=== PATIENT | male | born 1950 | race Caucasian/White ===

== ENCOUNTER → 2021-01-09 07:24 | Outpatient (REF) | payer MEDICARE, OTHER, SELFPAY | LOC: ANHLAB 07:24 | PROVIDERS: Visit Provider Nurse Practitioner | DX: C44.42 Squamous cell carcinoma of skin of scalp and neck (principal) | CPT/HCPCS: 88305; 88331 ==

== ENCOUNTER 2024-07-26 10:04 | Emergency (ER) | payer MEDICARE, OTHER, SELFPAY ==
[2024-07-26 10:04] VITALS: BP 153/70; PULSE 76; RESP 16; TEMP 36.4; O2SAT 99
--- OUTSIDE RECORDS SUMMARY | 2024-07-26 10:06 | XMS_ITS | Continuity of Care Document ---
Author Name [facility] Organization [facility] Care Team Providers Care Loop Tacker Name Role Phone [facility] Unavailable Unavailable Problems Combined list of problems from Department of Defense and Veterans Affairs facilities. It does not include entries that were removed or entered in error. Problem Status Onset Date Problem Type Date of Resolution Comments Source Underimmunization status Active 05/20/19 18 Condition DoD Prediabetes Active Condition DoD itching (pruritus) Inactive Condition Do D GASTROENTERITIS Active Condition DoD HEMORRHOIDS EXTERNAL Active Condition D oD SORE THROAT Inactive Condition DoD Outpatient Physician Consultation Active Condition DoD (Lower) Leg Localized Swelling Active Condition DoD skin lesion [Sx] Inactive Condition DoD snoring Active Condition DoD cough Active Condition DoD Laboratory Studies Inactive Condition Do D sore throat Inactive Condition DoD CATARACT SENILE BOTH EYES Active Condition DoD ASTIGMATISM Active Condition 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 Recommend stretching prior to exercise, drink plenty of water, protect from sun and heat exposure, and do treadmill stress. Will check CBC and ESR for evidence of rhuematoid arthritis, though this is not likely. [facility] Occupational Therapy Active Condition D oD joint pain, localized in the shoulder Active Condition Today's complaint is involves the RIGHT shoulder. (MRI of left shoulder is pending and is a separate problem.) Suggest pt try OTC Aleve or generic equiv and take 2 po q 6-8 hours w/ food. And use Ice of Heat as well. He could also possibly benefit from a joint injection or eval for accupuncture. He is more interested in the injection. DoD SHOULDER SPRAIN ROTATOR CUFF (CAPSULE) LEFT Active Condition I suspec t a minor left shoulder rotator cuff sprain, will start motrin for pain control and send pt to Physical therapy [facility] UPPER RESPIRATORY INFECTION Active Condition Pt with likely viral URI. Low grade temp. No sore throat. No generalized aches. Cont current supportive care with Robitussin and Nyquil. Wear mask if coughing around grandchild and frequent hand washings. Use humidifier at night. Return to clinic if fever >102, purulent sputum, wheezing or SOB. F/u prn. DoD abdominal pain in the right upper belly (RUQ) Active Condition Not surgical in nature, suspect early gallbladder pathology however, given low severity of sx, educated pt on proper diet and exercise. Informed pt if we get scan, surg is not indicated as sx are not severe enough. Pt to RTC if sx worsen, pt verb understanding . 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 Since patient has history of poor skin cancer precautions adherence, will send to dermatology for skin check. DoD TENDONITIS SHOULDER Active Condition PT and motrin. f/u n 4 weeks or sooner with concerns DoD SHOULDER SEPARATION CLOSED ACROMIOCLAVICULAR JOINT Active Condition Will reevaluate rt AC joint since it continues to cause him pain. In the past the ortho doc he was seeing suggested surgery. check x rays DoD IMPAIRED FASTING GLUCOSE Active Condition Due to recent normal A1Cs, will have trial of stopping metformin for 3 mos and increasing physical activity. If A1C elevates, consider restarting metformin DoD foot pain (soft tissue) Inactive Condition may be a sign of DM. will check for stress fractors on xray and send to podiatry for orthotic recs. Asked him to get hard soled shoes and replace Q6 months DoD HYPERTENSION (SYSTEMIC) Active Condition Will refill his meds x 1 year, good control DoD visit for: issue repeat prescription Inactive Condition Will refill HTN and DM meds for 30 days as pt may need change, will refill remained for 1 year. Will need HgA1C prior to next visit DoD ATYPICAL CHEST PAIN Active Condition Do D ESSENTIAL HYPERTENSION Active Condition DoD HYPERLIPIDEMIA Active Condition Pt wi ll get lipids and liver fxn test later this week (already in computer), continue with current meds for now. If lipids elevated, consider stopping lopid and starting statin instead DoD chest pain or discomfort Active Condition DoD OSTEOARTHRITIS Active Condition DoD Removal Of Sutures Inactive Condition Do D BENIGN SKIN NEOPLASM PIGMENTED NEVUS Active Condition DoD visit for: screening malignant neoplasm colon Inactive Condition repeat colonoscopy in 10 years DoD Physical Examination Inactive Condition DoD ESSENTIAL HYPERTRIGLYCERIDEMIA Active Condition Will re send to nutrition as pt unable to make previous appts DoD visit for: administrative purpose Inactive Condition Refer ral returned to CP for processing as routine [facility] to be done on Tuesdays.Jennifer y DoD FATIGUE Active Condition Due to obesity, lack of physical activity. Not likely due to B-royce given prolonged use. Check TSH, routine labs. DoD PRESYNCOPE SYNDROME Active Condition Likely vasovagal or postural hypotension. Decrease HCTZ. Check routine labs. EKG shows flattened and inverted Ts in lateral lead and some mild ST depression. Given this I will order a stress test to evaluate for ischemia. DoD ESOPHAGEAL REFLUX Active Condition ne eds med refill DoD TENSION-TYPE HEADACHE Active Condition toradol 60 given today with significant relief DoD ALLERGIC RHINITIS Active Condition c/ o itchy eyes, nasal congestion likely contirbutor to adhikari DoD Medications Combined list of outpatient medications from Department of Defense and Veterans Affairs facilities.Medications provided include 1) outpatient medications from the last 15 months, and 2) patient-reported medications. Medication Details Route Status Patient Instructions Prescription Expires Prescription Number Last Dispense Date Ordering Provider Order Date Order Qty Source ASPIRIN EC (U/D) 81 MG ORAL TBEC Take with food/mil k.Swallo w whole. Active 09/02/2024 [id number] 4 [address] [place] [address] G[facility]mez [facility] ([facility] ASPIRIN EC (U/D) 81 MG ORAL TBEC Take with food/mil k.Swallo w whole. 08/20/2023 [id number] 3 [address] [place] [address] ([facility]) aspirin EC 81 mg tablet 81 mg, Oral, Daily, # 90 EA, 3 total refill(s ), Hard Stop Oral (given by mouth) Ordered 09/02/2024 5 2024 90.0 Ambulat ory Pharmac y aspirin EC 81 mg tablet See Instruct ions, # 90 EA, 3 total refill(s ), Acute Complet ed 08/20/2023 4 2023 90.0 Ambulat ory Pharmac y CRESTOR (BRAND) 20 MG ORAL TAB Do not take with milk, antacids , or iron.Onur e or use exactly as directed .Do not take if . 08/20/2023 [id number] 3 [address] [place] [address]) dulaglutide 0.75 mg/0.5 mL pen [4EA=2mL] See Instruct ions, # 2 mL, 11 total refill(s ), Hard Stop Notes: refriger ate Ordered 04/15/2025 5 2024 2.0 Ambulat ory Pharmac y Dulaglutide 1.5 mg/mL, Injection, 0.5mL Autoinjecto r refriger ateCheck with your doctor before becoming .Store in original package. 05/07/2024 [id number] 4 [address] [place] [address]) Fenofibrate (TriCor Eq.) Tablet 145 mg Oral Active 09/02/2024 [id number] 08/07 4 [address] [place] [address]) Fenofibrate (TriCor Eq.) Tablet 145 mg Oral 08/20/2023 [id number] 08/06 3 [address] [place] [address]) fenofibrate 145 mg tablet 145 mg, Oral, Daily, # 90 EA, 3 total refill(s ), Hard Stop Oral (given by mouth) Ordered 09/02/2024 5 2024 90.0 Ambulat ory Pharmac y FLOMAX (BRAND) 0.4 MG ORAL CAP May cause drowsine ss.Be careful if taking OTCs.Onur e or use exactly as directed .Swallow whole. Active 09/02/2024 [id number] 4 [address] [place] [address]) FLOMAX (BRAND) 0.4 MG ORAL CAP May cause drowsine ss.Be careful if taking OTCs.Onur e or use exactly as directed .Swallow whole. 08/20/2023 [id number] 3 [address] [place] [address]) GLUCOPHAGE (BRAND) 500 MG ORAL TAB Do not drink alcohol. Take with food/mil k.Take or use exactly as directed .Obtain advice for OTCs.Rosa ck with your doctor before becoming . Active 09/02/2024 [id number] 4 [address] [place] [address]) GLUCOPHAGE (BRAND) 500 MG ORAL TAB Do not drink alcohol. Take with food/mil k.Take or use exactly as directed .Obtain advice for OTCs.Rosa ck with your doctor before becoming . 08/20/2023 [id number] 3 [address] [place] [address]) hydroCHLORO thiazide (U/D) 12.5 MG PO CAP Take orange juice or banana.T nayely with food/mil k.Avoid exposure to sun.Take or use exactly as directed . Active 09/02/2024 [id number] 4 [address] [place] [address]) hydroCHLORO thiazide (U/D) 12.5 MG PO CAP Take orange juice or banana.T nayely with food/mil k.Avoid exposure to sun.Take or use exactly as directed . 08/20/2023 [id number] 3 [address] [place] [address]) hydroCHLORO thiazide 12.5 mg capsule See dose instruct ions in comments , # 90 EA, 3 total refill(s ), Acute Complet ed 08/20/2023 4 2023 90.0 Ambulat ory Pharmac y hydroCHLORO thiazide 12.5 mg capsule 12.5 mg, Oral, every morning, # 90 EA, 3 total refill(s ), Hard Stop Oral (given by mouth) Ordered 09/02/2024 5 2024 90.0 Ambulat ory Pharmac y lisinopril (U/D) 20 MG ORAL TAB Be careful if taking OTCs.Onur e or use exactly as directed .Do not take if . Active 09/02/2024 [id number] 4 [address] [place] [address] Gómez SAHA ([facility]) lisinopril 20 mg tablet See Instruct ions, # 90 EA, 3 total refill(s ), Acute Complet ed 08/20/2023 4 2023 90.0 Ambulat ory Pharmac y lisinopril 20 mg tablet 20 mg, Oral, Daily, # 90 EA, 3 total refill(s ), Hard Stop Oral (given by mouth) Ordered 09/02/2024 5 2024 90.0 Ambulat ory Pharmac y Loratadine (Alavert ODT) Tablet 10 mg Oral May cause drowsine ss.Obtai n advice for OTCs. Active 09/02/2024 [id number] 4 [address] [place] [address] Gómez SAHA ([facility]) Loratadine (Alavert ODT) Tablet 10 mg Oral May cause drowsine ss.Obtai n advice for OTCs. 08/20/2023 [id number] 3 [address] [place] [address] Gómez SAHA ([facility]) loratadine 10 mg tablet 10 mg, Oral, Daily, # 90 EA, 3 total refill(s ), Hard Stop Oral (given by mouth) Ordered 09/02/2024 5 2024 90.0 Ambulat ory Pharmac y loratadine 10 mg tablet See Instruct ions, # 90 EA, 3 total refill(s ), Acute Complet ed 08/20/2023 4 2023 90.0 Ambulat ory Pharmac y metFORMIN 500 mg tablet See dose instruct ions in comments , # 270 EA, 3 total refill(s ), Acute Complet ed 08/20/2023 4 2023 270.0 Ambulat ory Pharmac y metFORMIN 500 mg tablet 500 mg, Oral, TID, # 270 EA, 3 total refill(s ), Hard Stop Oral (given by mouth) Ordered 09/02/2024 5 2024 270.0 Ambulat ory Pharmac y metoprolol succ (U/D) 50 MG ORAL TB24 Be careful if taking OTCs.Onur e with food/mil k.Take or use exactly as directed .May impair driving. Swallow whole.Ma y cause drowsine ss/dizzi ness. Active 09/02/2024 [id number] 4 [address] [place] [address] ([facility]) metoprolol succ (U/D) 50 MG ORAL TB24 Be careful if taking OTCs.Onur e with food/mil k.Take or use exactly as directed .May impair driving. Swallow whole.Ma y cause drowsine ss/dizzi ness. 08/20/2023 [id number] 3 [address] [place] [address] ([facility]) metoprolol succinate ER 50 mg/24 hour tablet See Instruct ions, # 90 EA, 3 total refill(s ), Acute Complet ed 08/20/2023 4 2023 90.0 Ambulat ory Pharmac y metoprolol succinate ER 50 mg/24 hour tablet 50 mg, Oral, Daily, # 90 EA, 3 total refill(s ), Hard Stop Oral (given by mouth) Ordered 09/02/2024 5 2024 90.0 Ambulat ory Pharmac y pantoprazol e EC 20 mg tablet See Instruct ions, # 90 EA, 3 total refill(s ), Acute Complet ed 08/20/2023 4 2023 90.0 Ambulat ory Pharmac y pantoprazol e EC 20 mg tablet 20 mg, Oral, Daily, # 90 EA, 3 total refill(s ), Hard Stop Oral (given by mouth) Ordered 09/02/2024 5 2024 90.0 Ambulat ory Pharmac y rosuvastati n 20 mg tablet 20 mg, Oral, 0, # 90 EA, 3 total refill(s ), Hard Stop Oral (given by mouth) Ordered 09/02/2024 5 2024 90.0 Ambulat ory Pharmac y rosuvastati n 20 mg tablet See dose instruct ions in comments , # 90 EA, 3 total refill(s ), Acute Complet ed 08/20/2023 4 2023 90.0 Ambulat ory Pharmac y tamsulosin 0.4 mg capsule 0.4 mg, Oral, Daily, # 90 EA, 3 total refill(s ), Hard Stop Oral (given by mouth) Ordered 09/02/2024 5 2024 90.0 Ambulat ory Pharmac y tamsulosin 0.4 mg capsule 0.4 mg, # 90 EA, 3 total refill(s ), Acute Complet ed 08/20/2023 4 2023 90.0 Ambulat ory Pharmac y Tricor 145 mg tablet See Instruct ions, # 90 EA, 3 total refill(s ), Acute Complet ed 08/20/2023 4 2023 90.0 Ambulat ory Pharmac y Trulicity Pen 0.75 mg/0.5 mL [4EA=2mL] See Instruct ions, # 6 mL, 3 total refill(s ), Hard Stop Notes: refriger ate Discont inued 04/20/2024 4 2024 6.0 Ambulat ory Pharmac y Trulicity Pen 0.75 mg/0.5 mL [4EA=2mL] See dose instruct ions in comments , # 2 mL, 10 total refill(s ), Acute Discont inued 05/20/2023 3 2023 2.0 Ambulat ory Pharmac y Allergies, Adverse Reactions, Alerts Combined list of allergies from Department of Defense and Veterans Affairs facilities. It does not include entries that were removed or entered in error. Substance Category Reaction Severity Reaction type Status Date Reported Comments Source NO OUTPUT FOR NCID [id number] Drug allergy (disorder) active 12/16/2007 [facility] Gómez SAHA ([facility]) Immunizations Combined list of available immunizations from the Department of Defense and Veterans Affairs facilities. Immunization Series Date Given Administered By Site Reaction Lot Number CVX Code Drug Geochemical Manager Status Comments Source COVID-19, mRNA, LNP-S, PF, 30 mcg/0.3 mL dose 2020 [employer] [place] (PFR) Not Given COVID-19, mRNA, LNP-S, PF, 30 mcg/0.3 mL dose DoD Influenza vaccine, quadrivalent, adjuvanted 2020 BAM, () Not Given Influenza vaccine, quadrival ent, adjuvante d DoD COVID-19, mRNA, LNP-S, PF, 30 mcg/0.3 mL dose 2020 JD, [employer] [place] (PFR) Not Given COVID-19, mRNA, LNP-S, PF, 30 mcg/0.3 mL dose DoD COVID-19, mRNA, LNP-S, PF, 30 mcg/0.3 mL dose 2020 [employer] [place] (PFR) Not Given COVID-19, mRNA, LNP-S, PF, 30 mcg/0.3 mL dose DoD pneumococcal 13-valent conjugate (PCV13) 2018 zzLef t Arm [id number] [email or web address] [facility] complet ed pneumococ malcom 13-valent conjugate (PCV13) 10/23/18 Given Ambulat ory Pharmac y pneumococcal conjugate vaccine, 13 valent 1 2018 Unknown, Provider [id number] [facility] ([facility]) complet ed pneumococ malcom conjugate vaccine, 13 valent DoD tetanus, diphtheria, acellular pertu is 2008 zzLef t Arm [id number] 115 GlaxoSmithK[employer] ny complet ed tetanus, diphtheri a, acellular pertussis 02/01/09 Given Ambulat ory Pharmac y influenza virus vaccine,split 2008 zzLef t Arm [id number] 15 sanofi pasteur complet ed influenza virus vaccine,s plit 02/01/09 Given Ambulat ory Pharmac y influenza virus vaccine, split virus (incl. purified surface antigen)-reti red CODE 1 2008 Unknown, Provider [id number] 15 Sanofi Pasteur (PMC) complet ed influenza virus vaccine, split virus (incl. purified surface antigen)- retired CODE DoD tetanus toxoid, reduced diphtheria toxoid, and acellular pertu is vaccine, adsorbed 1 2008 Unknown, Provider [id number] 115 [facility] ([facility]) complet ed tetanus toxoid, reduced diphtheri a toxoid, and acellular pertussis vaccine, adsorbed DoD hepatitis A adult vaccine 1997 [id number] 52 GlaxoSmithKli ne complet ed hepatitis A adult vaccine 02/09/98 Given Ambulat ory Pharmac y influenza virus vaccine, whole virus [id number] PFIZER complet ed influenza virus vaccine, whole virus 02/09/98 Given Ambulat ory Pharmac y tetanus-dipht h toxoids (Td) adult/adol 1997 [id number] 09 Sai [employer] [facility] complet ed tetanus-d iphth toxoids (Td) adult/ado l 02/09/98 Given Ambulat ory Pharmac y typhoid vaccine, live, oral 1997 [id number] 25 [employer] [place] complet ed typhoid vaccine, live, oral 02/09/98 Given Ambulat ory Pharmac y tetanus and diphtheria toxoids, adsorbed, preservative free, for adult use (2 Lf of tetanus toxoid and 2 Lf of diphtheria toxoid) 1 1997 Unknown, Provider [id number] 09 [employer] (LED) complet ed tetanus and diphtheri a toxoids, adsorbed, preservat carmelita free, for adult use (2 Lf of tetanus toxoid and 2 Lf of diphtheri a toxoid) DoD influenza virus vaccine, whole virus 1 1997 Unknown, Provider [id number] 16 Braden (Inactive) (MS) complet ed influenza virus vaccine, whole virus DoD typhoid vaccine, live, oral 1 1997 Unknown, Provider [id number]. 1B 25 Alysia (BP) complet ed typhoid vaccine, live, oral DoD hepatitis A vaccine, adult dosage 2 1997 Unknown, Provider [id number] 52 [employer] (SKB) complet ed hepatitis A vaccine, adult dosage DoD influenza virus vaccine, whole virus [id number] 16 PFIZER complet ed influenza virus vaccine, whole virus 02/18/97 Given Ambulat ory Pharmac y hepatitis A adult vaccine 1996 [id number] GlaxoSmithKli ne complet ed hepatitis A adult vaccine 02/18/97 Given Ambulat ory Pharmac y influenza virus vaccine, whole virus 1 1996 Unknown, Provider [id number] 16 Braden (Inactive) (MS) complet ed influenza virus vaccine, whole virus DoD hepatitis A vaccine, adult dosage 1 1996 Unknown, Provider [id number] [place], [place] [address] ([facility] complet ed hepatitis A vaccine, adult dosage DoD measles/mumps /rubella virus vaccine 1976 03 complet ed measles/m umps/rube lla virus vaccine 04/08/76 Given Ambulat ory Pharmac y poliovirus vaccine, live, oral 1976 02 complet ed polioviru s vaccine, live, oral 04/08/76 Given Ambulat ory Pharmac y trivalent poliovirus vaccine, live, oral 1 1976 Unknown, Provider 02 () complet ed trivalent polioviru s vaccine, live, oral DoD measles, mumps and rubella virus vaccine 1 1976 Unknown, Provider 03 () complet ed measles, mumps and rubella virus vaccine DoD Encounters Combined list of: 1) Encounters from Department of Veterans Affairs facilities going backup to the last 18 months, not all VA inpatient encounters are included; 2) Encounters from the Department of Defense facilities going backup to 280 months. Location Location Details Encounter Type Encounter Number Reason For Visit Attending Provider ADM Date DC Date Status Disposition Source [address] [place] [address] G[place] SAHA [facility] [place] [facility] [facility] [place] OUTPATIENT [id number] f/u bp JAELYN WOMACK 02/15 Released w/o Limitations [address] [place] [address] [place] SAHA [facility] [place] [facility] [facility] [place] [address] [place] [address] [place] [place] [facility] [place] Green[place] OUTPATIENT [id number] DIZZY SPELLS/ BP MENDEZS KERI SANTIZO 07/03 Released w/o Limitations [address] [place] [address] G[facility] SAHA [facility] [place] [facility] [place] [address] [place] [address] [place] [place] [facility] [place] [facility] T[place] Blue[place] OUTPATIENT [id number] adult LINDSEY Ruiz 07/24 Released w/o Limitations [address] [place] [address] G[facility] SAHA [facility] [place] [facility] [place] [facility] [place] [address] [place] [address] Gómez ROSENBAUMB ([facility])(Fam keith Practice Procedure s) OUTPATIENT [id number] atypica l shaylai JOSE GUADALUPE BLACK Dilan 08/03 Released w/o Limitations [address] [place] [address] G[place]z [place]EN[place] ([facility])(F amily Practic e Procedu res) [address] [place] [address] Gómez ROSENBAUMB [facility] [place] [facility] [place] [facility] [place] Blue[place] OUTPATIENT [id number] SUTURE REMOVAL WILLOWSON Leola 08/10 Released w/o Limitations [address] [place] [address] Gómez ROSENBAUMB [facility] [place]S cott [facility] [place] [facility] [place] [address] [place] [address] [place] [facility] [place] [facility] [place] [facility] [place] Blue[place] OUTPATIENT [id number] f/u stress test LINDSEY SONG 09/06 Released w/o Limitations [address] [place] [address] Gómez SAHA ([facility] [facility] [place] Blue[place] [address] [place] [address] [place] ROBIB [facility] [place]Car diology Rs ([facility])) OUTPATIENT [id number] ATYPICA L CHEST PAIN VAL MCCRACKEN 09/11 Released w/o Limitations [address] [place] [address] Gómez ROSENBAUMB [facility] [place]C ardiolo gy Rs ([facility])) [address] [place] [address] G[place] ROBIB [facility] [place]Car diologyPr ocedure Schedules ) OUTPATIENT [id number] chest pain SHARMIN ARANDA 10/04 Released w/o Limitations [address] [place] [address] G[facility]mez ROSENBAUMB ([facility])(C ardiolo gyProce dure Schedul es) [address] [place] [address] Gómez ROSENBAUMB [facility] [place] [facility] [place] [facility] T[place] Blue[place] TELE CONSULT [id number] Med refill DOUG HEIN 01/[address] [place] [address] Gómez ROSEN[place]UMB ([facility])(S [place] [facility] [address] [place] [address] Góme[place] [facility]B [facility] [place]Sco [place] [facility] [facility] T[place] Blue) OUTPATIENT [id number] feet problem s. phone:[phone]*DOUG Leonard 07/11 Released w/o Limitations [address] [place] [address] Gómez ROSENBAUMB [facility] [place] [facility] [place] [facility] [place]) [address] [place] [address] Gó[place] [facility] [place] [facility] [facility] [place]) OUTPATIENT [id number] annual physica l DOUG HEIN E 07/30 Released w/o Limitations [address] [place] [address] Gómez SAHA ([facility]S [place] [facility] [place]) [address] [place] [address] Gómez SAHA ([facility]co [place] [facility] [facility] [place]) OUTPATIENT [id number] eval shoulde r DOUG Fox E 08/01 Released w/o Limitations [address] [place] [address] Gómez ROSENBAUMB [facility] [place] [facility] [place] [address] [place] [address] [facility] [place]Sco tt [facility] [place]) OUTPATIENT [id number] f/u meds/la DOUG Gordillo E 08/27 Released w/o Limitations [address] [place] [address] [facility] [place] [place]S cott [facility] [address] [place] [address] [facility] [place]Sco tt [facility]) TELE CONSULT [id number] [place] copy results FARAZ JONES 08/[address] [place] [address] [facility] [place]S cott [facility]) [address] [place] [address] [facility] [place]Opt ometry) OUTPATIENT [id number] Annual Exam LAW PRIETO W 01/24 Released w/o Limitations [address] [place] [address] [facility] [place]O ptometr y) [address] [place] [address] [facility] [place]Sco tt [facility] [place]) TELE CONSULT [id number] Rx renewal LORRI YANEZ 01/[address] [place] [address] [facility] [place]S cott [facility] [place] [address] [place] [address] [facility] [place]Sco tt [facility] [place] Green) TELE CONSULT [id number] lab results LORRI YANEZ 02/[address] [place] [address] [facility] [place]S cott [facility] [place] [place]) [address] [place] [address] [facility] [place]Sco tt [facility] [place]) TELE CONSULT [id number] Booking an appt with me? LORRI YANEZ 02/[address] [place] [address] [facility] [place]S cott [facility]) [address] [place] [address] [facility] [place]Sco tt [facility] [place]) OUTPATIENT [id number] per LORRI Solomon 02/13 Released w/o Limitations [employer] ([facility] [place]S cott [facility] [place] [employer] ([facility] [place])(Sco tt [facility] [place]) OUTPATIENT [id number] congest ion,fev er 100.01, per patient BRUCEUZMACASSANDRA 05/12 Released w/o Limitations [employer] ([facility]S cott [facility] [place] Green[place] [facility] [employer] ([facility] [place]Sco tt [facility] [place] [facility]) OUTPATIENT [id number] Follow up LORRI YANEZ 06/02 Released w/o Limitations [employer] ([facility]S cott [facility] [place] [facility] [employer] ([facility])(Occ upational Therapy) OUTPATIENT [id number] SHOULDE R SPRAIN ROTATOR CUFF (CAPSUL E) LEFT AGUSTINA RIVERA 06/15 Released w/o Limitations [employer] ([facility] [place])(O ccupati onal Therapy ) [facility] [employer] ([facility])(Occ upational Therapy) OUTPATIENT [id number] ROLA BARNEY 06/16 Released w/o Limitations [employer] ([facility] [place])(O ccupati onal Therapy ) [employer] ([facility] [place])(Occ upational Therapy) OUTPATIENT [id number] DIRK FLORES 06/22 Released w/o Limitations [employer] ([facility] [place])(O ccupati onal Therapy ) [facility] [employer] ([facility])(Occ upational Therapy) OUTPATIENT [id number] ROLA BARNEY 06/25 Released w/o Limitations [employer] ([facility])(O ccupati onal Therapy ) [facility] [employer] ([facility])(Occ upational Therapy) OUTPATIENT [id number] DIRK FLORES 06/29 Released w/o Limitations [employer] ([facility])(O ccupati onal Therapy ) [employer] ([facility] [place])(Occ upational Therapy) OUTPATIENT [id number] SAVITAROLA HUFF Ranjeet 07/01 Released w/o Limitations [employer] ([facility] [place])(O ccupati onal Therapy ) [employer] ([facility])(Occ upational Therapy) OUTPATIENT [id number] SAVITAROLA HUFF Ranjeet 07/06 Released w/o Limitations [employer] ([facility])(O ccupati onal Therapy ) [employer] ([facility])(Occ upational Therapy) OUTPATIENT [id number] AGUSTINA RIVERA 07/08 Released w/o Limitations [employer] ([facility])(O ccupati onal Therapy ) [employer] ([facility])(Sco tt [facility] [place] [facility]) TELE CONSULT [id number] Medicat ion Request LORRI YANEZ 07/20 [employer] ([facility]S cott [facility] [place] [facility] [employer] ([facility])(Occ upational Therapy) OUTPATIENT [id number] CARIE BUTT 07/22 Released w/o Limitations [employer] ([facility])(O ccupati onal Therapy ) [employer] ([facility])(Occ upational Therapy) OUTPATIENT [id number] DIRK FLORES 07/27 Released w/o Limitations [employer] ([facility])(O ccupati onal Therapy ) [employer] ([facility])(Occ upational Therapy[facility] OUTPATIENT [id number] DIRK FLORES 07/29 Released w/o Limitations [employer] ([facility])(O ccupati onal Therapy ) [facility] [employer] ([facility]Sco tt [facility] [place]) OUTPATIENT [id number] Follow up for blood work LORRI YANEZ 08/10 Released w/o Limitations [employer] ([facility]S cott [facility] [employer] ([facility])(Occ upational Therapy) OUTPATIENT [id number] AGUSTINA RIVERA 08/11 Released w/o Limitations [employer] ([facility])(O ccupati onal Therapy ) [employer] ([facility])(Occ upational Therapy) OUTPATIENT [id number] ROLA BARNEY 08/20 Released w/o Limitations [employer] ([facility])(O ccupati onal Therapy ) [employer] ([facility])(Occ upational Therapy) OUTPATIENT [id number] DIRK FLORES 08/25 Released w/o Limitations [employer] ([facility])(O ccupati onal Therapy ) [employer] ([facility])(Occ upational Therapy) OUTPATIENT [id number] CARIE BUTT 08/27 Released w/o Limitations [employer] ([facility])(O ccupati onal Therapy ) [employer] ([facility])(Occ upational Therapy) OUTPATIENT [id number] DIRK FLORES 09/01 Released w/o Limitations [employer] ([facility])(O ccupati onal Therapy ) [employer] ([facility])(Occ upational Therapy) OUTPATIENT [id number] ROLA BARNEY 09/03 Released w/o Limitations [employer] ([facility])(O ccupati onal Therapy ) [employer] ([facility])(Occ upational Therapy) OUTPATIENT [id number] AGUSTINA RIVERA 09/09 Released w/o Limitations [employer] ([facility])(O ccupati onal Therapy ) [employer] ([facility])(Sco tt [facility] OUTPATIENT [id number] oli chakraborty on face HANK MARSHALL 09/21 Released w/o Limitations [employer] ([facility]S cott [facility] [employer] ([facility])(Occ upational Therapy) OUTPATIENT [id number] DIRK FLORES 09/22 Released w/o Limitations [employer] ([facility])(O ccupati onal Therapy ) [employer] ([facility])(Occ upational Therapy) OUTPATIENT [id number] ROLA BARNEY 09/24 Released w/o Limitations [employer] ([facility])(O ccupati onal Therapy ) [employer] ([facility])(Sco tt [facility] TELE CONSULT [id number] MITA Winslow 09/24 [employer] ([facility])(S cott [facility] [facility] [employer] ([facility])(Occ upational Therapy) OUTPATIENT [id number] ROLA BARNEY 09/29 Released w/o Limitations [employer] ([facility])(O ccupati onal Therapy ) [employer] ([facility])(Occ upational Therapy) OUTPATIENT [id number] ROLA BARNEY 10/01 Released w/o Limitations [employer] ([facility])(O ccupati onal Therapy ) [facility] [employer] ([facility])(Occ upational Therapy[facility] OUTPATIENT [id number] ROLA BARNEY 10/07 Released w/o Limitations [employer] ([facility])(O ccupati onal Therapy ) [facility] [employer] ([facility])(Occ upational Therapy) OUTPATIENT [id number] AGUSTINA RIVERA 10/27 Released w/o Limitations [employer] ([facility])(O ccupati onal Therapy ) [employer] ([facility])(Occ upational Therapy) OUTPATIENT [id number] DIRK FLORES 10/30 Released w/o Limitations [employer] ([facility])(O ccupati onal Therapy ) [employer] ([facility])(Occ upational Therapy[facility] OUTPATIENT [id number] ROLA BARNEY 11/03 Released w/o Limitations [employer] ([facility])(O ccupati onal Therapy ) [employer] ([facility])(Occ upational Therapy) OUTPATIENT [id number] DIRK FLORES 11/05 Released w/o Limitations [employer] ([facility])(O ccupati onal Therapy ) [employer] ([facility])(Occ upational Therapy) OUTPATIENT [id number] SAVITA ROLA W 11/16 Released w/o Limitations [employer] ([facility])(O ccupati onal Therapy ) [employer] [facility] [employer] ([facility])(Occ upational Therapy) OUTPATIENT [id number] ROLA BARNEY 11/18 Released w/o Limitations [employer] ([facility])(O ccupati onal Therapy ) [employer] ([facility])(Occ upational Therapy) OUTPATIENT [id number] ROLA BARNEY 11/24 Released w/o Limitations [employer] ([facility])(O ccupati onal Therapy ) Medical [facility] [employer] ([facility])(Phy sical Therapy) OUTPATIENT [id number] BIBI HARDWICK 11/25 Released w/o Limitations [employer] ([facility])(P hysical Therapy ) [employer] ([facility])(Phy sical Therapy) OUTPATIENT [id number] BIBI HARDWICK 11/27 Released w/o Limitations [employer] ([facility])(P hysical Therapy ) [facility] Medical [facility] [employer] ([facility])(Sco tt [facility]) OUTPATIENT [id number] [phone] SHOULDE R STU MILLAN 12/08 Released w/o Limitations [employer] ([facility])(S cott [facility] [employer] ([facility])(Sco tt [facility]) OUTPATIENT [id number] shoulde r problem s LORRI YANEZ 12/15 Released w/o Limitations [employer] ([facility])(S cott [facility] [employer] ([facility])(Sco tt [facility]) OUTPATIENT [id number] MINOR PROCEDU RES-jamil nt pain, localiz ed in the SOFÍA Wilder 12/22 Released w/o Limitations [employer] ([facility])(S cott OF FAMRES Tm Blue[facility] Medical [facility] [employer] ([facility])(Sco tt [facility]) TELE CONSULT [id number] Medicat ion Request DIGNA CLARK 02/25 Medical [facility] [employer] ([facility])(S cott OF FAMRES Tm Blue) [facility] Medical [facility] [employer] ([facility])(Sco tt [facility]) OUTPATIENT [id number] sinus and chest cold GRECIA PETERSON 04/27 Released w/o Limitations [facility] [employer] ([facility])(S cott OF FAMRES Tm Blue) [address] [place] [address] [employer] [facility] ([facility])(Sco tt [facility]) TELE CONSULT [id number] Medicat ion Request DIONICIO, KEVIN Violeta 09/27[facility] [employer] ([facility])(S cott [facility] [address] [place] [address] [employer] [facility] ([facility])(Sco tt [facility]) OUTPATIENT [id number] htn f/u REINIER PAGE 10/21 Released w/o Limitations [address] [place] [address] [employer] [facility] ([facility])(S cott [facility] Medical [facility] [employer] ([facility])(Sco tt [facility] Tm Green) OUTPATIENT [id number] Flu Shot KALEB LEWIS 02/01 Released w/o Limitations [facility] [employer] ([facility])(S cott [facility] Tm Green[facility] Medical [facility] [employer] ([facility])(Sco tt [facility] Tm Green) TELE CONSULT [id number] med JOURDAN Jama 02/18 [facility] [employer] ([facility])(S cott OF Fam Res Tm Green) [address] [place] [address] [employer] ([facility])(Sco tt [facility]) TELE CONSULT [id number] JOURDAN Borja 04/20 [facility] [employer] ([facility])(S cott [facility] Medical [facility] [employer] ([facility])(Sco tt [facility]) OUTPATIENT [id number] F/U FOR BLOOD PRESSUR E [phone] JOURDAN HI Dilan 05/16 Released w/o Limitations [address] [place] [address] [employer] [facility] ([facility])(S cott OF FAMRES Tm Blue) [address] [place] [address] [facility] ([facility])(Sco tt [facility]) TELE CONSULT [id number] JOURDAN Jama Dilan 07/[address] [place] [address] [facility] ([facility])(S cott OF FAMRES Tm Blue) [address] [place] [address] [facility] ([facility])(Sco tt [facility]) TELE CONSULT [id number] refalok JOURDAN HI Dilan 08/[address] [place] [address] [employer] [facility] ([facility])(S cott [facility]) [address] [place] [address] [facility] ([facility])(Sco tt [facility]) TELE CONSULT [id number] refill JOURDAN HI Dilan 09/[address] [place] [address] [employer] ([facility])(S cott [facility]) [address] [place] [address] [facility] ([facility])(Sco tt [facility] [place]m Blue) OUTPATIENT [id number] f/u for meds JOURDAN HI Dilan 10/05 Released w/o Limitations [address] [place] [address] [employer] [facility] ([facility])(S cott [facility] Blue) [address] [place] [address] [facility] [place] [place]Opt ometry) OUTPATIENT [id number] eye exam... [id number] ZHANG CLEMENTS 10/26 Released w/o Limitations [address] [place] [address] [employer] [facility] ([facility])(O ptometr y) [address] [place] [address] [employer] [facility] ([facility])(Sco tt [facility] Fam Res Tm Green) OUTPATIENT [id number] SHARMIN Ritter 11/03 Released w/o Limitations [address] [place] [address] [employer] ([facility])(S cott [facility] F[facility] Tm Green) [address] [place] [address] [employer] ([facility])(Sco tt [facility] Tm Blue) TELE CONSULT [id number] Refill SHIRA Dumas 06/[address] [place] [address] [employer] [facility] ([facility])(S cott [facility] Tm Blue) [address] [place] [address] [employer] [facility] ([facility])(Sco tt [facility] Tm Blue) TELE CONSULT [id number] [facility] marni cad/dkk [id number] lisono ril/hct z is out. JOURDAN HI 09/[address] [place] [address] [facility])(S cott [facility] Tm Blue) [address] [place] [address] [facility])(Sco tt [facility] Tm Blue) TELE CONSULT [id number] rx refills - [phone] CAD [facility] FRED Yuen 01/[address] [place] [address])(S cott [facility] Tm Blue) [address] [place] [address])(Sco tt [facility] Tm Blue) TELE CONSULT [id number] FYI: Annual labs ordered CARLA ZHANG 01/[address] [place] [address])(S cott [facility] Tm Blue) [address] [place] [address])(Sco tt [facility] Fam Res Tm Green) OUTPATIENT [id number] Fever [phone] AB CISSE 01/16 Released w/o Limitations [address] [place] [address])(S cott [facility] Fam Res Tm Green) [address] [place] [address])(Sco tt [facility] Tm Blue) TELE CONSULT [id number] Notes Entered by: MAKAYLA YEE 18 Jun 2011 0959 ------- ------- ------- - CAMILO BADILLO 06/[address] [place] [address])(S cott [facility] Tm Blue) [address] [place] [address])(Sco tt [facility] Tm Blue) TELE CONSULT [id number] Notes Entered by: Renetta HORTA 21 Jun 2011 1307 ------- ------- ------- ------- -- Med refill CRALA ZHANG 06/[address] [place] [address] [facility])(S cott [facility] Tm Blue) [address] [place] [address])(Sco tt [facility] Tm Blue) OUTPATIENT [id number] Cough [phone] WILLIAN CLEMENTS 10/24 Released w/o Limitations [address] [place] [address] [facility] [place] [place]S [facility] FAMRES Tm Blue) [address] [place] [address] [facility])(Sco tt [facility] Tm Blue) TELE CONSULT [id number] Notes Entered by: MANUEL TAVAREZ 04 Jan 2012 1036 ------- ------- ------- ------- -- Med refill Emanuel cad tlt ART PIMENTEL 01/[address] [place] [address] [facility] [place]S cott [facility] Tm Blue[facility] [address] [place] [address] [facility] T[facility] Blue) OUTPATIENT [id number] scab on top of head, falls off and comes back x couple months [id number] DOUG HEIN 06/24 Released w/o Limitations [address] [place] [address] [facility]S [facility] FAMRES Tm Blue) [address] [place] [address] [facility] Tm Blue) OUTPATIENT [id number] Cold symptom s [id number] DOGU HEIN 07/14 Released w/o Limitations [address] [place] [address] [facility]S [facility] FAMRES Tm Blue) [address] [place] [address] [facility] [place] TELE CONSULT [id number] Notes Entered by: ANDRADE GALINDO 03 Sep 2012 1046 ------- ------- ------- ------- -- NETWORK RESULTS - PULMONO LOGY/SL EEP 3 DOUG HEIN 09/[address] [place] [address] [facility] FAMRES Tm Blue) [address] [place] [address] [facility])([facility] [place] OUTPATIENT [id number] Notes Entered by: CARIE MEADE 12 Sep 2012 0904 ------- ------- ------- ------- -- Strep Test ART PIMENTEL 09/12 Released w/o Limitations [address] [place] [address] [facility] [place] [facility] [place] [facility] [place] [address] [place] [address] [facility] [place] [facility] [place] Tm Green) TELE CONSULT [id number] Notes Entered by: MANUEL HOYOS 01 Oct 2012 0944 ------- ------- ------- ------- -- Network Results - CARDIOL OGY 09/11/12 ART PIMENTEL 10/[address] [place] [address] [place] ORS[facility]UMB [facility] [place]S cott [facility] [place] [address] [place] [address] [place] [facility]EN[facility]UMB [facility] [place]Sco tt [facility] Tm Blue) OUTPATIENT [id number] cough,c hills, fever since yesterd ay [phone] ART PIMENTEL 04/28 Released w/o Limitations [address] [place] [address] [employer] SAHA [facility] [place]S [facility]) [address] [place] [address] [place] [place]Sco tt [facility]m Blue) OUTPATIENT [id number] follow up visit JOHN STEVENSON 05/20 Released w/o Limitations [address] [place] [address] [facility] Blue) [address] [place] [address] [place] [facility])(Sco tt [facility] Blue) OUTPATIENT [id number] wrist pain - x3 wks - [id number] SURJIT MENON 09/21 Released w/o Limitations [address] [place] [address] [facility]S cott [facility] [address] [place] [address] [place] [facility] [place]Sco tt [facility] Blue) TELE CONSULT [id number] Notes Entered by: MAKAYLA YEE 24 Jun 2014 1211 ------- ------- ------- ------- -- Medicat ion bridge - Mitul - ALBER VINSON 06/[address] [place] [address] [place] [facility] [place]S cott [facility] Tm Blue) [address] [place] [address] [facility])(Sco tt [facility] Blue) OUTPATIENT [id number] medicat ion renewal - 6 meds IZABELLA GODINEZ 06/28 Released w/o Limitations [address] [place] [address] [place] [facility])(S [facility] Blue) [address] [place] [address])(Sco tt [facility]) TELE CONSULT [id number] Notes Entered by: ANIYA MAS 23 Aug 2014 1320 ------- ------- ------- ------- -- Six (6) Meds refill - Pt refusielana smith appt - Mitul - [phone] MECHE BUCIO 08/[address] [place] [address])(S [facility]) [address] [place] [address])(Sco tt [facility]) TELE CONSULT [id number] Notes Entered by: JESUSITA WESTON 23 Aug 2014 1521 ------- ------- ------- ------- -- [facility] med refill MECHE BUCIO 08/[address] [place] [address])(S [facility]) [address] [place] [address])(Sco tt [facility]) TELE CONSULT [id number] Notes Entered by: CHIP ARMENDARIZ 21 Dec 2014 0644 ------- ------- ------- ------- -- SX. Cough/V omiting / MECHE BUCIO 12/[address] [place] [address])(S [facility] Blue) [address] [place] [address])(Sco tt [facility] Blue) OUTPATIENT [id number] eval of cough x2 weeks, vomitin g now with cough HONG JOHN 12/21 Released w/o Limitations [address] [place] [address] [facility] [place]S cott [facility]) [address] [place] [address] [place] [facility])(Sco tt [facility] Blue) TELE CONSULT [id number] Notes Entered by: Court VILLEDA 07 Apr 2015 1244 ------- ------- ------- ------- -- Sx cough,c ongesti on,feve r,not sleepin g/Crehoma h/[phone] MECHE BUCIO 04/[address] [place] [address] [place] [facility])(S cott [facility] Blue) [address] [place] [address])(Med ication Refill Clinic) TELE CONSULT [id number] Notes Entered by: Felton ANGELO 29 Aug 2015 0908 ------- ------- ------- ------- -- Med bridge *Appt Sep * / Mitul / ROMINA FAIRBANKS 08/[address] [place] [address] [place] [facility])(Dilan [facility]) [address] [place] [address])(Sco tt [facility] Blue) OUTPATIENT [id number] Med renewal [phone] JOHN STEVENSON 09/22 Released w/o Limitations [address] [place] [address])(S [facility] FAMRES Tm Blue) [address] [place] [address])([facility]) TELE CONSULT [id number] Notes Entered by: Libertad FAIRBANKS 14 Oct 2015 1209 ------- ------- ------- ------- -- Lab Review TEX LUNA 10/[address] [place], [place] [address]B [facility] [place]) [address] [place] [address]B [facility] [place]Sco tt [facility] [place] Fam Res Tm Gold) OUTPATIENT [id number] chest and head congest ion, sore throat, cough x5 days / [phone] 4 JANIE REGAN 03/12 Released w/o Limitations [address] [place] [address] [employer] [facility] [place])([facility] Res Tm Gold) [address] [place] [address] [place] ROSEN[facility]UMB [facility] [place])([facility] OUTPATIENT [id number] pain, discomf ort, blood w/ urinati on REBECCA KURTZ Margarita 04/27 Released w/o Limitations [address] [place] [address] [place] ROSEN[facility]UMB [facility] [place]) [address] [place] [address] [place] ROSEN[facility]UM[facility] [place])([facility] OUTPATIENT [id number] Low Back pain, painful and frequen t Urinati on [id number] JOHN STEVENSON 04/30 Released w/o Limitations [address] [place] [address] [place] ROSENBAUMB [facility] [place])([facility] FAMRES Tm Blue) [address] [place] [address] [place] ROS[facility] [place])(Sco tt [facility] Res Tm Red) TELE CONSULT [id number] Notes Entered by: JOHN STEVENSON 01 May 2016 1314 ------- ------- ------- ------- -- Urinary Tract Infecti on JOHN STEVENSON 05/[address] [place] [address] [place] ROSENBAUMB [facility] [place] Fam Res Tm Red) [address] [place] [address] [place] [facility]EN[facility]UMB [facility] [place])(Wao tt [facility]) TELE CONSULT [id number] Notes Entered by: FLORINA THOMASON 03 May 2016 1449 ------- ------- ------- ------- -- Follow up FLORINA THOMASON 05/03 Referred for Appointment [address] [place] [address] [place] ROBIB [facility] [place])([facility] Tm Blue) [address] [place] [address] [place] ROBIB [facility] [place])(Med ication Refill Clinic) TELE CONSULT [id number] Notes Entered by: Leola DOMINGUEZ 05 Oct 2016 1451 ------- ------- ------- ------- -- Med Bridge/ Mitul/ [phone] - ROMINA Barry 10/[address] [place] [address] G[place] [facility])([facility]ilan [facility]) [address] [place] [address] [place] [facility])(Sco tt [facility] Blue) OUTPATIENT [id number] Med Renewal s [phone] JOHN STEVENSON 10/22 Released w/o Limitations [address] [place] [address] [place] [facility])(S [facility] FAMRES Tm Blue) [address] [place] [address])(Sco tt [facility] Blue) TELE CONSULT [id number] Notes Entered by: JOHN STEVENSON 25 Oct 2016 0955 ------- ------- ------- ------- -- JOHN Abbott 10/[address] [place] [address])(S [facility] FAMRES Tm Blue) [address] [place] [address])(Sco tt [facility] Blue) TELE CONSULT [id number] Notes Entered by: BARBARA FREEMAN 25 Oct 2016 1143 ------- ------- ------- ------- -- Pt seen by dr stevenson today. Discuss ed putting in referal for colonos copy. FLORINA THOMASON 10/25 Referred for Appointment [address] [place] [address])(S [facility] FAMRES Tm Blue) [address] [place] [address])(Sco tt [facility] Blue) TELE CONSULT [id number] Notes Entered by: DESTIN CESPEDES 29 Nov 2016 1520 ------- ------- ------- ------- -- REFERRA L FOR COLONOS OCOPY FELIX BROWN 11/[address] [place] [address])(S [facility] FAMRES Tm Blue) [address] [place] [address])(Sco tt [facility] Blue) OUTPATIENT [id number] L knee pain, 220.561 2 KRISTEN ECHEVARRIA A 02/11 Released w/o Limitations [address] [place] [address])(S [facility]) [address] [place] [address] [facility] [facility])(Sco tt [facility]) TELE CONSULT [id number] Notes Entered by: Violeta ECHEVARRIA 04 Mar 2017 1719 ------- ------- ------- ------- -- Results of xray of knee KRISTEN ECHEVARRIA 03/[address] [place] [address] [place] [facility])([facility]) [address] [place] [address])([facility]) TELE CONSULT [id number] Notes Entered by: Violeta ECHEVARRIA 20 Mar 2017 0726 ------- ------- ------- ------- -- Menisca l tear KRISTEN ECHEVARRIA 03/[address] [place] [address])([facility]) [address] [place] [address])(Sco tt [facility]) OUTPATIENT [id number] sinus pressur e cough high fever 103. headach e body aches68 .220.93 95 JANIE REGAN 04/16 Released w/o Limitations [address] [place] [address] [place] [facility])([facility]) [address] [place] [address])(Sco tt [facility]) TELE CONSULT [id number] Notes Entered by: MAKAYLA YEE 18 Apr 2017 1106 ------- ------- ------- ------- -- Hospita l it - Sandra - - tsg FLORINA THOMASON 04/18 Referred for Appointment [address] [place] [address])([facility]) [address] [place] [address])(Sco tt [facility]) OUTPATIENT [id number] F/U for issue with legs / test results [id number] / [id number] JANIE REGAN 05/02 Released w/o Limitations [address] [place] [address] [employer] ([facility]S cott OF FAMRES Tm Blue) [address] [place] [address] [employer] ([facility])(Sco tt [facility]) OUTPATIENT [id number] Fever 102, Loss of Apetite , Intermi ttent Nausea [id number] SRINIVAS CORTÉS 05/08 Released w/o Limitations [address] [place] [address] [place] ROSENBAUMB [facility] [place]S cott OF [facility] Tm Blue) [address] [place] [address] [employer] [facility] [place]Sco tt [facility] Blue) TELE CONSULT [id number] Notes Entered by: RANGEL BROWN 16 May 2017 1544 ------- ------- ------- ------- -- UTI SRINIVAS CORTÉS 05/16 Referred for Appointment [address] [place] [address] [place] ROSENBAUMB [facility] [place]S [facility]) [address] [place] [address] [place] [facility]ENBAUMB [facility] [place]co tt [facility]m Blue) OUTPATIENT [id number] 2 week F/u URJANIE JACINTO 05/17 Released w/o Limitations [address] [place] [address] [place] ROSENBAUMB [facility] [place]S cott OF FAMRES Tm Blue) [address] [place] [address] [place] [facility] [place]Sco tt [facility] Blue) OUTPATIENT [id number] Pain for urinati on, 220.939 5 FELIX BROWN 05/31 Released w/o Limitations [address] [place] [address] [employer] [facility] [place]S cott OF FAMRES Tm Blue[place] [address] [place] [address] [employer] [facility] [place]Sco tt [facility] Blue) TELE CONSULT [id number] Notes Entered by: RANGEL BROWN 31 May 2017 1501 ------- ------- ------- ------- -- UTI FELIX BROWN 05/[address] [place] [address] [employer] ([facility])(S cott OF FAMRES Tm Blue) [address] [place] [address] [employer] ([facility])(Sco tt [facility] Tm Green) TELE CONSULT [id number] Notes Entered by: RANGEL BROWN 03 Jun 2017 1640 ------- ------- ------- ------- -- urine FELIX BROWN 06/[address] [place] [address] Group G[employer]z ROSENBAUMB [facility] [place]S cott [facility]m Green) [address] [place] [address] [place] ROSENBAUMB [facility] [place])(Sco tt [facility] Res Tm Green) TELE CONSULT [id number] Notes Entered by: RANGEL BROWN 05 Jul 2017 1617 ------- ------- ------- ------- -- culture FLORINA THOMASON 07/05 Referred for Appointment [address] [place] [address] Group Gó[employer]z ROSENBAUMB [facility] [place]S cott [facility] Res Tm Green) [address] [place] [address] [place] ROSENBAUMB [facility] [place])([facility]) TELE CONSULT [id number] Notes Entered by: JOSEPH QUINTANILLA 12 Jul 2017 1248 ------- ------- ------- ------- -- Lab results FLORINA THOMASON 07/12 Referred for Appointment [address] [place] [address] Gó[place]z ROSENBAUMB [facility] [place] [address] [place] [address] [place] [facility]ENBAUMB [facility] [place]Sco tt [facility] Tm Blue) OUTPATIENT [id number] F/u appoint ment to discuss lab result (lipid panel) / plan of care JANIE REGAN 07/19 Released w/o Limitations [address] [place] [address] G[place]z ROSENBAUMB [facility] [place] [address] [place] [address] G[employer] ROSEN[facility]UMB [facility] [place])(Sco tt [facility] Blue) TELE CONSULT [id number] Notes Entered by: MAKAYLA YEE 31 Oct 2017 1047 ------- ------- ------- ------- -- Bridge Rx - Sandra - - tsg BECKY HORTA 10/31 Referred for Appointment [address] [place] [address] Group [employer] [facility] [place] [place] [address] [place] [address] Gómez SAHA [facility] [place]Sco tt [facility] Blue) OUTPATIENT [id number] annual check up MONSTER FULTON 11/15 Released w/o Limitations [facility] G[facility]z SAHA ([facility])(S cott [facility] Blue) Procedures Combined list of: 1) Procedures from Department of Veterans Affairs facilities going [facility], not all VA non-surgical procedures are included; 2) All procedures from the Department of Defense facilities. Procedure Procedure Type Code Date Perfomer Comments Sourc e No data available for this section Ambulatory Pharmacy TELE ASSESS & MGT SRV PROV QUAL NONPHYS HLTH CARE PRO TO EST PAT,PARENT,GUARD NOT ORIG REL ASSESS & MGT SRV PROV W/IN PREV 7 DAYS NOR LEAD ASSESS & MGT SRV/PX W/IN NXT 24 HR/SOON APT;5-10 MIN MED DIS 2017 DoD DISEASE MANAGEMENT PROGRAM, FOLLOW-UP/REASSESSMENT 2017 DoD TELE ASSESS & MGT SRV PROV QUAL NONPHYS HLTH CARE PRO TO EST PAT,PARENT,GUARD NOT ORIG REL ASSESS & MGT SRV PROV W/IN PREV 7 DAYS NOR LEAD ASSESS & MGT SRV/PX W/IN NXT 24 HR/SOON APT;5-10 MIN MED DIS 2017 DoD DISEASE MANAGEMENT PROGRAM, FOLLOW-UP/REASSESSMENT 2017 DoD DISEASE MANAGEMENT PROGRAM, FOLLOW-UP/REASSESSMENT 2017 [facility] COLORECTAL CANCER SCREENING; COLONOSCOPY ON INDIVIDUAL NOT MEETING CRITERIA FOR HIGH RISK 2016 DoD DISEASE MANAGEMENT PROGRAM, FOLLOW-UP/REASSESSMENT 2016 DoD TELE ASSESS & MGT SRV PROV QUAL NONPHYS HLTH CARE PRO TO EST PAT,PARENT,GUARD NOT ORIG REL ASSESS & MGT SRV PROV W/IN PREV 7 DAYS NOR LEAD ASSESS & MGT SRV/PX W/IN NXT 24 HR/SOON APT;5-10 MIN MED DIS 2016 DoD TELEPHONE CALLS BY A REGISTERED NURSE TO A DISEASE MANAGEMENT PROGRAM MEMBER FOR MONITORING PURPOSES; PER MONTH 2015 DoD TELE ASSESS & MGT SRV PROV QUAL NONPHYS HLTH CARE PRO TO EST PAT,PARENT,GUARD NOT ORIG REL ASSESS & MGT SRV PROV W/IN PREV 7 DAYS NOR LEAD ASSESS & MGT SRV/PX W/IN NXT 24 HR/SOON APT;5-10 MIN MED DIS 2014 DoD TELE ASSESS & MGT SRV PROV QUAL NONPHYS HLTH CARE PRO TO EST PAT,PARENT,GUARD NOT ORIG REL ASSESS & MGT SRV PROV W/IN PREV 7 DAYS NOR LEAD ASSESS & MGT SRV/PX W/IN NXT 24 HR/SOON APT;5-10 MIN MED DIS 2014 DoD TELE ASSESS & MGT SRV PROV QUAL NONPHYS HLTH CARE PRO TO EST PAT,PARENT,GUARD NOT ORIG REL ASSESS & MGT SRV PROV W/IN PREV 7 DAYS NOR LEAD ASSESS & MGT SRV/PX W/IN NXT 24 HR/SOON APT;5-10 MIN MED DIS 2014 DoD TELE ASSESS & MGT SRV PROV QUAL NONPHYS HLTH CARE PRO TO EST PAT,PARENT,GUARD NOT ORIG REL ASSESS & MGT SRV PROV W/IN PREV 7 DAYS NOR LEAD ASSESS & MGT SRV/PX W/IN NXT 24 HR/SOON APT;5-10 MIN MED DIS 2014 DoD WRIST HAND ORTHOSIS, WRIST EXTENSION CONTROL COCK-UP, NON MOLDED, PREFABRICATED, [id number] 2013 DoD TELE ASSESS & MGT SRV PROV QUAL NONPHYS HLTH CARE PRO TO EST PAT,PARENT,GUARD NOT ORIG REL ASSESS & MGT SRV PROV W/IN PREV 7 DAYS NOR LEAD ASSESS & MGT SRV/PX W/IN NXT 24 HR/SOON APT;5-10 MIN MED DIS 2011 DoD TELE ASSESS & MGT SRV PROV QUAL NONPHYS HLTH CARE PRO TO EST PAT,PARENT,GUARD NOT ORIG REL ASSESS & MGT SRV PROV W/IN PREV 7 DAYS NOR LEAD ASSESS & MGT SRV/PX W/IN NXT 24 HR/SOON APT;5-10 MIN MED DIS 2011 DoD TELE ASSESS & MGT SRV PROV QUAL NONPHYS HLTH CARE PRO TO EST PAT,PARENT,GUARD NOT ORIG REL ASSESS & MGT SRV PROV W/IN PREV 7 DAYS NOR LEAD ASSESS & MGT SRV/PX W/IN NXT 24 HR/SOON APT;5-10 MIN MED DIS 2010 DoD TELE ASSESS & MGT SRV PROV QUAL NONPHYS HLTH CARE PRO TO EST PAT,PARENT,GUARD NOT ORIG REL ASSESS & MGT SRV PROV W/IN PREV 7 DAYS NOR LEAD ASSESS & MGT SRV/PX W/IN NXT 24 HR/SOON APT;5-10 MIN MED DIS 2010 DoD TELE ASSESS & MGT SRV PROV QUAL NONPHYS HLTH CARE PRO TO EST PAT,PARENT,GUARD NOT ORIG REL ASSESS & MGT SRV PROV W/IN PREV 7 DAYS NOR LEAD ASSESS & MGT SRV/PX W/IN NXT 24 HR/SOON APT;5-10 MIN MED DIS 2010 DoD INFECTIOUS AGENT ANTIGEN DETECTION BY IMMUNOASSAY WITH DIRECT OPTICAL (IE, VISUAL) OBSERVATION; STREPTOCOCCUS, GROUP A 2009 DoD DETERMINATION OF REFRACTIVE STATE 2009 DoD TELE ASSESS & MGT SRV PROV QUAL NONPHYS HLTH CARE PRO TO EST PAT,PARENT,GUARD NOT ORIG REL ASSESS & MGT SRV PROV W/IN PREV 7 DAYS NOR LEAD ASSESS & MGT SRV/PX W/IN NXT 24 HR/SOON APT;5-10 MIN MED DIS 2009 DoD TELE ASSESS & MGT SRV PROV QUAL NONPHYS HLTH CARE PRO TO EST PAT,PARENT,GUARD NOT ORIG REL ASSESS & MGT SRV PROV W/IN PREV 7 DAYS NOR LEAD ASSESS & MGT SRV/PX W/IN NXT 24 HR/SOON APT;5-10 MIN MED DIS 2009 DoD TETANUS, DIPHTHERIA TOXOIDS AND ACELLULAR PERTUSSIS VACCINE (TDAP), WHEN ADMINISTERED TO INDIVIDUALS 7 YEARS OR OLDER, FOR INTRAMUSCULAR USE 2008 DoD INJECTION, TRIAMCINOLONE ACETONIDE, NOT OTHERWISE SPECIFIED, 10 MG 2007 [facility] SELF-CARE/HOME MANAGMENT TRAIN (EG,ACT OF DAILY LIVING (ADL) &COMPENSAT TRAIN,MEAL PREPARATION,SAFETY PROCS,AND INSTRUCT IN USE OF ASST TECHNOLOGY DEV/ADPT EQUIP) DIR ONE-ON-ONE CONT,EA 15 MINUTES 2007 [facility] PHYSICAL THERAPY RE-EVALUATION 2007 [facility] THERAPEUTIC PROCEDURE, 1 OR MORE AREAS, EACH 15 MINUTES; THERAPEUTIC EXERCISES TO DEVELOP STRENGTH AND ENDURANCE, RANGE OF MOTION AND FLEXIBILITY 2007 [facility] THERAPEUTIC PROCEDURE, 1 OR MORE AREAS, EACH 15 MINUTES; THERAPEUTIC EXERCISES TO DEVELOP STRENGTH AND ENDURANCE, RANGE OF MOTION AND FLEXIBILITY 2007 [facility] THERAPEUTIC PROCEDURE, 1 OR MORE AREAS, EACH 15 MINUTES; THERAPEUTIC EXERCISES TO DEVELOP STRENGTH AND ENDURANCE, RANGE OF MOTION AND FLEXIBILITY 2007 DoD THERAPEUTIC PROCEDURE, 1 OR MORE AREAS, EACH 15 MINUTES; THERAPEUTIC EXERCISES TO DEVELOP STRENGTH AND ENDURANCE, RANGE OF MOTION AND FLEXIBILITY 2007 DoD THERAPEUTIC PROCEDURE, 1 OR MORE AREAS, EACH 15 MINUTES; THERAPEUTIC EXERCISES TO DEVELOP STRENGTH AND ENDURANCE, RANGE OF MOTION AND FLEXIBILITY 2007 DoD THERAPEUTIC PROCEDURE, 1 OR MORE AREAS, EACH 15 MINUTES; THERAPEUTIC EXERCISES TO DEVELOP STRENGTH AND ENDURANCE, RANGE OF MOTION AND FLEXIBILITY 2007 [facility] OCCUPATIONAL THERAPY RE-EVALUATION 2007 DoD THERAPEUTIC PROCEDURE, 1 OR MORE AREAS, EACH 15 MINUTES; THERAPEUTIC EXERCISES TO DEVELOP STRENGTH AND ENDURANCE, RANGE OF MOTION AND FLEXIBILITY 2007 DoD THERAPEUTIC PROCEDURE, 1 OR MORE AREAS, EACH 15 MINUTES; THERAPEUTIC EXERCISES TO DEVELOP STRENGTH AND ENDURANCE, RANGE OF MOTION AND FLEXIBILITY 2007 DoD THERAPEUTIC PROCEDURE, 1 OR MORE AREAS, EACH 15 MINUTES; THERAPEUTIC EXERCISES TO DEVELOP STRENGTH AND ENDURANCE, RANGE OF MOTION AND FLEXIBILITY 2007 DoD THERAPEUTIC PROCEDURE, 1 OR MORE AREAS, EACH 15 MINUTES; THERAPEUTIC EXERCISES TO DEVELOP STRENGTH AND ENDURANCE, RANGE OF MOTION AND FLEXIBILITY 2007 DoD THERAPEUTIC PROCEDURE, 1 OR MORE AREAS, EACH 15 MINUTES; THERAPEUTIC EXERCISES TO DEVELOP STRENGTH AND ENDURANCE, RANGE OF MOTION AND FLEXIBILITY 2007 [facility] DESTRUCTION (EG, LASER SURGERY, ELECTROSURGERY, CRYOSURGERY, CHEMOSURGERY, SURGICAL CURETTEMENT), OF BENIGN LESIONS OTHER THAN SKIN TAGS OR CUTANEOUS VASCULAR PROLIFERATIVE LESIONS; UP TO 14 LESIONS 2007 [facility] OCCUPATIONAL THERAPY RE-EVALUATION 2007 [facility] THERAPEUTIC PROCEDURE, 1 OR MORE AREAS, EACH 15 MINUTES; THERAPEUTIC EXERCISES TO DEVELOP STRENGTH AND ENDURANCE, RANGE OF MOTION AND FLEXIBILITY 2007 [facility] THERAPEUTIC PROCEDURE, 1 OR MORE AREAS, EACH 15 MINUTES; THERAPEUTIC EXERCISES TO DEVELOP STRENGTH AND ENDURANCE, RANGE OF MOTION AND FLEXIBILITY 2007 [facility] THERAPEUTIC PROCEDURE, 1 OR MORE AREAS, EACH 15 MINUTES; THERAPEUTIC EXERCISES TO DEVELOP STRENGTH AND ENDURANCE, RANGE OF MOTION AND FLEXIBILITY 2007 [facility] APPLICATION OF A MODALITY TO 1 OR MORE AREAS; DIATHERMY (EG, MICROWAVE) 2007 [facility] APPLICATION OF A MODALITY TO 1 OR MORE AREAS; DIATHERMY (EG, MICROWAVE) 2007 [facility] OCCUPATIONAL THERAPY RE-EVALUATION 2007 [facility] OSTEOPATHIC MANIPULATIVE TREATMENT (OMT); 1-2 BODY REGIONS INVOLVED 2007 [facility] APPLICATION OF A MODALITY TO 1 OR MORE AREAS; DIATHERMY (EG, MICROWAVE) 2007 [facility] APPLICATION OF A MODALITY TO 1 OR MORE AREAS; DIATHERMY (EG, MICROWAVE) 2007 [facility] APPLICATION OF A MODALITY TO 1 OR MORE AREAS; DIATHERMY (EG, MICROWAVE) 2007 [facility] OCCUPATIONAL THERAPY RE-EVALUATION 2007 [facility] THERAPEUTIC PROCEDURE, 1 OR MORE AREAS, EACH 15 MINUTES; THERAPEUTIC EXERCISES TO DEVELOP STRENGTH AND ENDURANCE, RANGE OF MOTION AND FLEXIBILITY 2007 [facility] APPLICATION OF A MODALITY TO 1 OR MORE AREAS; ULTRASOUND, EACH 15 MINUTES 2007 [facility] THERAPEUTIC PROCEDURE(S), GROUP (2 OR MORE INDIVIDUALS) 2007 [facility] THERAPEUTIC PROCEDURE, 1 OR MORE AREAS, EACH 15 MINUTES; THERAPEUTIC EXERCISES TO DEVELOP STRENGTH AND ENDURANCE, RANGE OF MOTION AND FLEXIBILITY 2007 [facility] APPLICATION OF A MODALITY TO 1 OR MORE AREAS; ULTRASOUND, EACH 15 MINUTES 2007 [facility] SELF-CARE/HOME MANAGMENT TRAIN (EG,ACT OF DAILY LIVING (ADL) &COMPENSAT TRAIN,MEAL PREPARATION,SAFETY PROCS,AND INSTRUCT IN USE OF ASST TECHNOLOGY DEV/ADPT EQUIP) DIR ONE-ON-ONE CONT,EA 15 MINUTES 2007 [facility] EXERCISE EQUIPMENT 2007 [facility] DETERMINATION OF REFRACTIVE STATE 2006 [facility] DESTRUCTION (EG, LASER SURGERY, ELECTROSURGERY, CRYOSURGERY, CHEMOSURGERY, SURGICAL CURETTEMENT), OF BENIGN LESIONS OTHER THAN SKIN TAGS OR CUTANEOUS VASCULAR PROLIFERATIVE LESIONS; UP TO 14 LESIONS 2006 [facility] CARDIOVASCULAR STRESS TEST USING MAXIMAL OR SUBMAXIMAL TREADMILL OR BICYCLE EXERCISE,CONTINUOUS ELECTROCARDIOGRAPHIC MONITORING,AND/OR PHARMACOLOGICAL STRESS;W SUPERVISION,INTERPRETA TION AND REPORT 2005 [facility] ELECTROCARDIOGRAM, ROUTINE ECG WITH AT LEAST 12 LEADS; WITH INTERPRETATION AND REPORT 2005 [facility] BIOPSY OF SKIN, SUBCUTANEOUS TISSUE AND/OR MUCOUS MEMBRANE (INCLUDING SIMPLE CLOSURE), UNLESS OTHERWISE LISTED; SINGLE LESION 2005 [facility] ELECTROCARDIOGRAM, ROUTINE ECG WITH AT LEAST 12 LEADS; WITH INTERPRETATION AND REPORT 2005 [facility] OSTEOPATHIC MANIPULATIVE TREATMENT (OMT); 5-6 BODY REGIONS INVOLVED 2004 [facility] Biopsy Skin Biopsy Skin 40147 2005 JOSE GUADALUPE BLACK [facility] Electrocardiogram Electrocardiogram 00618 07/03 KERI SANTIZO [facility] Non-Physician Phone Call To Patient/Provider Brief (5-10min) Non-Physician Phone Call To Patient/Provider Brief (5-10min) [id number] 2017 BECKY HORTA [facility] Disease management program, follow-up/beryl e ment [facility] Non-Physician Phone Call To Patient/Provider Brief (5-10min) Non-Physician Phone Call To Patient/Provider Brief (5-10min) [id number] 2017 FLORINA THOMASON A DoD Disease management program, follow-up/beryl e ment 2017 URSAMMY Y, [facility] Disease management program, follow-up/beryl e ment 2017 URSAMMY Y, [facility] Disease management program, follow-up/beryl e ment 2016 JOHN STEVENSON [facility] Non-Physician Phone Call To Patient/Provider Brief (5-10min) Non-Physician Phone Call To Patient/Provider Brief (5-10min) [id number] 2016 FLORINA THOMASON A DoD Telephone calls by a registered nurse to a disease management program member for monitoring purposes; per month 2015 TEX LUNA [facility] Non-Physician Phone Call To Patient/Provider Brief (5-10min) Non-Physician Phone Call To Patient/Provider Brief (5-10min) [id number] 2015 TEX LUNA [facility] Non-Physician Phone Call To Patient/Provider Brief (5-10min) Non-Physician Phone Call To Patient/Provider Brief (5-10min) [id number] 2014 MECHE BUCIO [facility] Non-Physician Phone Call To Patient/Provider Brief (5-10min) Non-Physician Phone Call To Patient/Provider Brief (5-10min) [id number] 2014 MECHE BUCIO [facility] Non-Physician Phone Call To Patient/Provider Brief (5-10min) Non-Physician Phone Call To Patient/Provider Brief (5-10min) [id number] 2014 MECHE BUCIO [facility] Non-Physician Phone Call To Patient/Provider Brief (5-10min) Non-Physician Phone Call To Patient/Provider Brief (5-10min) [id number] 2014 BECKY HORTA [facility] Wrist hand orthosis, wrist extension control cock-up, non molded, prefabricated, [id number] 2013 SURJIT MENON [facility] Non-Physician Phone Call To Patient/Provider Brief (5-10min) Non-Physician Phone Call To Patient/Provider Brief (5-10min) [id number] 2011 ART PIMENTEL [facility] Non-Physician Phone Call To Patient/Provider Brief (5-10min) Non-Physician Phone Call To Patient/Provider Brief (5-10min) [id number] 2011 CAMILO BADILLO [facility] Non-Physician Phone Call To Patient/Provider Brief (5-10min) Non-Physician Phone Call To Patient/Provider Brief (5-10min) [id number] 2010 CARLA OLIVAREZ [facility] Non-Physician Phone Call To Patient/Provider Brief (5-10min) Non-Physician Phone Call To Patient/Provider Brief (5-10min) [id number] 2010 JOURDAN HI [facility] Non-Physician Phone Call To Patient/Provider Brief (5-10min) Non-Physician Phone Call To Patient/Provider Brief (5-10min) [id number] 2010 JOURDAN HI [facility] Serum Enzyme Immunoa ay Streptococcal Antigen Serum Enzyme Immunoassay Streptococcal Antigen 60888 2009 BIBI CHO [facility] Spectacles Services Fitting Bifocals (Not For Aphakia) [employer] Services Fitting Bifocals (Not For Aphakia) [id number] 2009 ZHANG CLEMENTS [facility] Determination Of Refractive State Determination Of Refractive State 25436 2009 ZHANG CLEMENTS [facility] Ophthalmological Prior Patient Start Comprehensive Care Ophthalmological Prior Patient Start Comprehensive Care 63284 2009 ZHANG CLEMENTS [facility] Non-Physician Phone Call To Patient/Provider Brief (5-10min) Non-Physician Phone Call To Patient/Provider Brief (5-10min) [id number] 2009 JOURDAN HI [facility] Non-Physician Phone Call To Patient/Provider Brief (5-10min) Non-Physician Phone Call To Patient/Provider Brief (5-10min) [id number] 2009 JOURDAN HI [facility] Immunization Administration Each Additional Vaccine 2008 KALEB LEWIS [facility] Tdap Vaccine Seven Years Of Age And Above Tdap Vaccine Seven Years Of Age And Above 89554 2008 KALEB LEWIS [facility] Immunization Administration One Vaccine Immunization Administration One Vaccine 44599 2008 KALEB LEWIS [facility] Influenza Split Virus Vaccine Age 3+ Years Intramuscular 2008 KALEB LEWIS [facility] Arthrocentesis Injection Of Shoulder Joint Arthrocentesis Injection Of Shoulder Joint 91836 2007 SOFÍA RYAN [facility] Phys Therapy Education Self Care Training - Per 15 Minutes Phys Therapy Education Self Care Training - Per 15 Minutes [id number] 2007 BIBI HARDWICK [facility] Physical Medicine Physical Therapy Re-Evaluation Physical Medicine Physical Therapy Re-Evaluation 07010 2007 BIBI HARDWICK [facility] Physical Therapy: ___ Se ion Segments, 15 Minutes Each Physical Therapy: ___ Session Segments, 15 Minutes Each [id number] 2007 ROLA BARNEY [facility] Modalities Diathermy Treatment 2007 ROLA BARNEY [facility] Modalities Diathermy Treatment 2007 ROLA BARNEY [facility] Physical Therapy: ___ Se ion Segments, 15 Minutes Each Physical Therapy: ___ Session Segments, 15 Minutes Each [id number] 2007 ROLA BARNEY Physical Therapy: ___ Se ion Segments, 15 Minutes Each Physical Therapy: ___ Session Segments, 15 Minutes Each [id number] 2007 ROLA BARNEY Modalities Diathermy Treatment 2007 ROLA BARNEY [facility] Physical Therapy: ___ Se ion Segments, 15 Minutes Each Physical Therapy: ___ Session Segments, 15 Minutes Each [id number] 2007 DIRK FLORES [facility] Modalities Diathermy Treatment 2007 DIRK FLORES [facility] Modalities Diathermy Treatment 2007 ROLA BARNEY [facility] Physical Therapy: ___ Se ion Segments, 15 Minutes Each Physical Therapy: ___ Session Segments, 15 Minutes Each [id number] 2007 ROLA BARNEY [facility] Physical Therapy: ___ Se ion Segments, 15 Minutes Each Physical Therapy: ___ Session Segments, 15 Minutes Each [id number] 2007 DIRK FLORES Modalities Diathermy Treatment 2007 DIRK FLORES Occupational Therapy Re-Evaluation Occupational Therapy Re-Evaluation 16898 2007 AGSUTINA RIVERA Physical Therapy: ___ Se ion Segments, 15 Minutes Each Physical Therapy: ___ Session Segments, 15 Minutes Each [id number] 2007 ROLA BARNEY Modalities Diathermy Treatment 2007 ROLA BARNEY [facility] Physical Therapy: ___ Se ion Segments, 15 Minutes Each Physical Therapy: ___ Session Segments, 15 Minutes Each [id number] 2007 ROLA BARNEY Modalities Diathermy Treatment 2007 ROLA ABRNEY Modalities Diathermy Treatment 2007 ROLA BARNEY Physical Therapy: ___ Se ion Segments, 15 Minutes Each Physical Therapy: ___ Session Segments, 15 Minutes Each [id number] 2007 ROLA BARNEY Modalities Diathermy Treatment 2007 ROLA BARNEY [facility] Physical Therapy: ___ Se ion Segments, 15 Minutes Each Physical Therapy: ___ Session Segments, 15 Minutes Each [id number] 2007 ROLA BARNEY Physical Therapy: ___ Se ion Segments, 15 Minutes Each Physical Therapy: ___ Session Segments, 15 Minutes Each [id number] 2007 DIRK FLORES Modalities Diathermy Treatment 2007 DIRK FLORES Destruction Of Benign Lesion By Cryosurgery 2007 HANK MARSHALL Occupational Therapy Re-Evaluation Occupational Therapy Re-Evaluation 28569 2007 AGUSTINA RIVERA Physical Therapy: ___ Se ion Segments, 15 Minutes Each Physical Therapy: ___ Session Segments, 15 Minutes Each 36601 2007 ROLA BARNEY Modalities Diathermy Treatment 2007 ROLA BARNEY [facility] Physical Therapy: ___ Se ion Segments, 15 Minutes Each Physical Therapy: ___ Session Segments, 15 Minutes Each [id number] 2007 DIRK FLORES Modalities Diathermy Treatment 2007 DIRK FLORES [facility] Physical Therapy: ___ Se ion Segments, 15 Minutes Each Physical Therapy: ___ Session Segments, 15 Minutes Each [id number] 2007 CARIE BUTT [facility] Modalities Diathermy Treatment 2007 CARIE BUTT [facility] Modalities Diathermy Treatment 2007 DIRK FLORES [facility] Physical Therapy: ___ Se ion Segments, 15 Minutes Each Physical Therapy: ___ Session Segments, 15 Minutes Each 42301 2007 DIRK FLORES [facility] Modalities Diathermy Treatment 2007 ROLA BARNEY [facility] Physical Therapy: ___ Se ion Segments, 15 Minutes Each Physical Therapy: ___ Session Segments, 15 Minutes Each [id number] 2007 ROLA BARNEY [facility] Occupational Therapy Re-Evaluation Occupational Therapy Re-Evaluation 32633 2007 AGUSTINA RIVERA [facility] Osteopathic Manip Treatment (OMT) 1-2 Body Regions Involved Osteopathic Manip Treatment (OMT) 1-2 Body Regions Involved 88085 2007 LORRI YANEZ [facility] Modalities Diathermy Treatment 2007 DIRK FLORES [facility] Physical Therapy: ___ Se ion Segments, 15 Minutes Each Physical Therapy: ___ Session Segments, 15 Minutes Each [id number] 2007 DIKR FLORES [facility] Modalities Diathermy Treatment 2007 DIRK FLORES [facility] Physical Therapy: ___ Se ion Segments, 15 Minutes Each Physical Therapy: ___ Session Segments, 15 Minutes Each [id number] 2007 DIRK FLORES [facility] Physical Therapy: ___ Se ion Segments, 15 Minutes Each Physical Therapy: ___ Session Segments, 15 Minutes Each [id number] 2007 CARIE BUTT [facility] Modalities Diathermy Treatment 2007 CARIE BUTT [facility] Occupational Therapy Re-Evaluation Occupational Therapy Re-Evaluation 24846 2007 AGUSTINA RIVERA [facility] Physical Therapy: ___ Se ion Segments, 15 Minutes Each Physical Therapy: ___ Session Segments, 15 Minutes Each 66046 2007 ROLA BARNEY Modalities Ultrasound Modalities Ultrasound 84567 2007 ROLA BARNEY Physical Therapy: ___ Se ion Segments, 15 Minutes Each Physical Therapy: ___ Session Segments, 15 Minutes Each 82088 2007 ROLA BARNEY Modalities Ultrasound Modalities Ultrasound 00648 2007 ROLA BARNEY Physical Medicine - Group Physical Therapy Se ion Physical Medicine - Group Physical Therapy Session 42375 2007 DIRK FLORES Physical Therapy: ___ Se ion Segments, 15 Minutes Each Physical Therapy: ___ Session Segments, 15 Minutes Each 57765 2007 DIRK FLORES Modalities Ultrasound Modalities Ultrasound 11000 2007 DIRK FLORES Physical Therapy: ___ Se ion Segments, 15 Minutes Each Physical Therapy: ___ Session Segments, 15 Minutes Each 53423 2007 ROLA BARNEY Modalities Ultrasound Modalities Ultrasound 66756 2007 ROLA BARNEY Modalities Ultrasound Modalities Ultrasound 66108 2007 DIRK FLORES Physical Medicine - Group Physical Therapy Se ion Physical Medicine - Group Physical Therapy Session 15218 2007 DIRK FLORES Training And Self-Care Skills Training And Self-Care Skills 35264 2007 ROLA BARNEY Modalities Ultrasound Modalities Ultrasound 43900 2007 ROLA BARNEY Physical Therapy: ___ Se ion Segments, 15 Minutes Each Physical Therapy: ___ Session Segments, 15 Minutes Each 00648 2007 ROLA BARNEY Exercise equipment 2007 AGUSTINA RIVERA PT A e ment Kinetic Training PT Assessment Kinetic Training 56856 2007 AGUSTINA RIVERA Occupational Therapy Evaluation Occupational Therapy Evaluation 42724 2007 AGUSTINA RIVERA Determination Of Refractive State Determination Of Refractive State 07668 2006 LAW PRIETO Visual Mcallister Test Intermediate Examination Visual Mcallister Test Intermediate Examination 85728 2006 LAW PRIETO Ophthalmological New Patient Start Comprehensive Care Ophthalmological New Patient Start Comprehensive Care 68947 2006 LAW PRIETO Destruct Of Benign Lesion By Any Method Second Through 14 2006 DOUG HEIN [facility] Cardiac Stre Test, Phys. Supervision, Interp. And Report Cardiac Stress Test, Phys. Supervision, Interp. And Report 08184 2005 SHARMIN ARANDA [facility] Electrocardiogram Electrocardiogram 77610 09/11 KAYKAYVAL [facility] Social History Combined list of available smoking, tobacco, and other social history from [facility] of Defense and Veterans Affairs facilities. Social History Type Response Date Comment Sourc e This section is an empty social history section. DoD Assessment and Plan Combined list of future care activities from Department of Defense and Veterans Affairs facilities (e.g., assessment and plan notes, appointments, orders, and referrals). Additional future care activities may be listed in the Plan of Care section. Result Assessment and Plan Date Source Assessment and Plan No data available for this section 07/26/2024 Ambulatory Pharmacy Functional Status Combined list of recent functional and cognitive assessments recorded at [facility] and [facility] (VA).VA Functional Meeker Measurement (FIM) Scale: 1 = Total Assistance (Subject = 0% +), 2 = Maximal Assistance (Subject = 25% +), 3 = Moderate Assistance (Subject = 50% +), 4 = Minimal Assistance (Subject = 75% +), 5 = Supervision, 6 = Modified Meeker (Device), 7 = Complete Meeker (Timely, Safely). Assessment Date/Time Source Assessment Type Assessment Skill Assessment Score Assessment Details No data available for this section
--- OUTSIDE RECORDS SUMMARY | 2024-07-26 10:06 | XMS_ITS | Encounter Summary ---
Author Organization [facility] Address [address] [place] [address] Care Team Providers Care Private Client Advisor Name Role Phone Gómez Harden MD Unavailable [phone] Martin Palomino MD Primary Care Provider [phone] Encounter Details Date Type Department Care Team (Late st Contact Info) Description 10/22/2022 MyChart Message Enc [facility] Family & Internal Medicine [place] [address] [place] [address] Martin Palomino MD [address] [place] [phone] Exercises for Shoulder/Neck pain Social History Tobacco Use Types Packs/Day Years Used Date Smoking Tobacco: Former Cigarettes 0.5 6 0 04/08/1971 - 04/08/1977 Cigars Smokeless Tobacco: Never Alcohol Use Standard Drinks/Week Comments Not Currently 0 (1 standard drink = 0.6 oz pur e alcohol) PHQ-2 Answer Date Recorded Patient Health Questionnaire-2 Score 0 10/10/2022 Sex and Gender Information Value Date Recorded Sex Assigned at Male 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 Sex Male 8:12 PM CDT Gender Identity Male 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 Sexual Orientation Not on file 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 on file Not on file documented as of this encounter Plan of Treatment Upcoming Encounters Date Type Department Care Team (Late st Contact Info) Description 10/28/2024 7:20 AM CDT Laboratory Only [facility] Family & Internal Medicine [facility] [address] [place] [address] [place] [address] [place] [address] 11/04/2024 7:40 AM CDT Office Visit [facility] Family & Internal [facility] [address] [place] [phone] Martin Palomino MD [address] [place] [address] documented as of this encounter Visit Diagnoses Not on filedocumented in this encounter Additional Health Concerns Assessment Noted Time PHQ-9 Depression Total Score: 0 06/05/19 22 10:33 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
--- OUTSIDE RECORDS SUMMARY | 2024-07-26 10:06 | XMS_ITS | Encounter Summary ---
Author Organization [facility] Address [facility] [place] [address] Care Team Providers Care Assignment Desk Assistant Name Role Phone Gómez Harden MD Unavailable [phone] Martin Palomino MD Primary Care Provider [phone] Encounter Details Date Type Department Care Team (Late st Contact Info) Description 10/16/2018 Abstract [facility] at [address] [address] Gonzalo Larson MA Social History Tobacco Use Types Packs/Day Years Used Date Smoking Tobacco: Former Cigarettes 0.5 6 1 972 - 1978 Smokeless Tobacco: Never Alcohol Use Standard Drinks/Week Comments No 0 (1 standard drink = 0.6 oz pur e alcohol) Sex and Gender Information Value Date Recorded Sex Assigned at Male 05/06/2024 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 Legal Sex Male 8:12 PM CDT Gender Identity Male 05/06/2024 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 Sexual Orientation Not on file 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 on file Not on file documented as of this encounter Plan of Treatment Upcoming Encounters Date Type Department Care Team (Late st Contact Info) Description 10/28/2024 7:20 AM CDT Laboratory Only [facility] Family & Internal Medicine - [address] [phone] Martin Palomino MD [address] [place] [address] 11/04/2024 7:40 AM CDT Office Visit [facility] Family & Internal Medicine - [place] [address] [place] [phone] Martin Palomino MD [address] [place] [address] documented as of this encounter Procedures Procedure Name Priority Date/Time Associated Diagnosis Comments LIPID PANEL Routine 10/14/2018 documented in this encounter Results * LIPID PANEL (10/14/2018) CHOLESTEROL 187 HDL 43 TRIGLYCERIDES 193 LDL (CALCULATED) 113 10/14/2018 us Doc [facility] Final Result documented in this encounter Visit Diagnoses Not on filedocumented in this encounter Additional Health Concerns Infection Onset Date Last Indicated Resolved Time COVID-19 Rule Out 03/27/2021 03/27/2021 03/29/2021 1:09 AM SALON PROFESSIONAL COVID-19 Rule Out 09/19/2021 09/19/2021 09/19/2021 2:02 PM CDT COVID-19 Rule Out 09/19/2021 09/19/2021 09/20/2021 2:41 PM CDT documented as of this encounter Care Teams Assignment Desk Assistant Relationship Specialty Start Date End Date Martin Palomino MD [facility] [place] [address] PCP - General INTERNAL MEDICINE 03/14/20 Gómez Harden MD [facility] [address] [place] [address] [employer] CARDIOVASCULAR DISEASE 06/16/18 documented as of this encounter
--- OUTSIDE RECORDS SUMMARY | 2024-07-26 10:07 | XMS_ITS | Clinical Summary ---
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 Gender Identity Not on file Sexual Orientation Not on file Plan of Treatment Health Maintenance Due Date Last Done Comments Hepatitis C Virus (HCV) Screening 1950 TdaP Immunization 1950 Colonoscopy 1997 Colorectal Cancer Screening 1997 Cologuard 2002 Immunochemical Fecal Occult Blood 2002 Zoster Immunization (1 of 2) 2002 Pneumococcal Immunization (5 0+ years) (2 of 2 - PPSV23) 03/14/2021 03/14/2020 Influenza Immunization (#1) 2023 03/14/2020 SARS-COV-2 Immunization ( - season) 2023 05/30/2020, 05/07/2020 Respiratory Syncytial Virus (RSV) Immunization (Adult) (1 - 1-dose 75+ series) 12/02/2027 Hepatitis B Immunization Aged Out No longer eligible based on patient's age to complete this topic Meningococcal Immunization (ACWY) Aged Out No longer eligible b ased on patient's age to complete this topic Rotavirus Immunization Aged Out No lo nger eligible based on patient's age to complete this topic
--- OUTSIDE RECORDS SUMMARY | 2024-07-26 10:07 | XMS_ITS | Encounter Summary ---
Author Organization [facility] Address [address] [place] [address] Care Team Providers Care Senior Tableau Developer Name Role Phone Unavailable Primary Care Provider Unavailabl e Encounter Details Date Type Department Care Team (Late st Contact Info) Description 09/03/2019 Lab Requisition [facility]erm[facility] Lab [address] [place] [address] Vivek Pat MD [address] [place] [address] Social History Tobacco Use Types Packs/Day Years Used Date Smoking Tobacco: Never Assessed Sex and Gender Information Value Date Recorded Sex Assigned at Not on file Legal Sex Male 2:57 PM CDT Gender Identity Not on file Sexual Orientation Not on file documented as of this encounter Plan of Treatment Not on file documented as of this encounter Procedures Procedure Name Priority Date/Time Associated Diagnosis Comments DERMATOPATHOLOGY Routine 09/01/2019 12:0 0 AM CDT documented in this encounter Results * DERMATOPATHOLOGY (09/01/2019 12:00 AM CDT) Case Report Dermatopathology Report Case: [id number] Authorizing Provider: Vivek Pat MD Collected: 09/01/2019 12:00 AM Ordering Location: [facility] Received: 09/03/2019 07:14 AM Pathologist: Dilan Simental MD Specimen: Skin, right jaw 0 4:41 PM CDT DERMATOPATHOLOGY LABORATORY Final Diagnosis Specimen A. 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 Path # [id number]. 0 4:41 PM CDT DERMATOPATHOLOGY LABORATORY Gross Description Specimen A: Received is one formalin filled container labeled with the patient's name and designated right jaw. The specimen consists of a shave biopsy measuring [id number]. Jar 0. 0 4:41 PM CDT DERMATOPATHOLOGY LABORATORY Microscopic Description Specimen A. SKIN, right jaw: The epidermis shows parakeratosis, full thickness disorderly maturation of keratinocytes, mitoses at different levels, and dyskeratotic cells. The lesion extends to the base of the biopsy. COMMENT: An invasive squamous cell carcinoma cannot be ruled out. 0 4:41 PM CDT DERMATOPATHOLOGY LABORATORY Disclaimer An external and internal positive and negative controls are appropriate for the histochemical, immunohistochemical and immunofluorescence stain(s) in this case (if any), except where stated explicitly. The performance characteristics of the stain(s) cited in this report were developed and its performance characteristic determined by the Dermatopathology Laboratory at [facility], directed by Dr. Kamran Simental. These tests need not be, and therefore are not, approved by the [place] Food and Drug Administration. The tests are used for clinical purposes. Billing Codes Specimen Charges Stain Charges 41669 1 0 4:41 PM CDT DERMATOPATHOLOGY LABORATORY Embedded Images 0 4:41 PM CDT DERMATOPATHOLOGY LABORATORY Pathology/Cytolog y TISSUE SPECIMEN FROM SKIN / Unknown 09/01/2019 09/03/2019 7:14 AM CDT us Vivek Pat MD LAB - PATHOLOGY/CYTOLOGY ORDER CHRISTOPHER Final Result DERMATOPATHOLOGY LABORATORY [facility] - Department of Dermatology [place] [address], [facility] [phone] documented in this encounter Visit Diagnoses Not on filedocumented in this encounter
--- OUTSIDE RECORDS SUMMARY | 2024-07-26 10:07 | XMS_ITS | Clinical Summary ---
Author Organization [facility] Address [address] [place] [address] Care Team Providers Care Psychodramatist Name Role Phone Unavailable Primary Care Provider Unavailabl e Source Comments [facility],non-owned Affiliates and Associated Physician Practices is amultiple site organization consisting of ambulatory clinics and hospital sitesin [place], [place], [place] and [place]. This disclosure is being madepursuant to the Care Everywhere program and may not contain all information available regarding this patient. Last updated 17[email or web address] Allergies Active Allergy Reactions Criticality Noted Date Comments Isosorbide Headache 09/12/2018 Medications * Be aware that medications may not be up to date on this document. Alwaysverify current medications with the patient. ASPIRIN LOW DOSE 81 MG tablet Take 81 mg by mouth once daily 09/13/2020 Active fenofibrate (TRICOR) 145 MG tablet 06/06/2020 Active hydroCHLOROthiaz bijal (MICROZIDE) 12.5 MG capsule 09/13/2020 Act carmelita lisinopril (PRINIVIL; ZESTRIL) 20 MG tablet 06/06/2020 Active loratadine (CLARITIN) 10 MG tablet Take 10 mg by mouth once daily 09/13/2020 Active metFORMIN (GLUCOPHAGE) 500 MG tablet 09/19/2020 Active metoprolol succinate XL 24hr (TOPROL XL) 50 MG tablet 09/13/2020 Active pantoprazole EC (PROTONIX) 20 MG tablet 09/13/2020 Active rosuvastatin (CRESTOR) 20 MG tablet 10/02/2020 Active tamsulosin (FLOMAX) 0.4 MG capsule 10/31/2020 Active valACYclovir (VALTREX) 1 GM tablet 03/30/2020 Active Active Problems Problem Noted Date Diagnosed Date Basal cell carcinoma 03/14/2020 Overview (11/11/2020): Followed by Dr. 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 Pat Type 2 diabetes mellitus wit hout complication, without long-term current use of insulin 03/14/2020 Social History Tobacco Use Types Packs/Day Years Used Date Smoking Tobacco: Never Smokeless Tobacco: Never Sex and Gender Information Value Date Recorded Sex Assigned at Not on file Legal Sex Male 2:57 PM CDT Gender Identity Not on file Sexual Orientation Not on file Last Filed Vital Signs Vital Sign Reading Time Taken Comments Blood Pressure - - Pulse - - Temperature - - Respiratory Rate - - Oxygen Saturation - - Inhaled Oxygen Concentration - - Weight 111.1 kg (245 lb) 11/08/2020 1:59 PM CDT Height 185.4 cm (6' 1 ) 11/08/2020 1:59 PM CDT Body Mass Index 32.32 11/08/2020 1:59 PM CDT Plan of Treatment Health Maintenance Due Date Last Done Comments COLOGUARD (AGES 45-75) - COL ON CA SCREENING 1952 COLON MONITORING 1952 COLONOSCOPY - COLON CA SCREENING 1952 CT COLONOGRAPHY - COLON CA SCREENING 1952 Colorectal Cancer Screening 1952 FIT - COLON CA SCREENING 1952 FLEX SIG - COLON CA SCREENING 1952 MEDICARE AWV 12 MONTHS 1952 HEPATITIS C SCREENING 11/27/1970 DIABETES-SERUM CREATININE 1970 DTAP/TDAP/TD VACCINES (1 - Tdap) 12/02/1971 PNEUMOCOCCAL VACCINE 50+ (1 of 2 - PCV) 12/02/1971 ZOSTER VACCINE (1 of 2) 2002 DIABETES RETINOPATHY SCREENING 11/11/2020 0 10/26/2009, 01/24/2007 DIABETES-FOOT EXAM WITH MONOFILAMENT 11/11/2020 DIABETES-HGB A1C 03/21/2021 09/19/2020 COVID-19 VACCINE (3 - 2023-2 5 season) 2023 05/30/2020, 05/07/2020 DEPRESSION SCREENING 04/08/2024 DIABETES - URINE PROTEIN SCREENING 04/08/2024 INFLUENZA VACCINE (Season Ended) 2024 10/27/2018, 02/01/2009 Respiratory Syncytial Virus (RSV) Vaccine Pt: or over 60 yrs (1 - 1-dose 75+ series) 12/02/2027 HEPATITIS B VACCINE Aged Out No longe r eligible based on patient's age to complete this topic HIB VACCINE Aged Out No longer eligi ble based on patient's age to complete this topic HPV VACCINE Aged Out No longer eligi ble based on patient's age to complete this topic MENINGOCOCCAL (Group B) VACCINE SHARED DECISION-MAKING Aged Out No longer eligible based on patient's age to complete this topic MENINGOCOCCAL GROUPS A/C/Y/W VACCINE Aged Out No longer eligible b ased on patient's age to complete this topic Insurance MEDICARE [facility] MEDICARE
--- OUTSIDE RECORDS SUMMARY | 2024-07-26 10:07 | XMS_ITS | Encounter Summary ---
Author Organization [facility] Address [address] [place] [address] Care Team Providers Care Car Ferrier Name Role Phone Unavailable Primary Care Provider Unavailabl e Encounter Details Date Type Department Care Team (Late st Contact Info) Description 11/02/2020 Lab Requisition [facility] DermPath Lab [address] [place] [id number] Vivek Pat MD [address] [facility] [facility] [address] [place] [address] Social History Tobacco Use Types Packs/Day Years Used Date Smoking Tobacco: Never Assessed Sex and Gender Information Value Date Recorded Sex Assigned at Not on file Legal Sex Male 2:57 PM CDT Gender Identity Not on file Sexual Orientation Not on file COVID-19 Exposure Response Date Recorded In the last month, have you been in contact with someone who was confirmed or suspected to have Coronavirus / COVID-19? No / Unsure 10/12/2020 4:29 PM CDT documented as of this encounter Plan of Treatment Not on file documented as of this encounter Procedures Procedure Name Priority Date/Time Associated Diagnosis Comments DERMATOPATHOLOGY Routine 10/31/2020 3:33 AM CDT documented in this encounter Results * DERMATOPATHOLOGY (10/31/2020 3:33 AM CDT) Case Report Dermatopathology Report Case: [id number] Authorizing Provider: Vivek Pat MD Collected: 10/31/2020 03:33 AM Ordering Location: [facility] DermPath Lab Received: 11/02/2020 06:19 AM Pathologist: Ebony Bell MD Specimens: A) - Skin, mid ant scalp B) - Skin, mid back 4:53 PM [facility] DERMATOPATHOLOGY [facility]ORAT[facility] Final Diagnosis Specimen A. SKIN, mid ant scalp: SQUAMOUS CELL CARCINOMA IN SITU, PRESENT AT THE BASE OF THE SPECIMEN (D04.4) (see microscopic description and comment) Specimen B. 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 Path# [id number]. B: Nevus vs MM. Path# [id number]. 4:53 PM T DERMATOPATHOLOGY LABORATORY Gross Description Specimen A: Received is one formalin filled container labeled with the patient's name and designated mid ant scalp. The specimen consists of a shave biopsy measuring [id number]. Jar 0. Specimen B: Received is one formalin filled container labeled with the patient's name and designated mid back. The specimen consists of a shave biopsy measuring [id number]. Jar 0. 4:53 PM [facility] DERMATOPATHOLOGY [facility]ORATORY Microscopic Description Specimen A. SKIN, mid ant scalp: The epidermis shows parakeratosis, full thickness disorderly maturation of keratinocytes, mitoses at different levels, and dyskeratotic cells. The lesion extends to the base of the biopsy. COMMENT: An invasive squamous cell carcinoma cannot be ruled out. Specimen B. SKIN, mid back: This is a compound nevus. There is architectural disorder characterized by a lentiginous proliferation of melanocytes along the dermal-epidermal junction, highlighted by MART-1/Melan-A immunohistochemical staining. There is underlying fibroplasia of the papillary dermis. The intradermal component is bland in appearance and matures with depth. Some melanocytes are splayed between collagen bundles and are localized around adnexal structures, consistent with congenital features. Original and deeper sections were reviewed. (Compound Wilber's Nevus or Compound Dysplastic Nevus) 4:53 PM T DERMATOPATHOLOGY LABORATORY Disclaimer An external and internal positive and negative controls are appropriate for the histochemical, immunohistochemical and immunofluorescence stain(s) in this case (if any), except where stated explicitly. The performance characteristics of the stain(s) cited in this report were developed and its performance characteristic determined by the Dermatopathology Laboratory at [facility], directed by Dr. Kamran Simental. These tests need not be, and therefore are not, approved by the [place] Food and Drug Administration. The tests are used for clinical purposes. Billing Codes Specimen Charges Stain Charges 34840 25043 1 1 20098 1 1 4:53 PM CDT DERMATOPATHOLOGY LABORATORY Embedded Images 4:53 PM CDT DERMATOPATHOLOGY LABORATORY Pathology/Cytology TISSUE SPECIMEN FROM SKIN / Unknown 10/31/2020 3:33 AM CDT 11/02/2020 6:19 AM CDT Miscellaneous samples (specimen) TISSUE SPECIMEN FROM SKIN / Unknown 10/31/2020 3:33 AM CDT 11/02/2020 6:19 AM CDT us Vivek Pat MD LAB - PATHOLOGY/CYTOLOGY ORDER CHRISTOPHER Final Result DERMATOPATHOLOGY LABORATORY [facility] - Department of Dermatology [facility] Medicine [address] [place] [address], [address] [phone] documented in this encounter Visit Diagnoses Not on filedocumented in this encounter
--- OUTSIDE RECORDS SUMMARY | 2024-07-26 10:07 | XMS_ITS | Clinical Summary ---
Author Organization [facility] Address Formerly [facility] [place] [address] Care Team Providers Care Utilities Ground Worker Name Role Phone Gómez Harden MD Unavailable [phone] Martin Palomino MD Primary Care Provider [phone] Allergies Active Allergy Reactions Criticality Noted Date Comments Isosorbide Nitrate Headache 09/12/2018 Medications Glucose Blood (BLOOD GLUCOSE TEST STRIPS) StripIndications:Ty pe 2 diabetes mellitus without complication, without long-term current use of insulin ([facility]) 1 strip by Does not apply route 2 (two) times a day. 200 strip 3 2 Active Lancets MiscIndications:Typ e 2 diabetes mellitus without complication, without long-term current use of insulin ([facility]) 1 Device by Does not apply route 2 (two) times a day. 100 each 3 2 Active tamsulosin (FLOMAX) 0.4 MG CapIndications:Luis Felipe gn prostatic hyperplasia with urinary frequency TAKE 1 CAPSULE(0.4 MG) BY MOUTH DAILY 90 capsule 3 4 Active rosuvastatin (CRESTOR) 20 MG tabletIndications:E ssential hypertension Take 1 tablet (20 mg total) by mouth nightly at bedtime. 90 tablet 3 4 Active lisinopril (PRINIVIL) 20 MG tabletIndications:E ssential hypertension Take 1 tablet (20 mg total) by mouth daily. 90 tablet 3 4 Active pantoprazole EC (PROTONIX) 20 MG tabletIndications:G astroesophageal reflux disease without esophagitis Take 1 tablet (20 mg total) by mouth daily. 90 tablet 3 4 Active fenofibrate (TRICOR) 145 MG tabletIndications:E ssential hypertension,Hyperl ipidemia, unspecified hyperlipidemia type Take 1 tablet (145 mg total) by mouth daily. 90 tablet 3 4 Active hydroCHLOROthiazide (MICROZIDE) 12.5 MG capsuleIndications: Essential hypertension Take 1 capsule (12.5 mg total) by mouth every morning. 90 capsule 3 4 Active metFORMIN (GLUCOPHAGE) 500 MG tabletIndications:T ype 2 diabetes mellitus without complication, without long-term current use of insulin ([facility]) Take 1 tablet (500 mg total) by mouth 3 (three) times daily with meals. 270 tablet 3 4 Active metoprolol succinate ER (TOPROL-XL) 50 MG 24 hr tabletIndications:E ssential hypertension Take 1 tablet (50 mg total) by mouth daily. 90 tablet 3 4 Active loratadine (CLARITIN) 10 MG tabletIndications:A llergic rhinitis, unspecified seasonality, unspecified trigger Take 1 tablet (10 mg total) by mouth daily. 90 tablet 3 4 Active aspirin EC (ASPIRIN LOW DOSE) 81 MG tabletIndications:E ssential hypertension Take 1 tablet (81 mg total) by mouth daily. 90 tablet 3 4 Active dulaglutide (TRULICITY) 0.75 MG/0.5ML injectionIndication s:Type 2 diabetes mellitus without complication, without long-term current use of insulin ([facility]) Inject 0.75 mg into the skin once a week. 12 Pen 3 5 Active Active Problems Problem Noted Date Diagnosed Date Dupuytren contracture of both hands 12/02/2023 Assessment & Plan (12/04/2023 7:50 PM CDT): Recommendation at this time we went over the risks and the benefits, as well as the alternatives. questions are answered. I will try to get him set up with either Dr. Cota, Dr. Sutton, for possible Ziaflex injection in the future. Basal cell carcinoma 03/14/2020 Overview (03/14/2020): Followed by Dr. Pat Squamous cell cancer of external ear, right 10/2019 Overview (03/14/2020): Followed by Dr. Pat Type 2 diabetes mellitus wit hout complication, without long-term current use of insulin ([facility]) 03/14/2020 Class 1 obesity due to exces s calories without serious comorbidity with body mass index (BMI) of 34.0 to 34.9 in adult 09/16/2018 Allergic rhinitis, unspecifi ed seasonality, unspecified trigger 03/04/2018 Meniscal injury, left, sequela 03/04/2018 Chronic pain of left knee 03/04/2018 Gastroesophageal reflux disease without esophagi tis 03/04/2018 ANNIE on CPAP 03/04/2018 Hypertension Hyperlipidemia Resolved Problems Problem Noted Date Diagnosed Date Resolved Date SANTOS (dyspnea on exertion) 07/09/2018 Cellulitis and abscess of left leg 03/04/2018 03/14/2020 Hyperlipidemia, unspecified hyperlipidemia type 03/04/2018 07/14/2020 Other secondary hypertension 03/04/2018 07/14/2020 Diverticulosis of intestine without bleeding, unspecified intestinal tract location 03/04/2018 Chest pain 07/14/2020 Encounters Date Type Department Care Team Description 05/28/2024 Scan HEALTH INFO SRVCS Scanned, Doc Med Group Dilated Eye Exam (SCAN) 05/06/2024 7:00 AM CLAY WORKER Office Visit [facility] Family & Internal [address] [address] Martin Palomino MD GERD (6 month follow up. ); Diabetes (6 month follow up. Labs done on 04/27/24. A1C was 6.4) 05/06/2024 Travel 04/28/2024 Patient Outreach [facility] Family & Internal [address] [address] Martin Palomino MD Pre-visit Gap Closure 04/27/2024 7:20 AM CLAY WORKER Laboratory Only [facility] Family [facility] Internal Medicine [address] [address] Martin Palomino MD 04/27/2024 - 04/27/2024 11:59 PM CLAY WORKER Hospital Encounter [facility] [address] Martin Palomino MD Discharge Disposition: Home or Self Care (Routine Discharge) 04/27/2024 Travel from Last 3 Months Immunizations Immunization Administration Dates Next Due Fluad influenza vaccine, Allen drivalent (aIIV4), Inactivated, adjuvanted, preservative free, 0.5 mL,IM use 01/16/2021 Fluzone High Dose - >Age 65 (Prefilled Syringe) 02/07/2022,03/14/2020 Hepatitis A (Havrix 1440 El.U) 02/09/1998,1996 Influenza (Generic) 02/01/2009,02/09/1998,1996 Influenza Adult (Generic) 02/07/2022,04/2019(Deferred: Patient/family declined),10/27/2018 MMR (MMRII) 04/08/1976 PFIZER COVID-19 (ORIGINAL FORMULATION, PURPLE CAP) mRNA, LNP-S, PF, 30 MCG/0.3 ML DOSE 01/16/2021,05/30/2020,05/07/2020 PFIZER COVID-19 BIVALENT (12 +) mRNA, LNP-S, PF, 30 MCG/0.3 ML DOSE 04/03/2022 Pneumococcal (Pneumovax 23) 10/10/2022 Pneumococcal (Prevnar 13) 03/14/2020,10/23/2018 Polio Opv (Generic) 04/08/1976 Shingrix 06/17/2022,04/17/2022 Td (TDVAX) 02/09/1998 Tdap (Generic) 02/01/2009 Typhoid Oral (Vivotif) 02/09/1998 Family History Medical History Relation Comments Heart Attack Brother 1 Stent Cardiac Brother 1 CABG Brother 2 Heart Disease Brother 2 Heart Attack Father Heart Disease Father Open Heart Father Stent Cardiac Father Diabetes Mother Relation Status Comments Brother 1 Alive Brother 2 Alive Father Mother Social History Tobacco Use Types Packs/Day Years Used Date Smoking Tobacco: Former Cigarettes 0.5 6 0 04/08/1971 - 04/08/1977 Cigars Smokeless Tobacco: Never Tobacco Cessation:Counseling Given: Not Answered Comments:quit Alcohol Use Standard Drinks/Week Comments Not Currently 0 (1 standard drink = 0.6 oz pur e alcohol) PHQ-2 Answer Date Recorded Patient Health Questionnaire-2 Score 0 05/06/2024 Sex and Gender Information Value Date Recorded Sex Assigned at Male 05/06/2024 7:05 AM CLAY WORKER Legal Sex Male 8:12 PM CDT Gender Identity Male 05/06/2024 7:05 AM CLAY WORKER Sexual Orientation Not on file 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 on file Not on file Last Filed Vital Signs Vital Sign Reading Time Taken Comments Blood Pressure 124/62 05/06/2024 7:07 AM CLAY WORKER Pulse 59 05/06/2024 7:07 AM CLAY WORKER Temperature 36.6 C (97.8 F) 05/06/2024 7:07 AM CLAY WORKER Respiratory Rate 16 05/06/2024 7:07 AM CLAY WORKER Oxygen Saturation 98% 05/06/2024 7:07 AM CLAY WORKER Inhaled Oxygen Concentration - - Weight 108 kg (238 lb 1.6 oz) 05/06/2024 7:07 AM CLAY WORKER Height 185.4 cm (6' 1 ) 05/06/2024 7:07 AM CLAY WORKER Body Mass Index 31.41 05/06/2024 7:07 AM CLAY WORKER Plan of Treatment Upcoming Encounters Date Type Department Care Team (Late st Contact Info) Description 10/28/2024 7:20 AM CDT Laboratory Only [facility] Medical [facility] Family & Internal Medicine [address] [place] [address] Martin Palomino MD [address] [place] [address] 11/04/2024 7:40 AM CDT Office Visit [facility] Family & Internal Medicine [address] [place] [address] Martin Palomino MD [address] [place] [address] Health Maintenance Due Date Last Done Comments Hepatitis C 1970 AAA SCREENING 2017 Annual Medicare Wellness Visit 2017 Hemoglobin A1C 10/25/2024 04/27/2024, 10/06, 04/24/2023, Additional history exists Kidney Health Evaluation 04/27/2025 04/27/2024 Lipid Panel 04/27/2025 04/27/2024, 10/06, 04/24/2023, Additional history exists COVID-19 Vaccine ( season) 2025 04/03/2022, 01/16/2021, 05/30/2020, Additional history exists Postponed from 12/08/2023 (Patient Refused) DTaP, Tdap and Td Vaccines (2 - Td or Tdap) 05/06/2025 02/01/2009, 02/09/1998 Postponed from 02/01/2019 (No Insurance Coverage) Diabetes: Retinopathy Eye Exam 05/28/2026 05/28/2024, 01/04/2022 Colorectal Cancer Screening Colonoscopy (10 Years) 12/21/2026 12/21/2016 RSV Immunization or 60+ Years (1 - 1-dose 75+ series) 12/02/2027 Zoster Vaccines Completed 06/17/2022, 04/17/2022 Pneumococcal Vaccine: 50+ Years Completed 10/10/2022, 03/14/2020, 10/23/2018 PHQ-2 (Physician [place]) Completed 05/06/2024 Meningococcal B Vaccine Aged Out No l onger eligible based on patient's age to complete this topic Meningococcal Vaccine Aged Out No konrad annabelle eligible based on patient's age to complete this topic RSV Immunizations Under 20 Months Aged Out No longer eligible based on patient's age to complete this topic Procedures Procedure Name Priority Date/Time Associated Diagnosis Comments DIABETIC RETINOPATHY EXAM (NEGATIVE)(SCAN ORDER) Routine 05/28/2024 COLLECTION VENOUS BLOOD VENIPUNCTURE Routine 04/27/2024 7:29 AM CLAY WORKER Screening for prostate cancer Primary hypertension Hyperlipidemia, unspecified hyperlipidemia type Type 2 diabetes mellitus without complication, without long-term current use of insulin ([facility]) URINALYSIS, AUTO, COMPLETE Routine 04/27/2024 7:28 AM CLAY WORKER Primary hypertension Hyperlipidemia, unspecified hyperlipidemia type Type 2 diabetes mellitus without complication, without long-term current use of insulin (CMS/HCC HHS/HCC) CBC W/DIFF AUTOMATED Routine 04/27/2024 7:28 AM CLAY WORKER Primary hypertension Hyperlipidemia, unspecified hyperlipidemia type Type 2 diabetes mellitus without complication, without long-term current use of insulin (CMS/HCC HHS/HCC) LIPID PANEL Routine 04/27/2024 7:28 AM CLAY WORKER Primary hypertension Hyperlipidemia, unspecified hyperlipidemia type Type 2 diabetes mellitus without complication, without long-term current use of insulin (CMS/HCC HHS/HCC) TSH W/REFLEX Routine 04/27/2024 7:28 AM CLAY WORKER Primary hypertension Hyperlipidemia, unspecified hyperlipidemia type Type 2 diabetes mellitus without complication, without long-term current use of insulin (CMS/HCC HHS/HCC) URIC ACID BLOOD Routine 04/27/2024 7:28 AM CLAY WORKER Primary hypertension Hyperlipidemia, unspecified hyperlipidemia type Type 2 diabetes mellitus without complication, without long-term current use of insulin (CMS/HCC HHS/HCC) COMPREHENSIVE METABOLIC PANEL Routine 04/27/2024 7:28 AM CLAY WORKER Primary hypertension Hyperlipidemia, unspecified hyperlipidemia type Type 2 diabetes mellitus without complication, without long-term current use of insulin (CMS/HCC HHS/HCC) HEMOGLOBIN, GLYCOSYLATED Routine 04/27/2024 7:28 AM CLAY WORKER Primary hypertension Hyperlipidemia, unspecified hyperlipidemia type Type 2 diabetes mellitus without complication, without long-term current use of insulin (CMS/HCC HHS/HCC) ALBUMIN URINE RANDOM W/CREATININE Routine 04/27/2024 7:28 AM CLAY WORKER Primary hypertension Hyperlipidemia, unspecified hyperlipidemia type Type 2 diabetes mellitus without complication, without long-term current use of insulin (CMS/HCC HHS/HCC) CK (CPK) Routine 04/27/2024 7:28 AM CLAY WORKER Primary hypertension Hyperlipidemia, unspecified hyperlipidemia type Type 2 diabetes mellitus without complication, without long-term current use of insulin (CMS/HCC HHS/HCC) PROSTATE SPECIFIC ANTIGEN,SCREENING Routine 04/27/2024 7:28 AM CLAY WORKER Screening for prostate cancer COLONOSCOPY GENERIC (SCAN ORDER) Routine 12/21/2016 from Last 3 Months or Most Recently Relevant to Health Maintenance Results * DIABETIC RETINOPATHY EXAM (NEGATIVE) (05/28/2024) Doc Med Group Scanned SCANNING Final Resu lt Performing Organization Address [facility] Co de Phone Number HS ONBASE * TSH W/REFLEX (04/27/2024 7:28 AM CLAY WORKER) TSH 2.155 0.358 - 3.740 uIU/ML 04/27/2024 3:18 PM CLAY WORKER [facility] 04/27/2024 7:28 AM CLAY WORKER Martin Palomino MD LABORATORY Final Result Performing Organization Address [facility] de Phone Number [address] [place] [address], * (ABNORMAL) HEMOGLOBIN, GLYCOSYLATED (04/27/2024 7:28 AM CLAY WORKER) HGB A1C 6.4(H) 4.5 - 6.2 % 04/27/2024 4:09 PM CLAY WORKER [facility] ESTIMATED AVG GLUCOSE 137(H) 74 - 106 MG/DL 04/27/2024 4:09 PM CLAY WORKER [facility] 04/27/2024 7:28 AM CLAY WORKER us Martin Palomino MD LABORATORY Final Result Performing Organization Address [facility] de Phone Number [facility] [address] [place] [address], * (ABNORMAL) URINALYSIS (04/27/2024 7:28 AM [facility]) COLOR (U) YELLOW 04/27/2024 2:27 PM [facility] TRANSPARENCY CLEAR CLEAR 04/27/2024 2:27 PM [facility] SPECIFIC GRAVITY (U) 1.025 1.003 - 1.040 04/27/2024 2:27 PM [facility] U PH 6.0 5.0 - 9.0 04/27/2024 2:27 PM [facility] PROTEIN RANDOM (U) NEGATIVE NEGATIVE 04/27/2024 2:27 PM [facility] GLUCOSE (U) NEGATIVE NEGATIVE 04/27/2024 2:27 PM [facility] KETONES MG/DL (U) NEGATIVE NEGATIVE 04/27/2024 2:27 PM [facility] BILIRUBIN (U) NEGATIVE NEGATIVE 04/27/2024 2:27 PM [facility] BLOOD (U) NEGATIVE NEGATIVE 04/27/2024 2:27 PM [facility] UROBILINOGEN 1.0 0.0 - 2.0 EU/DL 04/27/2024 2:27 PM [facility] NITRITES NEGATIVE NEGATIVE 04/27/2024 2:27 PM [facility] LEUKOCYTES (U) NEGATIVE NEGATIVE 04/27/2024 2:27 PM [facility] RBC/HPF 0-3 0 - 3 /HPF 04/27/2024 2:27 PM [facility] WBC/HPF 0-3 0 - 3 /HPF 04/27/2024 2:27 PM [facility] EPI/HPF 0-3 /HPF 04/27/2024 2:27 PM [facility] BACTERIA (U) TRACE(A) NONE SEEN 04/27/2024 2:27 PM [facility] URINE SPECIMEN OBTAINED BY CLEAN CATCH PROCEDURE / Unknown 04/27/2024 7:28 AM CLAY WORKER us Martin Palomino MD URINE ORDERABLES Final Result Performing Organization Address [facility] Co de Phone Number [facility] [address] [place] [phone], * PROSTATE SPECIFIC ANTIGEN,SCREENING (04/27/2024 7:28 AM CLAY WORKER) PSA 0.85 <4.00 NG/ML 04/27/2024 2:34 PM CLAY WORKER [facility] Comment: ASSAY PERFORMED BY ENZYME IMMUNOASSAY METHODOLOGY USING Cupple REAGENT. PATIENT RESULTS DETERMINED BY ASSAYS FROM DIFFERENT MANUFACTURERS AND/OR BY DIFFERENT METHODS MAY NOT BE COMPARABLE. 04/27/2024 7:28 AM CLAY WORKER us Martin Palomino MD LABORATORY Final Result Performing Organization Address [facility] de Phone Number [address] [place] [address], [place] [phone] * ALBUMIN URINE RANDOM W/CREATININE (04/27/2024 7:28 AM CLAY WORKER) MICROALBUMIN (U) 10.6 <20 MG/L 04/27/19 3:17 PM CLAY WORKER [facility] CREATININE RANDOM (U) 297.2 MG/DL 04/27/2024 3:17 PM CLAY WORKER [facility] ALBUMIN/CREAT RATIO 3.6 <30 MG/G 04/27/2024 3:17 PM CLAY WORKER [facility] URINE SPECIMEN / Unknown 04/27/2024 7:28 AM CLAY WORKER us Martin Palomino MD URINE ORDERABLES Final Result Performing Organization Address [facility] Co de Phone Number [address] [place] [address], [place] [phone] * (ABNORMAL) COMPREHENSIVE METABOLIC PANEL (04/27/2024 7:28 AM CLAY WORKER) [facility] SODIUM S/P/B 142 136 - 145 MMOL/L 04/27/2024 3:18 PM [facility] POTASSIUM S/P/B 3.8 3.5 - 5.1 MMOL/L 04/27/2024 3:18 PM [facility] CHLORIDE S/P/B 103 98 - 107 MMOL/L 04/27/2024 3:18 PM [facility] CO2 29.7 21 - 32 MMOL/L 04/27/2024 3:18 PM [facility] GLUCOSE 135(H) 70 - 99 MG/DL 04/27/2024 3:18 PM [facility] BUN 12 7 - 18 MG/DL 04/27/2024 3:18 PM [facility] CREATININE S/P/B 1.05 0.70 - 1.30 MG/DL 04/27/2024 3:18 PM [facility] CALCIUM S/P/B 9.0 8.4 - 10.5 MG/DL 04/27/2024 3:18 PM [facility] BILIRUBIN TOTAL S/P/B 0.8 0.2 - 1.0 MG/DL 04/27/2024 3:18 PM [facility] ALKALINE PHOSPHATASE S/P/B 38(L) 45 - 115 U/L 04/27/2024 3:18 PM [facility] AST 21 15 - 37 U/L 04/27/2024 3:18 PM [facility] ALT 20 16 - 63 U/L 04/27/2024 3:29 PM [facility] TOTAL PROTEIN S/P/B 6.8 6.4 - 8.2 G/DL 04/27/2024 3:18 PM CLAY WORKER [facility] ALBUMIN S/P/B 4.1 3.4 - 5.0 G/DL 04/27/2024 3:18 PM CLAY WORKER [facility] ANION GAP 9.3 5 - 15 MMOL/L 04/27/2024 3:[address] [facility] Comment:REFERENCE RANGE NOT ESTABLISHED OSMOLALITY (CALC) 296 MOSM/KG 025 3:18 PM CLAY WORKER [facility] AL[facility] Comment:REFERENCE RANGE NOT ESTABLISHED GFR ESTIMATE 76(L) >90 ML/MIN/1. 73 M2 04/27/2024 3:[address] [facility] GFR NOTES GFR REFERENCE S: 04/27/2024 3:18 PM CLAY WORKER [facility] AL[facility] Comment: THE ESTIMATED GFR IS CALCULATED USING THE 2020 CKD-EPI EQUATION. THE FOLLOWING CATEGORIES FOR GRADING RENAL FUNCTION ARE RECOMMENDED BY THE INTERNATIONAL SOCIETY OF NEPHROLOGY (KDIGO 2012 CLINICAL PRACTICE GUIDELINE). G1,NORMAL OR HIGH: >89 ml/min/1.73 m2 G2,MILDLY DECREASED: 60-89 ml/min/1.73 m2 G3A,MILDLY TO MODERATELY DECREASED: 45-59 ml/min/1.73 m2 G3B,MODERATELY TO SEVERELY DECREASED: 30-44 ml/min/1.73 m2 G4,SEVERELY DECREASED: 15-29 ml/min/1.73 m2 G5,KIDNEY FAILURE: <15 ml/min/1.73 m2 04/27/2024 7:28 AM CLAY WORKER us Martin Palomino MD LABORATORY Final Result [facility] [address] [place] [address], * LIPID PANEL (04/27/2024 7:28 AM CLAY WORKER) Pathologist [facility] CHOLESTEROL 120 <200 MG/DL 04/27/2024 3:[address] [facility] TRIGLYCERIDES 91 <150 MG/DL 04/27/2024 3:18 PM CLAY WORKER [facility] HDL 48 >40 MG/DL 04/27/2024 3:18 PM CLAY WORKER [facility] LDL-C 54 <100 MG/DL 04/27/2024 3:18 PM [facility] VLDL CALCULATION 18 5 - 28 MG/DL 04/27/2024 3:18 PM CLAY WORKER [facility] CHOL/HDL RATIO 2.5 0.0 - 4.0 04/27/2024 3:18 PM CLAY WORKER [facility] LDL/HDL 1.1 0.41 - 2.13 04/27/2024 3:18 PM [facility] NON HDL CHOLESTEROL 72 <140 MG/DL 04/27/2024 3:18 PM [facility] 04/27/2024 7:28 AM CLAY WORKER Martin Palomino MD LABORATORY Final Result [facility] [address] [place] [address], * (ABNORMAL) CBC W/DIFF AUTOMATED (04/27/2024 7:28 AM CLAY WORKER) WBC 3.85(L) 4.00 - 10.80 x10'3/uL 04/27/2024 4:28 PM [facility] RBC 4.62 4.50 - 6.10 x10'6/uL 04/27/2024 4:28 PM CLAY WORKER [facility] HGB 13.6 13.0 - 18.0 G/DL 04/27/2024 4:28 PM [facility] HCT 40.6 37.0 - 52.0 % 04/27/2024 4:28 PM CLAY WORKER [facility] MCV 87.9 78.0 - 100.0 FL 04/27/2024 4:28 PM [facility] MCH 29.4 27.0 - 31.0 PG 04/27/2024 4:28 PM [facility] MCHC 33.5 33.0 - 36.0 G/DL 04/27/2024 4:28 PM [facility] RDW 12.9 11.5 - 14.5 % 04/27/2024 4:28 PM [facility] PLT 264 150 - 350 x10'3/uL 04/27/2024 4:28 PM [facility] MPV 10.7(H) 7.4 - 10.4 FL 04/27/2024 4:28 PM [facility] DIFFERENTIAL TYPE AUTOMATED DIFFERENTIAL 04/27/2024 4:28 PM [facility] NEUTROPHILS % 54.8 % 04/27/2024 4:28 PM [facility] LYMPHOCYTES % 34.5 % 04/27/2024 4:28 PM [facility] MONOCYTES % 8.3 % 04/27/2024 4:28 PM [facility] EOSINOPHILS % 1.6 % 04/27/2024 4:28 PM [facility] BASOPHILS % 0.5 % 04/27/2024 4:28 PM [facility] IMMATURE GRANS % 0.3 % 04/27/2024 4:28 PM [facility] ABS. NEUTROPHILS 2.11 1.60 - 8.30 x10'3/uL 04/27/2024 4:28 PM [facility] ABS. LYMPHOCYTES 1.33 0.80 - 4.70 x10'3/uL 04/27/2024 4:28 PM [facility] ABS. MONOCYTES 0.32 0.00 - 1.50 x10'3/uL 04/27/2024 4:28 PM [facility] ABS. EOSINOPHILS 0.06 0.00 - 0.40 x10'3/uL 04/27/2024 4:28 PM CLAY WORKER [facility] ABS. BASOPHILS 0.02 0.00 - 0.20 x10'3/uL 04/27/2024 4:28 PM CLAY WORKER [facility] ABS. IMMATURE GRANULOCYTES 0.01 0.00 - 0.03 x10'3/uL 04/27/2024 4:28 PM CLAY WORKER [facility] 04/27/2024 7:28 AM CLAY WORKER us Martin Palomino MD LABORATORY Final Result [facility] [address] [place] [address], [place] [phone] * CK (CPK) (04/27/2024 7:28 AM CLAY WORKER) CPK 192 39 - 308 U/L 04/27/2024 5:46 PM CLAY WORKER [facility] 04/27/2024 7:28 AM CLAY WORKER us Martin Palomino MD LABORATORY Final Result Performing Organization Address City/[facility]/ZIP Co de Phone Number [facility] [address] [place] [address], [place] [phone] * URIC ACID BLOOD (04/27/2024 7:28 AM CLAY WORKER) URIC ACID 3.8 3.5 - 7.2 MG/DL 04/27/2024 3:04 PM CLAY WORKER [facility] 04/27/2024 7:28 AM CLAY WORKER us Martin Palomino MD LABORATORY Final Result Performing Organization Address City/[facility]/ZIP Co de Phone Number [facility] [address] [place] [address], * COLONOSCOPY (12/21/2016) us Documents Scanned SCANNING Final Result [facility] from Last 3 Months or Most Recently Relevant to Health Maintenance Insurance [facility] Care Teams Utilities Ground Worker Relationship Specialty Start Date End Date Martin Palomino MD [address] [place] [address] [phone] PCP - General INTERNAL MEDICINE 03/14/20 Gómez Harden MD [address] [place] [address] Lilly Soft Sugar Supervisor CARDIOVASCULAR DISEASE 06/16/18
--- OUTSIDE RECORDS SUMMARY | 2024-07-26 10:07 | XMS_ITS | Continuity of Care Document ---
Author Organization [facility] Address [address] [place] [address] Care Team Providers Care Blueprint Clerk Name Role Phone Juan Waldrop MD Unavailable Unavailab le Allergies, Adverse Reactions, Alerts Substance Reaction Status Criticality No Known Allergies Active No Inform ation Medications Medication Instructions Dosage Effective Dates (start - stop) Status Comments hydrocodone 7.5 mg-acetaminophen 325 mg tablet take 1 tablet by oral route 3 times every day as needed for pain 1 tablet - Active pregabalin 100 mg capsule TAKE ONE CAPSULE BY MOUTH THREE TIMES DAILY - Active rosuvastatin 10 mg tablet TAKE 1/2 TABLET BY MOUTH EVERY DAY FOR TWO WEEKS THEN increase TO 1 TABLET DAILY thereafter - Active duloxetine 30 mg capsule,delayed release TAKE ONE CAPSULE BY MOUTH EVERY DAY - Active triamcinolone acetonide 0.1 % topical cream apply by topical route 2 times every day a thin layer to the affected area(s) 0.00 - Active hydrocodone 7.5 mg-acetaminophen 325 mg tablet take 1 tablet by oral route 3 times every day as needed for pain 1 tablet - No Longer Active Procedures Procedure Date ASSAY THYROID STIM HORMONE LIPID PANEL COMPREHEN METABOLIC PANEL COMPLETE CBC W/AUTO DIFF WBC GLYCATED HEMOGLOBIN TEST ROUTINE VENIPUNCTURE Psa, total screening REMOVE IMPACTED EAR WAX ANNUAL DEPRESSION SCREENING UP TO 15 MIN UTES Annual Alcohol Screening Admin IM Covid Vaccine Pfizer Covid Vaccine Admin influenza virus vac FLU HIGH DOSE PRSV FREE INC ANTIG PPPS, subseq visit OFFICE/OUTPATIENT VISIT, EST DESTROY BENIGN/PREMLG LESION OFFICE/OUTPATIENT VISIT, EST ROUTINE VENIPUNCTURE COMPREHEN METABOLIC PANEL COMPLETE CBC W/AUTO DIFF WBC GLYCATED HEMOGLOBIN TEST URINE DRUG SCREEN Psa, total screening ASSAY THYROID STIM HORMONE LIPID PANEL Annual Alcohol Screening Admin influenza virus vac FLU HIGH DOSE PRSV FREE INC ANTIG REMOVE IMPACTED EAR WAX PPPS, subseq visit OFFICE/OUTPATIENT VISIT, EST CT CHEST/THORAX W/O DYE LAB VISIT ROUTINE VENIPUNCTURE Psa, total screening ASSAY THYROID STIM HORMONE LIPID PANEL COMPREHEN METABOLIC PANEL COMPLETE CBC W/AUTO DIFF WBC GLYCATED HEMOGLOBIN TEST DESTROY BENIGN/PREMLG LESION DESTROY LESIONS, 2-14 OFFICE/OUTPATIENT VISIT, EST Admin influenza virus vac FLU HIGH DOSE PRSV FREE INC ANTIG FALL RISK ASSESSMENT DOC'D PPPS, subseq visit OFFICE/OUTPATIENT VISIT, EST ADVNC CARE PLAN TLK DOCD DESTROY BENIGN/PREMLG LESION DESTROY LESIONS, 2-14 OFFICE/OUTPATIENT VISIT, EST REMOVE IMPACTED EAR WAX ROUTINE VENIPUNCTURE LIPID PANEL COMPREHEN METABOLIC PANEL Admin 3rd Dose Moderna Covid Vaccine Feb DESTROY BENIGN/PREMLG LESION DESTROY LESIONS, 2-14 OFFICE/OUTPATIENT VISIT, EST Admin influenza virus vac FLU HIGH DOSE PRSV FREE INC ANTIG ROUTINE VENIPUNCTURE URINE DRUG SCREEN Psa, total screening ASSAY THYROID STIM HORMONE LIPID PANEL COMPREHEN METABOLIC PANEL COMPLETE CBC W/AUTO DIFF WBC GLYCATED HEMOGLOBIN TEST Admin pneumococcal vaccine PNEUMOCOCCAL VACCINE REMOVE IMPACTED EAR WAX FALL RISK ASSESSMENT DOC'D PRES/ABSN URINE INCON ASSESS PPPS, subseq visit OFFICE/OUTPATIENT VISIT, EST ADVNC CARE PLAN TLK DOCD ASSAY THYROID STIM HORMONE LIPID PANEL COMPREHEN METABOLIC PANEL COMPLETE CBC W/AUTO DIFF WBC GLYCATED HEMOGLOBIN TEST ROUTINE VENIPUNCTURE URINE DRUG SCREEN URINALYSIS, AUTO, W/O SCOPE Psa, total screening PPPS, initial visit OFFICE/OUTPATIENT VISIT, EST Admin pneumococcal vaccine Prevnar 13 IM REMOVE IMPACTED EAR WAX Admin influenza virus vac FLU VACC PRSV FREE INC ANTIG OFFICE/OUTPATIENT VISIT, EST URINALYSIS, AUTO, W/O SCOPE GENERAL HEALTH PANEL ROUTINE VENIPUNCTURE ASSAY OF PSA, TOTAL LIPID PANEL REMOVE IMPACTED EAR WAX PREV VISIT, EST, AGE 40-64 X-RAY EXAM OF HIP 2-3 VIEWS OFFICE/OUTPATIENT VISIT, EST X-RAY EXAM OF SHOULDER COMPLETE MINIMUM 2 VIEWS IMMUNIZATION ADMIN Fluzone .5 (vial) Quadrivalent 17 OFFICE/OUTPATIENT VISIT, EST URINALYSIS, AUTO, W/O SCOPE LAB VISIT ROUTINE VENIPUNCTURE ASSAY OF PSA, TOTAL LIPID PANEL GENERAL HEALTH PANEL IMMUNIZATION ADMIN Fluzone .5 (vial) Quadrivalent 17 DESTROY BENIGN/PREMLG LESION DESTROY LESIONS, 2-14 PREV VISIT, EST, AGE 40-64 DESTROY BENIGN/PREMLG LESION DESTROY LESIONS, 2-14 OFFICE/OUTPATIENT VISIT, EST OFFICE/OUTPATIENT VISIT, EST URINALYSIS, AUTO W/SCOPE ASSAY OF TOTAL TESTOSTERONE GENERAL HEALTH PANEL LIPID PANEL ASSAY OF PSA, TOTAL ROUTINE VENIPUNCTURE IMMUNIZATION ADMIN TDaP VACCINE >7 IM PREV VISIT, EST, AGE 40-64 OFFICE/OUTPATIENT VISIT, EST ROUTINE VENIPUNCTURE LIPID PANEL OFFICE/OUTPATIENT VISIT, EST Advance Directives Directive Yes / No Effective Date File Name No Information Encounters Encounter Description Practice Location Reason(s) For Visit Diagnoses Date Provider Providers Copied on Encounter [facility], [address] [place], [place], [id number], [facility] Internal Medicine Chronic pain disorder 5 Benjie [address] [place] [address] [address], [place], [place], [id number] , . tel:[phone] [facility] MANNIE, [address] [place], [place], [id number], [facility] Internal Medicine No Information 5 Benjie Sutherland er. [address], [place], [place], [id number] , [place]. tel: [phone] [facility] , [address] [place] [address], [id number], [facility] Internal Medicine No Information Jun-0 5 Benjie Sutherland er. [address], [place], [place], [id number] , [place]. tel: [phone] [facility] , [address] [place] [address], [id number], [facility] Internal Medicine Mixed hyperlipidemia Encounter for screening for malignant neoplasm of prostateSleep apnea, unspecifiedUns pecified injury at C5 level of cervical spinal cord, sequelaOther abnormalities of gait and mobilityChroni c pain syndromeLong term (current) use of opiate analgesicPredi abetes 4 Benjie Sutherland er. [address], [place], [place], [address] , . tel: [phone] Referring Provider: Juan Waldrop, [address], [place], [address]. tel:[phone] OFFICE/OUTPA TIENT VISIT, EST [facility] , [address] [place] [address], [id number], [facility] Internal Medicine acute/chronic issues. (chief complaint)hea lthcare maintenance (chief complaint)Med icare preventive (chief complaint) Adult general medical examChronic pain disorderMixed hyperlipidemia Prostate cancer screeningSleep apnea in adultSpinal cord injury at C5-C7 level without injury of spinal bone, sequelaDecreas ed functional mobilityBlurry vision, right eyeExcessive cerumen in both ear canalsEncounte r for screening for depressionEnco unter for screening for other disorderEncoun ter for screening examination for other mental health and behavioral disordersOther specified counseling 4 Benjie Sutherland er. [address], [place], [place], [address] , [place]. tel:[phone] Referring Provider: [address], [place], [address]. tel:[phone] OFFICE/OUTPA TIENT VISIT, EST [facility] , [address], [place], [id number], [facility] Internal Medicine acute/chronic issues. (chief complaint)hea lthcare maintenance (chief complaint) Actinic keratosisChron ic pain disorderNeurop athySpinal cord injury at C5-C7 level without injury of spinal bone, sequela 4 Benjie Sutherland er. [address], [place], [place], [address] , . tel:[phone] Referring Provider: Juan Waldrop, [facility] [address], [place], [address]. tel:[phone] [facility] , [address] [place] [address], [id number], [facility] Internal Medicine No Information 4 Benjie Sutherland er. [address], [place], [place], [address] , . tel:[phone] [facility] , [address], [place], [id number], [facility] Internal Medicine Mixed hyperlipidemia PrediabetesEnc ounter for screening for malignant neoplasm of prostateUnspec ified injury at C5 level of cervical spinal cord, sequelaSleep apnea, unspecifiedLon g term (current) use of opiate analgesicPolyn europathy, unspecified 3 Benjie Sutherland er. [address], [place], [place], [address] , . tel:[phone] Referring Provider: Juan Waldrop, [facility] [address], [place], [address]. tel:[phone] OFFICE/OUTPA TIENT VISIT, ELEAZAR [facility] , [address], [place], [id number], [facility] Internal Medicine acute/chronic issues. (chief complaint)hea lthcare maintenance (chief complaint)Med icare preventive (chief complaint) Adult general medical examExcessive cerumen in right ear canalMixed hyperlipidemia Impaired gaitPrediabete sProstate cancer screeningSpina l cord injury at C5-C7 level without injury of spinal bone, sequelaChronic pain of right ankleOther chronic painSleep apnea in adultLong term prescription opiate useOther specified counselingEnco unter for screening for other disorderEncoun ter for screening examination for other mental health and behavioral disordersC5-C7 incomplete quadriplegiaRi ght spastic hemiparesisBro wn-S q uard syndrome 3 Benjie Sutherland er. [address], [place], [place], [address] , . tel: [phone] Referring Provider: Juan Waldrop, [address], [place], [address]. tel:[phone] [facility] , [address] [place] [address], [id number], [facility] Internal Medicine Solitary pulmonary nodule 2 Benjie Sutherland er. [address], [place], [place], [address] , . tel: [phone] Referring Provider: Juan Waldrop, [address], [place], [address]. tel:[phone] [facility] , [address] [place] [address], [id number], [facility] Internal Medicine No Information 2 Benjie Sutherland er. [address], [place], [place], [id number] , . tel:[phone] Referring Provider: Juan Waldrop, [address], [place], [address]. tel:[phone] [facility] , [address], [place], [id number], [facility] Internal Medicine Daytime sleepiness 2 Benjie Sutherland er. [address], [place], [place], [address] , [place]. tel:[phone] [facility] , [address], [place], [id number], [facility] Internal Medicine Mixed hyperlipidemia PrediabetesEnc ounter for screening for malignant neoplasm of prostateSolita ry pulmonary noduleChronic pain syndromePolyne uropathy, unspecified 2 Benjie Sutherland er. [address], [place], [place], [address] , [place]. tel: [phone] Referring Provider: Juan Waldrop, [address], [place], [address]. tel:[phone] OFFICE/OUTPA TIENT VISIT, EST [facility] , [address], [place], [id number], [facility] Internal Medicine acute/chronic issues. (chief complaint)a lthcare maintenance (chief complaint) Chronic pain disorderSpinal cord injury at C5-C7 level without injury of spinal bone, sequelaProstat e cancer screeningPredi abetesMixed hyperlipidemia Daytime sleepinessPulm onary noduleActinic keratosesFlu vaccine need 2 Benjie Sutherland er. [address], [place], [place], [id number] , [place]. tel: [phone] Referring Provider: Juan Waldrop, [address], [place], [address]. tel:[phone] [facility] , [address], [place], [id number], [facility] Internal Medicine Encounter for screening colonoscopy 2 Benjie Sutherland er. [address], [place], [place], [address] , [place]. tel: [phone] OFFICE/OUTPA TIENT VISIT, EST [facility] , [address], [place], [id number], [facility] Internal Medicine acute/chronic issues. (chief complaint)a lthcare maintenance (chief complaint)Med icare preventive (chief complaint) Adult general medical examMixed hyperlipidemia PrediabetesSpi nal cord injury at C5-C7 level without injury of spinal bone, sequelaNeuropa thyCarpal tunnel syndrome on both sidesDepressiv e disorderChroni c pain disorderRash and nonspecific skin eruptionPulmon ruth nodule 2 Benjie Sutherland er. [address], [place], [place], [address] , [place]. tel: [phone] Referring Provider: Juan Waldrop, [address], [place], [address]. tel:[phone] OFFICE/OUTPA TIENT VISIT, EST [facility] , [address], [place], [id number], [facility] Internal Medicine acute/chronic issues. (chief complaint)hea lthcare maintenance (chief complaint) Carpal tunnel syndrome on both sidesActinic keratosesBilat eral impacted cerumen Jul- 2 Benjie Sutherland er. [address], [place], [place], [address] , . tel:[phone] Referring Provider: Juan Waldrop, [address], [place], [address]. tel:[phone] [facility] , [address] [place] [address], [id number], [facility] Internal Medicine Mixed hyperlipidemia 2 Benjie Sutehrland er. [address], [place], [place], [address] , . tel:[phone] Referring Provider: Juan Waldrop, [address], [place], [address]. tel:[phone] [facility] , [address], [place], [id number], [facility] Internal Medicine No Information 1 Benjie Sutherland er. [address], [place], [place], [id number] , . tel:[phone] Referring Provider: Juan Waldrop, [address], [place], [address]. tel:[phone] OFFICE/OUTPA TIENT VISIT, ELEAZAR Ocasio [facility] , [address] [place] [address], [id number], [facility] Internal Medicine acute/chronic issues. (chief complaint)hea lthcare maintenance (chief complaint) Numbness and tingling in left handParesthesi a of skinChronic pain disorderActini c keratosesSkin lesion of backFlu vaccine needImmunizati on not carried out for other reason 1 Benjie Sutherland er. [address], [place], [place], [address] , [place]. tel:[phone] Referring Provider: Juan Waldrop, [address], [place], [address]. tel:[phone] [facility] , [address] [place] [address], [id number], [facility] Internal Medicine No Information 1 Benjie Sutherland er. [address], [place], [place], [address] , [place]. tel:[phone] [facility] , [address] [place] [address], [id number], [facility] Internal Medicine Mixed hyperlipidemia 1 Benjie Sutherland er. [address], [place], [place], [address] , [place]. tel: [phone] [facility] , [address] [place] [address], [id number], [facility] Internal Medicine Mixed hyperlipidemia Pure hyperglyceride [facility] for screening for malignant neoplasm of prostatePolyne uropathy, unspecified 1 Benjie Sutherland er. [address], [place], [place], [address] , [place]. tel:[phone] Referring Provider: Juan Waldrop, [address], [place], [address]. tel:[phone] OFFICE/OUTPA TIENT VISIT, EST [facility] , [address] [place] [address], [id number], [facility] Internal Medicine acute/chronic issues. (chief complaint)hea lthcare maintenance (chief complaint)Med icare preventive (chief complaint) Impacted cerumen, bilateralAdult general medical examMixed hyperlipidemia PrediabetesPro state cancer screeningDayti me sleepinessRecu rrent fallsChronic pain disorder 1 Benjie Sutherland er. [address], [place], [place], [address] , [place]. tel:[phone] Referring Provider: Juan Waldrop, [address], [place], [address]. tel:[phone] [facility], [address], [place], [id number], [facility] Internal Medicine Chronic pain syndromeMixed hyperlipidemia Polyneuropathy , unspecifiedNoc turia 0 Benjie Sutherland er. [address], [place], [place], [address] , . tel: [phone] Referring Provider: Juan Waldrop, [address], [place], [address]. tel:[phone] OFFICE/OUTPA TIENT VISIT, EST [facility] , [address], [place], [id number], [facility] Internal Medicine chronic conditions (chief complaint)hea lthcare maintenance (chief complaint)Med icare preventive (chief complaint) Adult general medical examMixed hyperlipidemia Prostate cancer screeningChron ic pain disorderDepres sive disorderLeft carpal tunnel syndromeNoctur iaExcessive cerumen in right ear canalTravel advice encounter 0 Benjie reddy. [address], [place], [place], [id number] , . tel: [phone] Referring Provider: [address], [place], [address]. tel:[phone] OFFICE/OUTPA TIENT VISIT, EST [facility] , [address], [place], [id number], [facility] Internal Medicine L leg issue (chief complaint)ski n issues. (chief complaint)hea lthcare maintenance (chief complaint) Leg weakness, bilateralNeuro pathySkin lesionsFlu vaccine needImmunizati on not carried out for other reason -201 8 Benjie booker [address], [place], [place], [address] , . tel:[phone] Referring Provider: Juan Waldrop, [address], [place], [address]. tel:[phone] [facility] , [address], [place], [id number], [facility] Internal Medicine Other microscopic hematuriaEncnt r for general adult medical exam w/o abnormal findings 8 Benjie Sutherland erPio [address], [place], [place], [address] , . tel:[phone] Referring Provider: Juan Waldrop, [address], [place], [address]. tel:[phone] [facility] , [address] [place] [address], [id number], [facility] Internal Medicine Polyneuropathy , unspecifiedEnc ntr for general adult medical exam w/o abnormal findingsOther microscopic hematuriaEncou nter for screening for malignant neoplasm of prostateMixed hyperlipidemia 8 Benjie booker [address], [place], [place], [address] , . tel: [phone] Referring Provider: Juan Waldrop, [address], [place], [address]. tel:[phone] PREV VISIT, EST, AGE 40-66 [facility] , [address] [place] [address], [id number], [facility] Internal Medicine R shoulder and b/l hip pain (chief complaint)L CTS (chief complaint)ski n lesion (chief complaint)dep ression. (chief complaint)hea lthcare maintenance (chief complaint) Adult general medical examMixed hyperlipidemia Prostate cancer screeningMicro scopic hematuriaSpina l cord injury at C5-C7 level without injury of spinal bone, sequelaNeuropa thyDepressive disorderSkin lesion of right legImpacted cerumen of both earsLeft carpal tunnel syndromeHistor y of tobacco use 8 Benjie booker [address], [place], [place], [address] , [place]. tel: [phone] Referring Provider: [address], [place], [address]. tel:[phone] [facility] , [address], [place], [id number], [facility] Internal Medicine Pain in right hip 8 Benjie booker [address], [place], [place], [address] , [place]. tel:[phone] Referring Provider: Juan Waldrop, [address], [place], [address]. tel:[phone] OFFICE/OUTPA TIENT VISIT, EST [facility] , [address], [place], [id number], [facility] Internal Medicine R hip pain (chief complaint)R shoulder pain (chief complaint)hea lthcare maintenance (chief complaint) Right hip painChronic right shoulder painOther chronic painAcute pain of right knee 8 Benjie Sutherland er. [address], [place], [place], [address] , [place]. tel:[phone] Referring Provider: Juan Waldrop, [address], [place], [address]. tel:[phone] [facility] , [address] [place] [address], [id number], [place] [facility] Internal Medicine Pain in right shoulder 7 Benjie Sutherland er. [address], [place], [place], [address] , [place]. tel:[phone] Referring Provider: Juan Waldrop, [address], [place], [address]. tel:[phone] OFFICE/OUTPA TIENT VISIT, EST [facility] , [address], [place], [id number], [place] [facility] Internal Medicine R shoulder pain (chief complaint)L wrist pain (chief complaint)hea lthcare maintenance (chief complaint) Acute pain of right shoulderFall, initial encounterChron ic pain of left wristOther chronic painFlu vaccine need 7 Benjie Sutherland er. [address], [place], [place], [address] , [place]. tel:[phone] Referring Provider: Juan Waldrop, [address], [place], [address]. tel:[phone] [facility] , [address] [place] [address], [id number], [facility] Internal Medicine Other microscopic hematuria 7 Benjie Sutherland er. [address], [place], [place], [address] , . tel:[phone] Referring Provider: Juan Waldrop, [facility] [address], [place], [address]. tel:[phone] [facility] , [address] [place] [address], [id number], [facility] Internal Medicine No Information 7 Benjie Sutherland er. [address], [place], [place], [address] , . tel:[phone] Referring Provider: Juan Waldrop, [facility] [address], [place], [address]. tel:[phone] [facility], [address] [place] [address], [id number], [facility] Internal Medicine Other microscopic hematuriaEncou nter for screening for malignant neoplasm of prostatePure hyperglyceride miaEncntr for general adult medical exam w/o abnormal findings 7 Benjie Sutherland er. [address], [place], [place], [id number] , . tel:[phone] Referring Provider: Juan Waldrop, [facility] [address], [place], [address]. tel:[phone] PREV VISIT, EST, AGE [age] [facility] , [address] [place] [address], [id number], [facility] Internal Medicine chronic pain issues/ (chief complaint)lig ht-headedness (chief complaint)ski n issues (chief complaint)dys thymia (chief complaint)hea lthcare maintenance (chief complaint) Adult general medical examSpinal cord injury, C5-C7, sequelaHypertr iglyceridemiaP rostate cancer screeningActin ic keratosisBilat eral impacted cerumenLight headednessMicr oscopic hematuriaEncou nter for screening colonoscopy 7 Benjie Sutherland er. [address], [place], [place], [id number] , . tel:+ [phone] Referring Provider: Juan Waldrop, [facility] [address], [place], [address]. tel:[phone] [facility] , [address], [place], [id number], [facility] Internal Medicine Skin cancer screening 6 Benjie Sutherland er. [address], [place], [place], [id number] , [place]. tel: [phone] OFFICE/OUTPA TIENT VISIT, EST Amarjit Jetmore Lai , [address] [place] [address], [phone], [facility] Internal Medicine AFO brace (chief complaint)SI joint pain (chief complaint)moo d issues (chief complaint)ski n lesion (chief complaint)hea lthcare maintenance (chief complaint) Impaired gaitSacroiliit isActinic keratosisDysth ymiaSpinal cord injury, C5-C7, sequela 6 Benjie Sutherland er. [address], [place], [place], [id number] , [place]. tel: [phone] Referring Provider: Juan Waldrop, [address], [place], [address]. tel:[phone] OFFICE/OUTPA TIENT VISIT, EST Amarjit Hoyt , [address], [place], [id number], [facility] Internal Medicine R ear discomfort (chief complaint) Otitis externaAural polyp of external auditory canal 5 Benjie Sutherland er. [address], [place], [place], [id number] , [place]. tel:[phone] Referring Provider: [address], [place], [address]. tel:[phone] Amarjit Hoyt , [address], [place], [id number], [facility] Internal Medicine Other and unspecified hyperlipidemia Routine general medical examination at a health care facilityOther malaise and fatigueScreeni ng for malignant neoplasms of the prostate 5 Benjie Sutherland er. [address], [place], [place], [id number] , . tel:[phone] Referring Provider: Juan Waldrop, [address], [place], [address]. tel:[phone] Amarjit Hoyt , [address] [place] [address], [id number], [facility] Internal Medicine Routine general medical examination at a health care facilityOther and unspecified hyperlipidemia Other malaise and fatigueScreeni ng for malignant neoplasms of the prostate 5 Benjie Sutherland er. [address], [place], [place], [id number] , [place]. tel:[phone] Referring Provider: Juan Waldrop, [address], [place], [address]. tel:[phone] Amarjit Jetmore Lai , [address] [place] [address], [phone], [facility] Internal Medicine Other and unspecified hyperlipidemia Routine [facility] a [facility] care facilityOther malaise and fatigueScreeni ng for malignant neoplasms of the prostate 5 Benjie Sutherland er. [address], [place], [place], [id number] , [place]. tel:[phone] Referring Provider: Juan Waldrop, [facility] [address], [place], [address]. tel:[phone] PREV VISIT, EST, AGE 40-64 Amarjit Jetmore Lai , [address], [place], [id number], [facility] Internal Medicine paresthesias (chief complaint)fat igue/low energy (chief complaint)ski n lesion (chief complaint)hea lthcare maintenance (chief complaint) General medical examHyperlipid emiaFatigueSki n lesionCerumen impactionNeuro pathyProstate cancer screeningSpeci al screening for malignant neoplasms, colon 5 Benjie Sutherland er. [address], [place], [place], [id number] , [place]. tel:[phone] [facility] , [address] [place] [address], [id number], [facility] Internal Medicine No Information [address] [facility] [address], [place], [place], [id number] , . tel: [phone] OFFICE/OUTPA TIENT VISIT, EST [facility] , [address] [place] [address], [id number], [facility] Internal Medicine No Information 3 Chiqui Shearer. [address], [place], [place], [id number] , . tel: [phone] [facility] , [address] [place] [address], [id number], [facility] Internal Medicine No Information 2 Chiqui Shearer. [address], [place], [place], [id number] , . tel: [phone] OFFICE/OUTPA TIENT VISIT, [facility] , [address] [place] [address], [phone], [facility] Internal Medicine No Information [address] [facility] [address], [place], [place], [id number] , . tel: [phone] Family History Family Member Type Diagnosis Age At Onset Problem (finding) Family history of Diabe breezy mellitus Immunizations Vaccine Date Status Comments FLUZONE HIGH DOSE administered Source: New Immunization Record SARS-COV-2 (COVID-19) vaccin e, mRNA, spike protein, LNP, preservative free, 30 mcg/0.3 mL dose 12 years of age and older (Flux Power Comirnaty) administered Source: New Immuniza tion Record Fluzone HD administered Source: New Imm unization Record Influenza, quadrivalent, hig h dose, injectable, split virus, preservative free, 0.7 mL dose, Fluzone High-Dose Quad [id number] administered Source: New Immuniza tion Record COVID19 Moderna Primary 12+ administered Source: Other Registry SARS-COV-2 (COVID-19) vaccin e, mRNA, spike protein, LNP, preservative free, 100 mcg/0.5mL dose (Moderna) administered Source: New Imm unization Record Influenza, quadrivalent, hig h dose, injectable, split virus, preservative free, 0.7 mL dose, Fluzone High-Dose Quad administered Source: New Immuniza tion Record Pneumo (2 yrs or older)(PPV) administered Source: New Immunization Record COVID-19, mRNA, LNP-S, PF, 3 0 mcg/0.3 mL administered Source: Other Regist ry COVID-19, mRNA, LNP-S, PF, 3 0 mcg/0.3 mL administered Source: Other Regist ry Influenza vaccine, quad, adjuvanted, PF administered Source: Other Regist ry Pneumococcal conjugate PCV 13 administere d Source: New Immunization Record Typhoid-ViCPs administered Source: Other Registry HepA-Adult administered Source: Other R egistry Zoster subunit, recombinant, adjuvanted administered Source: Other Regist ry Influenza, high dose seasonal administere d Source: New Immunization Record Zoster subunit, recombinant, adjuvanted administered Source: Other Regist ry influenza, injectable, quadrivalent, (3 years or older) administered Source: New Immuniza tion Record influenza, injectable, quadrivalent, (3 years or older) administered Source: New Immuniza tion Record Tdap administered Source: New Imm unization Record HepA-Adult administered Source: Other R egistry Typhoid-ViCPs administered Source: Other Registry Payers Payer name Insurance type Covered democrat ID Authoriza tion(s) Medicare MB [id number] [employer] Medicare Supplement CI [id number] Medicare MB [id number] [employer] Medicare Supplement CI [id number] Medicare MB [id number] [employer] Medicare Supplement CI [id number] Medicare MB [id number] [employer] Co Supplement CI [id number] Medicare MB [id number] [employer] CI [id number] Medicare MB [id number] [employer] [id number] Medicare MB [id number] [employer] [id number] Medicare MB [id number] [employer] [id number] Medicare MB [id number] [employer] [id number] Medicare MB [id number] [employer] BL [id number] [employer] BL [id number] [employer] BL [id number] [facility] CI [id number] Social History Type Description Quantity Date Captured Comments Alcohol Use Details Unknown Caffeine Use Details Unknown Tobacco Use Status No Information Smoking Status No Information Sex Male Chief Complaint And Reason For Visit No Information Reason For Referral Reason For Referral No Information Plan Of Treatment Date Type Action Status Goal Unhealthy drug u se screening. Due on due Goal COLONOSCOPY. Due on 028 due Goal Influenza vaccine. Due on Oc due Goal Depression screening. Due on due Goal Lipid panel. Due on 025 due Goal Hepatitis C screening. Due o n due Goal Pneumococcal vaccine due Goal Zoster vaccine (1st) due Goal Tdap due Goal Zoster vaccine (2nd) due Goal Zoster vaccine (1st) due Goal Tdap due Goal Zoster vaccine (2nd) due Goal Depression screening. Due on due Goal Influenza vaccine. Due on Oc due Goal Lipid panel. Due on due Goal Hepatitis C screening. Due o n due Goal Unhealthy drug u se screening. Due on due Goal Pneumococcal vaccine due Goal COLONOSCOPY. Due on due Goal Influenza vaccine. Due on Oc due Goal Hepatitis C screening. Due o n due Goal COLONOSCOPY. Due on due Goal Tdap due Goal Zoster vaccine (2nd) due Goal Unhealthy drug u se screening. Due on due Goal Zoster vaccine (1st) due Goal Pneumococcal vaccine due Goal Lipid panel. Due on due Goal Depression screening. Due on due Goal Unhealthy drug u se screening. Due on due Goal Hepatitis C screening. Due o n due Goal Pneumococcal vaccine due Goal Zoster vaccine (1st) due Goal Lipid panel. Due on due Goal Depression screening. Due on due Goal Tdap due Goal Zoster vaccine (2nd) due Goal COLONOSCOPY. Due on due Goal Influenza vaccine. Due on Oc due Goal Zoster vaccine (2nd) due Goal Zoster vaccine (1st) due Goal Unhealthy drug u se screening. Due on due Goal Tdap due Goal Pneumococcal vaccine due Goal COLONOSCOPY. Due on due Goal Influenza vaccine. Due on Oc due Goal Hepatitis C screening. Due o n due Goal Depression screening. Due on due Goal Lipid panel. Due on due Goal Unhealthy drug u se screening. Due on due Goal Zoster vaccine (1st) due Goal Lipid panel. Due on due Goal Depression screening. Due on due Goal Pneumococcal vaccine due Goal Tdap due Goal Zoster vaccine (2nd) due Goal Hepatitis C screening. Due o n due Goal Influenza vaccine. Due on Oc due Goal COLONOSCOPY. Due on due Goal Pneumococcal vaccine due Goal Hepatitis C screening. Due o n due Goal Depression screening. Due on due Goal COLONOSCOPY. Due on due Goal Influenza vaccine. Due on due Goal Zoster vaccine (1st) due Goal Lipid panel. Due on due Goal Tdap due Goal Unhealthy drug u se screening. Due on due Goal Zoster vaccine (2nd) due Goal Hepatitis C screening. Due o n due Goal COLONOSCOPY. Due on due Goal Unhealthy drug u se screening. Due on due Goal Tdap due Goal Zoster vaccine (1st) due Goal Lipid panel. Due on due Goal Influenza vaccine. Due on No due Goal Zoster vaccine (2nd) due Goal Depression screening. Due on due Goal Pneumococcal vaccine due Goal Influenza vaccine. Due on No due Goal Hepatitis C screening. Due o n due Goal Pneumococcal vaccine due Goal COLONOSCOPY. Due on due Goal Zoster vaccine (1st) due Goal Lipid panel. Due on due Goal Zoster vaccine (2nd) due Goal Depression screening. Due on due Goal Unhealthy drug u se screening. Due on due Goal Tdap due Goal Pneumococcal vaccine due Goal Unhealthy drug u se screening. Due on due Goal COLONOSCOPY. Due on due Goal Zoster vaccine (1st) due Goal Depression screening. Due on due Goal Zoster vaccine (2nd) due Goal Lipid panel. Due on due Goal Hepatitis C screening. Due o n due Goal Tdap due Goal Influenza vaccine. Due on No due Goal Depression screening. Due on due Goal Unhealthy drug u se screening. Due on due Goal Tdap due Goal Zoster vaccine (2nd) due Goal COLONOSCOPY. Due on due Goal Pneumococcal vaccine due Goal Hepatitis C screening. Due o n due Goal Lipid panel. Due on due Goal Zoster vaccine (1st) due Goal Influenza vaccine. Due on No due Goal COLONOSCOPY. Due on due Goal Hepatitis C screening. Due o n due Goal Depression screening. Due on due Goal Zoster vaccine (1st) due Goal Influenza vaccine. Due on No due Goal Tdap due Goal Pneumococcal vaccine due Goal Unhealthy drug u se screening. Due on due Goal Lipid panel. Due on due Goal Zoster vaccine (2nd) due Goal Lipid panel. Due on due Goal Unhealthy drug u se screening. Due on due Goal Tdap due Goal Zoster vaccine (). Due on due Goal Pneumococcal vaccine due Goal COLONOSCOPY. Due on due Goal Influenza vaccine. Due on due Goal Hepatitis C screening. Due o n due Goal Depression screening. Due on due Goal Lipid panel. Due on due Goal Tdap due Goal Hepatitis C screening. Due o n due Goal COLONOSCOPY. Due on due Goal Influenza vaccine. Due on Oc due Goal Zoster vaccine (1st). Due on due Goal Unhealthy drug u se screening. Due on due Goal Pneumococcal vaccine due Goal Depression screening. Due on due Referral Referred To: First available Ordered: Referrals: Pain Medicine. First available. Location: [facility]. Evaluate and treat ordered Referral Referred To: First available Ordered: Referrals: Ophthalmology. First available. Location: [facility]. Evaluate and treat ordered Referral Referred To: José Miguel Gross MD [address] [place], [phone] Ordered: Referrals: Phys Med/Rehab. José Miguel Gross MD. Evaluate and treat ordered Referral Referred To: Lazaro Almazan DPM [address] [place], [phone] Ordered: Referrals: Podiatry. Lazaro Almazan DPM. Evaluate and treat ordered Referral Referred To: First available Ordered: Referrals: Pulmonology. First available. Location: [facility]. Evaluate and treat ordered Referral Referred To: Napoleon Ku MD [address] [place], [phone] Ordered: Referrals: Pain Medicine. Napoleon Ku MD. Evaluate and treat ordered Referral Referred To: Parker Villela MD [address] [place], [place] [phone] Ordered: Referrals: Gastroenterology. Parker Villela MD. Diagnostic testing ordered Referral Referred To: Lucy Guajardo MD [address] [place], [place] [phone] Ordered: Referrals: Orthopedic Surgery. Lucy Guajardo MD. Consult. Surgery ordered Referral Ordered: CT HRT W/O DYE W/CA TEST ordered Referral Ordered: Referrals: Dermatology. Consult ordered Referral Referred To: Justin Licea MD [address] [place], [phone] Ordered: Referrals: Physical Medicine and Rehabilitation. Justin Licea MD. Consult. Diagnostic testing ordered Referral Referred To: Renetta Garcia MD [address] [place], [place], [phone] Ordered: Referrals: Gastroenterology. Renetta Garcia MD. Consult. Diagnostic testing ordered Referral Ordered: Referrals: Orthopedic Surgery. Consult ordered Referral Ordered: Referrals: Orthopedic Surgery. Evaluate and treat ordered Referral Referred To: Harman Guzman MD [address] [place], [place] [phone] Ordered: Referrals: Gastroenterology. Harman Guzman MD. Location: GI. Consult ordered Referral Referred To: Itz Monge MD [address] [facility] [address] [place], [phone] Ordered: Referrals: Dermatology. Itz Monge MD. Consult ordered Referral Referred To: Riki Lewis MD Ordered: Referrals: Otolaryngology. Riki Lewis MD. Consult ordered Referral Referred To: Harman Guzman MD [address] [place], [phone] Ordered: Referrals: Gastroenterology. Harman Guzman MD. Consult ordered Appointment Mason Batista 6 MO F/U JULIO DELUCA Future Order: Lab Order CT Chest w/o IV Contrast CPT 26981 (949), Sent on: Sent Future Order: Lab Order CRISK WV OFILE / REFLEX LDLD (557), Scheduled for: Ordered Future Order: Lab Order PSA Free & Total (600), Scheduled for: Ordered Future Order: Lab Order HIP WITH PELVIS TC 2-3 VIEWS ([id number]), Sent on: Sent Future Order: Lab Order SHOULDER TC (506) , Sent on: Sent History Of Present Illness Encounter Date Complaint History Of Prese nt Illness acute/chronic issues. Dionicio richards ts that he's doing alright . Feels like his mobility is getting slowly worse since his spinal cord injury. Has been working with Podiatry re: foot pain (did receive an injection which helped). Given his balance and mobility issues, would like to pursue a motorized scooter for home. Does have recurrent falls, fortunately, none with any significant injury this year. Chronic neck/back pain stable. Notes on ROS some blurry vision in his R eye. Reportedly saw Optometry who felt everything looked fine. Would like to get a second opinion. No other concerns or complaints. healthcare maintenance # Men's ealthcare Maintenance: Lipids: LDL 163 11/2011 --> LDL 126 09/2014 --> LDL 172, HDL 53 04/2016 --> LDL 131, HDL 49, trig 181 --> LDL 152, HDL 46 04/2020 (cardiac risk score 14.6%, declines statin and/or CT coronary calcium) --> LDL 158, HDL 49, trig 203 01/2021 (started Crestor) --> LDL 54, trig 189 06/2021 --> LDL 81, HDL 60 02/2022 --> LDL 93 01/2023 A1c: Glucose 88 10/2011 --> Glucose 95 09/2014 --> Glucose 95 04/2016 --> Glucose 94 08/2017 --> A1c 5.9 04/2019 --> A1c 5.7 01/2021 --> A1c 5.7 02/2022 --> A1c 5.6 01/2023 Colonoscopy: 3 TAs 09/2017 --> 3 polyps (TA and hyperplastic) 12/2021, repeat due 12/2024; no known family hx colon cancer PSA: 1.04 10/2011 --> 1.04 09/2014 --> 1.34 04/2016 --> 2.5 08/2017 --> 0.973 04/2019 --> 1.41 01/2021 --> 0.86 02/2022 --> 0.86 01/2023 Influenza: 01/2024 Pneumovax: 08/2020 Prevnar 13: 04/2019 Prevnar 20: Due 08/2025 TDap: 09/2014 Zostavax: None, see Shingrix below Shingrix; Received both doses in 2019 Covid vaccine: Received both doses in 2020 plus booster 02/2021 (Pfizer x 3) and booster 01/2024 RSV: None, plans on getting at pharmacy (unable to give in clinic) AAA Screen: Declines Tobacco Use: Social smoker, probably 300-500 cigarettes in his lifetime Alcohol Use: 1 beer/night POLST/Advanced Directive: Has completed AD, see categories tab Wellness CPX: 02/04/24Juanis - MARIANA Norris (hx BCC s/p excision; routine skin exams); previously seen by Dr. Patiño and [facility] - Dr. Hoover (sensorineural hearing loss) and Dr. 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 Francis (colonoscopy); previously seen by Dr. Chi at [facility] - Dr. Urena (NCS 06/2021 showing severe L, moderate R CTS, mild b/l ulnar neuropathy and moderate-severe chronic cervical radiculopathy)Neurosurgery - Dr. Pierre (C5-C6 injury 05/10 waterskiing accident 10/2012 --> complicated by R sided weakness (somewhat improved), neurogenic bladder/bowel (resolved) and neuropathy/paresthesias (on-going), has to wear R AFO brace)Ophtho - Dr. Cline (routine eye care)Ortho - Dr. Guajardo (Hx dupuytren's contracture surgery; L carpal tunnel syndrome per EMG/NCS 10/2011 --> s/p injection years ago, thinking about CTS release) and Dr. Chadwick (R shoulder pain --> R shoulder x-ray 03/2017 showing moderate glenohumeral OA, mild narrowing of the acromiohumeral head suggestive of possible partial thickness rotator cuff tear --> s/p US guided steroid injection 03/2017)Ortho spine - Dr. Kelly (chronic neck/back pain, see below)Pain - Dr. Ku (chronic neck/back pain --> tried and failed spinal stimulator in 2022); no longer seesPodiatry - Dr. Viramontes (R ankle injection 02/2023)Rehab medicine - Dr. Gross (rehab following neck injury -- as above) and Dr. Licea (NCS 10/2016 showing acute on chronic L C8 radiculopathy, moderate L CTS and peripheral neuropathy --> C-spine MRI 10/2016 showing mild multilevel degenerative changes, no central canal stenosis, small focus involving the cervical cord posterior to the C5-C6 level which likely represents chronic myelomalacia from previous injury --> T-spine MRI 10/2016 showing normal thoracic spine for age with no stenosis or significant degenerative change --> L-spine MRI 10/2016 showing no acute abnormality evident, but diffuse lumbar spine degenerative changes and mild-moderate foraminal stenosis)Urology - Dr. Wade (BPH, vasectomy); has not seen in yearsOther pertinent PMH:HLD (CT coronary calcium 03/2021 w/ score of 9 suggestive of mild plaque)Impaired fasting glucose/pre-DMPulmonary nodule (3mm pulmonary nodule incidentally seen on CT coronary calcium 03/2021 --> CT chest 03/2022 showing no pulmonary nodules)Sleep apnea (mild per in-home sleep study 03/2022, declines to see the Pulm/sleep clinic for treatment)Situational anxiety/depression (has been on Wellbutrin and Celexa in the past which did not help much, has also tried counseling which he thought was not helpful at all)Microscopic hematuria (UA positive for trace blood 09/2014 --> repeat UA negative 04/2016 and 08/2017)Hip OA (mild-moderate per x-ray 06/2017, also with moderate DJD of L-spine, seen incidentally)Hx low back pain (mild L-spine DJD per x-ray 05/2002)Hx appendectomyMarried to , Mara (have been 48 years). Has 2 children (daughter, Natalie and son, Elyssa; [id number], Mely --> all live in [place]). Also 3 grandchildren (ages 8, 6 and 4). 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 Has been quite active his whole life up until C5-C6 neck injury. Medicare preventive The patient has not felt depressed and has had interest and pleasure doing things recently. Functional Status: (Functional status has not changed) on 02/04/2024. Cognitive Status: (Cognitive status has not changed) on 02/04/2024. The ''Up and Go'' test took less than 30 seconds and the patient does not need help with activities of daily living. The patient is not at risk for falls. The patient has not fallen in the last year. The fall(s) did not result in injury. Patient's activity level is moderate. Patient exercises occasionally. The patient has smoke detectors, carbon monoxide detectors in the home. Patient's home has not been tested for radon. Patient reports using a seatbelt in vehicles. Declines MMSE Patient denies recent weight gain. Patient denies recent weight loss. Patient does not take calcium. Patient reports not taking Vitamin D. Patient does not take a multivitamin. Patient does not take folic acid. Relevant history is positive for alcohol use. Relevant history is negative for passive vaping exposure and passive smoke exposure. In the past year the patient has had 4 or more drinks in a day 0 time(s). healthcare maintenance # Men's H ealthcare Maintenance: Lipids: LDL 163 11/2011 --> LDL 126 09/2014 --> LDL 172, HDL 53 04/2016 --> LDL 131, HDL 49, trig 181 --> LDL 152, HDL 46 04/2020 (cardiac risk score 14.6%, declines statin and/or CT coronary calcium) --> LDL 158, HDL 49, trig 203 01/2021 (started Crestor) --> LDL 54, trig 189 06/2021 --> LDL 81, HDL 60 02/2022 --> LDL 93 01/2023 A1c: Glucose 88 10/2011 --> Glucose 95 09/2014 --> Glucose 95 04/2016 --> Glucose 94 08/2017 --> A1c 5.9 04/2019 --> A1c 5.7 01/2021 --> A1c 5.7 02/2022 --> A1c 5.6 01/2023 Colonoscopy: 3 TAs 09/2017 --> 3 polyps (TA and hyperplastic) 12/2021, repeat due 12/2024; no known family hx colon cancer PSA: 1.04 10/2011 --> 1.04 09/2014 --> 1.34 04/2016 --> 2.5 08/2017 --> 0.973 04/2019 --> 1.41 01/2021 --> 0.86 02/2022 --> 0.86 01/2023 Influenza: 01/2023 Pneumovax: 08/2020 Prevnar 13: 04/2019 Prevnar 20: Due 08/2025 TDap: 09/2014 Zostavax: None, see Shingrix below Shingrix; Received both doses in 2019 Covid vaccine: Received both doses in 2020 plus booster 02/2021 (Pfizer x 3) RSV: None, will think about AAA Screen: Declines Tobacco Use: Social smoker, probably 300-500 cigarettes in his lifetime Alcohol Use: 1 beer/night POLST/Advanced Directive: Has completed AD, see categories tab Wellness CPX: 01/24/23MARIANA Hernandez (hx BCC s/p excision; routine skin exams); previously seen by Dr. Patiño and [facility] - Dr. Hoover (sensorineural hearing loss) and Dr. 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 Francis (colonoscopy); previously seen by Dr. Chi at [facility] - Dr. Urena (NCS 06/2021 showing severe L, moderate R CTS, mild b/l ulnar neuropathy and moderate-severe chronic cervical radiculopathy)Neurosurgery - Dr. Pierre (C5-C6 injury / waterskiing accident 10/2012 --> complicated by R sided weakness (somewhat improved), neurogenic bladder/bowel (resolved) and neuropathy/paresthesias (on-going), has to wear R AFO brace)Ophtho - Dr. Cline (routine eye care)Ortho - Dr. Guajardo (Hx dupuytren's contracture surgery; L carpal tunnel syndrome per EMG/NCS 10/2011 --> s/p injection years ago, thinking about CTS release) and Dr. Chadwick (R shoulder pain --> R shoulder x-ray 03/2017 showing moderate glenohumeral OA, mild narrowing of the acromiohumeral head suggestive of possible partial thickness rotator cuff tear --> s/p US guided steroid injection 03/2017)Ortho spine - Dr. Kelly (chronic neck/back pain, see below)Pain - Dr. Ku (chronic neck/back pain --> tried and failed spinal stimulator in 2022); no longer seesPodiatry - Dr. Viramontes (R ankle injection 02/2023)Rehab medicine - Dr. Gross (rehab following neck injury -- as above) and Dr. Licea (NCS 10/2016 showing acute on chronic L C8 radiculopathy, moderate L CTS and peripheral neuropathy --> C-spine MRI 10/2016 showing mild multilevel degenerative changes, no central canal stenosis, small focus involving the cervical cord posterior to the C5-C6 level which likely represents chronic myelomalacia from previous injury --> T-spine MRI 10/2016 showing normal thoracic spine for age with no stenosis or significant degenerative change --> L-spine MRI 10/2016 showing no acute abnormality evident, but diffuse lumbar spine degenerative changes and mild-moderate foraminal stenosis)Urology - Dr. Wade (BPH, vasectomy); has not seen in yearsOther pertinent PMH:HLD (CT coronary calcium 03/2021 w/ score of 9 suggestive of mild plaque)Impaired fasting glucose/pre-DMPulmonary nodule (3mm pulmonary nodule incidentally seen on CT coronary calcium 03/2021 --> CT chest 03/2022 showing no pulmonary nodules)Sleep apnea (mild per in-home sleep study 03/2022, declines to see the Pulm/sleep clinic for treatment)Situational anxiety/depression (has been on Wellbutrin and Celexa in the past which did not help much, has also tried counseling which he thought was not helpful at all)Microscopic hematuria (UA positive for trace blood 09/2014 --> repeat UA negative 04/2016 and 08/2017)Hip OA (mild-moderate per x-ray 06/2017, also with moderate DJD of L-spine, seen incidentally)Hx low back pain (mild L-spine DJD per x-ray 05/2002)Hx appendectomyMarried to , Mara (have been 47 years). Has 2 children (daughter, Natalie and son, Elyssa; [id number], Mely --> all live in [place]). Also 3 grandchildren (ages 7, 5 and 3). 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 Has been quite active his whole life up until C5-C6 neck injury. acute/chronic issues. Dionicio repor ts that he's feeling pretty good . Saw Podiatry after last appt and had R ankle injection 02/2023. Unfortunately, not extremely helpful, but Dionicio feels like things are tolerable that he is not ready to pursue any other treatment/intervention. Only concern today is a lesion on his scalp that he would like frozen. Medicare preventive The patient has not felt depressed and has had interest and pleasure doing things recently. Functional Status: (Functional status has not changed) on 01/24/2023. Cognitive Status: (Cognitive status has not changed) on 01/24/2023. The patient does not need help with activities of daily living. The patient is at risk for falls. The patient has fallen 3 times in the last year. The fall(s) resulted in injury. Patient's activity level is moderate. Patient exercises occasionally. The patient has smoke detectors, carbon monoxide detectors in the home. Patient's home has not been tested for radon. Patient reports using a seatbelt in vehicles. Declines MMSE Patient denies recent weight gain. Patient denies recent weight loss. Patient does not take calcium. Patient reports not taking Vitamin D. Patient does not take a multivitamin. Patient does not take folic acid. Relevant history is positive for alcohol use. Relevant history is negative for passive vaping exposure and passive smoke exposure. In the past year the patient has had 4 or more drinks in a day 0 time(s). healthcare maintenance # [facility] Maintenance: Lipids: LDL 163 11/2011 --> LDL 126 09/2014 --> LDL 172, HDL 53 04/2016 --> LDL 131, HDL 49, trig 181 --> LDL 152, HDL 46 04/2020 (cardiac risk score 14.6%, declines statin and/or CT coronary calcium) --> LDL 158, HDL 49, trig 203 01/2021 (started Crestor) --> LDL 54, trig 189 06/2021 --> LDL 81, HDL 60 02/2022 A1c: Glucose 88 10/2011 --> Glucose 95 09/2014 --> Glucose 95 04/2016 --> Glucose 94 08/2017 --> A1c 5.9 04/2019 --> A1c 5.7 01/2021 --> A1c 5.7 02/2022 Colonoscopy: 3 TAs 09/2017 --> 3 polyps (TA and hyperplastic) 12/2021, repeat due 12/2024; no known family hx colon cancer PSA: 1.04 10/2011 --> 1.04 09/2014 --> 1.34 04/2016 --> 2.5 08/2017 --> 0.973 04/2019 --> 1.41 01/2021 --> 0.86 02/2022 Influenza: 01/2023 Pneumovax: 08/2020 Prevnar 13: 04/2019 Prevnar 20: Due 08/2025 TDap: 09/2014 Zostavax: None, see Shingrix below Shingrix; Received both doses in 2018 Covid vaccine: Received both doses in 2020 plus booster 02/2021 (Pfizer x 3) RSV: None, will think about AAA Screen: Declines Tobacco Use: Social smoker, probably 300-500 cigarettes in his lifetime Alcohol Use: 1 beer/night POLST/Advanced Directive: Has completed AD, see categories tab Wellness CPX: 01/24/23MARIANA Hernandez (hx BCC s/p excision; routine skin exams); previously seen by Dr. Patiño and [facility] - Dr. Hoover (sensorineural hearing loss) and Dr. 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 Francis (colonoscopy); previously seen by Dr. Chi at [facility] - Dr. Urena (NCS 06/2021 showing severe L, moderate R CTS, mild b/l ulnar neuropathy and moderate-severe chronic cervical radiculopathy)Neurosurgery - Dr. Pierre (C5-C6 injury / waterskiing accident 10/2012 --> complicated by R sided weakness (somewhat improved), neurogenic bladder/bowel (resolved) and neuropathy/paresthesias (on-going), has to wear R AFO brace)Ophtho - Dr. Cline (routine eye care)Ortho - Dr. Guajardo (Hx dupuytren's contracture surgery; L carpal tunnel syndrome per EMG/NCS 10/2011 --> s/p injection years ago, thinking about CTS release) and Dr. Chadwick (R shoulder pain --> R shoulder x-ray 03/2017 showing moderate glenohumeral OA, mild narrowing of the acromiohumeral head suggestive of possible partial thickness rotator cuff tear --> s/p US guided steroid injection 03/2017)Ortho spine - Dr. Kelly (chronic neck/back pain, see below)Pain - Dr. Ku (chronic neck/back pain --> tried and failed spinal stimulator in 2022); no longer seesRehab medicine - Dr. Gross (rehab following neck injury -- as above) and Dr. Licea (NCS 10/2016 showing acute on chronic L C8 radiculopathy, moderate L CTS and peripheral neuropathy --> C-spine MRI 10/2016 showing mild multilevel degenerative changes, no central canal stenosis, small focus involving the cervical cord posterior to the C5-C6 level which likely represents chronic myelomalacia from previous injury --> T-spine MRI 10/2016 showing normal thoracic spine for age with no stenosis or significant degenerative change --> L-spine MRI 10/2016 showing no acute abnormality evident, but diffuse lumbar spine degenerative changes and mild-moderate foraminal stenosis)Urology - Dr. Wade (BPH, vasectomy); has not seen in yearsOther pertinent PMH:HLD (CT coronary calcium 03/2021 w/ score of 9 suggestive of mild plaque)Impaired fasting glucose/pre-DMPulmonary nodule (3mm pulmonary nodule incidentally seen on CT coronary calcium 03/2021 --> CT chest 03/2022 showing no pulmonary nodules)Sleep apnea (mild per in-home sleep study 03/2022, declines to see the Pulm/sleep clinic for treatment)Situational anxiety/depression (has been on Wellbutrin and Celexa in the past which did not help much, has also tried counseling which he thought was not helpful at all)Microscopic hematuria (UA positive for trace blood 09/2014 --> repeat UA negative 04/2016 and 08/2017)Hip OA (mild-moderate per x-ray 06/2017, also with moderate DJD of L-spine, seen incidentally)Hx low back pain (mild L-spine DJD per x-ray 05/2002)Hx appendectomyMarried to , Mara (have been 47 years). Has 2 children (daughter, Natalie and son, Elyssa; [id number], Mely --> all live in [place]). Also 3 grandchildren (ages 7, 5 and 3). 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 Has been quite active his whole life up until C5-C6 neck injury. acute/chronic issues. Dionicio repor ts that he's doing fine . Tripped and fell a couple of months ago out of state and was seen in the ER for a concussion. Feeling back to his baseline. Admits that he catches his foot on occasion. Does not feel like a walking stick will help his balance, declines to use a walker. Does find that his R foot everts a lot and causes some discomfort. Interested in seeing Podiatry to determine if there is an orthotic he might be able to get fitted for. Had sleep study showing mild ANNIE, but declined to see the Pulm/sleep clinic. I'm fine . Saw the Pain specialist and tried and failed a temporary spinal stimulator. Declines to go back. Feels like his pain is stable. Emotionally doing well. acute/chronic issues. Dionicio repor ts that he's doing ok . Still struggles with chronic neck pain. Wonders at times if there is anything else he can do. Saw Ortho spine but reports that he did not get much out of the visit. Also reports that he's sleeping more, sometimes up to 12 hrs/day. Sometimes has to go to sleep at 7:00 p.m. because he's drowsy. Feels like his mood is so-so. Also has a few spots on his scalp and neck that he would like looked at. Had colonoscopy since last visit (see PMH). healthcare maintenance # Men's H ealthcare Maintenance: Lipids: LDL 163 11/2011 --> LDL 126 09/2014 --> LDL 172, HDL 53 04/2016 --> LDL 131, HDL 49, trig 181 --> LDL 152, HDL 46 04/2020 (cardiac risk score 14.6%, declines statin and/or CT coronary calcium) --> LDL 158, HDL 49, trig 203 01/2021 (started Crestor) --> LDL 54, trig 189 06/2021 A1c: Glucose 88 10/2011 --> Glucose 95 09/2014 --> Glucose 95 04/2016 --> Glucose 94 08/2017 --> A1c 5.9 04/2019 --> A1c 5.7 01/2021 Colonoscopy: 3 TAs 09/2017 --> 3 polyps (TA and hyperplastic) 12/2021, repeat due 12/2024; no known family hx colon cancer PSA: 1.04 10/2011 --> 1.04 09/2014 --> 1.34 04/2016 --> 2.5 08/2017 --> 0.973 04/2019 --> 1.41 01/2021 Influenza: 02/2022 Pneumovax: 08/2020 Prevnar: 04/2019 TDap: 09/2014 Zostavax: None, see Shingrix below Shingrix; Received both doses in 2018 Covid vaccine: Received both doses in 2020 plus booster 02/2021 (Pfizer x 3) AAA Screen: Declines, will think about in the future Tobacco Use: Social smoker, probably 300-500 cigarettes in his lifetime Alcohol Use: 1 beer/night POLST/Advanced Directive: N/A (has completed AD at home and will bring in next visit) Wellness CPX: 08/15/21MARIANA Hernandez (hx BCC s/p excision; routine skin exams); previously seen by Dr. Patiño and [facility] - Dr. Hoover (sensorineural hearing loss) and Dr. 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 Francis (colonoscopy); previously seen by Dr. Chi at [facility] - Dr. Urena (NCS 06/2021 showing severe L, moderate R CTS, mild b/l ulnar neuropathy and moderate-severe chronic cervical radiculopathy)Neurosurgery - Dr. Pierre (C5-C6 injury 2/2 waterskiing accident 10/2012 --> complicated by R sided weakness (somewhat improved), neurogenic bladder/bowel (resolved) and neuropathy/paresthesias (on-going), has to wear R AFO brace)Ophtho - Dr. Cline (routine eye care)Ortho - Dr. Guajardo (Hx dupuytren's contracture surgery; L carpal tunnel syndrome per EMG/NCS 10/2011 --> s/p injection years ago, thinking about CTS release) and Dr. Chadwick (R shoulder pain --> R shoulder x-ray 03/2017 showing moderate glenohumeral OA, mild narrowing of the acromiohumeral head suggestive of possible partial thickness rotator cuff tear --> s/p US guided steroid injection 03/2017)Ortho spine - Dr. Kelly (chronic neck/back pain, see below)Rehab medicine - Dr. Gross (rehab following neck injury -- as above) and Dr. Licea (NCS 10/2016 showing acute on chronic L C8 radiculopathy, moderate L CTS and peripheral neuropathy --> C-spine MRI 10/2016 showing mild multilevel degenerative changes, no central canal stenosis, small focus involving the cervical cord posterior to the C5-C6 level which likely represents chronic myelomalacia from previous injury --> T-spine MRI 10/2016 showing normal thoracic spine for age with no stenosis or significant degenerative change --> L-spine MRI 10/2016 showing no acute abnormality evident, but diffuse lumbar spine degenerative changes and mild-moderate foraminal stenosis)Urology - Dr. Wade (BPH, vasectomy); has not seen in yearsOther pertinent PMH:HLD (CT coronary calcium 03/2021 w/ score of 9 suggestive of mild plaque)Impaired fasting glucose/pre-DMPulmonary nodule (3mm pulmonary nodule incidentally seen on CT coronary calcium 03/2021, repeat due 03/2022, but Dionicio declines)Situational anxiety/depression (has been on Wellbutrin and Celexa in the past which did not help much, has also tried counseling which he thought was not helpful at all)Microscopic hematuria (UA positive for trace blood 09/2014 --> repeat UA negative 04/2016 and 08/2017)Hip OA (mild-moderate per x-ray 06/2017, also with moderate DJD of L-spine, seen incidentally)Hx low back pain (mild L-spine DJD per x-ray 05/2002)Hx appendectomyMarried to , Mara (have been 46 years). Has 2 children (daughter, Natalie and son, Elyssa; [id number], Mely --> all live in [place]). Also 3 grandchildren (ages 6, 4 and 2). 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 Has been quite active his whole life up until C5-C6 neck injury. healthcare maintenance # Men's H ealthcare Maintenance: Lipids: LDL 163 11/2011 --> LDL 126 09/2014 --> LDL 172, HDL 53 04/2016 --> LDL 131, HDL 49, trig 181 --> LDL 152, HDL 46 04/2020 (cardiac risk score 14.6%, declines statin and/or CT coronary calcium) --> LDL 158, HDL 49, trig 203 01/2021 (started Crestor) --> LDL 54, trig 189 06/2021 A1c: Glucose 88 10/2011 --> Glucose 95 09/2014 --> Glucose 95 04/2016 --> Glucose 94 08/2017 --> A1c 5.9 04/2019 --> A1c 5.7 01/2021 Colonoscopy: 3 TAs 09/2017, repeat was due 09/2020 (Dionicio declined to do at the time, willing to do now); no known family hx colon cancer PSA: 1.04 10/2011 --> 1.04 09/2014 --> 1.34 04/2016 --> 2.5 08/2017 --> 0.973 04/2019 --> 1.41 01/2021 Influenza: 02/2021 Pneumovax: 08/2020 Prevnar: 04/2019 TDap: 09/2014 Zostavax: None, see Shingrix below Shingrix; Received both doses in 2018 Covid vaccine: Received both doses in 2020 plus booster 02/2021 (Pfizer x 3) AAA Screen: Declines, will think about in the future Tobacco Use: Social smoker, probably 300-500 cigarettes in his lifetime Alcohol Use: 1 beer/night POLST/Advanced Directive: N/A (has completed AD at home and will bring in next visit) Wellness CPX: 08/15/21Juanis - MARIANA Norris (hx BCC s/p excision; routine skin exams); previously seen by Dr. Patiño and [facility] - Dr. Hoover (sensorineural hearing loss) and Dr. 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 Chi at [place] (colonoscopy)Neuro - Dr. Urena (NCS 06/2021 showing severe L, moderate R CTS, mild b/l ulnar neuropathy and moderate-severe chronic cervical radiculopathy)Neurosurgery - Dr. Pierre (C5-C6 injury 2/2 waterskiing accident 10/2012 --> complicated by R sided weakness (somewhat improved), neurogenic bladder/bowel (resolved) and neuropathy/paresthesias (on-going), has to wear R AFO brace)Ophtho - Dr. Cline (routine eye care)Ortho - Dr. Guajardo (Hx dupuytren's contracture surgery; L carpal tunnel syndrome per EMG/NCS 10/2011 --> s/p injection years ago, thinking about CTS release) and Dr. Chadwick (R shoulder pain --> R shoulder x-ray 03/2017 showing moderate glenohumeral OA, mild narrowing of the acromiohumeral head suggestive of possible partial thickness rotator cuff tear --> s/p US guided steroid injection 03/2017)Rehab medicine - Dr. Gross (rehab following neck injury -- as above) and Dr. Licea (NCS 10/2016 showing acute on chronic L C8 radiculopathy, moderate L CTS and peripheral neuropathy --> C-spine MRI 10/2016 showing mild multilevel degenerative changes, no central canal stenosis, small focus involving the cervical cord posterior to the C5-C6 level which likely represents chronic myelomalacia from previous injury --> T-spine MRI 10/2016 showing normal thoracic spine for age with no stenosis or significant degenerative change --> L-spine MRI 10/2016 showing no acute abnormality evident, but diffuse lumbar spine degenerative changes and mild-moderate foraminal stenosis)Urology - Dr. Wade (BPH, vasectomy); has not seen in yearsOther pertinent PMH:HLD (CT coronary calcium 03/2021 w/ score of 9 suggestive of mild plaque)Impaired fasting glucose/pre-DMPulmonary nodule (3mm pulmonary nodule incidentally seen on CT coronary calcium 03/2021, consider repeat CT chest 03/2022)Situational anxiety/depression (has been on Wellbutrin and Celexa in the past which did not help much, has also tried counseling which he thought was not helpful at all)Microscopic hematuria (UA positive for trace blood 09/2014 --> repeat UA negative 04/2016 and 08/2017)Hip OA (mild-moderate per x-ray 06/2017, also with moderate DJD of L-spine, seen incidentally)Hx low back pain (mild L-spine DJD per x-ray 05/2002)Hx appendectomyMarried to , Mara (have been 46 years). Has 2 children (daughter, Natalie and son, Elyssa; [id number], Mely --> all live in [place]). Also 3 grandchildren (ages 6, 4 and 2). 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 Has been quite active his whole life up until C5-C6 neck injury. Medicare preventive Recently, th e patient has felt down, depressed or hopeless and has felt little interest or pleasure in doing things. Functional Status: (Functional status has not changed) on 08/15/2021. Cognitive Status: (Cognitive status has not changed) on 08/15/2021. The ''Up and Go'' test took less than 30 seconds and the patient does not need help with activities of daily living. The patient is at risk for falls. The patient has fallen 2 times in the last year. The fall(s) did not result in injury. Patient's activity level is moderate. Patient exercises occasionally. The patient has smoke detectors, carbon monoxide detectors in the home. Patient's home has not been tested for radon. Patient reports using a seatbelt in vehicles. Declines MMSE Patient denies recent weight gain. Patient denies recent weight loss. Patient does not take calcium. Patient reports not taking Vitamin D. Patient does not take a multivitamin. Patient does not take folic acid. Relevant history is positive for alcohol use. Relevant history is negative for passive vaping exposure and passive smoke exposure. In the past year the patient has had 4 or more drinks in a day 0 time(s). acute/chronic issues. Dionicio maurice ts that his CTS improved quite a bit with course of Prednisone. Hoping to discuss 2 issues today: 1. Has had a mild pruritic rash on his upper chest the last couple of weeks, no changes in detergent, foods, etc. No other location on body. No other family members with rash. 2. Feels like his depression isn't under as good of control lately. Admits to having cycles and feels like with his current cycle, he is sleeping more. Would be open to adjusting his meds. Has had a couple of mechanical falls this past year, but typically doing things he knows he should avoid. No other concerns or complaints. [facility]: Lipids: LDL 163 11/2011 --> LDL 126 09/2014 --> LDL 172, HDL 53 04/2016 --> LDL 131, HDL 49, trig 181 --> LDL 152, HDL 46 04/2020 (cardiac risk score 14.6%, declines statin and/or CT coronary calcium) --> LDL 158, HDL 49, trig 203 01/2021 (started Crestor) --> LDL 54, trig 189 06/2021 A1c: Glucose 88 10/2011 --> Glucose 95 09/2014 --> Glucose 95 04/2016 --> Glucose 94 08/2017 --> A1c 5.9 04/2019 --> A1c 5.7 01/2021 Colonoscopy: 3 TAs 09/2017, repeat due 09/2020 (Dionicio declines to do this, may reconsider in 2021); no known family hx colon cancer PSA: 1.04 10/2011 --> 1.04 09/2014 --> 1.34 04/2016 --> 2.5 08/2017 --> 0.973 04/2019 --> 1.41 01/2021 Influenza: 02/2021 Pneumovax: 08/2020 Prevnar: 04/2019 TDap: 09/2014 Zostavax: None, see Shingrix below Shingrix; Received both doses in 2018 Covid vaccine: Received both doses in 2020 ([employer]), booster due now AAA Screen: Declines, will think about in the future Tobacco Use: Social smoker, probably 300-500 cigarettes in his lifetime Alcohol Use: 1 beer/night POLST/Advanced Directive: N/A (has completed AD and will bring in next visit) Wellness CPX: 08/23/20Juanis - MARIANA Norris (hx BCC s/p excision; routine skin exams); previously seen by Dr. Patiño and [facility] - Dr. Hoover (sensorineural hearing loss) and Dr. 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 Chi at [place] (colonoscopy)Neuro - Dr. Urena (NCS 06/2021 showing severe L, moderate R CTS, mild b/l ulnar neuropathy and moderate-severe chronic cervical radiculopathy)Neurosurgery - Dr. Pierre (C5-C6 injury /2 waterskiing accident 10/2012 --> complicated by R sided weakness (somewhat improved), neurogenic bladder/bowel (resolved) and neuropathy/paresthesias (on-going), has to wear R AFO brace)Ophtho - Dr. Cline (routine eye care)Ortho - Dr. Guajardo (Hx dupuytren's contracture surgery; L carpal tunnel syndrome per EMG/NCS 10/2011 --> s/p injection years ago, thinking about CTS release) and Dr. Chadwick (R shoulder pain --> R shoulder x-ray 03/2017 showing moderate glenohumeral OA, mild narrowing of the acromiohumeral head suggestive of possible partial thickness rotator cuff tear --> s/p US guided steroid injection 03/2017)Rehab medicine - Dr. Gross (rehab following neck injury -- as above) and Dr. Licea (NCS 10/2016 showing acute on chronic L C8 radiculopathy, moderate L CTS and peripheral neuropathy --> C-spine MRI 10/2016 showing mild multilevel degenerative changes, no central canal stenosis, small focus involving the cervical cord posterior to the C5-C6 level which likely represents chronic myelomalacia from previous injury --> T-spine MRI 10/2016 showing normal thoracic spine for age with no stenosis or significant degenerative change --> L-spine MRI 10/2016 showing no acute abnormality evident, but diffuse lumbar spine degenerative changes and mild-moderate foraminal stenosis)Urology - Dr. Wade (BPH, vasectomy); has not seen in yearsOther pertinent PMH:HLD (CT coronary calcium 03/2021 w/ score of 9 suggestive of mild plaque)Impaired fasting glucose/pre-DMPulmonary nodule (3mm pulmonary nodule incidentally seen on CT coronary calcium 03/2021, consider repeat CT chest 03/2022)Situational anxiety/depression (has been on Wellbutrin and Celexa in the past which did not help much, has also tried counseling which he thought was not helpful at all)Microscopic hematuria (UA positive for trace blood 09/2014 --> repeat UA negative 04/2016 and 08/2017)Hip OA (mild-moderate per x-ray 06/2017, also with moderate DJD of L-spine, seen incidentally)Hx low back pain (mild L-spine DJD per x-ray 05/2002)Hx appendectomyMarried to , Mara (have been 45 years). Has 2 children (daughter, Natalie and son, Elyssa; [id number], Mely --> all live in [place]). Also 3 grandchildren (ages 5, 3 and 1). 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 Has been quite active his whole life up until C5-C6 neck injury. acute/chronic issues. Dionicio prese nts today to discuss a few issues: 1. Just had NCS 06/2021 showing severe L and moderate R CTS. Scheduled to get back in and see Dr. Guajardo next month to discuss CTS. In the meantime, hoping for a small burst of Prednisone which he received several years ago and helped symptoms temporarily. 2. Hoping to have a few AKs frozen on scalp. 3. Thinks he still has wax in his ears and hoping to have them cleaned out. No other concerns or complaints. acute/chronic issues. Dionicio has q uestions about his pain meds. Reports that his L hand (diagnosed previously with carpal tunnel) seems to be getting worse. Thinks he is ready to undergo L CTS release with Dr. Guajardo. Has spot on his back and some rough spots on his scalp he would like frozen off today if possible. Scheduled for CT coronary calcium next month. Hoping to get flu vaccine and Covid booster if possible. healthcare maintenance # Men's H ealthcare Maintenance: Lipids: LDL 163 11/2011 --> LDL 126 09/2014 --> LDL 172, HDL 53 04/2016 --> LDL 131, HDL 49, trig 181 --> LDL 152, HDL 46 04/2020 (cardiac risk score 14.6%, declines statin and/or CT coronary calcium) --> LDL 158, HDL 49, trig 203 01/2021 A1c: Glucose 88 10/2011 --> Glucose 95 09/2014 --> Glucose 95 04/2016 --> Glucose 94 08/2017 --> A1c 5.9 04/2019 --> A1c 5.7 01/2021 Colonoscopy: 3 TAs 09/2017, repeat due 09/2020 (Dionicio declines to do this, may reconsider in 2021); no known family hx colon cancer PSA: 1.04 10/2011 --> 1.04 09/2014 --> 1.34 04/2016 --> 2.5 08/2017 --> 0.973 04/2019 --> 1.41 01/2021 Influenza: 02/2021 Pneumovax: 08/2020 Prevnar: 04/2019 TDap: 09/2014 Zostavax: None, see Shingrix below Shingrix; Received both doses in 2018 Covid vaccine: Received both doses in 2020 ([employer]), booster due now AAA Screen: Declines, will think about in the future Tobacco Use: Social smoker, probably 300-500 cigarettes in his lifetime Alcohol Use: 1 beer/night POLST/Advanced Directive: N/A (has completed AD and will bring in next visit) Wellness CPX: 08/23/20MARIANA Hernandez (hx BCC s/p excision; routine skin exams); previously [facility] Dr. Patiño and [facility] Hoover (sensorineural hearing loss) and Dr. 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 Chi at [place] (colonoscopy)Neurosurgery - Dr. Pierre (C5-C6 injury 2/2 waterskiing accident 10/2012 --> complicated by R sided weakness (somewhat improved), neurogenic bladder/bowel (resolved) and neuropathy/paresthesias (on-going), has to wear R AFO brace)Ophtho - Dr. Cline (routine eye care)Ortho - Dr. Guajardo (Hx dupuytren's contracture surgery; L carpal tunnel syndrome per EMG/NCS 10/2011 --> s/p injection years ago, thinking about CTS release) and Dr. Chadwick (R shoulder pain --> R shoulder x-ray 03/2017 showing moderate glenohumeral OA, mild narrowing of the acromiohumeral head suggestive of possible partial thickness rotator cuff tear --> s/p US guided steroid injection 03/2017)Rehab medicine - Dr. Gross (rehab following neck injury -- as above) and Dr. Licea (NCS 10/2016 showing acute on chronic L C8 radiculopathy, moderate L CTS and peripheral neuropathy --> C-spine MRI 10/2016 showing mild multilevel degenerative changes, no central canal stenosis, small focus involving the cervical cord posterior to the C5-C6 level which likely represents chronic myelomalacia from previous injury --> T-spine MRI 10/2016 showing normal thoracic spine for age with no stenosis or significant degenerative change --> L-spine MRI 10/2016 showing no acute abnormality evident, but diffuse lumbar spine degenerative changes and mild-moderate foraminal stenosis)Urology - Dr. Wade (BPH, vasectomy); has not seen in yearsOther pertinent PMH:HLD (scheduled for CT coronary calcium 03/2021)Impaired fasting glucose/pre-DMSituational anxiety/depression (has been on Wellbutrin and Celexa in the past which did not help much, has also tried counseling which he thought was not helpful at all)Microscopic hematuria (UA positive for trace blood 09/2014 --> repeat UA negative 04/2016 and 08/2017)Hip OA (mild-moderate per x-ray 06/2017, also with moderate DJD of L-spine, seen incidentally)Hx low back pain (mild L-spine DJD per x-ray 05/2002)Hx appendectomyMarried to , Mara (have been 45 years). Has 2 children (daughter, Natalie and son, Elyssa; [id number], Mely --> all live in [place]). Also 3 grandchildren (ages 5, 3 and 1). 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 Has been quite active his whole life up until C5-C6 neck injury. healthcare maintenance # Men's H ealthcare Maintenance: Lipids: LDL 163 11/2011 --> LDL 126 09/2014 --> LDL 172, HDL 53 04/2016 --> LDL 131, HDL 49, trig 181 --> LDL 152, HDL 46 04/2020 (cardiac risk score 14.6%, declines statin and/or CT coronary calcium) A1c: Glucose 88 10/2011 --> Glucose 95 09/2014 --> Glucose 95 04/2016 --> Glucose 94 08/2017 --> A1c 5.9 04/2019 Colonoscopy: 3 TAs 09/2017, repeat due 09/2020 (Dionicio declines to do this, may reconsider in 2021); no known family hx colon cancer PSA: 1.04 10/2011 --> 1.04 09/2014 --> 1.34 04/2016 --> 2.5 08/2017 --> 0.973 04/2019 Influenza: Fall 2019 Pneumovax: 08/2020 Prevnar: 04/2019 TDap: 09/2014 Zostavax: None, see Shingrix below Shingrix; Received both doses in 2018 Covid vaccine: Received both doses in 2020 AAA Screen: Declines, will think about in the future Tobacco Use: Social smoker, probably 300-500 cigarettes in his lifetime Alcohol Use: 1 beer/night POLST/Advanced Directive: N/A (has completed AD and will bring in next visit) Wellness CPX: 08/23/20Juanis - MARIANA Norris (hx BCC s/p excision; routine skin exams); previously seen by Dr. Patiño and [facility]. Hoover (sensorineural hearing loss) and Dr. 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 Chi at [place] (colonoscopy)Neurosurgery - Dr. Pierre (C5-C6 injury / waterskiing accident 10/2012 --> complicated by R sided weakness (somewhat improved), neurogenic bladder/bowel (resolved) and neuropathy/paresthesias (on-going), has to wear R AFO brace)Ophtho - Dr. Cline (routine eye care)Ortho - Dr. Guajardo (Hx dupuytren's contracture surgery; L carpal tunnel syndrome per EMG/NCS 10/2011 --> s/p injection years ago, thinking about CTS release) and Dr. Chadwick (R shoulder pain --> R shoulder x-ray 03/2017 showing moderate glenohumeral OA, mild narrowing of the acromiohumeral head suggestive of possible partial thickness rotator cuff tear --> s/p US guided steroid injection 03/2017)Rehab medicine - Dr. Gross (rehab following neck injury -- as above) and Dr. Licea (NCS 10/2016 showing acute on chronic L C8 radiculopathy, moderate L CTS and peripheral neuropathy --> C-spine MRI 10/2016 showing mild multilevel degenerative changes, no central canal stenosis, small focus involving the cervical cord posterior to the C5-C6 level which likely represents chronic myelomalacia from previous injury --> T-spine MRI 10/2016 showing normal thoracic spine for age with no stenosis or significant degenerative change --> L-spine MRI 10/2016 showing no acute abnormality evident, but diffuse lumbar spine degenerative changes and mild-moderate foraminal stenosis)Urology - Dr. Wade (BPH, vasectomy); has not seen in yearsOther pertinent PMH:HLDImpaired fasting glucose/pre-DMSituational anxiety/depression (has been on Wellbutrin and Celexa in the past which did not help much, has also tried counseling which he thought was not helpful at all)Microscopic hematuria (UA positive for trace blood 09/2014 --> repeat UA negative 04/2016 and 08/2017)Hip OA (mild-moderate per x-ray 06/2017, also with moderate DJD of L-spine, seen incidentally)Hx low back pain (mild L-spine DJD per x-ray 05/2002)Hx appendectomyMarried to , Mara (have been 45 years). Has 2 children (daughter, Natalie and son, Elyssa; [id number], Mely --> all live in [place]). Also 3 grandchildren (ages 5, 3 and 1). 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 Has been quite active his whole life up until C5-C6 neck injury. Medicare preventive The patient has not felt depressed and has had interest and pleasure doing things recently. Functional Status: (Functional status has not changed) on 08/23/2020. Cognitive Status: (Cognitive status has not changed) on 08/23/2020. The patient does not need help with activities of daily living. The patient is at risk for falls. The patient has in the last year. The fall(s) did not result in injury. Patient's activity level is moderate. Patient exercises occasionally. The patient has smoke detectors, carbon monoxide detectors in the home. Patient's home has not been tested for radon. Patient reports using a seatbelt in vehicles. MMSE deferred/declined Patient does not take calcium. Patient reports not taking Vitamin D. Patient does not take a multivitamin. Patient does not take folic acid. Relevant history is positive for alcohol use. Relevant history is negative for passive vaping exposure and passive smoke exposure. In the past year the patient has had 4 or more drinks in a day 0 time(s). acute/chronic issues. Dionicio repor ts that he feels about the same . Still has balance issues and has falls on occasion. Banged up his R side/back a short while ago, but starting to feel better. Continues to take Duloxetine, Lyrica and [place] for his chronic pain. Has not really seen any other specialist besides his eye doc in the last year. Mood doing ok. No other concerns or complaints. chronic conditions Pertinent neg atives include fatigue, weight gain and weight loss. Additional information: Dionicio reports that he will be going to [place] in 2 weeks and reports getting his vaccines through the health department. Depression under good control currently, but wonders about what to do when he gets back from the trip (sometimes finds himself unmotivated after a trip). Has questions about his pain meds. Does not some changes in his urination (decreased flow, occasional nocturia, not every night). Has had 4 falls in the last year from catching his foot. No significant injuries.. healthcare maintenance # Men's H ealthcare Maintenance: Lipids: LDL 163 11/2011 --> LDL 126 09/2014 --> LDL 172, HDL 53 04/2016 --> LDL 131, HDL 49, trig 181 (cardiac risk score 11.4%, wanting to work on lifestyle modification) A1c: Glucose 88 10/2011 --> Glucose 95 09/2014 --> Glucose 95 04/2016 --> Glucose 94 08/2017 Colonoscopy: Reportedly done in 2018 (results unknown); no known family hx colon cancer PSA: 1.04 10/2011 --> 1.04 09/2014 --> 1.34 04/2016 --> 2.5 08/2017 (never returned for repeat PSA free and total) Influenza: Fall 2018 Pneumovax: None, due 04/2020 Prevnar: 04/2019 TDap: 09/2014 Zostavax: None, see Shingrix below Shingrix; Received both doses in 2019 AAA Screen: Declines, will think about in the future Tobacco Use: Social smoker, probably 300-500 cigarettes in his lifetime Alcohol Use: 1 beer/night POLST/Advanced Directive: N/A Wellness CPX: 04/20/19Derm - MARIANA Norris (hx BCC s/p excision; routine skin exams); previously seen by Dr. Patiño and BEL Hector - Dr. Hoover (sensorineural hearing loss) and Dr. 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 at [place] (colonoscopy)Neurosurgery - Dr. Pierre (C5-C6 injury 2/ waterskiing accident 10/2012 --> complicated by R sided weakness (somewhat improved), neurogenic bladder/bowel (resolved) and neuropathy/paresthesias (on-going), has to wear R AFO brace)Ophtho - Dr. Cline (routine eye care)Ortho - Dr. Guajardo (Hx dupuytren's contracture surgery; L carpal tunnel syndrome per EMG/NCS 10/2011 --> s/p injection years ago, thinking about CTS release) and Dr. Chadwick (R shoulder pain --> R shoulder x-ray 03/2017 showing moderate glenohumeral OA, mild narrowing of the acromiohumeral head suggestive of possible partial thickness rotator cuff tear --> s/p US guided steroid injection 03/2017)Rehab medicine - Dr. Gross (rehab following neck injury -- as above) and Dr. Licea (NCS 10/2016 showing acute on chronic L C8 radiculopathy, moderate L CTS and peripheral neuropathy --> C-spine MRI 10/2016 showing mild multilevel degenerative changes, no central canal stenosis, small focus involving the cervical cord posterior to the C5-C6 level which likely represents chronic myelomalacia from previous injury --> T-spine MRI 10/2016 showing normal thoracic spine for age with no stenosis or significant degenerative change --> L-spine MRI 10/2016 showing no acute abnormality evident, but diffuse lumbar spine degenerative changes and mild-moderate foraminal stenosis)Urology - Dr. Wade (BPH, vasectomy); has not seen in yearsOther pertinent PMH:HLDSituational anxiety/depression (has been on Wellbutrin and Celexa in the past which did not help much, has also tried counseling which he thought was not helpful at all)Microscopic hematuria (UA positive for trace blood 09/2014 --> repeat UA negative 04/2016 and 08/2017)Hip OA (mild-moderate per x-ray 06/2017, also with moderate DJD of L-spine, seen incidentally)Hx low back pain (mild L-spine DJD per x-ray 05/2002)Hx appendectomyMarried to , Mara (have been 44 years). Has 2 children (daughter, Natalie and son, Elyssa; [id number], Mely --> all live in [place]). Also 3 grandchildren (ages 4, 2 and 2 months). 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 Has been quite active his whole life up until C5-C6 neck injury. Going to [facility] with his 2 friends at the end of April for 2 weeks. Medicare preventive The patient has not felt depressed and has had interest and pleasure doing things recently. The ''Up and Go'' test took less than 30 seconds and the patient does not need help with activities of daily living. The patient is at risk for falls. The patient has fallen 4 times in the last year. The fall(s) resulted in injury. Patient's activity level is moderate. Patient exercises occasionally. The patient has smoke detectors in the home. The patient does not have carbon monoxide detectors in the home. There is no radon in the patient's home. Patient reports using a seatbelt in vehicles. Patient denies recent weight gain. Patient denies recent weight loss. Patient does not take calcium. Patient reports not taking Vitamin D. Patient does not take a multivitamin. Patient does not take folic acid. Relevant history is positive for alcohol use. Relevant history is negative for passive vaping exposure and passive smoke exposure. In the past year the patient has had 4 or more drinks in a day 0 time(s). L leg issue Hx C5-C6 injury 05/10 waterskiing accident 10/2012, complicated by R sided weakness (somewhat improved, has to wear a R AFO brace), neurogenic bladder/bowel (resolved) and neuropathy/paresthesias (on-going). Reports getting a burning sensation down his anterior thighs x years, but worse the last few months, especially the last 2-3 weeks. Has fallen several times, including last week. Legs feel a bit weaker. Reports being more active this summer. Denies back pain or bladder/bowel incontinence. Already taking Lyrica, Cymbalta and [place]. skin issues. Has a spot on hi s R cheek x months that does not seem to heal and occasionally bleeds. Also has a spot on his R leg that has been present x months and does not seem to resolve. healthcare maintenance # Men's H ealthcare Maintenance: Lipids: LDL 163 11/2011 --> LDL 126 09/2014 --> LDL 172, HDL 53 04/2016 --> LDL 131, HDL 49, trig 181 (cardiac risk score 11.4%, wanting to work on lifestyle modification) A1c: Glucose 88 10/2011 --> Glucose 95 09/2014 --> Glucose 95 04/2016 --> Glucose 94 08/2017 Colonoscopy: None (consult placed 09/2014 but Dionicio has failed to schedule appointment, ready to pursue); no known family hx colon cancer PSA: 1.04 10/2011 --> 1.04 09/2014 --> 1.34 04/2016 --> 2.5 08/2017 Influenza: 01/2018 Pneumovax: None, due a year after Prevnar Prevnar: Due now TDap: 09/2014 Zostavax: None, see Shingrix below Shingrix; Received dose 04/09, scheduling second booster AAA Screen: Declines, will think about in the future Tobacco Use: Social smoker, probably 300-500 cigarettes in his lifetime Alcohol Use: Occasionally POLST/Advanced Directive: N/A Wellness CPX: 08/08/17Derm - Dr. Monge (hx BCC s/p excision; routine skin exams); previously seen by Dr. Patiño and BEL Hector - Dr. Hoover (sensorineural hearing loss) and Dr. 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 Pierre (C5-C6 injury 2/2 waterskiing accident 10/2012 --> complicated by R sided weakness (somewhat improved), neurogenic bladder/bowel (resolved) and neuropathy/paresthesias (on-going), has to wear R AFO brace)Ophtho - Dr. Cline (routine eye care)Ortho - Dr. Guajardo (Hx dupuytren's contracture surgery; L carpal tunnel syndrome per EMG/NCS 10/2011 --> s/p injection years ago, thinking about CTS release) and Dr. Chadwick (R shoulder pain --> R shoulder x-ray 03/2017 showing moderate glenohumeral OA, mild narrowing of the acromiohumeral head suggestive of possible partial thickness rotator cuff tear --> s/p US guided steroid injection 03/2017)Rehab medicine - Dr. Gross (rehab following neck injury -- as above) and Dr. Licea (NCS 10/2016 showing acute on chronic L C8 radiculopathy, moderate L CTS and peripheral neuropathy --> C-spine MRI 10/2016 showing mild multilevel degenerative changes, no central canal stenosis, small focus involving the cervical cord posterior to the C5-C6 level which likely represents chronic myelomalacia from previous injury --> T-spine MRI 10/2016 showing normal thoracic spine for age with no stenosis or significant degenerative change --> L-spine MRI 10/2016 showing no acute abnormality evident, but diffuse lumbar spine degenerative changes and mild-moderate foraminal stenosis)Urology - Dr. Wade (BPH, vasectomy); has not seen in yearsOther pertinent PMH:HLDSituational anxiety/depression (has been on Wellbutrin and Celexa in the past which did not help much, has also tried counseling which he thought was not helpful at all)Microscopic hematuria (UA positive for trace blood 09/2014 --> repeat UA negative 04/2016)Hip OA (mild-moderate per x-ray 06/2017, also with moderate DJD of L-spine, seen incidentally)Hx low back pain (mild L-spine DJD per x-ray 05/2002)Hx appendectomyMarried to , Mara (have been 42 years). Has 2 children (daughter, Natalie and son, Elyssa; [id number], Mely --> all live in [place]). Also 2 grandchildren. 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 Has been quite active his whole life up until C5-C6 neck injury. skin lesion The reports no f atigue. Additional information: Has had a skin lesion on his R anterior leg x 4+ years ever since he started wearing his R AFO brace. Has seen Derm. L CTS Thinking about p ossibly getting back in to see Dr. Guajardo for further eval/treatment, but isn't sure. depression. Longstanding iss ues. Has tried and failed Wellbutrin and Celexa in the past. Thought counseling was a joke and declines to ever return. Notes that he has good days and bad days, but began following his spinal cord injury. Denies SI/HIs. R shoulder and b/l hip pain Stil l bothersome at times, but tolerable. Reports that his biggest discomfort that impacts his quality of life is a band /tightening sensation around his abdomen every since his spinal cord accident. Has seen multiple therapists and sounds like specialists and no one has been able to figure out the cause. Also gets a burning sensation down his anterior thighs x years. Takes Lyrica which helps some and occasional [place]. Seems like the burning sensation seems a bit worse the last year. Balance is poor, but stable, wears a R AFO brace. healthcare maintenance # Men's H ealthcare Maintenance: Lipids: LDL 163 11/2011 --> LDL 126 09/2014 --> LDL 172, HDL 53 04/2016 (cardiac risk score 10.0%, wanting to work on lifestyle modification) A1c: Glucose 88 10/2011 --> Glucose 95 09/2014 --> Glucose 95 04/2016 Colonoscopy: None (consult placed 09/2014 but Dionicio has failed to schedule appointment, ready to pursue); no known family hx colon cancer PSA: 1.04 10/2011 --> 1.04 09/2014 --> 1.34 04/2016 Influenza: 03/2017 Pneumovax: None, due a year after Prevnar Prevnar: Due at age 67 later this year TDap: 09/2014 Zostavax: None, see Shingrix below Shingrix; None, will think about AAA Screen: Declines, will think about in the future Tobacco Use: Social smoker, probably 300-500 cigarettes in his lifetime Alcohol Use: Occasionally POLST/Advanced Directive: N/A Wellness CPX: 08/08/17Juanis - Dr. Monge (hx BCC s/p excision; routine skin exams); previously seen by Dr. Patiño and [facility] - Dr. Hoover (sensorineural hearing loss) and Dr. 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 Pierre (C5-C6 injury / waterskiing accident 10/2012 --> complicated by R sided weakness (somewhat improved), neurogenic bladder/bowel (resolved) and neuropathy/paresthesias (on-going), has to wear R AFO brace)Ophtho - Dr. Cline (routine eye care)Ortho - Dr. Guajardo (Hx dupuytren's contracture surgery; L carpal tunnel syndrome per EMG/NCS 10/2011 --> s/p injection years ago, thinking about CTS release) and Dr. Chadwick (R shoulder pain --> R shoulder x-ray 03/2017 showing moderate glenohumeral OA, mild narrowing of the acromiohumeral head suggestive of possible partial thickness rotator cuff tear --> s/p US guided steroid injection 03/2017)Rehab medicine - Dr. Gross (rehab following neck injury -- as above) and Dr. Licea (NCS 10/2016 showing acute on chronic L C8 radiculopathy, moderate L CTS and peripheral neuropathy --> recommended MRI and neuropathy lab work-up)Urology - Dr. Wade (BPH, vasectomy); has not seen in yearsOther pertinent PMH:HLDSituational anxiety/depression (has been on Wellbutrin and Celexa in the past which did not help much, has also tried counseling which he thought was not helpful at all)Microscopic hematuria (UA positive for trace blood 09/2014 --> repeat UA negative 04/2016)Hip OA (mild-moderate per x-ray 06/2017, also with moderate DJD of L-spine, seen incidentally)Hx low back pain (mild L-spine DJD per x-ray 05/2002)Hx appendectomyMarried to , Mara (have been 42 years). Has 2 children (daughter, Natalie and son, Elyssa; [id number], Mely --> all live in [place]). Also 2 grandchildren. 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 Has been quite active his whole life up until C5-C6 neck injury. Overall, feels fine . R shoulder pain Improved moderat marlyn since last visit. Had R shoulder x-ray 03/2017 which showed moderate glenohumeral OA, mild narrowing of the acromiohumeral head suggestive of possible partial thickness rotator cuff tear. Saw Dr. Chadwick in Ortho clinic who performed an US guided steroid injection 03/2017. ROM has improved but not quite back to baseline . R hip pain Reports for the last 3 weeks having some mild anterior hip discomfort which has progressively worsened the last week. No known trauma/injury. Primarily bothersome when standing up from a chair or getting out of his truck. Denies back pain radiating down leg, numbness/tingling. Has not really tried anything for it besides an extra [place] tab. healthcare maintenance # Men's H ealthcare Maintenance: Lipids: LDL 163 11/2011 --> LDL 126 09/2014 --> LDL 172, HDL 53 04/2016 (cardiac risk score 10.0%, wanting to work on lifestyle modification) A1c: Glucose 88 10/2011 --> Glucose 95 09/2014 --> Glucose 95 04/2016 Colonoscopy: None (consult placed 09/2014 but Dionicio has failed to schedule appointment); no known family hx colon cancer PSA: 1.04 10/2011 --> 1.04 09/2014 --> 1.34 04/2016 Influenza: 03/2017 Pneumovax: Due at age 67 Prevnar: Due at age 67 TDap: 09/2014 Zostavax: None, will think about AAA Screen: Discuss at age 67 Tobacco Use: Social smoker, probably 300-500 cigarettes in his lifetime Alcohol Use: Occasionally POLST/Advanced Directive: N/A Wellness CPX: 04/30/16Juanis - MARIANA Hector (hx BCC s/p excision; routine skin exams); previously seen by Dr. Contreras - Dr. Hoover (sensorineural hearing loss) and Dr. 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 Pierre (C5-C6 injury 2/2 waterskiing accident 10/2012 --> complicated by R sided weakness (somewhat improved), neurogenic bladder/bowel (resolved) and neuropathy/paresthesias (on-going), has to wear R AFO brace)Ophtho - Dr. Cline (routine eye care)Ortho - Dr. Guajardo (Hx dupuytren's contracture surgery; L carpal tunnel syndrome per EMG/NCS 10/2011) and Dr. Chadwick (R shoulder pain --> R shoulder x-ray 03/2017 showing moderate glenohumeral OA, mild narrowing of the acromiohumeral head suggestive of possible partial thickness rotator cuff tear --> s/p US guided steroid injection 03/2017)Rehab medicine - Dr. Gross (rehab following neck injury -- as above) and Dr. Licea (NCS 10/2016 showing acute on chronic L C8 radiculopathy, moderate L CTS and peripheral neuropathy --> recommended MRI and neuropathy lab work-up)Urology - Dr. Wade (BPH, vasectomy); has not seen in yearsOther pertinent PMH:HLDSituational anxiety/depression (has been on Wellbutrin and Celexa in the past which did not help much, has also tried counseling)Microscopic hematuria (UA positive for trace blood 09/2014, never rechecked)Hx low back pain (mild L-spine DJD per x-ray 05/2002)Hx appendectomyMarried to , Mara (have been 41 years). Has 2 children (daughter, Natalie and son, Elyssa; [id number], Mely --> live in [place]). Also 2 grandchildren. 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 Has been quite active his whole life up until C5-C6 neck injury. Went on a rafting trip to the [place] in August 2016 and had a great time. L wrist pain Reports having s ome pain in the extensor surface of his wrist x months. No known trauma/injury. Aggravated with wrist extension. Has not really tried anything for it. healthcare maintenance # [facility]'s H ealthcare Maintenance: Lipids: LDL 163 11/2011 --> LDL 126 09/2014 --> LDL 172, HDL 53 04/2016 (cardiac risk score 10.0%, wanting to work on lifestyle modification) A1c: Glucose 88 10/2011 --> Glucose 95 09/2014 --> Glucose 95 04/2016 Colonoscopy: None (consult placed 09/2014 but [facility] has failed to schedule appointment); no known family hx colon cancer PSA: 1.04 10/2011 --> 1.04 09/2014 --> 1.34 04/2016 Influenza: 03/2017 Pneumovax: Due at age 67 Prevnar: Due at age 67 TDap: 09/2014 Zostavax: None, will think about AAA Screen: Discuss at age 67 Tobacco Use: Social smoker, probably 300-500 cigarettes in his lifetime Alcohol Use: Occasionally POLST/Advanced Directive: N/A Wellness CPX: 04/30/16Juanis - MARIANA Hector (hx BCC s/p excision; routine skin exams); previously seen by Dr. Contreras - Dr. Hoover (senosorineural hearing loss) and Dr. 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 Pierre (C5-C6 injury 2/ waterskiing accident 10/2012 --> complicated by R sided weakness (somewhat improved), neurogenic bladder/bowel (resolved) and neuropathy/paresthesias (on-going), has to wear R AFO brace)Ophtho - Dr. Cline (routine eye care)Ortho - Dr. Guajardo (Hx dupuytren's contracture surgery; L carpal tunnel syndrome per EMG/NCS 10/2011)Rehab medicine - Dr. Gross (rehab following neck injury -- as above) and Dr. Licea (NCS 10/2016 showing acute on chronic L C8 radiculopathy, moderate L CTS and peripheral neuropathy --> recommended MRI and neuropathy lab work-up)Urology - Dr. Wade (BPH, vasectomy); has not seen in yearsOther pertinent PMH:HLDSituational anxiety/depression (has been on Wellbutrin and Celexa in the past which did not help much, has also tried counseling)Microscopic hematuria (UA positive for trace blood 09/2014, never rechecked)Hx low back pain (mild L-spine DJD per x-ray 05/2002)Hx appendectomyMarried to , Mara (have been 41 years). Has 2 children (daughter, Natalie and son, Elyssa; [id number], Mely --> live in [place]). Also 2 grandchildren. 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 Has been quite active his whole life up until C5-C6 neck injury. Went on a rafting trip to the [place] in August 2016 and had a great time. R shoulder pain Reports tripping and falling on concrete 4 days ago. Landed on his R forearm and hip. Reports that his R forearm/elbow and hip feel fine, but has had some discomfort in his R shoulder ever since when trying to elevate it. Minimal discomfort at rest. Has really tried anything for it besides heat and ice which does help a little. healthcare maintenance # Men's H ealthcare Maintenance: Lipids: LDL 163 11/2011 --> LDL 126 09/2014 (cardiac risk score 8.2%, wanting to work on lifestyle modification) A1c: Glucose 88 10/2011 --> Glucose 95 09/2014 Colonoscopy: None (consult placed 09/2014 but [facility] failed to schedule appointment); no known family hx colon cancer PSA: 1.04 10/2011 --> 1.04 09/2014 Influenza: 04/2016 Pneumovax: Due at age 67 Prevnar: Due at age 67 TDap: 09/2014 Zostavax: None, will think about AAA Screen: Discuss at age 67 Tobacco Use: Social smoker, probably 300-500 cigarettes in his lifetime Alcohol Use: Occasionally POLST/Advanced Directive: N/A Wellness CPX: 04/30/16Juanis - MARIANA Hector (hx BCC s/p excision; routine skin exams); previously seen by Dr. Contreras - Dr. Hoover (senosorineural hearing loss) and Dr. 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 Pierre (C5-C6 injury 2/2 waterskiing accident 10/2012 --> complicated by R sided weakness (somewhat improved), neurogenic bladder/bowel (resolved) and neuropathy/paresthesias (on-going), has to wear R AFO brace)Ophtho - Dr. Cline (routine eye care)Ortho - Dr. Guajardo (Hx dupuytren's contracture surgery; L carpal tunnel syndrome per EMG/NCS 10/2011)Rehab medicine - Dr. Gross (rehab following neck injury -- as above)Urology - Dr. Wade (BPH, vasectomy); has not seen in yearsOther pertinent PMH:HLDSituational anxiety/depression (has been on Wellbutrin and Celexa in the past which did not help much, has also tried counseling)Microscopic hematuria (UA positive for trace blood 09/2014, never rechecked)Hx low back pain (mild L-spine DJD per x-ray 05/2002)Hx appendectomyMarried to , Mara (have been 41 years). Has 2 children (daughter, Natalie and son, Elyssa; [id number], Mely --> Elyssa and Mely recently moved back to [place]). Also has a 1 y.o. granddaughter. 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 Has been quite active his whole life up until C5-C6 neck injury. Planning a rafting trip to the [place] in August 2016. Overall, feels pretty good . No major concerns or complaints today. dysthymia Reports that his mood is a bit better than before. Still has his moments of feeling down, especially if he is not feeling well physically and can't do the things he used to do before the spinal cord injury. However, not interested in any treatment at this time. skin issues Saw Rich Montalvo and had a BCC excised from his L cheek. Has a few rough spots on his scalp that he would like looked at. light-headedness Reports occasio luisito getting light-headed when sitting up too fast or going from a bending forward position to standing up. Denies syncope, LOC, vertigo, chest pain, SOB or palpitations. Reports that he probably does not drink enough water. chronic pain issues/ Uses Hall Summit on occasion. Has core/back pain on occasion ever since his spinal cord injury when trying to be active. Plans on going on a rafting trip down the [place] in August and hoping that his Hall Summit prescription could be increased from 5/325mg to 7.5/325mg the month he is gone for the trip. skin lesion The reports no f atigue. Additional information: Has a spot on his nose that he would like looked at. Reports it is somewhat rough . [facility]: Lipids: LDL 163 11/2011 --> LDL 126 09/2014 (cardiac risk score 8.2%, wanting to work on lifestyle modification) A1c: Glucose 88 10/2011 --> Glucose 95 09/2014 Colonoscopy: None (consult placed 09/2014) PSA: 1.04 10/2011 --> 10.04 09/2014 Influenza: Fall 2013 Pneumovax: Due at age 67 Prevnar: Due at age 62 TDap: 09/2014 Zostavax: None, wants to think about AAA Screen: Discuss at age 67 Tobacco Use: Social smoker, probably 300-500 cigarettes in his lifetime Alcohol Use: Occasionally POLST/Advanced Directive: N/A Wellness CPX: 09/30/14Derm - Dr. Patiño (hx BCC, R upper arm skin lesion; routine skin exams)ENT - Dr. Hoover (senosorineural hearing loss) and Dr. 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 Pierre (C5-C6 injury / waterskiing accident 10/2012 --> complicated by R sided weakness (somewhat improved), neurogenic bladder/bowel (resolved) and neuropathy/paresthesias (on-going), has to wear R AFO brace)Ortho - Dr. Guajardo (Hx dupuytren's contracture surgery; L carpal tunnel syndrome per EMG/NCS 10/2011)Rehab medicine - Dr. Gross (rehab following neck injury -- as above)Urology - Dr. 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 Has 2 children (daughter, Natalie and son, Elyssa; [id number]-ter, Mely). Also had his first grandchild this fall. 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 Has been quite active his whole life up until C5-C6 neck injury. AFO brace News a new brace for an AFO brace. Has had since 2012 and believes things are starting to wear on brace. Also has questions about getting back in to see PT to see if there are any other new braces/devices that could be used. Overall, happy with brace. mood issues Reports sometime s have trouble getting motivated to do things; also gets frustrated with his physical capabilities since the accident. Eating and sleeping ok. Sometimes feels down and gets more irritated than he used to. Denies SI/HIs. Previously has been on antidepressants which he did not think helped. Also did counseling but was frustrated that the counselor never gave him any advice/feedback. SI joint pain Intermittent and chronic. No acute changes. Notes primarily on R side. Has had a steroid injection in the past which did not seem to help. Uses Hall Summit prn and also Lyrica for various aches/pains. R ear discomfort Reports using D ebrox and cleaning his R ear out ~2 weeks ago with a water pick. Several days later, began to note a constant discomfort in his R ear and which is now aggravated with turning his R head downward and to the side, in addition to pushing on the tragus and sometimes opening/closing jaw. Denies fevers, chills, hearing loss, plugged ears or ear drainage. skin lesion Additional infor matevens: Has a lesion that has been frozen off several times by Dr. Patiño on his R upper arm. Still not completely healed. Sometimes bleeds. paresthesias Hx C5-C6 injury 2/2 water-skiing injury 10/2012 resulting in R sided weakness/paralysis. Has made significant improvement in his strength and is now able to do a lot fhe things he previously did such as hiking. However, still gets frequent stabbing/stinging pains in both arms and legs. Takes Lyrica which helps some. Also takes Hall Summit 5/325mg daily prn (2-3 typically/week) if really bad. fatigue/low energy Reports that his energy levels just not as good as they once were. Denies day-time sleepiness or snoring. Endorses battling situational depression, but feels pretty good at this time. Sleeps 8-9 hours/night. Libido ok (although not having sex with his ). healthcare maintenance # Men's H ealthcare Maintenance: Lipids: LDL 163 11/2011 A1c: Glucose 88 10/2011 Colonoscopy: None PSA: 1.04 10/2011 Influenza: Fall 2013 Pneumovax: Due at age 67 TDap: 09/2014 Zostavax: None, wants to think about AAA Screen: Discuss at age 67 Tobacco Use: Social smoker, probably 300-500 cigarettes in his lifetime Alcohol Use: Occasionally POLST/Advanced Directive: N/ADerm - Dr. Patiño (hx BCC, R upper arm skin lesion; routine skin exams)ENT - Dr. Hoover (senosorineural hearing loss)Neurosurgery - Dr. Pierre (C5-C6 injury / waterskiing accident 10/2012 --> complicated by R sided weakness (somewhat improved), neurogenic bladder/bowel (resolved) and neuropathy/paresthesias (on-going), has to wear R AFO brace)Ortho - Dr. Guajardo (Hx dupuytren's contracture surgery; L carpal tunnel syndrome per EMG/NCS 10/2011)Rehab medicine - Dr. Gross (rehab following neck injury -- as above)Urology - Dr. 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 Has 2 children (daughter, Natalie and son, Elyssa; [id number], Mely). Expected first grandchild 01/2015. 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 Has been quite active his whole life up until C5-C6 neck injury. Functional Status Date Functional Assessmen t No Information Instructions Date Instruction Additional Infor mation Counseled on weight reduction Counseled on dietary changes Counseled on dietary changes Assessments Type Assessment Date assessment Chronic pain disorder 5 Patient Care Teams Name Effective Dates (start - stop) Status Members No Information
--- OUTSIDE RECORDS SUMMARY | 2024-07-26 10:07 | XMS_ITS | Encounter Summary ---
Author Organization [facility] Address [address] [place] [address] Care Team Providers Care General Merchandise Manager Name Role Phone Gómez Harden MD Unavailable [phone] Martin Palomino MD Primary Care Provider [phone] Encounter Details Date Type Department Care Team (Late st Contact Info) Description 06/05/2020 MyChart Message Enc [facility] Family & Internal Medicine [id number] [place] [address] Martin Palomino MD [address] [place] [id number] Medication Questions Social History Tobacco Use Types Packs/Day Years Used Date Smoking Tobacco: Former Cigarettes 0.5 6 1 972 - 1978 Cigars Smokeless Tobacco: Never Alcohol Use Standard Drinks/Week Comments Not Currently 0 (1 standard drink = 0.6 oz pur e alcohol) PHQ-2 Answer Date Recorded PHQ-2 Score - If the patient scores above 3, please move on to questions 3-9 0 03/08/2020 Sex and Gender Information Value Date Recorded Sex Assigned at Male 05/06/2024 7:05 AM PLASTER MAKER Legal Sex Male 8:12 PM CDT Gender Identity Male 05/06/2024 7:05 AM PLASTER MAKER Sexual Orientation Not on file 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 on file Not on file documented as of this encounter Plan of Treatment Upcoming Encounters Date Type Department Care Team (Late st Contact Info) Description 10/28/2024 7:20 AM CDT Laboratory Only [facility] Family & Internal Medicine [facility] [address] [place] [address] Martin Palomino MD [address] [place] [address] 11/04/2024 7:40 AM CDT Office Visit [facility] Family & Internal [facility] [address] [place] [address] Martin Palomino MD [address] [place] [address] documented as of this encounter Visit Diagnoses Not on filedocumented in this encounter Additional Health Concerns Infection Onset Date Last Indicated Resolved Time COVID-19 Rule Out 03/27/2021 03/27/2021 03/29/2021 1:09 AM PLASTER MAKER COVID-19 Rule Out 09/19/2021 09/19/2021 09/19/2021 2:02 PM CDT COVID-19 Rule Out 09/19/2021 09/19/2021 09/20/2021 2:41 PM CDT documented as of this encounter Care Teams General Merchandise Manager Relationship Specialty Start Date End Date Martin Palomino MD [address] [place] [id number] PCP - General INTERNAL MEDICINE 03/14/20 Gómez Harden MD [facility]. [facility] [address] [place] [address] [place] [facility] Technician CARDIOVASCULAR DISEASE 06/16/18 documented as of this encounter
--- OUTSIDE RECORDS SUMMARY | 2024-07-26 10:07 | XMS_ITS | Encounter Summary ---
Author Organization [facility] Address [address] [place] [address] Care Team Providers Care Coal Equipment Operator Name Role Phone Unavailable Primary Care Provider Unavailabl e Encounter Details Date Type Department Care Team (Late st Contact Info) Description 11/13/2022 Lab Requisition [facility] - DermPath Lab [address] [facility] [place] [id number] Vivek Pat MD [address] [facility] [place] [address] Social History Tobacco Use Types Packs/Day Years [...] Priority Date/Time Associated Diagnosis Comments DERMATOPATHOLOGY Routine 11/13/2022 3:33 AM CDT documented in this encounter Results * DERMATOPATHOLOGY (11/13/2022 3:33 AM CDT) Case Report Dermatopathology Report Case: [id number] Authorizing Provider: Vivek Pat MD Collected: 11/13/2022 03:33 AM Ordering Location: [facility] DermPath Lab Received: 11/14/2022 06:24 AM Pathologist: Dilan Simental MD Specimens: A) - Skin, left lower back B) - Skin, right elbow C) - Skin, left medial calf D) - Skin, left distal nasal 3 2:25 PM [facility] DERMATOPATHOLOGY LABORATORY Final Diagnosis Specimen A. 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 SKIN, right elbow: BASAL CELL CARCINOMA, SUPERFICIAL MULTIFOCAL (C44.612) Specimen C. SKIN, left medial calf: POROKERATOSIS (Q82.8) Specimen D. SKIN, left distal nasal: BASAL CELL CARCINOMA, NODULAR TYPE (C44.311) 3 2:25 PM [facility] DERMATOPATHOLOGY LABORATORY Clinical History A: Nevus vs MM Path#[id number] B: BCCA vs SCCA Path#[id number] C: BCCA vs SCCA Path#[id number] D: BCCA vs SCCA Path#[id number] 3 2:25 PM [facility] DERMATOPATHOLOGY LABORATORY Gross Description Specimen A: Received is one formalin filled container labeled with the patient's name and designated left lower back. The specimen consists of a shave biopsy measuring 11x8x1 mm. Jar 0. Specimen B: Received is one formalin filled container labeled with the patient's name and designated right elbow. The specimen consists of a shave biopsy measuring 8x6x1 mm. Jar 0. Specimen C: Received is one formalin filled container labeled with the patient's name and designated left medial calf. The specimen consists of a shave biopsy measuring 8x5x1 mm. Jar 0. Specimen D: Received is one formalin filled container labeled with the patient's name and designated left distal nasal. The specimen consists of a shave biopsy measuring 5x4x1 mm. Jar 0. 3 2:25 PM [facility] DERMATOPATHOLOGY LABORATORY Microscopic Description Specimen A. SKIN, left lower back: This is a compound nevus. There is a lentiginous proliferation of melanocytes between nevus nests of cells along the dermal-epidermal junction. There is underlying lamellar fibroplasia of the papillary dermis. The intradermal component is bland in appearance and matures with depth. (Compound Wilber's Nevus) Specimen B. SKIN, right elbow: Attached to the undersurface of the epidermis, there are small aggregates of basaloid cells with a high nuclear to cytoplasmic ratio and peripheral palisading. Specimen C. SKIN, left medial calf: There is a sparse to moderately dense lichenoid lymphohistiocytic infiltrate, a thinned epidermis, and cornoid lamella formation. Specimen D. SKIN, left distal nasal: Within the dermis there are aggregates of basaloid cells with a high nuclear to cytoplasmic ratio and peripheral palisading. 3 2:25 PM CDT DERMATOPATHOLOGY LABORATORY Disclaimer An external and internal positive and negative controls are appropriate for the histochemical, immunohistochemical and immunofluorescence stain(s) in this case (if any), except where stated explicitly. The performance characteristics of the stain(s) cited in this report were developed and its performance characteristic determined by the Dermatopathology Laboratory at [facility], directed by Dr. Kamran Simental. These tests need not be, and therefore are not, approved by the [place] Food and Drug Administration. The tests are used for clinical purposes. Billing Codes Specimen Charges Stain Charges 61805 [id number] [id number] 1 1 1 1 3 2:25 PM CDT DERMATOPATHOLOGY LABORATORY Embedded Images 3 2:25 PM CDT DERMATOPATHOLOGY LABORATORY Pathology/Cytology TISSUE SPECIMEN FROM SKIN / Unknown 11/13/2022 3:33 AM CDT 11/14/2022 6:24 AM CDT Miscellaneous samples (specimen) TISSUE SPECIMEN FROM SKIN / Unknown 11/13/2022 3:33 AM CDT 11/14/2022 6:24 AM CDT Miscellaneous samples (specimen) TISSUE SPECIMEN FROM SKIN / Unknown 11/13/2022 3:33 AM CDT 11/14/2022 6:24 AM CDT Miscellaneous samples (specimen) TISSUE SPECIMEN FROM SKIN / Unknown 11/13/2022 3:33 AM CDT 11/14/2022 6:24 AM CDT us Vivek Pat MD LAB - PATHOLOGY/CYTOLOGY ORDER CHRISTOPHER Final Result DERMATOPATHOLOGY LABORATORY [facility] - Department of Dermatology [address] [place] [address], [facility] [phone] documented in this encounter Visit Diagnoses Not on filedocumented in this encounter
--- OUTSIDE RECORDS SUMMARY | 2024-07-26 10:07 | XMS_ITS | Encounter Summary ---
Author Organization [facility] Address [address] [place] [address] Care Team Providers Care Sec Reporting Consultant Name Role Phone Unavailable Primary Care Provider Unavailabl e Encounter Details Date Type Department Care Team (Late st Contact Info) Description 09/24/2019 Lab Requisition [facility] DermPath Lab [address] [place] [address] Vivek Pat MD [address] [place] [address] Social History Tobacco Use Types Packs/Day Years [...] Priority Date/Time Associated Diagnosis Comments DERMATOPATHOLOGY Routine 09/23/2019 12:0 0 AM CDT documented in this encounter Results * DERMATOPATHOLOGY (09/23/2019 12:00 AM CDT) Case Report Dermatopathology Report Case: [id number] Authorizing Provider: Vivek Pat MD Collected: 09/23/2019 12:00 AM Ordering Location: [facility] Derm[facility] Lab Received: 09/24/2019 06:37 AM Pathologist: Dilan Simental MD Specimen: Skin, right jaw 0 1:42 PM CDT DERMATOPATHOLOGY LABORATORY Final Diagnosis Specimen A. 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 Check margins. Path# [id number] 0 1:42 PM CDT DERMATOPATHOLOGY LABORATORY Gross Description Specimen A: Received is one formalin filled container labeled with the patient's name and designated right jaw. The specimen consists of a non-oriented ellipse of skin measuring 75g71b3 mm. The epidermal surface is unremarkable. The margin is inked green. The 12 o'clock and 6 o'clock tips are submitted in cassette 1. The remainder of the ellipse is serially sectioned and submitted in cassette 2-3. Jar 0. 0 1:42 PM CDT DERMATOPATHOLOGY LABORATORY Microscopic Description Specimen A. SKIN, right jaw: The epidermis shows parakeratosis, full thickness disorderly maturation of keratinocytes, mitoses at different levels, and dyskeratotic cells. This lesion is present at one lateral margin of the specimen in block 3. There are fibroblasts and collagen bundles oriented parallel to the skin surface with elongated blood vessels, some of which are oriented perpendicular to the skin surface. 0 1:42 PM CDT DERMATOPATHOLOGY LABORATORY Disclaimer An external and internal positive and negative controls are appropriate for the histochemical, immunohistochemical and immunofluorescence stain(s) in this case (if any), except where stated explicitly. The performance characteristics of the stain(s) cited in this report were developed and its performance characteristic determined by the Dermatopathology Laboratory at [facility], directed by Dr. Kamran Simental. These tests need not be, and therefore are not, approved by the [place] Food and Drug Administration. The tests are used for clinical purposes. Billing Codes Specimen Charges Stain Charges 22538 1 0 1:42 PM CDT DERMATOPATHOLOGY LABORATORY Embedded Images 0 1:42 PM CDT DERMATOPATHOLOGY LABORATORY Pathology/Cytolog y TISSUE SPECIMEN FROM SKIN / Unknown 09/23/2019 09/24/2019 6:37 AM CDT us Vivek Pat MD LAB - PATHOLOGY/CYTOLOGY ORDER CHRISTOPHER Final Result DERMATOPATHOLOGY LABORATORY [facility] - Department of Dermatology [facility] [address] [place] [address], [facility] [phone] documented in this encounter Visit Diagnoses Not on filedocumented in this encounter
--- OUTSIDE RECORDS SUMMARY | 2024-07-26 10:07 | XMS_ITS | Encounter Summary ---
Author Organization [facility] Address [address] [place] [address] Care Team Providers Care Metallurgical Analyst Name Role Phone Gómez Harden MD Unavailable [phone] Martin Palomino MD Primary Care Provider Encounter Details Date Type Department Care Team (Late st Contact Info) Description 06/05/2020 MyChart Message Enc [facility] Medical Group Family & Internal Medicine [address] [place] [address] Martin Palomino MD [address] [place] [address] RE: Medication Questions Social History Tobacco Use Types [...] Sex Assigned at Male 05/06/2024 7:05 AM WILDLIFE MANAGER Legal Sex Male 8:12 PM CDT Gender Identity Male 05/06/2024 7:05 AM WILDLIFE MANAGER Sexual Orientation Not on file 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 on file Not on file documented as of this encounter Plan of Treatment Upcoming Encounters Date Type Department Care Team (Late st Contact Info) Description 10/28/2024 7:20 AM CDT Laboratory Only [facility] Family & Internal Medicine [facility] [address] [place] [address] [place] [address] [place] [address] 11/04/2024 7:40 AM CDT Office Visit [facility] Family & Internal [facility] [address] [place] [address] Martin Palomino MD [address] [place] [address] documented as of this encounter Visit Diagnoses Not on filedocumented in this encounter Additional Health Concerns Infection Onset Date Last Indicated Resolved Time COVID-19 Rule Out 03/27/2021 03/27/2021 03/29/2021 1:09 AM WILDLIFE MANAGER COVID-19 Rule Out 09/19/2021 09/19/2021 09/19/2021 2:02 PM CDT COVID-19 Rule Out 09/19/2021 09/19/2021 09/20/2021 2:41 PM CDT documented as of this encounter Care Teams Metallurgical Analyst Relationship Specialty Start Date End Date Martin Palomino MD [address] [place] [address] PCP - General INTERNAL MEDICINE 03/14/20 Gómez Harden MD [facility]. [facility] [address] [place] [address] [place] Oil Inspector CARDIOVASCULAR DISEASE 06/16/18 documented as of this encounter
--- OUTSIDE RECORDS SUMMARY | 2024-07-26 10:07 | XMS_ITS | Encounter Summary ---
Author Organization [facility] Address [facility]ly [facility], [facility] [place] [address] Care Team Providers Care Primary Care Physician Name Role Phone Gómez Harden MD Unavailable [phone] Martin Palomino MD Primary Care Provider [phone] Encounter Details Date Type Department Care Team (Late st Contact Info) Description 11/27/2019 [employer] Message Enc [facility] Medical [address] [address] Dallas De La Vega MD [address] [place] [address] RE: Follow Up/Update Social History Tobacco Use Types Packs/Day Years Used Date Smoking Tobacco: Former Cigarettes 0.5 6 1 972 - 1978 Smokeless Tobacco: Never Alcohol Use Standard Drinks/Week Comments No 0 (1 standard drink = 0.6 oz pur e alcohol) Sex and Gender Information Value Date Recorded Sex Assigned at Male 05/06/2024 7:05 AM FORMER HAND Legal Sex Male 8:12 PM CDT Gender Identity Male 05/06/2024 7:05 AM FORMER HAND Sexual Orientation Not on file 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 No / Unsure 11/19/2019 3:05 PM CDT documented as of this encounter Plan of Treatment Upcoming Encounters Date Type Department Care Team (Late st Contact Info) Description 10/28/2024 7:20 AM CDT Laboratory Only [facility] Family & Internal Medicine [address] [place] [address] Martin Palomino MD [address] [place] [address] 11/04/2024 7:40 AM CDT Office Visit [facility] Family & Internal Medicine [facility] [address] [place] [address] Martin Palomino MD [address] [place] [address] documented as of this encounter Visit Diagnoses Not on filedocumented in this encounter Additional Health Concerns Infection Onset Date Last Indicated Resolved Time COVID-19 Rule Out 03/27/2021 03/27/2021 03/29/2021 1:09 AM FORMER HAND COVID-19 Rule Out 09/19/2021 09/19/2021 09/19/2021 2:02 PM CDT COVID-19 Rule Out 09/19/2021 09/19/2021 09/20/2021 2:41 PM CDT documented as of this encounter Care Teams Primary Care Physician Relationship Specialty Start Date End Date Martin Palomino MD [facility] [place] [address] PCP - General INTERNAL MEDICINE 03/14/20 Gómez Harden MD [facility]. [facility] [address] [place] [address] [place] [employer] Laborer CARDIOVASCULAR DISEASE 06/16/18 documented as of this encounter
--- OUTSIDE RECORDS SUMMARY | 2024-07-26 10:07 | XMS_ITS | Encounter Summary ---
Author Organization [facility] Address [address] [place] [address] Care Team Providers Care Harbor Department Manager Name Role Phone Unavailable Primary Care Provider Unavailabl e Encounter Details Date Type Department Care Team (Late st Contact Info) Description 03/01/2021 Lab Requisition [facility] DermPath Lab [address] [place] [address] Vivek Pat MD [address] [place] [address] Social History Tobacco Use Types Packs/Day Years [...] Priority Date/Time Associated Diagnosis Comments DERMATOPATHOLOGY Routine 02/27/2021 12:0 0 AM TELEMARKETING SUPERVISOR documented in this encounter Results * DERMATOPATHOLOGY (02/27/2021 12:00 AM TELEMARKETING SUPERVISOR) Case Report Dermatopathology Report Case: [id number] Authorizing Provider: Vivek Pat MD Collected: 02/27/2021 12:00 AM Ordering Location: [facility] DermPath Lab Received: 03/01/2021 07:48 AM Pathologist: Ernestina Polo MD Specimens: A) - Skin, right anti helix B) - Skin, mid ant scalp 1:29 PM TELEMARKETING SUPERVISOR DERMATOPATHOLOGY LABORATORY Final Diagnosis Specimen A. 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 Path#[id number] B: SCCA. Path#[id number] 1:29 PM [facility] DERMATOPATHOLOGY LABORATORY Gross Description Specimen A: Received is one formalin filled container labeled with the patient's name and designated right anti helix. The specimen consists of a shave biopsy measuring 6x6x2 mm. Jar 0. Specimen B: Received is one formalin filled container labeled with the patient's name and designated mid ant scalp. The specimen consists of a shave biopsy measuring 8x6x1 mm. Jar 0. 1:29 PM [facility] DERMATOPATHOLOGY LABORATORY Microscopic Description Specimen A. SKIN, right anti helix: The epidermis shows parakeratosis, full thickness disorderly maturation of keratinocytes, mitoses at different levels, and dyskeratotic cells. There is a column of marked compact hyperkeratosis. Specimen B. SKIN, mid ant scalp: There is focal parakeratosis. The lower half of the epidermis and the follicular epithelium shows disorderly maturation of keratinocytes with nuclear pleomorphism. 1:29 PM [facility] DERMATOPATHOLOGY LABORATORY Disclaimer An external and internal positive and negative controls are appropriate for the histochemical, immunohistochemical and immunofluorescence stain(s) in this case (if any), except where stated explicitly. The performance characteristics of the stain(s) cited in this report were developed and its performance characteristic determined by the Dermatopathology Laboratory at [facility], directed by Dr. Kamran Simental. These tests need not be, and therefore are not, approved by the [place] Food and Drug Administration. The tests are used for clinical purposes. Billing Codes Specimen Charges Stain Charges 72926 89355 1 1 1 1:29 PM [facility] DERMATOPATHOLOGY LABORATORY Embedded Images 1:29 PM [facility] DERMATOPATHOLOGY LABORATORY Pathology/Cytology TISSUE SPECIMEN FROM SKIN / Unknown 02/27/2021 03/01/2021 7:48 AM TELEMARKETING SUPERVISOR Miscellaneous samples (specimen) TISSUE SPECIMEN FROM SKIN / Unknown 02/27/2021 03/01/2021 7:48 AM TELEMARKETING SUPERVISOR us Vivek Pat MD LAB - PATHOLOGY/CYTOLOGY ORDER CHRISTOPHER Final Result DERMATOPATHOLOGY LABORATORY [facility] - Department of Dermatology [facility] Specialized Medicine [address] [place] [address], [address] [phone] documented in this encounter Visit Diagnoses Not on filedocumented in this encounter
--- OUTSIDE RECORDS SUMMARY | 2024-07-26 10:07 | XMS_ITS | Encounter Summary ---
Author Organization [facility] Address [address] [facility] [place] [address] Care Team Providers Care Injection Mold Technician Name Role Phone Unavailable Primary Care Provider Unavailabl e Encounter Details Date Type Department Care Team (Late st Contact Info) Description 03/10/2020 Lab Requisition [facility] DermPath Lab [address] [place] [address] Vivek Pat MD [address] [place] [address] Social History Tobacco Use Types Packs/Day Years [...] Priority Date/Time Associated Diagnosis Comments DERMATOPATHOLOGY Routine 03/08/2020 12:0 0 AM POULTRY HATCHERY SUPERVISOR documented in this encounter Results * DERMATOPATHOLOGY (03/08/2020 12:00 AM POULTRY HATCHERY SUPERVISOR) Case Report Dermatopathology Report Case: [id number] Authorizing Provider: Vivek Pat MD Collected: 03/08/2020 12:00 AM Ordering Location: [facility] DermPath Lab Received: 03/10/2020 08:53 AM Pathologist: Ebony Bell MD Specimen: Skin, left mid back 0 5:43 PM POULTRY HATCHERY SUPERVISOR DERMATOPATHOLOGY LABORATORY Final Diagnosis Specimen A. SKIN, left mid back: COMPOUND NEVUS WITH CONGENITAL FEATURES (D22.5) (see microscopic description and comment) 0 5:[address] [facility] DERMATOPATHOLOGY LABORATORY Clinical History Nevus vs MM. Path # [id number]. 0 5:[address] [facility] DERMATOPATHOLOGY LABORATORY Gross Description Specimen A: Received is one formalin filled container labeled with the patient's name and designated left mid back. The specimen consists of a shave biopsy measuring 80g13q3cp. Jar 0. 0 5:[address] [facility] DERMATOPATHOLOGY LABORATORY Microscopic Description Specimen A. SKIN, left mid back: There are nests of melanocytes at the dermal-epidermal junction and within the dermis. Some melanocytes are splayed between collagen bundles and are localized around adnexal structures, highlighted by MART-1/Melan-A immunostain. Dermal fibrosis is present. This case was also reviewed by Dr. Dilan Simental, who agrees. 0 5:[address] [facility] DERMATOPATHOLOGY LABORATORY Disclaimer An external and internal positive and negative controls are appropriate for the histochemical, immunohistochemical and immunofluorescence stain(s) in this case (if any), except where stated explicitly. The performance characteristics of the stain(s) cited in this report were developed and its performance characteristic determined by the Dermatopathology Laboratory at [facility], directed by Dr. Kamran Simental. These tests need not be, and therefore are not, approved by the [place] Food and Drug Administration. The tests are used for clinical purposes. Billing Codes Specimen Charges Stain Charges 38392 1 99700 1 0 5:[address] [facility] DERMATOPATHOLOGY LABORATORY Embedded Images 0 5:[address] [facility] DERMATOPATHOLOGY LABORATORY Pathology/Cytolog y TISSUE SPECIMEN FROM SKIN / Unknown 03/08/2020 03/10/2020 8:53 AM POULTRY HATCHERY SUPERVISOR us Vivek Pat MD LAB - PATHOLOGY/CYTOLOGY ORDER CHRISTOPHER Final Result DERMATOPATHOLOGY LABORATORY [facility] - Department of Dermatology [address] [place] [address], [place] [phone] documented in this encounter Visit Diagnoses Not on filedocumented in this encounter
--- OUTSIDE RECORDS SUMMARY | 2024-07-26 10:07 | XMS_ITS | Encounter Summary ---
Author Organization [facility] Address [address] [facility] [place] [address] Care Team Providers Care Special Weapons And Tactics Officer Name Role Phone Unavailable Primary Care Provider Unavailabl e Encounter Details Date Type Department Care Team (Late st Contact Info) Description 03/19/2023 Lab Requisition [facility] - DermPath Lab [address] [facility], [place] [id number] Vivek Pat MD [address] [place] [address] Social History Tobacco Use Types Packs/Day Years [...] Priority Date/Time Associated Diagnosis Comments DERMATOPATHOLOGY Routine 03/18/2023 12:0 0 AM SENIOR FIRE PROTECTION ENGINEER documented in this encounter Results * DERMATOPATHOLOGY (03/18/2023 12:00 AM SENIOR FIRE PROTECTION ENGINEER) Case Report Dermatopathology Report Case: [id number] Authorizing Provider: Vivek Pat MD Collected: 03/18/2023 12:00 AM Ordering Location: [facility] DermPath Lab Received: 03/19/2023 07:00 AM Pathologist: Magda Park MD Specimen: Skin, right distal nasal sidewall 12:52 PM SENIOR FIRE PROTECTION ENGINEER DERMATOPATHOLOGY LABORATORY Final Diagnosis Specimen A. SKIN, right distal nasal sidewall: INTRADERMAL MELANOCYTIC NEVUS (D22.39) 3 12:52 PM SENIOR FIRE PROTECTION ENGINEER DERMATOPATHOLOGY LABORATORY Clinical History Nevus vs. Fibrous Papule vs. BCCA. Path# [id number] 3 12:52 PM SENIOR FIRE PROTECTION ENGINEER DERMATOPATHOLOGY LABORATORY Gross Description Specimen A: Received is one formalin filled container labeled with the patient's name and designated right distal nasal sidewall. The specimen consists of a shave biopsy measuring 5x4x1 mm. Jar 0. 3 12:52 PM SENIOR FIRE PROTECTION ENGINEER DERMATOPATHOLOGY LABORATORY Microscopic Description Specimen A. SKIN, right distal nasal sidewall: There are nests of cytologically bland melanocytes within the dermis that mature with depth. 3 12:52 PM SENIOR FIRE PROTECTION ENGINEER DERMATOPATHOLOGY LABORATORY Disclaimer An external and internal positive and negative controls are appropriate for the histochemical, immunohistochemical and immunofluorescence stain(s) in this case (if any), except where stated explicitly. The performance characteristics of the stain(s) cited in this report were developed and its performance characteristic determined by the Dermatopathology Laboratory at [facility], directed by Dr. Kamran Simental. These tests need not be, and therefore are not, approved by the [place] Food and Drug Administration. The tests are used for clinical purposes. Billing Codes Specimen Charges Stain Charges 16436 1 3 12:52 PM SENIOR FIRE PROTECTION ENGINEER DERMATOPATHOLOGY LABORATORY Embedded Images 3 12:52 PM SENIOR FIRE PROTECTION ENGINEER DERMATOPATHOLOGY LABORATORY Pathology/Cytolog y TISSUE SPECIMEN FROM SKIN / Unknown 03/18/2023 03/19/2023 7:00 AM SENIOR FIRE PROTECTION ENGINEER us Vivek Pat MD LAB - PATHOLOGY/CYTOLOGY ORDER CHRISTOPHER Final Result DERMATOPATHOLOGY LABORATORY [facility] - Department of Dermatology [address] [place] [address], [facility] [phone] documented in this encounter Visit Diagnoses Not on filedocumented in this encounter
--- OUTSIDE RECORDS SUMMARY | 2024-07-26 10:07 | XMS_ITS | Encounter Summary ---
Author Organization [facility] Address [address] [place] [address] Care Team Providers Care Charge Aide Name Role Phone Gómez Harden MD Unavailable [phone] Martin Palomino MD Primary Care Provider [phone] Encounter Details Date Type Department Care Team (Late st Contact Info) Description 05/16/2020 MyChart Message Enc [facility] Medical Group Family & Internal Medicine [address] [place] [address] Martin Palomino MD [address] [place] [address] RE: Test Results Social History Tobacco Use Types Packs/Day Years [...] Sex Assigned at Male 05/06/2024 7:05 AM ALGEBRAIST Legal Sex Male 8:12 PM CDT Gender Identity Male 05/06/2024 7:05 AM ALGEBRAIST Sexual Orientation Not on file 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 [address] [place] [address] Martin Palomino MD [address] [place] [address] documented as of this encounter Visit Diagnoses Not on filedocumented in this encounter Additional Health Concerns Infection Onset Date Last Indicated Resolved Time COVID-19 Rule Out 03/27/2021 03/27/2021 03/29/2021 1:09 AM ALGEBRAIST COVID-19 Rule Out 09/19/2021 09/19/2021 09/19/2021 2:02 PM CDT COVID-19 Rule Out 09/19/2021 09/19/2021 09/20/2021 2:41 PM CDT documented as of this encounter Care Teams Charge Aide Relationship Specialty Start Date End Date Martin Palomino MD [address] [place] [address] PCP - General INTERNAL MEDICINE 03/14/20 Gómez Harden MD [facility]. [facility] [address] [place] [address] [place] Jira Developer CARDIOVASCULAR DISEASE 06/16/18 documented as of this encounter
--- OUTSIDE RECORDS SUMMARY | 2024-07-26 10:45 | XMS_ITS | Continuity of Care Document ---
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 [facility] Occupational Therapy Active Condition D oD joint [...] control and send pt to Physical therapy [facility] UPPER RESPIRATORY INFECTION Active Condition Pt with [...] with food/mil k.Swallo w whole. Active 09/02/2024 [id number] 4 [address] [place] [address] [facility] ([facility]) ASPIRIN EC (U/D) 81 MG ORAL TBEC Take with food/mil k.Swallo w whole. 08/20/2023 [id number] 3 [address] [place] [address] ([facility]) aspirin EC 81 mg tablet 81 mg, [...] directed .Do not take if . 08/20/2023 [id number] 3 [address] [place] [address]) dulaglutide 0.75 mg/0.5 mL pen [4EA=2mL] See Instruct ions, # 2 mL, 11 total refill(s ), Hard Stop Notes: refriger ate Ordered 04/15/2025 5 2024 2.0 Ambulat ory Pharmac y Dulaglutide 1.5 mg/mL, Injection, 0.5mL Autoinjecto r refriger ateCheck with your doctor before becoming .Store in original package. 05/07/2024 [id number] 4 [address] [place] [address]) Fenofibrate (TriCor Eq.) Tablet 145 mg Oral Active 09/02/2024 [id number] 08/07 4 [address] [place] [address]) Fenofibrate (TriCor Eq.) Tablet 145 mg Oral 08/20/2023 [id number] 08/06 3 [address] [place] [address]) fenofibrate 145 mg tablet 145 mg, Oral, Daily, # 90 EA, 3 total refill(s ), Hard Stop Oral (given by mouth) Ordered 09/02/2024 5 2024 90.0 Ambulat ory Pharmac y FLOMAX (BRAND) 0.4 MG ORAL CAP May cause drowsine ss.Be careful if taking OTCs.Onur e or use exactly as directed .Swallow whole. Active 09/02/2024 [id number] 4 [address] [place] [address]) FLOMAX (BRAND) 0.4 MG ORAL CAP May cause drowsine ss.Be careful if taking OTCs.Onur e or use exactly as directed .Swallow whole. 08/20/2023 [id number] 3 [address] [place] [address]) GLUCOPHAGE (BRAND) 500 MG ORAL TAB Do not drink alcohol. Take with food/mil k.Take or use exactly as directed .Obtain advice for OTCs.Rosa ck with your doctor before becoming . Active 09/02/2024 [id number] 4 [address] [place] [address]) GLUCOPHAGE (BRAND) 500 MG ORAL TAB Do not drink alcohol. Take with food/mil k.Take or use exactly as directed .Obtain advice for OTCs.Rosa ck with your doctor before becoming . 08/20/2023 [id number] 3 [address] [place] [address]) hydroCHLORO thiazide (U/D) 12.5 MG PO CAP Take orange juice or banana.T nayely with food/mil k.Avoid exposure to sun.Take or use exactly as directed . Active 09/02/2024 [id number] 4 [address] [place] [address]) hydroCHLORO thiazide (U/D) 12.5 MG PO CAP Take orange juice or banana.T nayely with food/mil k.Avoid exposure to sun.Take or use exactly as directed . 08/20/2023 [id number] 3 [address] [place] [address]) hydroCHLORO thiazide 12.5 mg capsule See dose [...] .Do not take if . Active 09/02/2024 [id number] 4 [address] [place] [address] [facility] ([facility]) lisinopril 20 mg tablet See Instruct ions, [...] ss.Obtai n advice for OTCs. Active 09/02/2024 [id number] 4 [address] [place] [address] [facility] ([facility]) Loratadine (Alavert ODT) Tablet 10 mg Oral May cause drowsine ss.Obtai n advice for OTCs. 08/20/2023 [id number] 3 [address] [place] [address] [facility] ([facility]) loratadine 10 mg tablet 10 mg, Oral, [...] y cause drowsine ss/dizzi ness. Active 09/02/2024 [id number] 4 [address] [place] [address] ([facility]) metoprolol succ (U/D) 50 MG ORAL TB24 Be careful if taking OTCs.Onur e with food/mil k.Take or use exactly as directed .May impair driving. Swallow whole.Ma y cause drowsine ss/dizzi ness. 08/20/2023 [id number] 3 [address] [place] [address] ([facility]) metoprolol succinate ER 50 mg/24 hour tablet [...] Reported Comments Source NO OUTPUT FOR NCID [id number] Drug allergy (disorder) active 12/16/2007 [facility] ([facility]) Immunizations Combined list of available immunizations from the Department of Defense and Veterans Affairs facilities. Immunization Series Date Given Administered By Site Reaction Lot Number CVX Code Drug Manager Credit Status Comments Source COVID-19, mRNA, LNP-S, PF, 30 mcg/0.3 mL dose 2020 KOcliniq.lyAFastFig [place] (PFR) Not Given COVID-19, mRNA, LNP-S, PF, 30 mcg/0.3 mL dose DoD Influenza vaccine, quadrivalent, adjuvanted 2020 BAM, () Not Given Influenza vaccine, quadrival ent, adjuvante d DoD COVID-19, mRNA, LNP-S, PF, 30 mcg/0.3 mL dose 2020 JD, GoPlanit [place] (PFR) Not Given COVID-19, mRNA, LNP-S, PF, 30 mcg/0.3 mL dose DoD COVID-19, mRNA, LNP-S, PF, 30 mcg/0.3 mL dose 2020 HELMFastFig [place] (PFR) Not Given COVID-19, mRNA, LNP-S, PF, 30 mcg/0.3 mL dose DoD pneumococcal 13-valent conjugate (PCV13) 2018 zzLef t Arm [id number] TBS [facility] complet ed pneumococ malcom 13-valent conjugate (PCV13) 10/23/18 Given Ambulat ory Pharmac y pneumococcal conjugate vaccine, 13 valent 1 2018 Unknown, Provider [id number] 133 [facility] ([facility] complet ed pneumococ malcom conjugate vaccine, 13 valent DoD tetanus, diphtheria, acellular pertu is 2008 zzLef t Arm [id number] 115 GlaxoSmithK[employer] ny complet ed tetanus, diphtheri a, acellular pertussis 02/01/09 Given Ambulat ory Pharmac y influenza virus vaccine,split 2008 zzLef t Arm [id number] sanofi pasteur complet ed influenza virus vaccine,s plit 02/01/09 Given Ambulat ory Pharmac y influenza virus vaccine, split virus (incl. purified surface antigen)-reti red CODE 1 2008 Unknown, Provider [id number] Sanofi Pasteur (PMC) complet ed influenza virus vaccine, split virus (incl. purified surface antigen)- retired CODE DoD tetanus toxoid, reduced diphtheria toxoid, and acellular pertu is vaccine, adsorbed 1 2008 Unknown, Provider [id number] 115 [facility] ([place]) complet ed tetanus toxoid, reduced diphtheri a toxoid, and acellular pertussis vaccine, adsorbed DoD hepatitis A adult vaccine 1997 [id number] GlaxoSmithKli ne complet ed hepatitis A adult vaccine 02/09/98 Given Ambulat ory Pharmac y influenza virus vaccine, whole virus [id number] PFIZER complet ed influenza virus vaccine, whole virus 02/09/98 Given Ambulat ory Pharmac y tetanus-dipht h toxoids (Td) adult/adol 1997 [id number] Netli [facility] complet ed tetanus-d iphth toxoids (Td) adult/ado l 02/09/98 Given Ambulat ory Pharmac y typhoid vaccine, live, oral 1997 [id number] 25 [employer] [place] complet ed typhoid vaccine, live, oral 02/09/98 Given Ambulat ory Pharmac y tetanus and diphtheria toxoids, adsorbed, preservative free, for adult use (2 Lf of tetanus toxoid and 2 Lf of diphtheria toxoid) 1 1997 Unknown, Provider [id number] [employer] (LED) complet ed tetanus and diphtheri a toxoids, adsorbed, preservat carmelita free, for adult use (2 Lf of tetanus toxoid and 2 Lf of diphtheri a toxoid) DoD influenza virus vaccine, whole virus 1 1997 Unknown, Provider [id number] 16 Braden (Inactive) (NM) complet ed influenza virus vaccine, whole virus DoD typhoid vaccine, live, oral 1 1997 Unknown, Provider [id number]. 1B 25 Alysia (BP) complet ed typhoid vaccine, live, oral DoD hepatitis A vaccine, adult dosage 2 1997 Unknown, Provider [id number] 52 [place] ([place]) complet ed hepatitis A vaccine, adult dosage DoD influenza virus vaccine, whole virus [id number] 16 PFIZER complet ed influenza virus vaccine, whole virus 02/18/97 Given Ambulat ory Pharmac y hepatitis A adult vaccine 1996 [id number] GlaxoSmithKli ne complet ed hepatitis A adult vaccine 02/18/97 Given Ambulat ory Pharmac y influenza virus vaccine, whole virus 1 1996 Unknown, Provider [id number] 16 Braden (Inactive) (NM) complet ed influenza virus vaccine, whole virus DoD hepatitis A vaccine, adult dosage 1 1996 Unknown, Provider [id number] [address] [place], [place] [address] ([place]) complet ed hepatitis A vaccine, adult [...] ADM Date DC Date Status Disposition Source [address] [place] [address] [facility])(Sco tt [facility] FAMRES Tm Blue) OUTPATIENT [id number] f/u bp JAELYN WOMACK 02/15 Released w/o Limitations [address] [place] [address] [facility])(S cott [facility] Tm Blue) [address] [place] [address] [facility])(Sco tt [facility] Fam Res Tm Green) OUTPATIENT [id number] DIZZY SPELLS/ BP MENDEZS KERI SANTIZO 07/03 Released w/o Limitations [address] [place] [address] [facility])(S cott [facility] Fam Res Tm Green) [address] [place] [address] [facility])(Sco tt [facility] Tm Blue) OUTPATIENT [id number] adult LINDSEY Ruiz 07/24 Released w/o Limitations [address] [place] [address] [facility])(S cott [facility] Tm Blue) [address] [place] [address] [facility] ([facility])(Fam keith Practice Procedure s) OUTPATIENT [id number] atypica l shaylai JOSE GUADALUPE BLACK Dilan 08/03 Released w/o Limitations [address] [place] [address] [facility] ([facility])(F amily Practic e Procedu res) [address] [place] [address] [facility])(Sco tt [facility] Tm Blue) OUTPATIENT [id number] SUTURE REMOVAL WILLOWSON Leola 08/10 Released w/o Limitations [address] [place] [address] [facility])(S cott [facility] Tm Blue) [address] [place] [address] [facility])(Sco tt [facility] Tm Blue) OUTPATIENT [id number] f/u stress test LINDSEY SONG 09/06 Released w/o Limitations [address] [place] [address] [facility] ([facility])(S cott [facility] Tm Blue) [address] [place] [address] [facility])(Car diology Rs ([facility])) OUTPATIENT [id number] ATYPICA L CHEST PAIN VAL MCCRACKEN 09/11 Released w/o Limitations [address] [place] [address] [facility])(C ardiolo gy Rs ([facility])) [address] [place] [address] [facility])(Car diologyPr ocedure Schedules ) OUTPATIENT [id number] chest pain SHARMIN ARANDA 10/04 Released w/o Limitations [address] [place] [address] [facility] ([facility])(C ardiolo gyProce dure Schedul es) [address] [place] [address] [facility])(Sco tt [facility] Tm Blue) TELE CONSULT [id number] Med refill DOUG HEIN 01/[address] [place] [address] [facility] ([facility])(S cott [facility] Tm Blue) [address] [place] [address] [facility])(Sco tt [facility] Tm Blue) OUTPATIENT [id number] feet problem s. phone:[phone]*DOUG Leonard 07/11 Released w/o Limitations [address] [place] [address] [facility])(S cott [facility] Tm Blue) [address] [place] [address] [facility])(Sco tt [facility] Tm Blue) OUTPATIENT [id number] annual physica l DOUG HEIN E 07/30 Released w/o Limitations [address] [place] [address] [facility] ([facility])(S cott [facility] Tm Blue) [address] [place] [address] [facility] ([facility])(Sco tt [facility] Tm Blue) OUTPATIENT [id number] eval shoulde r DOUG Fox E 08/01 Released w/o Limitations [address] [place] [address] [facility])(S cott [facility] Tm Blue) [address] [place] [address] [facility])(Sco tt [facility] Tm Blue) OUTPATIENT [id number] f/u meds/la DOUG Gordillo E 08/27 Released w/o Limitations [address] [place] [address] [facility])(S cott [facility] Tm Blue) [address] [place] [address] [facility])(Sco tt [facility] Tm Blue) TELE CONSULT [id number] Colonos copy results FARAZ JONES 08/[address] [place] [address] [facility])(S cott [facility] Tm Blue) [address] [place] [address] [facility])(Opt ometry) OUTPATIENT [id number] Annual Exam LAW PRIETO W 01/24 Released w/o Limitations [address] [place] [address] [facility])(O ptometr y) [address] [place] [address] [facility])(Sco tt [facility] Tm Blue) TELE CONSULT [id number] Rx renewal LORRI YANEZ 01/[address] [place] [address] [facility])(S cott [facility] Tm Blue) [address] [place] [address] [facility])(Sco tt [facility] Fam Res Tm Green) TELE CONSULT [id number] lab results LORRI YANEZ 02/[address] [place] [address] [facility])(S cott [facility] Fam Res Tm Green) [address] [place] [address] [facility])(Sco tt [facility] Tm Blue) TELE CONSULT [id number] Booking an appt with me? LORRI YANEZ 02/[address] [place] [address] [facility])(S cott [facility] Tm Blue) [address] [place] [address] [facility])(Sco tt [facility] Tm Blue) OUTPATIENT [id number] per LORRI Solomon 02/13 Released w/o Limitations [employer] ([facility])(S cott [facility] Tm Blue) [employer] ([facility])(Sco tt [facility] Fam Res Tm Green) OUTPATIENT [id number] congest ion,fev er 100.01, per patient BRUCEUZMACASSANDRA 05/12 Released w/o Limitations [employer] ([facility])(S cott [facility] Fam Res Tm Green) [facility] [employer] ([facility])(Sco tt [facility] Tm Blue[facility] OUTPATIENT [id number] Follow up LORRI YANEZ 06/02 Released w/o Limitations [employer] ([facility])(S cott [facility] Tm Blue) [facility] [employer] ([facility])(Occ upational Therapy) OUTPATIENT [id number] SHOULDE R SPRAIN ROTATOR CUFF (CAPSUL E) LEFT AGUSTINA RIVERA 06/15 Released w/o Limitations [employer] ([facility])(O ccupati onal Therapy ) [facility] [employer] ([facility])(Occ upational Therapy) OUTPATIENT [id number] ROLA BARNEY 06/16 Released w/o Limitations [employer] ([facility])(O ccupati onal Therapy ) [employer] ([facility])(Occ upational Therapy) OUTPATIENT [id number] DIRK FLORES 06/22 Released w/o Limitations [employer] ([facility])(O ccupati onal Therapy ) [facility] [employer] ([facility])(Occ upational Therapy) OUTPATIENT [id number] ROLA BARNEY 06/25 Released w/o Limitations [employer] ([facility])(O ccupati onal Therapy ) [facility] [employer] ([facility])(Occ upational Therapy) OUTPATIENT [id number] DIRK FLORES 06/29 Released w/o Limitations [employer] ([facility])(O ccupati onal Therapy ) [employer] ([facility])(Occ upational Therapy) OUTPATIENT [id number] SAVITAROLA HUFF Ranjeet 07/01 Released w/o Limitations [employer] ([facility])(O ccupati onal Therapy ) [employer] ([facility])(Occ upational Therapy) OUTPATIENT [id number] SAVITAROLA HUFF Ranjeet 07/06 Released w/o Limitations [employer] ([facility])(O ccupati onal Therapy ) [employer] ([facility])(Occ upational Therapy) OUTPATIENT [id number] AGUSTINA RIVERA 07/08 Released w/o Limitations [employer] ([facility])(O ccupati onal Therapy ) [employer] ([facility])(Sco tt [facility] Tm Blue) TELE CONSULT [id number] Medicat ion Request LORRI YANEZ 07/20 [employer] ([facility])(S cott [facility] Tm Blue) [facility] [employer] ([facility])(Occ upational Therapy) OUTPATIENT [id number] CARIE BUTT 07/22 Released w/o Limitations [employer] ([facility])(O ccupati onal Therapy ) [employer] ([facility])(Occ upational Therapy) OUTPATIENT [id number] DIRK FLORES 07/27 Released w/o Limitations [employer] ([facility])(O ccupati onal Therapy ) [employer] ([facility])(Occ upational Therapy) OUTPATIENT [id number] DIRK FLORES 07/29 Released w/o Limitations [employer] ([facility])(O ccupati onal Therapy ) [facility] [employer] ([facility])(Sco tt [facility] Tm Blue) OUTPATIENT [id number] Follow up for blood work LORRI YANEZ 08/10 Released w/o Limitations [employer] ([facility])(S cott [facility] Tm Blue) [employer] ([facility])(Occ upational Therapy) OUTPATIENT [id number] AGUSTINA RIVERA 08/11 Released w/o Limitations [employer] ([facility])(O ccupati onal Therapy ) [employer] ([facility])(Occ upational Therapy) OUTPATIENT [id number] ROLA BARNEY 08/20 Released w/o Limitations [employer] ([facility])(O ccupati onal Therapy ) [employer] ([facility])(Occ upational Therapy) OUTPATIENT [id number] DIRK FLORES 08/25 Released w/o Limitations [employer] ([facility])(O ccupati onal Therapy ) [employer] ([facility])(Occ upational Therapy) OUTPATIENT [id number] CARIE BUTT 08/27 Released w/o Limitations [employer] ([facility])(O ccupati onal Therapy ) [employer] ([facility])(Occ upational Therapy) OUTPATIENT [id number] DIRK FLORES 09/01 Released w/o Limitations [employer] ([facility])(O ccupati onal Therapy ) [employer] ([facility])(Occ upational Therapy) OUTPATIENT [id number] ROLA BARNEY 09/03 Released w/o Limitations [employer] ([facility])(O ccupati onal Therapy ) [employer] ([facility])(Occ upational Therapy) OUTPATIENT [id number] AGUSTINA RIVERA 09/09 Released w/o Limitations [employer] ([facility])(O ccupati onal Therapy ) [employer] ([facility])(Sco tt [facility] Tm Blue) OUTPATIENT [id number] oli chakraborty on face HANK MARSHALL 09/21 Released w/o Limitations [employer] ([facility])(S cott [facility] Tm Blue) [employer] ([facility])(Occ upational Therapy) OUTPATIENT [id number] DIRK FLORES 09/22 Released w/o Limitations [employer] ([facility])(O ccupati onal Therapy ) [employer] ([facility])(Occ upational Therapy) OUTPATIENT [id number] ROLA BARNEY 09/24 Released w/o Limitations [employer] ([facility])(O ccupati onal Therapy ) [employer] ([facility])(Sco tt [facility] Tm Blue) TELE CONSULT [id number] MITA Winslow 09/24 [employer] ([facility])(S cott [facility] Tm Blue) [facility] [employer] ([facility])(Occ upational Therapy) OUTPATIENT [id number] ROLA BARNEY 09/29 Released w/o Limitations [employer] ([facility])(O ccupati onal Therapy ) [employer] ([facility])(Occ upational Therapy) OUTPATIENT [id number] ROLA BARNEY 10/01 Released w/o Limitations [employer] ([facility])(O ccupati onal Therapy ) [facility] [employer] ([facility])(Occ upational Therapy) OUTPATIENT [id number] ROLA BARNEY 10/07 Released w/o Limitations [employer] ([facility])(O ccupati onal Therapy ) [facility] [employer] ([facility])(Occ upational Therapy) OUTPATIENT [id number] AGUSTINA RIVERA 10/27 Released w/o Limitations [employer] ([facility])(O ccupati onal Therapy ) [employer] ([facility])(Occ upational Therapy) OUTPATIENT [id number] DIRK FLORES 10/30 Released w/o Limitations [employer] ([facility])(O ccupati onal Therapy ) [employer] ([facility])(Occ upational Therapy) OUTPATIENT [id number] ROLA ABRNEY 11/03 Released w/o Limitations [employer] ([facility])(O ccupati onal Therapy ) [employer] ([facility])(Occ upational Therapy) OUTPATIENT [id number] DIRK FLORES 11/05 Released w/o Limitations [employer] ([facility])(O ccupati onal Therapy ) [employer] ([facility])(Occ upational Therapy) OUTPATIENT [id number] SAVITA ROLA W 11/16 Released w/o Limitations [employer] ([facility])(O ccupati onal Therapy ) 375 Medical [facility] [employer] ([facility])(Occ upational Therapy) OUTPATIENT [id number] ROLA BARNEY 11/18 Released w/o Limitations [employer] ([facility])(O ccupati onal Therapy ) [employer] ([facility])(Occ upational Therapy) OUTPATIENT [id number] ROLA BARNEY 11/24 Released w/o Limitations [employer] ([facility])(O ccupati onal Therapy ) Medical [facility] [employer] ([facility])(Phy sical Therapy) OUTPATIENT [id number] BIBI HARDWICK 11/25 Released w/o Limitations [employer] ([facility])(P hysical Therapy ) [employer] ([facility])(Phy sical Therapy) OUTPATIENT [id number] BIBI HARDWICK 11/27 Released w/o Limitations [employer] ([facility])(P hysical Therapy ) [facility] Medical [facility] [employer] ([facility])(Sco tt [facility] FAMRES Tm Blue) OUTPATIENT [id number] [phone] SHOULDE R STU MILLAN 12/08 Released w/o Limitations [employer] ([facility])(S cott [facility] FAMRES Tm Blue) [employer] ([facility])(Sco tt [facility] FAMRES Tm Blue) OUTPATIENT [id number] shoulde r problem s LORRI YANEZ 12/15 Released w/o Limitations [employer] ([facility])(S cott [facility] FAMRES Tm Blue) [facility] [employer] ([facility])(Sco tt [facility] FAMRES Tm Blue) OUTPATIENT [id number] MINOR PROCEDU RES-jamil nt pain, localiz ed in the SOFÍA Wilder 12/22 Released w/o Limitations [employer] ([facility])(S cott OF FAMRES Tm Blue) [facility] Medical [facility] [employer] ([facility])(Sco tt [facility] FAMRES Tm Blue) TELE CONSULT [id number] Medicat ion Request DIGNA CLARK 02/25 Medical [facility] [employer] ([facility])(S cott OF FAMRES Tm Blue) [facility] Medical [facility] [employer] ([facility])(Sco tt [facility] FAMRES Tm Blue) OUTPATIENT [id number] sinus and chest cold GRECIA PETERSON 04/27 Released w/o Limitations [facility] [employer] ([facility])(S cott OF FAMRES Tm Blue) [address] [place] [address] [employer] ([facility])(Sco tt [facility] FAMRES Tm Blue) TELE CONSULT [id number] Medicat ion Request DIONICIO, KEVIN Violeta 09/27[facility] [employer] ([facility])(S cott [facility] FAMRES Tm Blue) [address] [place] [address] [employer] ([facility])(Sco tt [facility] FAMRES Tm Blue) OUTPATIENT [id number] htn f/u RIENIER PAGE 10/21 Released w/o Limitations [address] [place] [address] [employer] ([facility])(S cott [facility] FAMRES Tm Blue[facility] Medical [facility] [employer] ([facility])(Sco tt [facility] Fam Res Tm Green) OUTPATIENT [id number] Flu Shot KALEB LEWIS 02/01 Released w/o Limitations [facility] [employer] ([facility])(S cott [facility] Fam Res Tm Green) [facility] Medical [facility] [employer] ([facility])(Sco tt [facility] Fam Res Tm Green) TELE CONSULT [id number] med JOURDAN aJma 02/18 [facility] [employer] ([facility])(S cott OF Fam Res Tm Green) [address] [place] [address] [employer] ([facility])(Sco tt [facility] FAMRES Tm Blue) TELE CONSULT [id number] JOURDAN Borja 04/20 [facility] [employer] ([facility])(S cott [facility] FAMRES Tm Blue) [facility] Medical [facility] [employer] ([facility])(Sco tt [facility] FAMRES Tm Blue) OUTPATIENT [id number] F/U FOR BLOOD PRESSUR E [phone] JORUDAN HI Dilan 05/16 Released w/o Limitations [address] [place] [address] [employer] ([facility])(S cott OF FAMRES Tm Blue) [address] [place] [address] [employer] ([facility])(Sco tt [facility] FAMRES Tm Blue) TELE CONSULT [id number] JOURDAN Jama Dilan 07/[address] [place] [address] [employer] ([facility])(S cott OF FAMRES Tm Blue) [address] [place] [address] [employer] ([facility])(Sco tt [facility] FAMRES Tm Blue) TELE CONSULT [id number] refalok JOURDAN HI Dilan 08/[address] [place] [address] [employer] ([facility])(S cott [facility] FAMRES Tm Blue) [address] [place] [address] [employer] ([facility])(Sco tt [facility] FAMRES Tm Blue) TELE CONSULT [id number] refill JOURDAN HI Dilan 09/[address] [place] [address] [employer] ([facility])(S cott [facility] FAMRES Tm Blue) [address] [place] [address] [employer] ([facility])(Sco tt [facility] FAMRES Tm Blue) OUTPATIENT [id number] f/u for meds JOURDAN HI Dilan 10/05 Released w/o Limitations [address] [place] [address] [employer] ([facility])(S cott [facility] FAMRES Tm Blue) [address] [place] [address] [employer] [facility])(Opt ometry) OUTPATIENT [id number] eye exam... [id number] ZHANG CLEMENTS 10/26 Released w/o Limitations [address] [place] [address] [employer] ([facility])(O ptometr y) [address] [place] [address] [employer] ([facility])(Sco tt [facility] Fam Res Tm Green) OUTPATIENT [id number] SHARMIN Ritter 11/03 Released w/o Limitations [address] [place] [address] [employer] ([facility])(S cott [facility] Fam Res Tm Green) [address] [place] [address] [employer] ([facility])(Sco tt [facility] FAMRES Tm Blue) TELE CONSULT [id number] Refill SHIRA Dumas 06/[address] [place] [address] [employer] ([facility])(S cott [facility] FAMRES Tm Blue) [address] [place] [address] [employer] ([facility])(Sco tt [facility] FAMRES Tm Blue) TELE CONSULT [id number] [facility] marni cad/dkk [id number] lisono ril/hct z is out. JOURDAN HI 09/[address] [place] [address] [facility] [facility])(S cott [facility] FAMRES Tm Blue) [address] [place] [address] [employer] [facility])(Sco tt [facility] FAMRES Tm Blue) TELE CONSULT [id number] rx refills - [phone] 2/[phone] CAD [facility] FRED Yuen 01/[address] [place] [address])(S cott [facility] FAMRES Tm Blue) [address] [place] [address])(Sco tt [facility] FAMRES Tm Blue) TELE CONSULT [id number] FYI: Annual labs ordered CARLA ZHANG 01/[address] [place] [address])(S cott [facility] FAMRES Tm Blue) [address] [place] [address])(Sco tt [facility] Fam Res Tm Green) OUTPATIENT [id number] Fever [phone] AB CISSE 01/16 Released w/o Limitations [address] [place] [address])(S cott [facility] Fam Res Tm Green) [address] [place] [address])(Sco tt [facility] FAMRES Tm Blue) TELE CONSULT [id number] Notes Entered by: MAKAYLA YEE 18 Jun 2011 0959 ------- ------- ------- - CAMILO BADILLO 06/[address] [place] [address])(S cott [facility] FAMRES Tm Blue) [address] [place] [address])(Sco tt [facility] FAMRES Tm Blue) TELE CONSULT [id number] Notes Entered by: Renetta HORTA 21 Jun 2011 1307 ------- ------- ------- ------- -- Med refill CARLA ZHANG 06/[address] [place] [address] [facility] [facility])(S cott [facility] FAMRES Tm Blue) [address] [place] [address])(Sco tt [facility] FAMRES Tm Blue) OUTPATIENT [id number] Cough [phone] WILLIAN CLEMENTS 10/24 Released w/o Limitations [address] [place] [address] [employer] [facility])(S [facility] FAMRES Tm Blue) [address] [place] [address] [employer] [facility])(Sco tt [facility] Tm Blue) TELE CONSULT [id number] Notes Entered by: MANUEL TAVAREZ 04 Jan 2012 1036 ------- ------- ------- ------- -- Med refill Emanuel cad tlt ART PIMENTEL 01/[address] [place] [address] [employer] [facility])(S cott [facility] FAMRES Tm Blue) [address] [place] [address] [facility]Sco tt [facility]) OUTPATIENT [id number] scab on top of head, falls off and comes back x couple months [id number] DOUG HEIN 06/24 Released w/o Limitations [address] [place] [address] [facility]S [facility] FAMRES Tm Blue) [address] [place] [address] [facility])([facility]co tt [facility] [employer] Tm Blue) OUTPATIENT [id number] Cold symptom s [phone] DOUG HEIN 07/14 Released w/o Limitations [address] [place] [address] [employer] [facility])(S [facility] FAMRES Tm Blue) [address] [place] [address] [employer] [facility])(Sco tt [facility] [employer] Tm Blue) TELE CONSULT [id number] Notes Entered by: ANDRADE GALINDO 03 Sep 2012 1046 ------- ------- ------- ------- -- NETWORK RESULTS - PULMONO LOGY/SL EEP 3 DOUG HEIN 09/[address] [place] [address] [facility]S [facility] FAMRES Tm Blue) [address] [place] [address] [employer] [facility])(Sco tt [facility] [employer] Tm Blue) OUTPATIENT [id number] Notes Entered by: CARIE MEADE 12 Sep 2012 0904 ------- ------- ------- ------- -- Strep Test ART PIMENTEL 09/12 Released w/o Limitations [address] [place] [address] [employer] [facility])(S cott [facility] FAMRES Tm Blue) [address] [place] [address] [employer] [facility])(Sco tt [facility] Fam Res Tm Green) TELE CONSULT [id number] Notes Entered by: MANUEL HOYOS 01 Oct 2012 0944 ------- ------- ------- ------- -- Network Results - CARDIOL OGY 09/11/12 ART PIMENTEL 10/[address] [place] [address] [employer] [facility])(S cott [facility] Fam Res Tm Green) [address] [place] [address] [employer] [facility])(Sco tt [facility] FAMRES Tm Blue) OUTPATIENT [id number] cough,c hills, fever since yesterd ay [phone] ART PIMENTEL 04/28 Released w/o Limitations [address] [place] [address] [employer] [facility])(S cott [facility] FAMRES Tm Blue) [address] [place] [address] [employer] [facility])(Sco tt [facility] FAMRES Tm Blue) OUTPATIENT [id number] follow up visit JOHN STEVENSON 05/20 Released w/o Limitations [address] [place] [address] [facility])(S cott [facility] FAMRES Tm Blue) [address] [place] [address] [facility])(Sco tt [facility] FAMRES Tm Blue) OUTPATIENT [id number] wrist pain - x3 wks - [id number] SURJIT MENON 09/21 Released w/o Limitations [address] [place] [address] [facility])(S cott [facility] FAMRES Tm Blue) [address] [place] [address] [employer] [facility])(Sco tt [facility] FAMRES Tm Blue) TELE CONSULT [id number] Notes Entered by: MAKAYLA YEE 24 Jun 2014 1211 ------- ------- ------- ------- -- Medicat ion bridge - Mitul - ALBER VINSON 06/[address] [place] [address] [facility]S cott [facility] FAMRES Tm Blue) [address] [place] [address] [facility])(Sco tt [facility] Blue) OUTPATIENT [id number] medicat ion renewal - 6 meds IZABELLA GODINEZ 06/28 Released w/o Limitations [address] [place] [address] [employer] [facility])(S [facility] Blue) [address] [place] [address])(Sco tt [facility]) TELE CONSULT [id number] Notes Entered by: ANIYA MAS 23 Aug 2014 1320 ------- ------- ------- ------- -- Six (6) Meds refill - Pt refusielana smith appt - Mitul - [phone] [id number]/[id number] MECHE BUCIO 08/[address] [place] [address])(S [facility]) [address] [place] [address])(Sco tt [facility]) TELE CONSULT [id number] Notes Entered by: JESUSITA WESTON 23 Aug 2014 1521 ------- ------- ------- ------- -- Micare med refill MECHE BUCIO 08/[address] [place] [address])(S [facility]) [address] [place] [address])(Sco tt [facility]) TELE CONSULT [id number] Notes Entered by: CHIP ARMENDARIZ 21 Dec 2014 0644 ------- ------- ------- ------- -- SX. Cough/V omiting / MECHE BUCIO 12/[address] [place] [address])(S [facility] Blue) [address] [place] [address])(Sco tt [facility] Blue) OUTPATIENT [id number] eval of cough x2 weeks, vomitin g now with cough HONG JOHN 12/21 Released w/o Limitations [address] [place] [address] [facility])(S cott [facility] FAMRES Tm Blue) [address] [place] [address] [facility])(Sco tt [facility] FAMRES Tm Blue) TELE CONSULT [id number] Notes Entered by: Court VILLEDA 07 Apr 2015 1244 ------- ------- ------- ------- -- Sx cough,c ongesti on,feve r,not sleepin g/Crehoma h/048 [id number] MECHE BUCIO 04/[address] [place] [address] [facility])(S cott [facility] FAMRES Tm Blue) [address] [place] [address])(Med ication Refill Clinic) TELE CONSULT [id number] Notes Entered by: Felton ANGELO 29 Aug 2015 0908 ------- ------- ------- ------- -- Med bridge *Appt Sep * / Mitul / ROMINA FAIRBANKS 08/[address] [place] [address] [facility])(Dilan [facility]que on [facility]) [address] [place] [address])(Sco tt [facility] FAMRES Tm Blue) OUTPATIENT [id number] Med renewal [phone] JOHN STEVENSON 09/22 Released w/o Limitations [address] [place] [address])(S [facility] FAMRES Tm Blue) [address] [place] [address])([facility]) TELE CONSULT [id number] Notes Entered by: Libert[employer] FAIRBANKS 14 Oct 2015 1209 ------- ------- ------- ------- -- Lab Review TEX LUNA 10/[address] [place], [place] [address]B [facility])([facility]) [address] [place], [place] [address]B [facility])(Sco tt [facility] Fam Res Tm Gold) OUTPATIENT [id number] chest and head congest ion, sore throat, cough x5 days / 830.616 4 JANIE REGAN 03/12 Released w/o Limitations [address] [place] [address] [employer] [facility])([facility] Res Tm Gold) [address] [place] [address] [employer] [facility])([facility]) OUTPATIENT [id number] pain, discomf ort, blood w/ urinati on REBECCA KURTZ Margarita 04/27 Released w/o Limitations [address] [place] [address] [employer] [facility]) [address] [place] [address] [employer] [facility])([facility]) OUTPATIENT [id number] Low Back pain, painful and frequen t Urinati on [id number] JOHN STEVENSON 04/30 Released w/o Limitations [address] [place] [address] [employer] [facility])([facility] FAMRES Tm Blue) [address] [place] [address] [employer] [facility])(Sco tt [facility] Res Tm Red) TELE CONSULT [id number] Notes Entered by: JOHN STEVENSON 01 May 2016 1314 ------- ------- ------- ------- -- Urinary Tract Infecti on JOHN STEVENSON 05/[address] [place] [address] [employer])([facility] Fam Res Tm Red) [address] [place] [address] [employer] [facility])([facility]) TELE CONSULT [id number] Notes Entered by: FLORINA THOMASON 03 May 2016 1449 ------- ------- ------- ------- -- Follow up FLORINA THOMASON 05/03 Referred for Appointment [address] [place] [address] [facility] ROBIB [facility])([facility] Tm Blue) [address] [place] [address] [facility])(Med ication Refill Clinic) TELE CONSULT [id number] Notes Entered by: Leola DOMINGUEZ 05 Oct 2016 1451 ------- ------- ------- ------- -- Med Bridge/ Mitul/ [phone] - ROMINA Barry 10/[address] [place] [address] [facility])(Dilan roque on Refill Clinic) [address] [place] [address] [facility])(Sco tt [facility] FAMRES Tm Blue) OUTPATIENT [id number] Med Renewal s [id number] JOHN STEVENSON 10/22 Released w/o Limitations [address] [place] [address] [facility])(S [facility] FAMRES Tm Blue) [address] [place] [address])(Sco tt [facility] FAMRES Tm Blue) TELE CONSULT [id number] Notes Entered by: JOHN STEVENSON 25 Oct 2016 0955 ------- ------- ------- ------- -- JOHN Abbott 10/[address] [place] [address])(S [facility] FAMRES Tm Blue) [address] [place] [address])(Sco tt [facility] FAMRES Tm Blue) TELE CONSULT [id number] Notes Entered by: BARBARA FREEMAN 25 Oct 2016 1143 ------- ------- ------- ------- -- Pt seen by dr stevenson today. Discuss ed putting in referal for colonos copy. FLORINA THOMASON 10/25 Referred for Appointment [address] [place] [address])(S [facility] FAMRES Tm Blue) [address] [place] [address])(Sco tt [facility] FAMRES Tm Blue) TELE CONSULT [id number] Notes Entered by: DESTIN CESPEDES 29 Nov 2016 1520 ------- ------- ------- ------- -- REFERRA L FOR COLONOS OCOPY FELIX BROWN 11/[address] [place] [address])(S [facility] FAMRES Tm Blue) [address] [place] [address])(Sco tt [facility] FAMRES Tm Blue) OUTPATIENT [id number] L knee pain, 220.561 2 KRISTEN ECHEVARRIA A 02/11 Released w/o Limitations [address] [place] [address])(S [facility]) [address] [place] [address] [facility])(Sco tt [facility]) TELE CONSULT [id number] Notes Entered by: Violeta ECHEVARRIA 04 Mar 2017 1719 ------- ------- ------- ------- -- Results of xray of knee KRISTEN ECHEVARRIA 03/[address] [place] [address] [facility])([facility]) [address] [place] [address])([facility] e [facility]) TELE CONSULT [id number] Notes Entered by: Violeta ECHEVARRIA 20 Mar 2017 0726 ------- ------- ------- ------- -- Menisca l tear KRISTEN ECHEVARRIA 03/[address] [place] [address])(B ase Operati onal Medicin e Clin) [address] [place] [address])(Sco tt [facility]) OUTPATIENT [id number] sinus pressur e cough high fever 103. headach e body aches68 .220.93 95 JANIE REGAN 04/16 Released w/o Limitations [address] [place] [address] [facility])([facility]) [address] [place] [address])(Sco tt [facility]) TELE CONSULT [id number] Notes Entered by: MAKAYLA YEE 18 Apr 2017 1106 ------- ------- ------- ------- -- Hospita l it - Sandra - - tsg FLORINA THOMASON 04/18 Referred for Appointment [address] [place] [address])([facility]) [address] [place] [address])(Sco tt [facility]) OUTPATIENT [id number] F/U for issue with legs / test results [id number] / [id number] JANIE REGAN 05/02 Released w/o Limitations [address] [place] [address] [employer] ([facility])(S cott OF FAMRES Tm Blue) [address] [place] [address] [employer] ([facility])(Sco tt [facility] FAMRES Tm Blue) OUTPATIENT [id number] Fever 102, Loss of Apetite , Intermi ttent Nausea [id number] SRINIVAS CORTÉS 05/08 Released w/o Limitations [address] [place] [address] [employer])(S cott OF FAMRES Tm Blue) [address] [place] [address] [employer] [facility])(Sco tt [facility] FAMRES Tm Blue) TELE CONSULT [id number] Notes Entered by: RANGEL BROWN 16 May 2017 1544 ------- ------- ------- ------- -- UTI SRINIVAS CORTÉS 05/16 Referred for Appointment [address] [place] [address] [facility])(S cott [facility] FAMRES Tm Blue) [address] [place] [address] [facility])(Sco tt [facility] FAMRES Tm Blue) OUTPATIENT [id number] 2 week F/u URJANIE JACINTO 05/17 Released w/o Limitations [address] [place] [address] [facility])(S cott OF FAMRES Tm Blue) [address] [place] [address] [facility])(Sco tt [facility] FAMRES Tm Blue) OUTPATIENT [id number] Pain for urinati on, 220.939 5 FELIX BROWN 05/31 Released w/o Limitations [address] [place] [place] [address] [employer] [facility]S cott OF FAM[facility] Tm Blue) [address] [place] [address] [employer] [facility])(Sco tt [facility] FAMRES Tm Blue) TELE CONSULT [id number] Notes Entered by: RANGEL BROWN 31 May 2017 1501 ------- ------- ------- ------- -- UTI FELIX BROWN 05/[address] [place] [address] [employer] ([facility])(S cott OF [employer] Tm Blue) [address] [place] [address] [employer] ([facility])(Sco tt [facility] Fam Res Tm Green) TELE CONSULT [id number] Notes Entered by: RANGEL BROWN 03 Jun 2017 1640 ------- ------- ------- ------- -- urine FELIX BROWN 06/[address] [place] [address] Group [employer] [facility])(S cott [facility] Fam Res Tm Green) [address] [place] [address] [employer] [facility])(Sco tt [facility] Res Tm Green) TELE CONSULT [id number] Notes Entered by: RANGEL BROWN 05 Jul 2017 1617 ------- ------- ------- ------- -- culture FLORINA THOMASON 07/05 Referred for Appointment [address] [place] [address] Group [employer] [facility]S cott [facility] Res Tm Green) [address] [place] [address] [employer] [facility] TELE CONSULT [id number] Notes Entered by: JOSEPH QUINTANILLA 12 Jul 2017 1248 ------- ------- ------- ------- -- Lab results FLORINA THOMASON 07/12 Referred for Appointment [address] [place] [address] [employer] [facility] [address] [place] [address] [employer] [facility])(Sco tt [facility] Tm Blue) OUTPATIENT [id number] F/u appoint ment to discuss lab result (lipid panel) / plan of care JANIE REGAN 07/19 Released w/o Limitations [address] [place] [address] [employer] [facility] [address] [place] [address] [employer] [facility])(Sco tt [facility] Blue) TELE CONSULT [id number] Notes Entered by: MAKAYLA YEE 31 Oct 2017 1047 ------- ------- ------- ------- -- Bridge Rx - Sandra - - tsg BECKY HORTA 10/31 Referred for Appointment [address] [place] [address] Group [employer] [facility] [address] [place] [address] [employer] [facility])(Sco tt [facility] Blue) OUTPATIENT [id number] annual check up MONSTER FULTON 11/15 Released w/o Limitations [facility] [employer] ([facility])(S cott [facility] Blue) Procedures Combined list of: 1) Procedures from Department of Veterans Affairs facilities [facility], not all VA non-surgical procedures are included; 2) All procedures from the Department of Defense facilities. Procedure Procedure Type Code Date Perfomer Comments Sourc e TELE ASSESS & MGT SRV PROV QUAL [...] 2017 DoD DISEASE MANAGEMENT PROGRAM, FOLLOW-UP/REASSESSMENT 2017 [facility] COLORECTAL CANCER SCREENING; COLONOSCOPY ON INDIVIDUAL NOT [...] WRIST EXTENSION CONTROL COCK-UP, NON MOLDED, PREFABRICATED, [id number] 2013 DoD TELE ASSESS & MGT SRV [...] ACETONIDE, NOT OTHERWISE SPECIFIED, 10 MG 2007 [facility] SELF-CARE/HOME MANAGMENT TRAIN (EG,ACT OF DAILY LIVING (ADL) &COMPENSAT TRAIN,MEAL PREPARATION,SAFETY PROCS,AND INSTRUCT IN USE OF ASST TECHNOLOGY DEV/ADPT EQUIP) DIR ONE-ON-ONE CONT,EA 15 MINUTES 2007 [facility] PHYSICAL THERAPY RE-EVALUATION 2007 [facility] THERAPEUTIC PROCEDURE, 1 OR MORE AREAS, EACH 15 MINUTES; THERAPEUTIC EXERCISES TO DEVELOP STRENGTH AND ENDURANCE, RANGE OF MOTION AND FLEXIBILITY 2007 [facility] THERAPEUTIC PROCEDURE, 1 OR MORE AREAS, EACH 15 MINUTES; THERAPEUTIC EXERCISES TO DEVELOP STRENGTH AND ENDURANCE, RANGE OF MOTION AND FLEXIBILITY 2007 [facility] THERAPEUTIC PROCEDURE, 1 OR MORE AREAS, EACH [...] ENDURANCE, RANGE OF MOTION AND FLEXIBILITY 2007 [facility] OCCUPATIONAL THERAPY RE-EVALUATION 2007 DoD THERAPEUTIC PROCEDURE, [...] ENDURANCE, RANGE OF MOTION AND FLEXIBILITY 2007 [facility] DESTRUCTION (EG, LASER SURGERY, ELECTROSURGERY, CRYOSURGERY, CHEMOSURGERY, SURGICAL CURETTEMENT), OF BENIGN LESIONS OTHER THAN SKIN TAGS OR CUTANEOUS VASCULAR PROLIFERATIVE LESIONS; UP TO 14 LESIONS 2007 [facility] OCCUPATIONAL THERAPY RE-EVALUATION 2007 [facility] THERAPEUTIC PROCEDURE, 1 OR MORE AREAS, EACH 15 MINUTES; THERAPEUTIC EXERCISES TO DEVELOP STRENGTH AND ENDURANCE, RANGE OF MOTION AND FLEXIBILITY 2007 [facility] THERAPEUTIC PROCEDURE, 1 OR MORE AREAS, EACH 15 MINUTES; THERAPEUTIC EXERCISES TO DEVELOP STRENGTH AND ENDURANCE, RANGE OF MOTION AND FLEXIBILITY 2007 [facility] THERAPEUTIC PROCEDURE, 1 OR MORE AREAS, EACH 15 MINUTES; THERAPEUTIC EXERCISES TO DEVELOP STRENGTH AND ENDURANCE, RANGE OF MOTION AND FLEXIBILITY 2007 [facility] APPLICATION OF A MODALITY TO 1 OR MORE AREAS; DIATHERMY (EG, MICROWAVE) 2007 [facility] APPLICATION OF A MODALITY TO 1 OR MORE AREAS; DIATHERMY (EG, MICROWAVE) 2007 [facility] OCCUPATIONAL THERAPY RE-EVALUATION 2007 [facility] OSTEOPATHIC MANIPULATIVE TREATMENT (OMT); 1-2 BODY REGIONS INVOLVED 2007 [facility] APPLICATION OF A MODALITY TO 1 OR MORE AREAS; DIATHERMY (EG, MICROWAVE) 2007 [facility] APPLICATION OF A MODALITY TO 1 OR MORE AREAS; DIATHERMY (EG, MICROWAVE) 2007 [facility] APPLICATION OF A MODALITY TO 1 OR MORE AREAS; DIATHERMY (EG, MICROWAVE) 2007 [facility] OCCUPATIONAL THERAPY RE-EVALUATION 2007 [facility] THERAPEUTIC PROCEDURE, 1 OR MORE AREAS, EACH 15 MINUTES; THERAPEUTIC EXERCISES TO DEVELOP STRENGTH AND ENDURANCE, RANGE OF MOTION AND FLEXIBILITY 2007 [facility] APPLICATION OF A MODALITY TO 1 OR MORE AREAS; ULTRASOUND, EACH 15 MINUTES 2007 [facility] THERAPEUTIC PROCEDURE(S), GROUP (2 OR MORE INDIVIDUALS) 2007 [facility] THERAPEUTIC PROCEDURE, 1 OR MORE AREAS, EACH 15 MINUTES; THERAPEUTIC EXERCISES TO DEVELOP STRENGTH AND ENDURANCE, RANGE OF MOTION AND FLEXIBILITY 2007 [facility] APPLICATION OF A MODALITY TO 1 OR MORE AREAS; ULTRASOUND, EACH 15 MINUTES 2007 [facility] SELF-CARE/HOME MANAGMENT TRAIN (EG,ACT OF DAILY LIVING (ADL) &COMPENSAT TRAIN,MEAL PREPARATION,SAFETY PROCS,AND INSTRUCT IN USE OF ASST TECHNOLOGY DEV/ADPT EQUIP) DIR ONE-ON-ONE CONT,EA 15 MINUTES 2007 [facility] EXERCISE EQUIPMENT 2007 [facility] DETERMINATION OF REFRACTIVE STATE 2006 [facility] DESTRUCTION (EG, LASER SURGERY, ELECTROSURGERY, CRYOSURGERY, CHEMOSURGERY, SURGICAL CURETTEMENT), OF BENIGN LESIONS OTHER THAN SKIN TAGS OR CUTANEOUS VASCULAR PROLIFERATIVE LESIONS; UP TO 14 LESIONS 2006 [facility] CARDIOVASCULAR STRESS TEST USING MAXIMAL OR SUBMAXIMAL TREADMILL OR BICYCLE EXERCISE,CONTINUOUS ELECTROCARDIOGRAPHIC MONITORING,AND/OR PHARMACOLOGICAL STRESS;W SUPERVISION,INTERPRETA TION AND REPORT 2005 [facility]D ELECTROCARDIOGRAM, ROUTINE ECG WITH AT LEAST 12 LEADS; WITH INTERPRETATION AND REPORT 2005 [facility] BIOPSY OF SKIN, SUBCUTANEOUS TISSUE AND/OR MUCOUS MEMBRANE (INCLUDING SIMPLE CLOSURE), UNLESS OTHERWISE LISTED; SINGLE LESION 2005 [facility] ELECTROCARDIOGRAM, ROUTINE ECG WITH AT LEAST 12 LEADS; WITH INTERPRETATION AND REPORT 2005 [facility] OSTEOPATHIC MANIPULATIVE TREATMENT (OMT); 5-6 BODY REGIONS INVOLVED 2004 [facility] Biopsy Skin Biopsy Skin 39020 2005 JOSE GUADALUPE BLACK [facility] Electrocardiogram Electrocardiogram 46106 07/03 KERI SANTIZO Do[facility] Non-Physician Phone Call To Patient/Provider Brief (5-10min) Non-Physician Phone Call To Patient/Provider Brief (5-10min) [id number] 2017 BECKY HORTA DoD Disease management program, follow-up/beryl e ment 2017 [facility], JANIE [facility] Non-Physician Phone Call To Patient/Provider Brief (5-10min) Non-Physician Phone Call To Patient/Provider Brief (5-10min) [id number] 2017 FLORINA THOMASON A DoD Disease management program, follow-up/beryl e ment 2017 URSAMMY Y, [facility] Disease management program, follow-up/beryl e ment 2017 URSAMMY Y, [facility] Disease management program, follow-up/beryl e ment 2016 JOHN STEVENSON [facility] Non-Physician Phone Call To Patient/Provider Brief (5-10min) Non-Physician Phone Call To Patient/Provider Brief (5-10min) [id number] 2016 FLORINA THOMASON A DoD Telephone calls by a registered nurse to a disease management program member for monitoring purposes; per month 2015 TEX LUNA [facility] Non-Physician Phone Call To Patient/Provider Brief (5-10min) Non-Physician Phone Call To Patient/Provider Brief (5-10min) [id number] 2015 TEX LUNA Non-Physician Phone Call To Patient/Provider Brief (5-10min) Non-Physician Phone Call To Patient/Provider Brief (5-10min) [id number] 2014 EMCHE BUCIO Non-Physician Phone Call To Patient/Provider Brief (5-10min) Non-Physician Phone Call To Patient/Provider Brief (5-10min) [id number] 2014 MECHE BUCIO Non-Physician Phone Call To Patient/Provider Brief (5-10min) Non-Physician Phone Call To Patient/Provider Brief (5-10min) [id number] 2014 MECHE BUCIO Non-Physician Phone Call To Patient/Provider Brief (5-10min) Non-Physician Phone Call To Patient/Provider Brief (5-10min) [id number] 2014 BECKY HORTA [facility] Wrist hand orthosis, wrist extension control cock-up, non molded, prefabricated, [id number] 2013 SURJIT MENON [facility] Non-Physician Phone Call To Patient/Provider Brief (5-10min) Non-Physician Phone Call To Patient/Provider Brief (5-10min) [id number] 2011 ART PIMENTEL [facility] Non-Physician Phone Call To Patient/Provider Brief (5-10min) Non-Physician Phone Call To Patient/Provider Brief (5-10min) [id number] 2011 CAMILO BADILLO [facility] Non-Physician Phone Call To Patient/Provider Brief (5-10min) Non-Physician Phone Call To Patient/Provider Brief (5-10min) [id number] 2010 CARLA OLIVAREZ [facility] Non-Physician Phone Call To Patient/Provider Brief (5-10min) Non-Physician Phone Call To Patient/Provider Brief (5-10min) [id number] 2010 JOURDAN HI [facility] Non-Physician Phone Call To Patient/Provider Brief (5-10min) Non-Physician Phone Call To Patient/Provider Brief (5-10min) [id number] 2010 JOURDAN HI [facility] Serum Enzyme Immunoa ay Streptococcal Antigen Serum Enzyme Immunoassay Streptococcal Antigen 04394 2009 BIBI CHO [facility] Spectacles Services Fitting Bifocals (Not For Aphakia) [employer] Fitting Bifocals (Not For Aphakia) [id number] 2009 ZHANG CLEMENTS [facility] Determination Of Refractive State Determination Of Refractive State 42281 2009 ZHANG CLEMENTS [facility] Ophthalmological Prior Patient Start Comprehensive Care Ophthalmological Prior Patient Start Comprehensive Care 16732 2009 ZHANG CLEMENTS [facility] Non-Physician Phone Call To Patient/Provider Brief (5-10min) Non-Physician Phone Call To Patient/Provider Brief (5-10min) [id number] 2009 JOURDAN HI [facility] Non-Physician Phone Call To Patient/Provider Brief (5-10min) Non-Physician Phone Call To Patient/Provider Brief (5-10min) [id number] 2009 JOURDAN HI [facility] Immunization Administration Each Additional Vaccine 2008 KALEB LEWIS [facility] Tdap Vaccine Seven Years Of Age And Above Tdap Vaccine Seven Years Of Age And Above 74072 2008 KALEB LEWIS [facility] Immunization Administration One Vaccine Immunization Administration One Vaccine 63616 2008 KALEB LEWIS [facility] Influenza Split Virus Vaccine Age 3+ Years Intramuscular 2008 KALEB LEWIS [facility] Arthrocentesis Injection Of Shoulder Joint Arthrocentesis Injection Of Shoulder Joint 30564 2007 SOFÍA RYAN [facility] Phys Therapy Education Self Care Training - Per 15 Minutes Phys Therapy Education Self Care Training - Per 15 Minutes 11212 2007 BIBI HARDWICK [facility] Physical Medicine Physical Therapy Re-Evaluation Physical Medicine Physical Therapy Re-Evaluation 37484 2007 BIBI HARDWICK Physical Therapy: ___ Se ion Segments, 15 Minutes Each Physical Therapy: ___ Session Segments, 15 Minutes Each 71924 2007 ROLA BARNEY [facility] Modalities Diathermy Treatment 2007 ROLA BARNEY [facility] Modalities Diathermy Treatment 2007 ROLA BARNEY [facility] Physical Therapy: ___ Se ion Segments, 15 Minutes Each Physical Therapy: ___ Session Segments, 15 Minutes Each 73581 2007 ROLA BARNEY Physical Therapy: ___ Se ion Segments, 15 Minutes Each Physical Therapy: ___ Session Segments, 15 Minutes Each 53695 2007 ROLA BARNEY Modalities Diathermy Treatment 2007 ROLA BARNEY [facility] Physical Therapy: ___ Se ion Segments, 15 Minutes Each Physical Therapy: ___ Session Segments, 15 Minutes Each 11739 2007 DIRK FLORES Modalities Diathermy Treatment 2007 DIRK FLORES [facility] Modalities Diathermy Treatment 2007 ROLA BARNEY [facility] Physical Therapy: ___ Se ion Segments, 15 Minutes Each Physical Therapy: ___ Session Segments, 15 Minutes Each 43035 2007 ROLA BARNEY [facility] Physical Therapy: ___ Se ion Segments, 15 Minutes Each Physical Therapy: ___ Session Segments, 15 Minutes Each 77337 2007 DIRK FLORES Modalities Diathermy Treatment 2007 DIRK FLORES Occupational Therapy Re-Evaluation Occupational Therapy Re-Evaluation 66453 2007 AGUSTINA RIVERA Physical Therapy: ___ Se ion Segments, 15 Minutes Each Physical Therapy: ___ Session Segments, 15 Minutes Each 88512 2007 ROLA BARNEY Modalities Diathermy Treatment 2007 ROLA BARNEY [facility] Physical Therapy: ___ Se ion Segments, 15 Minutes Each Physical Therapy: ___ Session Segments, 15 Minutes Each 96924 2007 ROLA BARNEY Modalities Diathermy Treatment 2007 ROLA BARNEY [facility] Modalities Diathermy Treatment 2007 ROLA BARNEY Physical Therapy: ___ Se ion Segments, 15 Minutes Each Physical Therapy: ___ Session Segments, 15 Minutes Each 33745 2007 ROLA BARNEY Modalities Diathermy Treatment 2007 ROLA BARNEY [facility] Physical Therapy: ___ Se ion Segments, 15 Minutes Each Physical Therapy: ___ Session Segments, 15 Minutes Each 01928 2007 ROLA BARNEY Physical Therapy: ___ Se ion Segments, 15 Minutes Each Physical Therapy: ___ Session Segments, 15 Minutes Each 44008 2007 DIRK FLORES Modalities Diathermy Treatment 2007 DIRK FLORES Destruction Of Benign Lesion By Cryosurgery 2007 HANK MARSHALL [facility] Occupational Therapy Re-Evaluation Occupational Therapy Re-Evaluation 17264 2007 AGUSTINA RIVERA [facility] Physical Therapy: ___ Se ion Segments, 15 Minutes Each Physical Therapy: ___ Session Segments, 15 Minutes Each 14937 2007 ROLA BARNEY [facility] Modalities Diathermy Treatment 2007 ROLA BARNEY [facility] Physical Therapy: ___ Se ion Segments, 15 Minutes Each Physical Therapy: ___ Session Segments, 15 Minutes Each 71566 2007 DIRK FLORES [facility] Modalities Diathermy Treatment 2007 DIRK FLORES [facility] Physical Therapy: ___ Se ion Segments, 15 Minutes Each Physical Therapy: ___ Session Segments, 15 Minutes Each 25547 2007 CARIE BUTT [facility] Modalities Diathermy Treatment 2007 CARIE BUTT [facility] Modalities Diathermy Treatment 2007 DIRK FLORES [facility] Physical Therapy: ___ Se ion Segments, 15 Minutes Each Physical Therapy: ___ Session Segments, 15 Minutes Each 90630 2007 DIRK FLORES [facility] Modalities Diathermy Treatment 2007 ROLA BARNEY [facility] Physical Therapy: ___ Se ion Segments, 15 Minutes Each Physical Therapy: ___ Session Segments, 15 Minutes Each 86079 2007 ROLA BARNEY [facility] Occupational Therapy Re-Evaluation Occupational Therapy Re-Evaluation 59856 2007 AGUSTINA RIVERA [facility] Osteopathic Manip Treatment (OMT) 1-2 Body Regions Involved Osteopathic Manip Treatment (OMT) 1-2 Body Regions Involved 07779 2007 LORRI YANEZ [facility] Modalities Diathermy Treatment 2007 DIRK FLORES [facility] Physical Therapy: ___ Se ion Segments, 15 Minutes Each Physical Therapy: ___ Session Segments, 15 Minutes Each 82786 2007 DIRK FLORES [facility] Modalities Diathermy Treatment 2007 DIRK FLORES [facility] Physical Therapy: ___ Se ion Segments, 15 Minutes Each Physical Therapy: ___ Session Segments, 15 Minutes Each 11092 2007 DIRK FLORES [facility] Physical Therapy: ___ Se ion Segments, 15 Minutes Each Physical Therapy: ___ Session Segments, 15 Minutes Each 63026 2007 CARIE BUTT [facility] Modalities Diathermy Treatment 2007 CARIE BUTT [facility] Occupational Therapy Re-Evaluation Occupational Therapy Re-Evaluation 63727 2007 AGUSTINA RIVERA [facility] Physical Therapy: ___ Se ion Segments, 15 Minutes Each Physical Therapy: ___ Session Segments, 15 Minutes Each 70003 2007 ROLA BARNEY [facility] Modalities Ultrasound Modalities Ultrasound 16453 2007 ROLA BARNEY Physical Therapy: ___ Se ion Segments, 15 Minutes Each Physical Therapy: ___ Session Segments, 15 Minutes Each 40130 2007 ROLA BARNEY Modalities Ultrasound Modalities Ultrasound 51684 2007 ROLA BARNEY Physical Medicine - Group Physical Therapy Se ion Physical Medicine - Group Physical Therapy Session 47192 2007 DIRK FLORES Physical Therapy: ___ Se ion Segments, 15 Minutes Each Physical Therapy: ___ Session Segments, 15 Minutes Each 59799 2007 DIRK FLORES Modalities Ultrasound Modalities Ultrasound 38028 2007 DIRK FLORES Physical Therapy: ___ Se ion Segments, 15 Minutes Each Physical Therapy: ___ Session Segments, 15 Minutes Each 13882 2007 ROLA BARNEY Modalities Ultrasound Modalities Ultrasound 23873 2007 ROLA BARNEY Modalities Ultrasound Modalities Ultrasound 65895 2007 DIRK FLORES Physical Medicine - Group Physical Therapy Se ion Physical Medicine - Group Physical Therapy Session 31417 2007 DIRK FLORES Training And Self-Care Skills Training And Self-Care Skills 76330 2007 ROLA BARNEY Modalities Ultrasound Modalities Ultrasound 58385 2007 ROLA BARNEY Physical Therapy: ___ Se ion Segments, 15 Minutes Each Physical Therapy: ___ Session Segments, 15 Minutes Each 57960 2007 ROLA BARNEY Exercise equipment 2007 AGUSTINA RIVERA PT A e ment Kinetic Training PT Assessment Kinetic Training 22317 2007 AGUSTINA RIVERA Occupational Therapy Evaluation Occupational Therapy Evaluation 76198 2007 AGUSTINA RIVERA Determination Of Refractive State Determination Of Refractive State 18408 2006 LAW PRIETO Visual Mcallister Test Intermediate Examination Visual Mcallister Test Intermediate Examination 30707 2006 LAW PRIETO Ophthalmological New Patient Start Comprehensive Care Ophthalmological New Patient Start Comprehensive Care 88572 2006 LAW PRIETO Destruct Of Benign Lesion By Any Method Second Through 14 2006 DOUG HEIN [facility] Cardiac Stre Test, Phys. Supervision, Interp. And Report Cardiac Stress Test, Phys. Supervision, Interp. And Report 18066 2005 SHARMIN ARANDA [facility] Electrocardiogram Electrocardiogram 62616 09/11 VAL MCCRACKEN [facility] No data available for this section Ambulatory Pharmacy Social History Combined list of available smoking, tobacco, and other social history from Department of Defense and Veterans Affairs facilities. Social History Type Response Date Comment Sour e This section is an empty social [...] of Defense and Veterans Affairs (VA).VA Functional [place] Measurement (FIM) Scale: 1 = Total Assistance (Subject = 0% +), 2 = Maximal Assistance (Subject = 25% +), 3 = Moderate Assistance (Subject = 50% +), 4 = Minimal Assistance (Subject = 75% +), 5 = Supervision, 6 = Modified [place] (Device), 7 = Complete [place] (Timely, Safely). Assessment Date/Time Source Assessment Type Assessment Skill Assessment Score Assessment Details No data available for this section
--- OUTSIDE RECORDS SUMMARY | 2024-07-26 10:45 | XMS_ITS | Encounter Summary ---
Author Organization [facility] Address [address] [place] [address] Care Team Providers Care Heating And Ventilation Engineer Name Role Phone Unavailable Primary Care Provider Unavailabl e Encounter Details Date Type Department Care Team (Late st Contact Info) Description 09/03/2019 Lab Requisition [facility] [address] [place] [address] Vivek Pat MD [address] [place] [address] Social History Tobacco Use Types Packs/Day Years [...] AM CDT) Case Report Dermatopathology Report Case: [id number] Authorizing Provider: Vivek Pat MD Collected: 09/01/2019 12:00 AM Ordering Location: [facility] Received: 09/03/2019 07:14 AM Pathologist: Dilan Simental MD Specimen: Skin, right jaw 0 4:41 PM CDT DERMATOPATHOLOGY LABORATORY Final Diagnosis Specimen A. 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 Path # [id number]. 0 4:41 PM CDT DERMATOPATHOLOGY LABORATORY Gross Description Specimen A: Received is one formalin filled container labeled with the patient's name and designated right jaw. The specimen consists of a shave biopsy measuring [id number]. Jar 0. 0 4:41 PM CDT DERMATOPATHOLOGY [...] characteristic determined by the Dermatopathology Laboratory at [facility], directed by Dr. Kamran Simental. These tests need not be, and therefore are not, approved by the [place] Food and Drug Administration. The tests are used for clinical purposes. Billing Codes Specimen Charges Stain Charges 74354 1 0 4:41 PM CDT DERMATOPATHOLOGY LABORATORY Embedded Images 0 4:41 PM CDT DERMATOPATHOLOGY LABORATORY Pathology/Cytolog y TISSUE SPECIMEN FROM SKIN / Unknown 09/01/2019 09/03/2019 7:14 AM CDT us Vivek Pat MD LAB - PATHOLOGY/CYTOLOGY ORDER CHRISTOPHER Final Result DERMATOPATHOLOGY LABORATORY [facility] - Department of Dermatology Assistant Auditor [place] [address], [facility] [phone] documented in this encounter Visit Diagnoses Not on filedocumented in this encounter
--- OUTSIDE RECORDS SUMMARY | 2024-07-26 10:45 | XMS_ITS | Encounter Summary ---
Author Organization [facility] Address [facility] [place] [address] Care Team Providers Care Vamp Strap Ironer Name Role Phone Gómez Harden MD Unavailable [phone] Martin Palomino MD Primary Care Provider Encounter Details Date Type Department Care Team (Late st Contact Info) Description 10/16/2018 Abstract [facility] at [address] [address] Gonzalo Larson MA Social History Tobacco Use Types Packs/Day Years Used Date Smoking Tobacco: Former Cigarettes 0.5 6 1 972 - 1978 Smokeless Tobacco: Never Alcohol Use Standard Drinks/Week Comments No 0 (1 standard drink = 0.6 oz pur e alcohol) Sex and Gender Information Value Date Recorded Sex Assigned at Male 05/06/2024 7:05 AM PRE K TEACHER Legal Sex Male 8:12 PM CDT Gender Identity Male 05/06/2024 7:05 AM PRE K TEACHER Sexual Orientation Not on file 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 on file Not on file documented as of this encounter Plan of Treatment Upcoming Encounters Date Type Department Care Team (Late st Contact Info) Description 10/28/2024 7:20 AM CDT Laboratory Only [facility] Family & Internal Medicine - [address] [address] Martin Palomino MD [address] [place] [address] 11/04/2024 7:40 AM CDT Office Visit [facility] Medical Group Family & Internal Medicine - [place] [address] [place] [phone] Martin Palomino MD [address] [place] [address] documented as of this encounter Procedures Procedure [...] Rule Out 03/27/2021 03/27/2021 03/29/2021 1:09 AM PRE K TEACHER COVID-19 Rule Out 09/19/2021 09/19/2021 09/19/2021 2:02 PM CDT COVID-19 Rule Out 09/19/2021 09/19/2021 09/20/2021 2:41 PM CDT documented as of this encounter Care Teams Vamp Strap Ironer Relationship Specialty Start Date End Date Martin Palomino MD [facility] [place] [place] [address] PCP - General INTERNAL MEDICINE 03/14/20 Gómez Harden MD Three [facility]. [facility] [address] [place] [address] [place] Animation Producer CARDIOVASCULAR DISEASE 06/16/18 documented as of this encounter
--- OUTSIDE RECORDS SUMMARY | 2024-07-26 10:45 | XMS_ITS | Encounter Summary ---
Author Organization [facility] Address [address] [facility] [place] [address] Care Team Providers Care Pond Scaler Name Role Phone Unavailable Primary Care Provider Unavailabl e Encounter Details Date Type Department Care Team (Late st Contact Info) Description 03/10/2020 Lab Requisition [facility] DermPath Lab [address] [place] [address] Vivek Pat MD [address] [place] [address] Social History Tobacco Use Types Packs/Day Years [...] Comments DERMATOPATHOLOGY Routine 03/08/2020 12:0 0 AM FOOT DRILL OPERATOR documented in this encounter Results * DERMATOPATHOLOGY (03/08/2020 12:00 AM FOOT DRILL OPERATOR) Case Report Dermatopathology Report Case: [id number] Authorizing Provider: Vivek Pat MD Collected: 03/08/2020 12:00 AM Ordering Location: [facility]erm[facility] Received: 03/10/2020 08:53 AM Pathologist: Ebony Bell MD Specimen: Skin, left mid back 0 5:43 PM FOOT DRILL OPERATOR DERMATOPATHOLOGY LABORATORY Final Diagnosis Specimen A. SKIN, left mid back: COMPOUND NEVUS WITH CONGENITAL FEATURES (D22.5) (see microscopic description and comment) 0 5:43 PM [facility] DERMATOPATHOLOGY LABORATORY Clinical History Nevus vs MM. Path # [id number]. 0 5:43 PM [facility] DERMATOPATHOLOGY LABORATORY Gross Description Specimen A: Received is one formalin filled container labeled with the patient's name and designated left mid back. The specimen consists of a shave biopsy measuring [id number]. Jar 0. 0 5:43 PM [facility] DERMATOPATHOLOGY LABORATORY Microscopic Description Specimen A. SKIN, left mid back: There are nests of melanocytes at the dermal-epidermal junction and within the dermis. Some melanocytes are splayed between collagen bundles and are localized around adnexal structures, highlighted by MART-1/Melan-A immunostain. Dermal fibrosis is present. This case was also reviewed by Dr. Dilan Simental, who agrees. 0 5:43 PM [facility] DERMATOPATHOLOGY LABORATORY Disclaimer An external and internal positive and negative controls are appropriate for the histochemical, immunohistochemical and immunofluorescence stain(s) in this case (if any), except where stated explicitly. The performance characteristics of the stain(s) cited in this report were developed and its performance characteristic determined by the Dermatopathology Laboratory at [facility], directed by Dr. Kamran Simental. These tests need not be, and therefore are not, approved by the [place] Food and Drug Administration. The tests are used for clinical purposes. Billing Codes Specimen Charges Stain Charges 46354 1 59378 1 0 5:43 PM [facility] DERMATOPATHOLOGY LABORATORY Embedded Images 0 5:43 PM [facility] DERMATOPATHOLOGY LABORATORY Pathology/Cytolog y TISSUE SPECIMEN FROM SKIN / Unknown 03/08/2020 03/10/2020 8:53 AM FOOT DRILL OPERATOR us Vivek Pat MD LAB - PATHOLOGY/CYTOLOGY ORDER CHRISTOPHER Final Result DERMATOPATHOLOGY LABORATORY [facility] - Department of Dermatology [address] [place] [address], [facility] [phone] documented in this encounter Visit Diagnoses Not on filedocumented in this encounter
--- OUTSIDE RECORDS SUMMARY | 2024-07-26 10:45 | XMS_ITS | Encounter Summary ---
Author Organization [facility] Address [address] [facility] [place] [address] Care Team Providers Care Pharmacy Retail Support Specialist Name Role Phone Unavailable Primary Care Provider Unavailabl e Encounter Details Date Type Department Care Team (Late st Contact Info) Description 09/24/2019 Lab Requisition [facility] DermPath Lab [address] [place] [address] iVvek Pat MD [address] [place] [address] Social History Tobacco Use Types Packs/Day Years [...] AM CDT) Case Report Dermatopathology Report Case: [id number] Authorizing Provider: Vivek Pat MD Collected: 09/23/2019 12:00 AM Ordering Location: [facility] DermPath Lab Received: 09/24/2019 06:37 AM Pathologist: Dilan Simental MD Specimen: Skin, right jaw 0 1:42 PM CDT DERMATOPATHOLOGY LABORATORY Final Diagnosis Specimen A. 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 Check margins. Path# [id number] 0 1:42 PM CDT DERMATOPATHOLOGY LABORATORY Gross Description Specimen A: Received is one formalin filled container labeled with the patient's name and designated right jaw. The specimen consists of a non-oriented ellipse of skin measuring [id number] mm. The epidermal surface is unremarkable. The [...] characteristic determined by the Dermatopathology Laboratory at [facility], directed by Dr. Kamran Simental. These tests need not be, and therefore are not, approved by the [place] Food and Drug Administration. The tests are used for clinical purposes. Billing Codes Specimen Charges Stain Charges 84316 1 0 1:42 PM CDT DERMATOPATHOLOGY LABORATORY Embedded Images 0 1:42 PM CDT DERMATOPATHOLOGY LABORATORY Pathology/Cytolog y TISSUE SPECIMEN FROM SKIN / Unknown 09/23/2019 09/24/2019 6:37 AM CDT us Vievk Pat MD LAB - PATHOLOGY/CYTOLOGY ORDER CHRISTOPHER Final Result DERMATOPATHOLOGY LABORATORY [facility] - Department of Dermatology [facility] [address] [place] [address], [facility] [phone] documented in this encounter Visit Diagnoses Not on filedocumented in this encounter
--- OUTSIDE RECORDS SUMMARY | 2024-07-26 10:45 | XMS_ITS | Encounter Summary ---
Author Organization [facility] Address [facility] [place] [address] Care Team Providers Care Classification Counselor Name Role Phone Gómez Harden MD Unavailable [phone] Martin Palomino MD Primary Care Provider Encounter Details Date Type Department Care Team (Late st Contact Info) Description 11/27/2019 TripGemst Message Enc [facility] Medical [address] [address] Dallas De La Vega MD [address] [place] [address] RE: Follow Up/Update Social History Tobacco Use Types Packs/Day Years Used Date Smoking Tobacco: Former Cigarettes 0.5 6 1 972 - 1978 Smokeless Tobacco: Never Alcohol Use Standard Drinks/Week Comments No 0 (1 standard drink = 0.6 oz pur e alcohol) Sex and Gender Information Value Date Recorded Sex Assigned at Male 05/06/2024 7:05 AM KAIAKO KURA TUARUA Legal Sex Male 8:12 PM CDT Gender Identity Male 05/06/2024 7:05 AM KAIAKO KURA TUARUA Sexual Orientation Not on file Occupation Industry [...] Description 10/28/2024 7:20 AM CDT Laboratory Only [facility] Family & Internal Medicine [address] [place] [address] Martin Palomino MD [address] [place] [address] 11/04/2024 7:40 AM CDT Office Visit [facility] Family & Internal Medicine [facility] [address] [place] [address] Martin Palomino MD [address] [place] [address] documented as of this encounter Visit Diagnoses Not on filedocumented in this encounter Additional Health Concerns Infection Onset Date Last Indicated Resolved Time COVID-19 Rule Out 03/27/2021 03/27/2021 03/29/2021 1:09 AM KAIAKO KURA TUARUA COVID-19 Rule Out 09/19/2021 09/19/2021 09/19/2021 2:02 PM CDT COVID-19 Rule Out 09/19/2021 09/19/2021 09/20/2021 2:41 PM CDT documented as of this encounter Care Teams Classification Counselor Relationship Specialty Start Date End Date Martin Palomino MD [facility] [place] [address] PCP - General INTERNAL MEDICINE 03/14/20 Gómez Harden MD Three [facility]. [facility] [address] [place] [address] [employer] Clothing Designer CARDIOVASCULAR DISEASE 06/16/18 documented as of this encounter
--- OUTSIDE RECORDS SUMMARY | 2024-07-26 10:45 | XMS_ITS | Clinical Summary ---
Author Organization [facility] Care Team Providers Care Help Desk Intern Name Role Phone Unavailable Primary Care Provider Unavailabl e Social History Tobacco Use Types Packs/Day Years Used Date Smoking Tobacco: Never Assessed Sex and Gender Information Value Date Recorded Sex Assigned at Not on file Legal Sex Male 11:22 AM HOSPITAL PLAN ADMINISTRATOR Gender Identity Not on file Sexual Orientation [...]
--- OUTSIDE RECORDS SUMMARY | 2024-07-26 10:45 | XMS_ITS | Encounter Summary ---
Author Organization [facility] Address [address] [place] [address] Care Team Providers Care Sewing Machine Attachment Tester Name Role Phone Gómez Harden MD Unavailable [phone] Martin Palomino MD Primary Care Provider [phone] Encounter Details Date Type Department Care Team (Late st Contact Info) Description 10/22/2022 MyChart Message Enc [facility] Medical Group Family & Internal Medicine [id number] [place] [address] Martin Palomino MD [address] [place] [address] Exercises for Shoulder/Neck pain Social History [...] Sex Assigned at Male 05/06/2024 7:05 AM EXTRACTOR AND WRINGER OPERATOR Legal Sex Male 8:12 PM CDT Gender Identity Male 05/06/2024 7:05 AM EXTRACTOR AND WRINGER OPERATOR Sexual Orientation Not on file 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 on file Not on file documented as of this encounter Plan of Treatment Upcoming Encounters Date Type Department Care Team (Late st Contact Info) Description 10/28/2024 7:20 AM CDT Laboratory Only [facility] Family & Internal Medicine [facility] [address] [place] [address] [place] [address] [place] [address] 11/04/2024 7:40 AM CDT Office Visit [facility] Family & Internal [facility] [address] [place] [phone] Martin Palomino MD [address] [place] [address] documented as of this encounter Visit Diagnoses Not on filedocumented in this encounter Additional Health Concerns Assessment Noted Time PHQ-9 Depression Total Score: 0 06/05/19 22 10:33 AM EXTRACTOR AND WRINGER OPERATOR documented as of this encounter Care Teams Sewing Machine Attachment Tester Relationship Specialty Start Date End Date Martin Palomino MD [address] [place] [address] PCP - General INTERNAL MEDICINE 03/14/20 Gómez Harden MD [facility] [address] [place] [address] [place] Asphalt Paver Operator CARDIOVASCULAR DISEASE 06/16/18 documented as of this encounter
--- OUTSIDE RECORDS SUMMARY | 2024-07-26 10:46 | XMS_ITS | Continuity of Care Document ---
Author Organization [facility] Address [address] [place] [address] Care Team Providers Care Bomb Loader Name Role Phone Juan Waldrop MD Unavailable Unavailab le Allergies, Adverse Reactions, Alerts Substance Reaction Status Criticality No Known Allergies Active No Inform ation Medications Medication Instructions Dosage Effective Dates (start - stop) Status Comments hydrocodone 7.5 mg-acetaminophen 325 mg tablet take 1 tablet by oral route 3 times every day as needed for pain 1 tablet - Active rosuvastatin 10 mg tablet TAKE 1/2 TABLET BY MOUTH EVERY DAY FOR TWO WEEKS THEN increase TO 1 TABLET DAILY thereafter - Active pregabalin 100 mg capsule TAKE ONE CAPSULE BY MOUTH THREE TIMES DAILY - Active duloxetine 30 mg capsule,delayed release [...] on Encounter [facility], [address] [place], [place], [id number], [facility] Chronic pain disorder [address] [place] [address] [address], [place], [place], [id number] , . tel:[phone] [facility] MANNIE, [address] [place], [place], [id number], [facility] No Information 5 Benjie Sutherland er. [address], [place], [place], [id number] , [place]. tel: [phone] [facility] , [address] [place] [address], [id number], [facility] No Information Jun-0 5 Benjie Sutherland er. [address], [place], [place], [id number] , [place]. tel: [phone] [facility] , [address] [place] [address], [id number], [facility] Mixed hyperlipidemia Encounter for screening for malignant neoplasm of prostateSleep apnea, unspecifiedUns pecified injury at C5 level of cervical spinal cord, sequelaOther abnormalities of gait and mobilityChroni c pain syndromeLong term (current) use of opiate analgesicPredi abetes 4 Benjie Sutherland er. [address], [place], [place], [address] , . tel: [phone] Referring Provider: Juan Waldrop, [address], [place], [address]. tel:[phone] OFFICE/OUTPA TIENT VISIT, EST [facility] , [address] [place] [address], [id number], [facility] acute/chronic issues. (chief complaint)hea lthcare [...] 4 Benjie Sutherland er. [address], [place], [place], [address] , [place]. tel:[phone] Referring Provider: [address], [place], [address]. tel:[phone] OFFICE/OUTPA TIENT VISIT, EST [facility] , [address], [place], [id number], [facility] acute/chronic issues. (chief complaint)hea lthcare maintenance (chief complaint) Actinic keratosisChron ic pain disorderNeurop athySpinal cord injury at C5-C7 level without injury of spinal bone, sequela 4 Benjie Sutherland er. [address], [place], [place], [address] , . tel:[phone] Referring Provider: Juan Waldrop, [facility] [address], [place], [address]. tel:[phone] [facility] , [address] [place] [address], [id number], [facility] No Information 4 Benjie Sutherland er. [address], [place], [place], [address] , . tel:[phone] [facility] , [address], [place], [id number], [facility] Mixed hyperlipidemia PrediabetesEnc ounter for screening for malignant neoplasm of prostateUnspec ified injury at C5 level of cervical spinal cord, sequelaSleep apnea, unspecifiedLon g term (current) use of opiate analgesicPolyn europathy, unspecified 3 Benjie Sutherland er. [address], [place], [place], [address] , . tel:[phone] Referring Provider: Juan Waldrop, [facility] [address], [place], [address]. tel:[phone] OFFICE/OUTPA TIENT VISIT, ELEAZAR [facility]t , [address], [place], [id number], [facility] acute/chronic issues. (chief complaint)hea lthcare [...] Sutherland er. [address], [place], [place], [address] , . tel: [phone] Referring Provider: Juan Waldrop, [address], [place], [address]. tel:[phone] [facility] , [address] [place] [address], [id number], [facility] Solitary pulmonary nodule 2 Benjie Sutherland er. [address], [place], [place], [address] , . tel: [phone] Referring Provider: Juan Waldrop, [address], [place], [address]. tel:[phone] [facility] , [address] [place] [address], [id number], [facility] No Information 2 Benjie Sutherland er. [address], [place], [place], [address] , . tel:[phone] Referring Provider: Juan Waldrop, [address], [place], [address]. tel:[phone] [facility] , [address], [place], [id number], [facility] Daytime sleepiness 2 Benjie Sutherland er. [address], [place], [place], [address] , [place]. tel:[phone] [facility] , [address], [place], [id number], [facility] Mixed hyperlipidemia PrediabetesEnc ounter for screening for malignant neoplasm of prostateSolita ry pulmonary noduleChronic pain syndromePolyne uropathy, unspecified 2 Benjie Sutherland er. [address], [place], [place], [address] , [place]. tel: [phone] Referring Provider: Juan Waldrop, [address], [place], [address]. tel:[phone] OFFICE/OUTPA TIENT VISIT, EST [facility] , [address], [place], [id number], [facility] acute/chronic issues. (chief complaint)a lthcare maintenance (chief complaint) Chronic pain disorderSpinal cord injury at C5-C7 level without injury of spinal bone, sequelaProstat e cancer screeningPredi abetesMixed hyperlipidemia Daytime sleepinessPulm onary noduleActinic keratosesFlu vaccine need 2 Benjie Sutherland er. [address], [place], [place], [address] , [place]. tel: [phone] Referring Provider: Juan Waldrop, [address], [place], [address]. tel:[phone] [facility] , [address], [place], [id number], [facility] Encounter for screening colonoscopy 2 Benjie Sutherland er. [address], [place], [place], [address] , [place]. tel: [phone] OFFICE/OUTPA TIENT VISIT, EST [facility] , [address], [place], [id number], [facility] acute/chronic issues. (chief complaint)a lthcare maintenance (chief complaint)Med icare preventive (chief complaint) Adult general medical examMixed hyperlipidemia PrediabetesSpi nal cord injury at C5-C7 level without injury of spinal bone, sequelaNeuropa thyCarpal tunnel syndrome on both sidesDepressiv e disorderChroni c pain disorderRash and nonspecific skin eruptionPulmon ruth nodule 2 Benjie Sutherland er. [address], [place], [place], [address] , [place]. tel: [phone] Referring Provider: Juan Waldrop, [address], [place], [address]. tel:[phone] OFFICE/OUTPA TIENT VISIT, EST [facility] , [address], [place], [id number], [facility] acute/chronic issues. (chief complaint)hea lthcare maintenance (chief complaint) Carpal tunnel syndrome on both sidesActinic keratosesBilat eral impacted cerumen Jul- 2 Benjie Sutherland er. [address], [place], [place], [address] , . tel:[phone] Referring Provider: Juan Waldrop, [address], [place], [address]. tel:[phone] [facility] , [address] [place] [address], [id number], [facility] Mixed hyperlipidemia 2 Benjie Sutherland er. [address], [place], [place], [address] , . tel:[phone] Referring Provider: Juan Waldrop, [address], [place], [address]. tel:[phone] [facility] , [address], [place], [id number], [facility] No Information 1 Benjie Sutherland er. [address], [place], [place], [address] , . tel:[phone] Referring Provider: Juan Waldrop, [address], [place], [address]. tel:[phone] OFFICE/OUTPA TIENT VISIT, ELEAZAR Ocasio [facility] , [address] [place] [address], [id number], [facility] acute/chronic issues. (chief complaint)hea lthcare maintenance (chief complaint) Numbness and tingling in left handParesthesi a of skinChronic pain disorderActini c keratosesSkin lesion of backFlu vaccine needImmunizati on not carried out for other reason 1 Benjie Sutherland er. [address], [place], [place], [address] , [place]. tel:[phone] Referring Provider: Juan Waldrop, [address], [place], [address]. tel:[phone] [facility] , [address] [place] [address], [id number], [facility] No Information 1 Benjie Sutherland er. [address], [place], [place], [address] , [place]. tel:[phone] [facility] , [address] [place] [address], [id number], [facility] Mixed hyperlipidemia 1 Benjie Sutherland er. [address], [place], [place], [address] , [place]. tel: [phone] [facility] , [address] [place] [address], [id number], [facility] Mixed hyperlipidemia Pure hyperglyceride [facility] for [facility] for malignant neoplasm of prostatePolyne uropathy, unspecified 1 Benjie Sutherland er. [address], [place], [place], [address] , [place]. tel:[phone] Referring Provider: Juan Waldrop, [address], [place], [address]. tel:[phone] OFFICE/OUTPA TIENT VISIT, EST [facility] , [address] [place] [address], [id number], [facility] acute/chronic issues. (chief complaint)hea lthcare maintenance (chief complaint)Med icare preventive (chief complaint) Impacted cerumen, bilateralAdult general medical examMixed hyperlipidemia PrediabetesPro state cancer screeningDayti me sleepinessRecu rrent fallsChronic pain disorder 1 Benjie Sutherland er. [address], [place], [place], [id number] , [place]. tel:[phone] Referring Provider: Juan Waldrop, [address], [place], [address]. tel:[phone] [facility], [address], [place], [id number], [facility] Chronic pain syndromeMixed hyperlipidemia Polyneuropathy , unspecifiedNoc turia 0 Benjie Sutherland er. [address], [place], [place], [address] , . tel: [phone] Referring Provider: Juan Waldrop, [address], [place], [address]. tel:[phone] OFFICE/OUTPA TIENT VISIT, EST [facility] , [address], [place], [id number], [facility] chronic conditions (chief complaint)hea lthcare maintenance (chief complaint)Med icare preventive (chief complaint) Adult general medical examMixed hyperlipidemia Prostate cancer screeningChron ic pain disorderDepres sive disorderLeft carpal tunnel syndromeNoctur iaExcessive cerumen in right ear canalTravel advice encounter 0 Benjie reddy. [address], [place], [place], [id number] , . tel: [phone] Referring Provider: [address], [place], [address]. tel:[phone] OFFICE/OUTPA TIENT VISIT, EST [facility] , [address], [place], [id number], [facility] L leg issue (chief complaint)ski n issues. (chief complaint)hea lthcare maintenance (chief complaint) Leg weakness, bilateralNeuro pathySkin lesionsFlu vaccine needImmunizati on not carried out for other reason -201 8 Benjie booker [address], [place], [place], [address] , . tel:[phone] Referring Provider: Juan Waldrop, [address], [place], [address]. tel:[phone] [facility] , [address], [place], [id number], [facility] Other microscopic hematuriaEncnt r for general adult medical exam w/o abnormal findings 8 Benjie Sutherland erPio [address], [place], [place], [address] , . tel:[phone] Referring Provider: Juan Waldrop, [address], [place], [address]. tel:[phone] [facility] , [address] [place] [address], [id number], [facility] Polyneuropathy , unspecifiedEnc ntr for general adult medical exam w/o abnormal findingsOther microscopic hematuriaEncou nter for screening for malignant neoplasm of prostateMixed hyperlipidemia 8 Benjie booker [address], [place], [place], [address] , . tel: [phone] Referring Provider: Juan Waldrop, [address], [place], [address]. tel:[phone] PREV VISIT, EST, AGE 40-64 [facility] , [address] [place] [address], [id number], [facility] R shoulder and b/l hip [...] use 8 Benjie booker [address], [place], [place], [address] , [place]. tel: [phone] Referring Provider: [address], [place], [address]. tel:[phone] [facility] , [address], [place], [id number], [facility] Pain in right hip 8 Benjie booker [address], [place], [place], [address] , [place]. tel:[phone] Referring Provider: Juan Waldrop, [address], [place], [address]. tel:[phone] OFFICE/OUTPA TIENT VISIT, EST [facility] , [address], [place], [id number], [facility] R hip pain (chief complaint)R shoulder pain (chief complaint)hea lthcare maintenance (chief complaint) Right hip painChronic right shoulder painOther chronic painAcute pain of right knee 8 Benjie Sutherland er. [address], [place], [place], [address] , [place]. tel:[phone] Referring Provider: Juan Waldrop, [address], [place], [address]. tel:[phone] [facility] , [address] [place] [address], [id number], [place] [facility] Pain in right shoulder 7 Benjie Sutherland er. [address], [place], [place], [address] , [place]. tel:[phone] Referring Provider: Juan Waldrop, [address], [place], [address]. tel:[phone] OFFICE/OUTPA TIENT VISIT, EST [facility] , [address], [place], [id number], [place] [facility] R shoulder pain (chief complaint)L wrist pain (chief complaint)hea lthcare maintenance (chief complaint) Acute pain of right shoulderFall, initial encounterChron ic pain of left wristOther chronic painFlu vaccine need 7 Benjie Sutherland er. [address], [place], [place], [address] , [place]. tel:[phone] Referring Provider: Juan Waldrop, [address], [place], [address]. tel:[phone] [facility] , [address] [place] [address], [id number], [facility] Other microscopic hematuria 7 Benjie Sutherland er. [address], [place], [place], [address] , . tel:[phone] Referring Provider: Juan Waldrop, [facility] [address], [place], [address]. tel:[phone] [facility] , [address] [place] [address], [id number], [facility] No Information 7 Benjie Sutherland er. [address], [place], [place], [address] , . tel:[phone] Referring Provider: Juan Waldrop, [facility] [address], [place], [address]. tel:[phone] [facility], [address] [place] [address], [id number], [facility] Other microscopic hematuriaEncou nter for screening for malignant neoplasm of prostatePure hyperglyceride miaEncntr for general adult medical exam w/o abnormal findings 7 Benjie Sutherland er. [address], [place], [place], [address] , . tel:[phone] Referring Provider: Juan Waldrop, [facility] [address], [place], [address]. tel:[phone] PREV VISIT, EST, AGE 40-64 [facility] , [address] [place] [address], [id number], [facility] chronic pain issues/ (chief complaint)lig ht-headedness (chief complaint)ski n issues (chief complaint)dys thymia (chief complaint)hea lthcare maintenance (chief complaint) Adult general medical examSpinal cord injury, C5-C7, sequelaHypertr iglyceridemiaP rostate cancer screeningActin ic keratosisBilat eral impacted cerumenLight headednessMicr oscopic hematuriaEncou nter for screening colonoscopy 7 Benjie Sutherland er. [address], [place], [place], [address] , . tel:[phone] Referring Provider: Juan Waldrop, [facility] [address], [place], [address]. tel:[phone] [facility] , [address], [place], [id number], [facility] Skin cancer screening 6 Benjie Sutherland er. [address], [place], [place], [address] , [place]. tel: [phone] OFFICE/OUTPA TIENT VISIT, EST [facility] , [address] [place] [address], [id number], [facility] AFO brace (chief complaint)SI joint pain (chief complaint)moo d issues (chief complaint)ski n lesion (chief complaint)hea lthcare maintenance (chief complaint) Impaired gaitSacroiliit isActinic keratosisDysth ymiaSpinal cord injury, C5-C7, sequela 6 Benjie Sutherland er. [address], [place], [place], [address] , [place]. tel: [phone] Referring Provider: Juan Waldrop, [address], [place], [address]. tel:[phone] OFFICE/OUTPA TIENT VISIT, EST [facility] , [address], [place], [id number], [facility] R ear discomfort (chief complaint) Otitis externaAural polyp of external auditory canal 5 Benjie Sutherland er. [address], [place], [place], [address] , [place]. tel:[phone] Referring Provider: [address], [place], [address]. tel:[phone] [facility] , [address], [place], [id number], [facility] Other and unspecified hyperlipidemia Routine general medical examination at a health care facilityOther malaise and fatigueScreeni ng for malignant neoplasms of the prostate 5 Benjie Sutherland er. [address], [place], [place], [address] , . tel:[phone] Referring Provider: Juan Waldrop, [address], [place], [address]. tel:[phone] [facility] , [address] [place] [address], [id number], [facility] Routine general medical examination at a health care facilityOther and unspecified hyperlipidemia Other malaise and fatigueScreeni ng for malignant neoplasms of the prostate 5 Benjie Sutherland er. [address], [place], [place], [address] , [place]. tel:[phone] Referring Provider: Juan Waldrop, [address], [place], [address]. tel:[phone] [facility] , [address] [place] [address], [id number], [facility] Other and unspecified hyperlipidemia Routine [facility] a [facility] care facilityOther malaise and fatigueScreeni ng for malignant neoplasms of the prostate 5 Benjie Sutherland er. [address], [place], [place], [address] , [place]. tel:[phone] Referring Provider: Juan Waldrop, [facility] [address], [place], [address]. tel:[phone] PREV VISIT, EST, AGE 40-64 [facility] , [address], [place], [id number], [facility] paresthesias (chief complaint)fat igue/low energy (chief complaint)ski n lesion (chief complaint)hea lthcare maintenance (chief complaint) General medical examHyperlipid emiaFatigueSki n lesionCerumen impactionNeuro pathyProstate cancer screeningSpeci al screening for malignant neoplasms, colon 5 Benjie Sutherland er. [address], [place], [place], [address] , [place]. tel:[phone] [facility] , [address] [place] [address], [id number], [facility] No Information 5 Benjie reddy. [facility] [address], [place], [place], [address] , . tel: [phone] OFFICE/OUTPA TIENT VISIT, EST [facility] , [address] [place] [address], [id number], [facility] No Information 3 Chiqui Shearer. [address], [place], [place], [address] , . tel: [phone] [facility] , [address] [place] [address], [id number], [facility] No Information 2 Chiqui Shearer. [address], [place], [place], [address] , . tel: [phone] OFFICE/OUTPA TIENT VISIT, [facility] , [address] [place] [address], [id number], [facility] No Information 2 Chiqui Shearer. [facility] [address], [place], [place], [id number] , . tel: [phone] Family History Family Member Type Diagnosis Age At Onset Problem (finding) Family history of Diabe breezy mellitus Immunizations Vaccine Date Status Comments FLUZONE HIGH DOSE administered Source: New Immunization Record SARS-COV-2 (COVID-19) vaccin e, mRNA, spike protein, LNP, preservative free, 30 mcg/0.3 mL dose 12 years of age and older ([employer] Comirnaty) administered Source: New Immuniza tion Record Fluzone HD administered Source: New Imm unization Record Influenza, quadrivalent, hig h dose, injectable, split virus, preservative free, 0.7 mL dose, Fluzone High-Dose Quad [id number] administered Source: New Immuniza tion Record COVID19 [...] Registry Payers Payer name Insurance type Covered republican ID Authoriza tion(s) Medicare MB [id number] [employer] Medicare Supplement CI [id number] Medicare MB [id number] [employer] Medicare Supplement CI [id number] Medicare MB [id number] [employer] Medicare Supplement CI [id number] Medicare MB [id number] [employer] Supplement CI [id number] Medicare MB [id number] [employer] Supplement CI [id number] Medicare MB [id number] [employer] [id number] Medicare MB [id number] [employer] [id number] Medicare MB [id number] [employer] BL [id number] Medicare MB [id number] [employer] BL [id number] Medicare MB [id number] [employer] BL [id number] [employer] Blue Card BL [id number] [employer] Blue Card BL [id number] [facility] CI [id number] Social History Type Description Quantity Date Captured Comments Alcohol Use Details Unknown Caffeine Use Details Unknown Tobacco Use Status No Information Smoking Status No Information Sex Male Chief Complaint And Reason For Visit No Information Reason For Referral Reason For Referral No Information Plan Of Treatment Date Type Action Status Goal Zoster vaccine (2nd) due Goal Tdap due Goal Zoster vaccine (1st) due Goal Pneumococcal vaccine due Goal Hepatitis [...] u se screening. Due on due Goal Depression screening. Due [...] Goal Lipid panel. Due on due Goal COLONOSCOPY. Due on due Goal Unhealthy drug u se screening. Due on due Goal Zoster vaccine (1st) due Goal Lipid panel. Due on due Goal Depression screening. Due on due Goal Pneumococcal vaccine due Goal Tdap due Goal Zoster vaccine (2nd) due Goal Hepatitis C screening. Due o n due Goal Influenza vaccine. Due on Oc due Goal Pneumococcal vaccine due Goal Hepatitis C screening. Due o n due Goal Depression screening. Due on due Goal COLONOSCOPY. Due on due Goal Influenza vaccine. Due on due Goal Zoster vaccine (1st) due Goal Lipid panel. Due on due Goal Tdap due Goal Unhealthy drug u se screening. Due on due Goal Zoster vaccine (2nd) due Goal Pneumococcal vaccine due Goal Hepatitis [...] Due on due Goal Tdap due Goal Influenza vaccine. Due on No due Goal Tdap due Goal Hepatitis C screening. Due o n due Goal Lipid panel. Due on due Goal Zoster vaccine (2nd) due Goal Depression screening. Due on due Goal Zoster vaccine (1st) due Goal COLONOSCOPY. Due on due Goal [...] Due on Oc due Goal Zoster vaccine (). Due on due Goal Unhealthy drug u se screening. Due on due Goal Pneumococcal vaccine due Goal Depression screening. Due on due Referral Referred To: First available Ordered: Referrals: Pain Medicine. First available. Location: [facility]. Evaluate and treat ordered Referral Referred To: First available Ordered: Referrals: Ophthalmology. First available. Location: [facility]. Evaluate and treat ordered Referral Referred To: José Miguel Gross MD [address] [place], [address] [phone] Ordered: Referrals: Phys Med/Rehab. José Miguel Gross MD. Evaluate and treat ordered Referral Referred To: Lazaro Almazan DPM [address] [place], [address] [phone] Ordered: Referrals: Podiatry. Lazaro Almazan DPM. Evaluate and treat ordered Referral Referred To: First available Ordered: Referrals: Pulmonology. First available. Location: [facility]. Evaluate and treat ordered Referral Referred To: Napoleon Ku MD [address] [place], [address] [phone] Ordered: Referrals: Pain Medicine. Napoleon Ku MD. Evaluate and treat ordered Referral Referred To: Parker Villela MD [address], [place] [phone] Ordered: Referrals: Gastroenterology. Parker Villela MD. Diagnostic testing ordered Referral Referred To: Lucy Guajardo MD [address] [place], [place] [phone] Ordered: Referrals: Orthopedic Surgery. Lucy Guajardo MD. Consult. Surgery ordered Referral Ordered: CT HRT W/O DYE W/CA TEST ordered Referral Ordered: Referrals: Dermatology. Consult ordered Referral Referred To: Justin Licea MD [address] [place], [address] [phone] Ordered: Referrals: Physical Medicine and Rehabilitation. Justin Licea MD. Consult. Diagnostic testing ordered Referral Referred To: Renetta Garcia MD [address] [place], [place], [phone] Ordered: Referrals: Gastroenterology. Renetta Garcia MD. Consult. Diagnostic testing ordered Referral Ordered: Referrals: Orthopedic Surgery. Consult ordered Referral Ordered: Referrals: Orthopedic Surgery. Evaluate and treat ordered Referral Referred To: Harman Guzman MD [address], [place] [phone] Ordered: Referrals: Gastroenterology. Harman Guzman MD. Location: GI. Consult ordered Referral Referred To: Itz Monge MD [address] [facility] [address] [place], [phone] Ordered: Referrals: Dermatology. Itz Monge MD. Consult ordered Referral Referred To: Riki Lewis MD Ordered: Referrals: Otolaryngology. Riki Lewis MD. Consult ordered Referral Referred To: Harman Guzman MD [address] [place], [address] [phone] Ordered: Referrals: Gastroenterology. Harman Guzman MD. Consult ordered Appointment Mason Batista 6 MO F/U JULIO DELUCA Future Order: Lab Order CT Chest w/o IV Contrast CPT 18760 (949), Sent on: Sent Future Order: Lab Order CRISK DE OFILE / REFLEX LDLD (557), Scheduled for: [...] (colonoscopy); previously seen by Dr. Chi at [facility] - Dr. Urena (NCS 06/2021 showing severe [...] 2 children (daughter, Natalie and son, Elyssa; frixpima-ia-uqr, Mely --> all live in [place]). Also 3 grandchildren (ages 8, 6 and [...] time(s). acute/chronic issues. Dionicio repor ts that he's feeling pretty good . Saw Podiatry after last appt and had R ankle injection 02/2023. Unfortunately, not extremely helpful, but Dionicio feels like things are tolerable that he is not ready to pursue any other treatment/intervention. Only concern today is a lesion on his scalp that he would like frozen. healthcare maintenance # Men's H ealthcare Maintenance: [...] (colonoscopy); previously seen by Dr. Chi at [facility] - Dr. Urena (NCS 06/2021 showing severe L, moderate R CTS, mild b/l ulnar neuropathy and moderate-severe chronic cervical radiculopathy)Neurosurgery - Dr. Pierre (C5-C6 injury 2/ waterskiing [...] 2 children (daughter, Natalie and son, Elyssa; fdrobikb-sh-xkf, Mely --> all live in [place]). Also 3 grandchildren (ages 7, 5 and [...] a day 0 time(s). acute/chronic issues. Dionicio richards ts that he's doing fine . Tripped [...] his pain is stable. Emotionally doing well. healthcare maintenance # Men's H ealthcare Maintenance: [...] (colonoscopy); previously seen by Dr. Chi at [facility] - Dr. Urena (NCS 06/2021 showing severe [...] failed spinal stimulator in 2022); no longer seeehab medicine - Dr. Gross (rehab following neck [...] 2 children (daughter, Natalie and son, Elyssa; vkxeomsq-vl-jkd, Mely --> all live in [place]). Also 3 grandchildren (ages 7, 5 and 3). 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 Has been quite active his whole life up until C5-C6 neck injury. acute/chronic issues. Dionicio maurice ts that he's doing ok . Still [...] (colonoscopy); previously seen by Dr. Chi at [facility] - Dr. Urena (NCS 06/2021 showing severe [...] 2 children (daughter, Natalie and son, Elyssa; nkllbqcg-kl-lqf, Mely --> all live in [place]). Also 3 grandchildren (ages 6, 4 and 2). 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 Has been quite active his whole life up until C5-C6 neck injury. acute/chronic issues. Dionicio maurice ts that his [...] should avoid. No other concerns or complaints. Medicare preventive Recently, th e patient has [...] b/l ear osteomas)GI - Dr. Chi at [place] (colonoscopy)Neuro - Dr. Urena (NCS 06/2021 showing severe L, moderate R CTS, mild b/l ulnar neuropathy and moderate-severe chronic cervical radiculopathy)Neurosurgery - Dr. Pierre (C5-C6 injury 2/ waterskiing [...] 2 children (daughter, Natalie and son, Elyssa; ayoiwqmb-ey-ftu, Mely --> all live in [place]). Also 3 grandchildren (ages 6, 4 and 2). 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 Has been quite active his whole life up until C5-C6 neck injury. [facility]: Lipids: LDL 163 11/2011 --> LDL [...] Covid vaccine: Received both doses in 2020 ([employer]), booster due now AAA Screen: Declines, will [...] b/l ear osteomas)GI - Dr. Chi at [place] (colonoscopy)Neuro - Dr. Urena (NCS 06/2021 showing [...] 2 children (daughter, Natalie and son, Elyssa; tmlwqkpm-dn-wqq, Mely --> all live in [place]). Also 3 grandchildren (ages 5, 3 and [...] Covid vaccine: Received both doses in 2020 ([employer]), booster due now AAA Screen: Declines, will think about in the future Tobacco Use: Social smoker, probably 300-500 cigarettes in his lifetime Alcohol Use: 1 beer/night POLST/Advanced Directive: N/A (has completed AD and will bring in next visit) Wellness CPX: 08/23/20MARIANA Hernandez (hx BCC s/p excision; routine skin exams); previously seen by Dr. Patiño and [facility] Hoover (sensorineural hearing loss) and Dr. 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 Chi at [place] (colonoscopy)Neurosurgery - Dr. Pierre (C5-C6 injury 2/2 [...] 2 children (daughter, Natalie and son, Elyssa; gtkkrxyl-tb-dkh, Mely --> all live in [place]). Also 3 grandchildren (ages 5, 3 and 1). 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 Has been quite active his whole life up until C5-C6 neck injury. acute/chronic issues. Dionicio merritt that he feels about the same . Still has balance issues and has falls on occasion. Banged up his R side/back a short while ago, but starting to feel better. Continues to take Duloxetine, Lyrica and Othello for his chronic pain. Has not really seen any other specialist besides his eye doc in the last year. Mood doing ok. No other concerns or complaints. Medicare preventive The patient has not felt [...] seen by Dr. Patiño and Rich Montalvo [facility] - Dr. Hoover (sensorineural hearing loss) and Dr. 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 Chi at [place] (colonoscopy)Neurosurgery - Dr. Pierre (C5-C6 injury 2/ [...] 2 children (daughter, Natalie and son, Elyssa; vdpjceih-si-npi, Mely --> all live in [place]). Also 3 grandchildren (ages 5, 3 and [...] below Shingrix; Received both doses in 2018 AAA Screen: Declines, will think about in the future Tobacco Use: Social smoker, probably 300-500 cigarettes in his lifetime Alcohol Use: 1 beer/night POLST/Advanced Directive: N/A Wellness CPX: 04/20/19Juanis - MARIANA Norris (hx BCC s/p excision; routine skin exams); previously seen by Dr. Patiño and Rich Montalvo [facility] - Dr. Hoover (sensorineural hearing loss) and Dr. 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 at [facility] [place] (colonoscopy)Neurosurgery - Dr. Pierre (C5-C6 injury 2/ [...] 2 children (daughter, Natalie and son, Elyssa; xlzoalnl-ts-xhn, Mely --> all live in [place]). Also 3 grandchildren (ages 4, 2 and 2 months). 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 Has been quite active his whole life up until C5-C6 neck injury. Going to [place] with his 2 friends at the end of April for 2 weeks. chronic conditions Pertinent neg atives include fatigue, [...] from catching his foot. No significant injuries.. L leg issue Hx C5-C6 injury 05/10 [...] bladder/bowel incontinence. Already taking Lyrica, Cymbalta and Othello. skin issues. Has a spot on hi [...] 2 children (daughter, Natalie and son, Elyssa; qxlhnurz-zw-vic, Mely --> all live in [place]). Also 2 grandchildren. 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 Has been quite active his whole life up until C5-C6 neck injury. R shoulder and b/l hip pain Stil [...] Takes Lyrica which helps some and occasional Othello. Seems like the burning sensation seems a bit worse the last year. Balance is poor, but stable, wears a R AFO brace. depression. Longstanding iss ues. Has tried and failed Wellbutrin and Celexa in the past. Thought counseling was a joke and declines to ever return. Notes that he has good days and bad days, but began following his spinal cord injury. Denies SI/HIs. L CTS Thinking about p ossibly getting back in to see Dr. Guajardo for further eval/treatment, but isn't sure. skin lesion The reports no f atigue. Additional information: Has had a skin lesion on his R anterior leg x 4+ years ever since he started wearing his R AFO brace. Has seen Derm. healthcare maintenance # Men's H ealthcare Maintenance: [...] 2 children (daughter, Natalie and son, Elyssa; djipmgzb-sz-txr, Mely --> all live in [place]). Also 2 grandchildren. 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 Has been quite active his whole life up until C5-C6 neck injury. Overall, feels fine . R hip pain Reports for the last 3 weeks having some mild anterior hip discomfort which has progressively worsened the last week. No known trauma/injury. Primarily bothersome when standing up from a chair or getting out of his truck. Denies back pain radiating down leg, numbness/tingling. Has not really tried anything for it besides an extra Othello tab. R shoulder pain Improved moderat marlyn since last visit. Had R shoulder x-ray 03/2017 which showed moderate glenohumeral OA, mild narrowing of the acromiohumeral head suggestive of possible partial thickness rotator cuff tear. Saw Dr. Chadwick in Ortho clinic who performed an US guided steroid injection 03/2017. ROM has improved but not quite back to baseline . healthcare maintenance # Men's H ealthcare Maintenance: [...] 2 children (daughter, Natalie and son, Elyssa; itlnzwhg-rx-svj, Mely --> live in [place]). Also 2 grandchildren. 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 Has been quite active his whole life up until C5-C6 neck injury. Went on a rafting trip to the [place] in August 2016 and had a great [...] 2 children (daughter, Natalie and son, Elyssa; bjwvthre-oi-kqk, Mely --> live in [place]). Also 2 grandchildren. 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 Has been quite active his whole life up until C5-C6 neck injury. Went on a rafting trip to the [place] in August 2016 and had a great [...] and ice which does help a little. chronic pain issues/ Uses Othello on occasion. Has core/back pain on occasion ever since his spinal cord injury when trying to be active. Plans on going on a rafting trip down the [place] in August and hoping that his Othello prescription could be increased from 5/325mg to 7.5/325mg the month he is gone for the trip. light-headedness Reports occasio luisito getting light-headed when sitting up too fast or going from a bending forward position to standing up. Denies syncope, LOC, vertigo, chest pain, SOB or palpitations. Reports that he probably does not drink enough water. skin issues Saw Rich Montalvo and had a BCC excised from his L cheek. Has a few rough spots on his scalp that he would like looked at. dysthymia Reports that his mood is a bit better than before. Still has his moments of feeling down, especially if he is not feeling well physically and can't do the things he used to do before the spinal cord injury. However, not interested in any treatment at this time. healthcare maintenance # Men's H ealthcare Maintenance: [...] 2 children (daughter, Natalie and son, Elyssa; ihmiqegk-ux-ear, Mely --> Elyssa and Mely recently moved back to [place]). Also has a 1 y.o. granddaughter. 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 Has been quite active his whole life up until C5-C6 neck injury. Planning a rafting trip to the [place] in August 2016. Overall, feels pretty good . No major concerns or complaints today. skin lesion The reports no f atigue. Additional information: Has a spot on his nose that he would like looked at. Reports it is somewhat rough . healthcare maintenance # Men's H ealtare Maintenance: Lipids: LDL 163 11/2011 --> LDL [...] 2 children (daughter, Natalie and son, Elyssa; numdjolc-pk-mcp, Mely). Also had his first grandchild this [...] which did not seem to help. Uses Othello prn and also Lyrica for various aches/pains. [...] Takes Lyrica which helps some. Also takes Othello 5/325mg daily prn (2-3 typically/week) if really [...] 2 children (daughter, Natalie and son, Elyssa; qanmsyua-ll-ave, Mely). Expected first grandchild 01/2015. 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 Has been quite active his whole life up until C5-C6 neck injury. Functional Status Date Functional Assessmen t No Information Instructions Date Instruction Additional Infor yasir Counseled on dietary changes Counseled on weight reduction Counseled on dietary changes Assessments Type Assessment Date assessment Chronic pain disorder 5 Patient Care Teams Name Effective Dates (start - stop) Status Members No Information
--- OUTSIDE RECORDS SUMMARY | 2024-07-26 10:46 | XMS_ITS | Encounter Summary ---
Author Organization [facility] Address [address] [place] [id number] Care Team Providers Care Cash Teller Name Role Phone Gómez Harden MD Unavailable [phone] Martin Palomino MD Primary Care Provider [phone] Encounter Details Date Type Department Care Team (Late st Contact Info) Description 05/16/2020 MyChart Message Enc [facility] Family & Internal Medicine [id number] [place] [address] Martin Palomino MD [address] [place] [address] RE: Test Results Social History Tobacco [...] Sex Assigned at Male 05/06/2024 7:05 AM PCMH SPECIALIST Legal Sex Male 8:12 PM CDT Gender Identity Male 05/06/2024 7:05 AM PCMH SPECIALIST Sexual Orientation Not on file 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 on file Not on file documented as of this encounter Plan of Treatment Upcoming Encounters Date Type Department Care Team (Late st Contact Info) Description 10/28/2024 7:20 AM CDT Laboratory Only [facility] Family & Internal Medicine [facility] [address] [place] [phone] [place] [address] [place] [address] 11/04/2024 7:40 AM CDT Office Visit [facility] Family & Internal [facility] [address] [place] [address] Martin Palomino MD [address] [place] [address] documented as of this encounter Visit Diagnoses Not on filedocumented in this encounter Additional Health Concerns Infection Onset Date Last Indicated Resolved Time COVID-19 Rule Out 03/27/2021 03/27/2021 03/29/2021 1:09 AM PCMH SPECIALIST COVID-19 Rule Out 09/19/2021 09/19/2021 09/19/2021 2:02 PM CDT COVID-19 Rule Out 09/19/2021 09/19/2021 09/20/2021 2:41 PM CDT documented as of this encounter Care Teams Cash Teller Relationship Specialty Start Date End Date Martin Palomino MD [address] [place] [address] PCP - General INTERNAL MEDICINE 03/14/20 Gómez Harden MD [facility]. [facility] [address] [place] [address] [employer] CARDIOVASCULAR DISEASE 06/16/18 documented as of this encounter
--- OUTSIDE RECORDS SUMMARY | 2024-07-26 10:46 | XMS_ITS | Encounter Summary ---
Author Organization [facility] Address [address] [facility] [place] [address] Care Team Providers Care Manager Wound Care Name Role Phone Unavailable Primary Care Provider Unavailabl e Encounter Details Date Type Department Care Team (Late st Contact Info) Description 11/02/2020 Lab Requisition [facility] DermPath Lab [address] [place] [phone] Vivek Pat MD [address] [facility] [place] [address] Social History Tobacco Use Types Packs/Day Years [...] AM CDT) Case Report Dermatopathology Report Case: [id number] Authorizing Provider: Vivek Pat MD Collected: 10/31/2020 03:33 AM Ordering Location: [facility] DermPath Lab Received: 11/02/2020 06:19 AM Pathologist: Ebony Bell MD Specimens: A) - Skin, mid ant scalp B) - Skin, mid back 4:53 PM [facility] DERMATOPATHOLOGY LABORATORY Final Diagnosis Specimen A. SKIN, mid ant scalp: SQUAMOUS CELL CARCINOMA IN SITU, PRESENT AT THE BASE OF THE SPECIMEN (D04.4) (see microscopic description and comment) Specimen B. 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 Path# [id number]. B: Nevus vs MM. Path# [id number]. 4:53 PM T DERMATOPATHOLOGY LABORATORY Gross Description Specimen A: Received is one formalin filled container labeled with the patient's name and designated mid ant scalp. The specimen consists of a shave biopsy measuring [id number]. Jar 0. Specimen B: Received is one formalin filled container labeled with the patient's name and designated mid back. The specimen consists of a shave biopsy measuring [id number]. Jar 0. 4:53 PM [facility] DERMATOPATHOLOGY LABORATORY Microscopic Description Specimen A. SKIN, [...] determined by the Dermatopathology Laboratory at [facility], directed by Dr. Kamran Simental. These tests need not be, and therefore are not, approved by the [place] Food and Drug Administration. The tests are used for clinical purposes. Billing Codes Specimen Charges Stain Charges 15015 12988 1 1 51325 1 1 4:53 PM CDT DERMATOPATHOLOGY LABORATORY Embedded Images 4:53 PM CDT DERMATOPATHOLOGY LABORATORY Pathology/Cytology TISSUE SPECIMEN FROM SKIN / Unknown 10/31/2020 3:33 AM CDT 11/02/2020 6:19 AM CDT Miscellaneous samples (specimen) TISSUE SPECIMEN FROM SKIN / Unknown 10/31/2020 3:33 AM CDT 11/02/2020 6:19 AM CDT us Vivek Pat MD LAB - PATHOLOGY/CYTOLOGY ORDER CHRISTOPHER Final Result DERMATOPATHOLOGY LABORATORY [facility] - Department of Dermatology [facility] Medicine [address] [place] [address], [address] [phone] documented in this encounter Visit Diagnoses Not on filedocumented in this encounter
--- OUTSIDE RECORDS SUMMARY | 2024-07-26 10:46 | XMS_ITS | Encounter Summary ---
Author Organization [facility] Address [address] [facility] [place] [address] Care Team Providers Care Broke Worker Name Role Phone Unavailable Primary Care Provider Unavailabl e Encounter Details Date Type Department Care Team (Late st Contact Info) Description 03/19/2023 Lab Requisition [facility] - DermPath Lab [address] [facility], [place] [phone] Vivek Pat MD [address] [facility] [place] [address] Social History Tobacco Use Types Packs/Day Years [...] DERMATOPATHOLOGY Routine 03/18/2023 12:0 0 AM SENIOR MEDICAL TECHNOLOGIST documented in this encounter Results * DERMATOPATHOLOGY (03/18/2023 12:00 AM SENIOR MEDICAL TECHNOLOGIST) Case Report Dermatopathology Report Case: [id number] Authorizing Provider: Vivek Pat MD Collected: 03/18/2023 12:00 AM Ordering Location: [facility] DermPath Lab Received: 03/19/2023 07:00 AM Pathologist: Magda Park MD Specimen: Skin, right distal nasal sidewall 12:52 PM SENIOR MEDICAL TECHNOLOGIST DERMATOPATHOLOGY LABORATORY Final Diagnosis Specimen A. SKIN, right distal nasal sidewall: INTRADERMAL MELANOCYTIC NEVUS (D22.39) 3 12:52 PM SENIOR MEDICAL TECHNOLOGIST DERMATOPATHOLOGY LABORATORY Clinical History Nevus vs. Fibrous Papule vs. BCCA. Path# [id number] 3 12:52 PM SENIOR MEDICAL TECHNOLOGIST DERMATOPATHOLOGY LABORATORY Gross Description Specimen A: Received is one formalin filled container labeled with the patient's name and designated right distal nasal sidewall. The specimen consists of a shave biopsy measuring 5x4x1 mm. Jar 0. 3 12:52 PM SENIOR MEDICAL TECHNOLOGIST DERMATOPATHOLOGY LABORATORY Microscopic Description Specimen A. SKIN, right distal nasal sidewall: There are nests of cytologically bland melanocytes within the dermis that mature with depth. 3 12:52 PM SENIOR MEDICAL TECHNOLOGIST DERMATOPATHOLOGY LABORATORY Disclaimer An external and internal positive and negative controls are appropriate for the histochemical, immunohistochemical and immunofluorescence stain(s) in this case (if any), except where stated explicitly. The performance characteristics of the stain(s) cited in this report were developed and its performance characteristic determined by the Dermatopathology Laboratory at [facility], directed by Dr. Kamran Simental. These tests need not be, and therefore are not, approved by the [place] Food and Drug Administration. The tests are used for clinical purposes. Billing Codes Specimen Charges Stain Charges 26217 1 3 12:52 PM SENIOR MEDICAL TECHNOLOGIST DERMATOPATHOLOGY LABORATORY Embedded Images 3 12:52 PM SENIOR MEDICAL TECHNOLOGIST DERMATOPATHOLOGY LABORATORY Pathology/Cytolog y TISSUE SPECIMEN FROM SKIN / Unknown 03/18/2023 03/19/2023 7:00 AM SENIOR MEDICAL TECHNOLOGIST us Vivek Pat MD LAB - PATHOLOGY/CYTOLOGY ORDER CHRISTOPHER Final Result DERMATOPATHOLOGY LABORATORY [facility] - Department of Dermatology [address] [place] [address], [facility] [phone] documented in this encounter Visit Diagnoses Not on filedocumented in this encounter
--- OUTSIDE RECORDS SUMMARY | 2024-07-26 10:46 | XMS_ITS | Encounter Summary ---
Author Organization [facility] Address [address] [place] [address] Care Team Providers Care Base Filler Operator Name Role Phone Gómez Harden MD Unavailable [phone] Martin Palomino MD Primary Care Provider [phone] Encounter Details Date Type Department Care Team (Late st Contact Info) Description 06/05/2020 MyChart Message Enc [facility] Family & Internal Medicine [phone] [place] [address] Martin Palomino MD [address] [place] [address] RE: Medication Questions Social History Tobacco [...] Sex Assigned at Male 05/06/2024 7:05 AM STONEWORK SUPERVISOR Legal Sex Male 8:12 PM CDT Gender Identity Male 05/06/2024 7:05 AM STONEWORK SUPERVISOR Sexual Orientation Not on file 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 on file Not on file documented as of this encounter Plan of Treatment Upcoming Encounters Date Type Department Care Team (Late st Contact Info) Description 10/28/2024 7:20 AM CDT Laboratory Only [facility] Family & Internal Medicine [facility] [address] [place] [address] [place] [address] [place] [address] 11/04/2024 7:40 AM CDT Office Visit [facility] Family & Internal [facility] [address] [place] [address] Martin Palomino MD [address] [place] [address] documented as of this encounter Visit Diagnoses Not on filedocumented in this encounter Additional Health Concerns Infection Onset Date Last Indicated Resolved Time COVID-19 Rule Out 03/27/2021 03/27/2021 03/29/2021 1:09 AM STONEWORK SUPERVISOR COVID-19 Rule Out 09/19/2021 09/19/2021 09/19/2021 2:02 PM CDT COVID-19 Rule Out 09/19/2021 09/19/2021 09/20/2021 2:41 PM CDT documented as of this encounter Care Teams Base Filler Operator Relationship Specialty Start Date End Date Martin Palomino MD [address] [place] [address] PCP - General INTERNAL MEDICINE 03/14/20 Gómez Harden MD [facility]. [facility] [address] [place] [address] Lemmon Mason[employer] Teacher CARDIOVASCULAR DISEASE 06/16/18 documented as of this encounter
--- OUTSIDE RECORDS SUMMARY | 2024-07-26 10:46 | XMS_ITS | Clinical Summary ---
Author Organization [facility] Address [facility] [place] [address] Care Team Providers Care Art Manager Name Role Phone Gómez Harden MD Unavailable [phone] Martin Palomino MD Primary Care Provider Allergies Active Allergy Reactions Criticality Noted Date Comments Isosorbide Nitrate Headache 09/12/2018 Medications Glucose Blood (BLOOD GLUCOSE TEST STRIPS) StripIndications:Ty pe 2 diabetes mellitus without complication, without long-term current use of insulin ([facility]HS/[facility]) 1 strip by Does not apply route 2 (two) times a day. 200 strip 3 2 Active Lancets MiscIndications:Typ e 2 diabetes mellitus without complication, without long-term current use of insulin ([facility]) 1 Device by Does not apply route [...] complication, without long-term current use of insulin ([facility]) Take 1 tablet (500 mg total) by [...] complication, without long-term current use of insulin ([facility]) Inject 0.75 mg into the skin once [...] complication, without long-term current use of insulin ([facility]) 03/14/2020 Class 1 obesity due to exces [...] Dilated Eye Exam (SCAN) 05/06/2024 7:00 AM WORD PROCESSING SPECIALIST Office Visit [facility] [address] [address] Martin Palomino MD GERD (6 month follow up. ); Diabetes (6 month follow up. Labs done on 04/27/24. A1C was 6.4) 05/06/2024 Travel 04/28/2024 Patient Outreach [facility] [address] [address] Martin Palomino MD Pre-visit Gap Closure 04/27/2024 7:20 AM WORD PROCESSING SPECIALIST Laboratory Only [facility] Family [facility] Internal Medicine [address] [address] Martin Palomino MD 04/27/2024 - 04/27/2024 11:59 PM WORD PROCESSING SPECIALIST Hospital Encounter [facility] [address] Martin Palomino MD Discharge Disposition: Home or [...] Sex Assigned at Male 05/06/2024 7:05 AM WORD PROCESSING SPECIALIST Legal Sex Male 8:12 PM CDT Gender Identity Male 05/06/2024 7:05 AM WORD PROCESSING SPECIALIST Sexual Orientation Not on file 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 on file Not on file Last Filed Vital Signs Vital Sign Reading Time Taken Comments Blood Pressure 124/62 05/06/2024 7:07 AM WORD PROCESSING SPECIALIST Pulse 59 05/06/2024 7:07 AM WORD PROCESSING SPECIALIST Temperature 36.6 C (97.8 F) 05/06/2024 7:07 AM WORD PROCESSING SPECIALIST Respiratory Rate 16 05/06/2024 7:07 AM WORD PROCESSING SPECIALIST Oxygen Saturation 98% 05/06/2024 7:07 AM WORD PROCESSING SPECIALIST Inhaled Oxygen Concentration - - Weight 108 kg (238 lb 1.6 oz) 05/06/2024 7:07 AM WORD PROCESSING SPECIALIST Height 185.4 cm (6' 1 ) 05/06/2024 7:07 AM WORD PROCESSING SPECIALIST Body Mass Index 31.41 05/06/2024 7:07 AM WORD PROCESSING SPECIALIST Plan of Treatment Upcoming Encounters Date Type Department Care Team (Late st Contact Info) Description 10/28/2024 7:20 AM CDT Laboratory Only [facility] Medical [facility] Internal Medicine [place] [place] [address] Martin Palomino MD [address] [place] [address] 11/04/2024 7:40 AM CDT Office Visit [facility] [place] [place] [address] Martin Palomino MD [address] [place] [address] Health Maintenance Due Date Last Done Comments [...] Years Completed 10/10/2022, 03/14/2020, 10/23/2018 PHQ-2 (Physician Rosalia) Completed 05/06/2024 Meningococcal B Vaccine Aged Out [...] VENOUS BLOOD VENIPUNCTURE Routine 04/27/2024 7:29 AM WORD PROCESSING SPECIALIST Screening for prostate cancer Primary hypertension Hyperlipidemia, unspecified hyperlipidemia type Type 2 diabetes mellitus without complication, without long-term current use of insulin ([facility]) URINALYSIS, AUTO, COMPLETE Routine 04/27/2024 7:28 AM WORD PROCESSING SPECIALIST Primary hypertension Hyperlipidemia, unspecified hyperlipidemia type Type 2 diabetes mellitus without complication, without long-term current use of insulin (CMS/HCC HHS/HCC) CBC W/DIFF AUTOMATED Routine 04/27/2024 7:28 AM WORD PROCESSING SPECIALIST Primary hypertension Hyperlipidemia, unspecified hyperlipidemia type Type 2 diabetes mellitus without complication, without long-term current use of insulin (CMS/HCC HHS/HCC) LIPID PANEL Routine 04/27/2024 7:28 AM WORD PROCESSING SPECIALIST Primary hypertension Hyperlipidemia, unspecified hyperlipidemia type Type 2 diabetes mellitus without complication, without long-term current use of insulin (CMS/HCC HHS/HCC) TSH W/REFLEX Routine 04/27/2024 7:28 AM WORD PROCESSING SPECIALIST Primary hypertension Hyperlipidemia, unspecified hyperlipidemia type Type 2 diabetes mellitus without complication, without long-term current use of insulin (CMS/HCC HHS/HCC) URIC ACID BLOOD Routine 04/27/2024 7:28 AM WORD PROCESSING SPECIALIST Primary hypertension Hyperlipidemia, unspecified hyperlipidemia type Type 2 diabetes mellitus without complication, without long-term current use of insulin (CMS/HCC HHS/HCC) COMPREHENSIVE METABOLIC PANEL Routine 04/27/2024 7:28 AM WORD PROCESSING SPECIALIST Primary hypertension Hyperlipidemia, unspecified hyperlipidemia type Type 2 diabetes mellitus without complication, without long-term current use of insulin (CMS/HCC HHS/HCC) HEMOGLOBIN, GLYCOSYLATED Routine 04/27/2024 7:28 AM WORD PROCESSING SPECIALIST Primary hypertension Hyperlipidemia, unspecified hyperlipidemia type Type 2 diabetes mellitus without complication, without long-term current use of insulin (CMS/HCC HHS/HCC) ALBUMIN URINE RANDOM W/CREATININE Routine 04/27/2024 7:28 AM WORD PROCESSING SPECIALIST Primary hypertension Hyperlipidemia, unspecified hyperlipidemia type Type 2 diabetes mellitus without complication, without long-term current use of insulin (CMS/HCC HHS/HCC) CK (CPK) Routine 04/27/2024 7:28 AM WORD PROCESSING SPECIALIST Primary hypertension Hyperlipidemia, unspecified hyperlipidemia type Type 2 diabetes mellitus without complication, without long-term current use of insulin (CMS/HCC HHS/HCC) PROSTATE SPECIFIC ANTIGEN,SCREENING Routine 04/27/2024 7:28 AM WORD PROCESSING SPECIALIST Screening for prostate cancer COLONOSCOPY GENERIC (SCAN ORDER) Routine 12/21/2016 from Last 3 Months or Most Recently Relevant to Health Maintenance Results * DIABETIC RETINOPATHY EXAM (NEGATIVE) (05/28/2024) [facility] Scanned SCANNING Final Resu lt Performing Organization Address [facility] Co de Phone Number HS ONBASE * TSH W/REFLEX (04/27/2024 7:28 AM WORD PROCESSING SPECIALIST) TSH 2.155 0.358 - 3.740 uIU/ML 04/27/2024 3:18 PM WORD PROCESSING SPECIALIST [facility] 04/27/2024 7:28 AM WORD PROCESSING SPECIALIST Martin Palomino MD LABORATORY Final Result Performing Organization Address [facility] de Phone Number [address] [place] [address], * (ABNORMAL) HEMOGLOBIN, GLYCOSYLATED (04/27/2024 7:28 AM WORD PROCESSING SPECIALIST) HGB A1C 6.4(H) 4.5 - 6.2 % 04/27/2024 4:09 PM WORD PROCESSING SPECIALIST [facility] ESTIMATED AVG GLUCOSE 137(H) 74 - 106 MG/DL 04/27/2024 4:09 PM WORD PROCESSING SPECIALIST [facility] 04/27/2024 7:28 AM WORD PROCESSING SPECIALIST us Martin Palomino MD LABORATORY Final Result Performing Organization Address [facility] de Phone Number [facility] [address] [place] [address], * (ABNORMAL) URINALYSIS (04/27/2024 7:28 AM [facility]) COLOR (U) YELLOW 04/27/2024 2:27 PM [facility] TRANSPARENCY CLEAR CLEAR 04/27/2024 2:27 PM [facility] SPECIFIC GRAVITY (U) 1.025 1.003 - 1.040 04/27/2024 2:27 PM [facility] U PH 6.0 5.0 - 9.0 04/27/2024 2:27 PM [facility] PROTEIN RANDOM (U) NEGATIVE NEGATIVE 04/27/2024 2:27 PM [facility] GLUCOSE (U) NEGATIVE NEGATIVE 04/27/2024 2:27 PM [facility] KETONES MG/DL (U) NEGATIVE NEGATIVE 04/27/2024 2:27 PM [facility] BILIRUBIN (U) NEGATIVE NEGATIVE 04/27/2024 2:27 PM [facility] BLOOD (U) NEGATIVE NEGATIVE 04/27/2024 2:27 PM [facility] UROBILINOGEN 1.0 0.0 - 2.0 EU/DL 04/27/2024 2:27 PM [facility] NITRITES NEGATIVE NEGATIVE 04/27/2024 2:27 PM [facility] LEUKOCYTES (U) NEGATIVE NEGATIVE 04/27/2024 2:27 PM [facility] RBC/HPF 0-3 0 - 3 /HPF 04/27/2024 2:27 PM [facility] WBC/HPF 0-3 0 - 3 /HPF 04/27/2024 2:27 PM [facility] EPI/HPF 0-3 /HPF 04/27/2024 2:27 PM [facility] BACTERIA (U) TRACE(A) NONE SEEN 04/27/2024 2:27 PM [facility] URINE SPECIMEN OBTAINED BY CLEAN CATCH PROCEDURE / Unknown 04/27/2024 7:28 AM WORD PROCESSING SPECIALIST us Martin Palomino MD URINE ORDERABLES Final Result Performing Organization Address [facility] Co de Phone Number [facility] [address] [place] [phone], * PROSTATE SPECIFIC ANTIGEN,SCREENING (04/27/2024 7:28 AM WORD PROCESSING SPECIALIST) PSA 0.85 <4.00 NG/ML 04/27/2024 2:34 PM WORD PROCESSING SPECIALIST [facility] Comment: ASSAY PERFORMED BY [employer] METHODOLOGY USING SSN Funding REAGENT. PATIENT RESULTS DETERMINED BY ASSAYS FROM DIFFERENT MANUFACTURERS AND/OR BY DIFFERENT METHODS MAY NOT BE COMPARABLE. 04/27/2024 7:28 AM WORD PROCESSING SPECIALIST us Martin Palomino MD LABORATORY Final Result Performing Organization Address [facility] de Phone Number [address] [place] [address], [place] [phone] * ALBUMIN URINE RANDOM W/CREATININE (04/27/2024 7:28 AM WORD PROCESSING SPECIALIST) MICROALBUMIN (U) 10.6 <20 MG/L 04/27/19 3:17 PM WORD PROCESSING SPECIALIST [facility] CREATININE RANDOM (U) 297.2 MG/DL 04/27/2024 3:17 PM WORD PROCESSING SPECIALIST [facility] ALBUMIN/CREAT RATIO 3.6 <30 MG/G 04/27/2024 3:17 PM WORD PROCESSING SPECIALIST [facility] URINE SPECIMEN / Unknown 04/27/2024 7:28 AM WORD PROCESSING SPECIALIST us Martin Palomino MD URINE ORDERABLES Final Result Performing Organization Address [facility] Co de Phone Number [address] [place] [address], [place] [phone] * (ABNORMAL) COMPREHENSIVE METABOLIC PANEL (04/27/2024 7:28 AM WORD PROCESSING SPECIALIST) [facility] SODIUM S/P/B 142 136 - 145 MMOL/L 04/27/2024 3:18 PM [facility] POTASSIUM S/P/B 3.8 3.5 - 5.1 MMOL/L 04/27/2024 3:18 PM [facility] CHLORIDE S/P/B 103 98 - 107 MMOL/L 04/27/2024 3:18 PM [facility] CO2 29.7 21 - 32 MMOL/L 04/27/2024 3:18 PM [facility] GLUCOSE 135(H) 70 - 99 MG/DL 04/27/2024 3:18 PM [facility] BUN 12 7 - 18 MG/DL 04/27/2024 3:18 PM [facility] CREATININE S/P/B 1.05 0.70 - 1.30 MG/DL 04/27/2024 3:18 PM [facility] CALCIUM S/P/B 9.0 8.4 - 10.5 MG/DL 04/27/2024 3:18 PM [facility] BILIRUBIN TOTAL S/P/B 0.8 0.2 - 1.0 MG/DL 04/27/2024 3:18 PM [facility] ALKALINE PHOSPHATASE S/P/B 38(L) 45 - 115 U/L 04/27/2024 3:18 PM [facility] AST 21 15 - 37 U/L 04/27/2024 3:18 PM [facility] ALT 20 16 - 63 U/L 04/27/2024 3:29 PM [facility] TOTAL PROTEIN S/P/B 6.8 6.4 - 8.2 G/DL 04/27/2024 3:18 PM WORD PROCESSING SPECIALIST [facility] [place] ALBUMIN S/P/B 4.1 3.4 - 5.0 G/DL 04/27/2024 3:18 PM WORD PROCESSING SPECIALIST [facility] [place] ANION GAP 9.3 5 - 15 MMOL/L 04/27/2024 3:18 PM WORD PROCESSING SPECIALIST [facility] [place] Comment:REFERENCE RANGE NOT ESTABLISHED OSMOLALITY (CALC) 296 MOSM/KG 025 3:18 PM WORD PROCESSING SPECIALIST [facility] [place] Comment:REFERENCE RANGE NOT ESTABLISHED GFR ESTIMATE 76(L) >90 ML/MIN/1. 73 M2 04/27/2024 3:18 PM WORD PROCESSING SPECIALIST [facility] [place] GFR NOTES GFR REFERENCE S: 04/27/2024 3:18 PM WORD PROCESSING SPECIALIST [facility] [place] Comment: THE ESTIMATED GFR IS CALCULATED USING [...] FAILURE: <15 ml/min/1.73 m2 04/27/2024 7:28 AM WORD PROCESSING SPECIALIST us Martin Palomino MD LABORATORY Final Result [facility] [place] [address] [place] [address], * LIPID PANEL (04/27/2024 7:28 AM WORD PROCESSING SPECIALIST) Pathologist [facility] CHOLESTEROL 120 <200 MG/DL 04/27/2024 3:18 PM WORD PROCESSING SPECIALIST [facility] [place] TRIGLYCERIDES 91 <150 MG/DL 04/27/2024 3:18 PM WORD PROCESSING SPECIALIST [facility] HDL 48 >40 MG/DL 04/27/2024 3:18 PM WORD PROCESSING SPECIALIST [facility] LDL-C 54 <100 MG/DL 04/27/2024 3:18 PM [facility] VLDL CALCULATION 18 5 - 28 MG/DL 04/27/2024 3:18 PM WORD PROCESSING SPECIALIST [facility] CHOL/HDL RATIO 2.5 0.0 - 4.0 04/27/2024 3:18 PM WORD PROCESSING SPECIALIST [facility] LDL/HDL 1.1 0.41 - 2.13 04/27/2024 3:18 PM [facility] NON HDL CHOLESTEROL 72 <140 MG/DL 04/27/2024 3:18 PM [facility] 04/27/2024 7:28 AM WORD PROCESSING SPECIALIST Martin Palomino MD LABORATORY Final Result [facility] [address] [place] [address], * (ABNORMAL) CBC W/DIFF AUTOMATED (04/27/2024 7:28 AM WORD PROCESSING SPECIALIST) WBC 3.85(L) 4.00 - 10.80 x10'3/uL 04/27/2024 4:28 PM [facility] RBC 4.62 4.50 - 6.10 x10'6/uL 04/27/2024 4:28 PM WORD PROCESSING SPECIALIST [facility] HGB 13.6 13.0 - 18.0 G/DL 04/27/2024 4:28 PM [facility] HCT 40.6 37.0 - 52.0 % 04/27/2024 4:28 PM WORD PROCESSING SPECIALIST [facility] MCV 87.9 78.0 - 100.0 FL 04/27/2024 4:28 PM [facility] MCH 29.4 27.0 - 31.0 PG 04/27/2024 4:28 PM [facility] MCHC 33.5 33.0 - 36.0 G/DL 04/27/2024 4:28 PM [facility] RDW 12.9 11.5 - 14.5 % 04/27/2024 4:28 PM [facility] PLT 264 150 - 350 x10'3/uL 04/27/2024 4:28 PM [facility] MPV 10.7(H) 7.4 - 10.4 FL 04/27/2024 4:28 PM [facility] DIFFERENTIAL TYPE AUTOMATED DIFFERENTIAL 04/27/2024 4:28 PM [facility] NEUTROPHILS % 54.8 % 04/27/2024 4:28 PM [facility] LYMPHOCYTES % 34.5 % 04/27/2024 4:28 PM [facility] MONOCYTES % 8.3 % 04/27/2024 4:28 PM [facility] EOSINOPHILS % 1.6 % 04/27/2024 4:28 PM [facility] BASOPHILS % 0.5 % 04/27/2024 4:28 PM [facility] IMMATURE GRANS % 0.3 % 04/27/2024 4:28 PM [facility] ABS. NEUTROPHILS 2.11 1.60 - 8.30 x10'3/uL 04/27/2024 4:28 PM [facility] ABS. LYMPHOCYTES 1.33 0.80 - 4.70 x10'3/uL 04/27/2024 4:28 PM [facility] ABS. MONOCYTES 0.32 0.00 - 1.50 x10'3/uL 04/27/2024 4:28 PM [facility] ABS. EOSINOPHILS 0.06 0.00 - 0.40 x10'3/uL 04/27/2024 4:28 PM WORD PROCESSING SPECIALIST [facility] ABS. BASOPHILS 0.02 0.00 - 0.20 x10'3/uL 04/27/2024 4:28 PM WORD PROCESSING SPECIALIST [facility] ABS. IMMATURE GRANULOCYTES 0.01 0.00 - 0.03 x10'3/uL 04/27/2024 4:28 PM WORD PROCESSING SPECIALIST [facility] 04/27/2024 7:28 AM WORD PROCESSING SPECIALIST us Martin Palomino MD LABORATORY Final Result [facility] [address] [place] [address], [place] [phone] * CK (CPK) (04/27/2024 7:28 AM WORD PROCESSING SPECIALIST) CPK 192 39 - 308 U/L 04/27/2024 5:46 [address] WORD PROCESSING SPECIALIST [facility] 04/27/2024 7:28 AM WORD PROCESSING SPECIALIST us Martin Palomino MD LABORATORY Final Result Performing Organization Address City/[facility]/ZIP Co de Phone Number [facility] [address] [place] [address], [place] [phone] * URIC ACID BLOOD (04/27/2024 7:28 AM WORD PROCESSING SPECIALIST) URIC ACID 3.8 3.5 - 7.2 MG/DL 04/27/2024 3:04 PM WORD PROCESSING SPECIALIST [facility] 04/27/2024 7:28 AM WORD PROCESSING SPECIALIST us Martin Palomino MD LABORATORY Final Result Performing Organization Address City/[facility]/ZIP Co de Phone Number [facility] [address] [place] [address], * COLONOSCOPY (12/21/2016) us Documents Scanned SCANNING Final Result [facility] from Last 3 Months or Most Recently Relevant to Health Maintenance Insurance MEDICARE [facility] MEDICARE Care Teams Art Manager Relationship Specialty Start Date End Date Martin Palomino MD [address] [place] [address] [phone] PCP - General INTERNAL MEDICINE 03/14/20 Gómez Harden MD [id number] [place] [address] [place] Christmas Tree Grower CARDIOVASCULAR DISEASE 06/16/18
--- OUTSIDE RECORDS SUMMARY | 2024-07-26 10:46 | XMS_ITS | Encounter Summary ---
Author Organization [facility] Address [address] [place] [address] Care Team Providers Care Ekg Technician Name Role Phone Gómez Harden MD Unavailable [phone] Martin Palomino MD Primary Care Provider [phone] Encounter Details Date Type Department Care Team (Late st Contact Info) Description 06/05/2020 MyChart Message Enc [facility] Family & Internal Medicine [id number] [place] [address] Martin Palomino MD [address] [place] [id number] Medication Questions Social History Tobacco Use [...] Sex Assigned at Male 05/06/2024 7:05 AM NEWSCAST PRODUCER Legal Sex Male 8:12 PM CDT Gender Identity Male 05/06/2024 7:05 AM NEWSCAST PRODUCER Sexual Orientation Not on file 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 [address] [place] [address] Martin Palomino MD [address] [place] [address] 11/04/2024 7:40 AM CDT Office Visit [facility] Family & Internal [facility] [address] [place] [address] Martin Palomino MD [address] [place] [address] documented as of this encounter Visit Diagnoses Not on filedocumented in this encounter Additional Health Concerns Infection Onset Date Last Indicated Resolved Time COVID-19 Rule Out 03/27/2021 03/27/2021 03/29/2021 1:09 AM NEWSCAST PRODUCER COVID-19 Rule Out 09/19/2021 09/19/2021 09/19/2021 2:02 PM CDT COVID-19 Rule Out 09/19/2021 09/19/2021 09/20/2021 2:41 PM CDT documented as of this encounter Care Teams Ekg Technician Relationship Specialty Start Date End Date Martin Palomino MD [address] [place] [id number] PCP - General INTERNAL MEDICINE 03/14/20 Gómez Harden MD [facility] [address] [place] [address] [place] Senior Quality Engineer CARDIOVASCULAR DISEASE 06/16/18 documented as of this encounter
--- OUTSIDE RECORDS SUMMARY | 2024-07-26 10:46 | XMS_ITS | Encounter Summary ---
Author Organization [facility] Address [address] [place] [address] Care Team Providers Care Tire Technician Name Role Phone Unavailable Primary Care Provider Unavailabl e Encounter Details Date Type Department Care Team (Late st Contact Info) Description 11/13/2022 Lab Requisition [facility] - DermPath Lab [address] [place] [id number] Vivek Pat MD [address] [place] [address] Social History Tobacco Use Types Packs/Day Years [...] AM CDT) Case Report Dermatopathology Report Case: [id number] Authorizing Provider: Vivek Pat MD Collected: 11/13/2022 03:33 AM Ordering Location: [facility] DermPath Lab Received: 11/14/2022 06:24 AM Pathologist: Dilan Simental MD Specimens: A) - Skin, left lower back B) - Skin, right elbow C) - Skin, left medial calf D) - Skin, left distal nasal 3 2:25 PM [facility] DERMATOPATHOLOGY [facility]ORAT[facility] Final Diagnosis Specimen A. 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 SKIN, right elbow: BASAL CELL CARCINOMA, SUPERFICIAL MULTIFOCAL (C44.612) Specimen C. SKIN, left medial calf: POROKERATOSIS (Q82.8) Specimen D. SKIN, left distal nasal: BASAL CELL CARCINOMA, NODULAR TYPE (C44.311) 3 2:25 PM [facility] Clinical History A: Nevus vs MM Path#[id number] B: BCCA vs SCCA Path#[id number] C: BCCA vs SCCA Path#[id number] D: BCCA vs SCCA Path#[id number] 3 2:25 PM [facility]ATH[facility] Gross Description Specimen A: Received [...] 5x4x1 mm. Jar 0. 3 2:25 PM [facility] Microscopic Description Specimen A. SKIN, [...] characteristic determined by the Dermatopathology Laboratory at [facility], directed by Dr. Kamran Simental. These tests need not be, and therefore are not, approved by the [place] Food and Drug Administration. The tests are used for clinical purposes. Billing Codes Specimen Charges Stain Charges 63113 29911 91152 51762 1 1 1 1 3 2:25 PM [...] PATHOLOGY/CYTOLOGY ORDER CHRISTOPHER Final Result DERMATOPATHOLOGY LABORATORY [facility] - Department of Dermatology [address], [address] [place] [address], [facility] [phone] documented in this encounter Visit Diagnoses Not on filedocumented in this encounter
--- OUTSIDE RECORDS SUMMARY | 2024-07-26 10:46 | XMS_ITS | Encounter Summary ---
Author Organization [facility] Address [address] [place] [address] Care Team Providers Care Picker / Packer Name Role Phone Unavailable Primary Care Provider Unavailabl e Encounter Details Date Type Department Care Team (Late st Contact Info) Description 03/01/2021 Lab Requisition [facility] DermPath Lab [address] [place] [address] Vivek Pat MD [address] [place] [address] Social History Tobacco Use Types Packs/Day Years [...] Comments DERMATOPATHOLOGY Routine 02/27/2021 12:0 0 AM AGILE COACH documented in this encounter Results * DERMATOPATHOLOGY (02/27/2021 12:00 AM AGILE COACH) Case Report Dermatopathology Report Case: [id number] Authorizing Provider: Vivek Pat MD Collected: 02/27/2021 12:00 AM Ordering Location: [facility] DermPath Lab Received: 03/01/2021 07:48 AM Pathologist: Ernestina Polo MD Specimens: A) - Skin, right anti helix B) - Skin, mid ant scalp 1:29 PM [facility] DERMATOPATHOLOGY LABORATORY Final Diagnosis Specimen A. 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 Path#[id number] B: SCCA. Path#[id number] 1:29 PM [facility] DERMATOPATHOLOGY LABORATORY Gross Description Specimen A: [...] measuring 8x6x1 mm. Jar 0. 1:29 PM [facility] DERMATOPATHOLOGY LABORATORY Microscopic Description Specimen A. [...] of keratinocytes with nuclear pleomorphism. 1:29 PM [facility] DERMATOPATHOLOGY LABORATORY Disclaimer An external and internal positive and negative controls are appropriate for the histochemical, immunohistochemical and immunofluorescence stain(s) in this case (if any), except where stated explicitly. The performance characteristics of the stain(s) cited in this report were developed and its performance characteristic determined by the Dermatopathology Laboratory at [facility], directed by Dr. Kamran Simental. These tests need not be, and therefore are not, approved by the [place] Food and Drug Administration. The tests are used for clinical purposes. Billing Codes Specimen Charges Stain Charges 06491 70296 1 1 1 1:29 PM [facility] DERMATOPATHOLOGY LABORATORY Embedded Images 1:29 PM [facility] DERMATOPATHOLOGY LABOR[facility] Pathology/Cytology TISSUE SPECIMEN FROM SKIN / Unknown 02/27/2021 03/01/2021 7:48 AM AGILE COACH Miscellaneous samples (specimen) TISSUE SPECIMEN FROM SKIN / Unknown 02/27/2021 03/01/2021 7:48 AM AGILE COACH us Vivek Pat MD LAB - PATHOLOGY/CYTOLOGY ORDER CHRISTOPHER Final Result DERMATOPATHOLOGY LABORATORY [facility] - Department of Dermatology [facility] [address] [place] [address], [address] [phone] documented in this encounter Visit Diagnoses Not on filedocumented in this encounter
--- OUTSIDE RECORDS SUMMARY | 2024-07-26 10:46 | XMS_ITS | Clinical Summary ---
Author Organization [facility] Address [address] [place] [address] Care Team Providers Care Forensic Artist Name Role Phone Unavailable Primary Care Provider Unavailabl e Source Comments [facility],non-owned Affiliates and Associated Physician Practices is amultiple site organization consisting of ambulatory clinics and hospital sitesin [place], [place], [place] and [place]. This disclosure is being madepursuant to the Care Everywhere program and may not contain all information available regarding this patient. Last updated [facility] Allergies Active Allergy Reactions Criticality Noted Date [...] age to complete this topic Insurance MEDICARE [facility] MEDICARE
--- NOTE | 2024-07-26 11:51 | ED.GENADULT ---
HPI - General Adult General Chief complaint: Skin/Abscess/Foreign Body Stated complaint: Cellulitis in the left leg Time Seen by Provider: 07/26/24 10:37 History of Present Illness HPI narrative: 73-year-old male presents to the emergency department for evaluation for left lower extremity cellulitis that he just noticed few days ago. Patient does have prior history of cellulitis. Patient denies any falls or injuries. Patient reports he had been started on antibiotic in the emergency department that did not improve his symptoms and ultimately need to be added to a different antibiotic Related Data Home Medications ?Medication ?Instructions ?Recorded ?Confirmed ?Last Taken ?Type aspirin 81 mg tablet,delayed 81 mg PO DAILY 01/09/21 01/09/21 Unknown History release fenofibrate nanocrystallized 145 ea PO 01/09/21 01/09/21 Unknown History mg tablet hydrochlorothiazide 12.5 mg capsule 12.5 mg PO DAILY 01/09/21 01/09/21 Unknown History lisinopril 20 mg tablet 20 mg PO DAILY 01/09/21 01/09/21 Unknown History loratadine 10 mg tablet 10 mg PO DAILY 01/09/21 01/09/21 Unknown History metformin 500 mg tablet 500 mg PO TID 01/09/21 01/09/21 Unknown History metoprolol succinate 50 mg ea PO 01/09/21 01/09/21 Unknown History tablet,extended release 24 hr pantoprazole 20 mg tablet,delayed tablet PO 01/09/21 01/09/21 Unknown History release rosuvastatin 20 mg tablet 20 mg PO DAILY 01/09/21 01/09/21 Unknown History tamsulosin 0.4 mg capsule cap PO 01/09/21 01/09/21 Unknown History Allergies Allergy/AdvReac Type Severity Reaction Status Date / Time isosorbide Allergy Other Verified 07/26/24 10:09 Review of Systems Review of Systems: All systems reviewed & are unremarkable except as noted in HPI and below PMFSH Surgical History Surgical History (Updated 01/09/21 @ 07:23 by Carey Tang RN) History of thumb surgery left thumb 1978 History of tonsillectomy 1956 History of appendectomy 1988 Social History Social History (Updated 01/09/21 @ 07:23 by Carey Tang RN) Smoking status: Former smoker Alcohol intake: current Substance use: current Exam Narrative: APPEARANCE: Well appearing, no pain, no distress, well-nourished. HEAD: normocephalic, atraumatic. EYES: PERRLA/EOMI, conjunctivae clear. NOSE: Normal no drainage EARS:TMS clear with good light reflex. THROAT: Pharynx clear, no exudate. NECK: Supple. No adenopathy, no masses. RESPIRATORY: Airway patent, respirations nonlabored. Clear to auscultation bilaterally, no rales, rhonchi, wheezing. CARDIOVASCULAR: Regular rate and rhythm without murmurs rubs or gallops. ABDOMINAL: Soft, nontender, nondistended, normal bowel sounds MUSCULOSKELETAL: Moves all extremities. Strength/ROM intact, No edema, No calf tenderness. NEURO: Alert. Cranial nerves II through XII intact. Good gait. Good coordination SKIN: Left lower extremity cellulitis is noncircumferential Course Vital Signs Vital signs: Vital Signs Temperature 97.6 F 07/26/24 10:04 Pulse Rate 76 07/26/24 10:04 Respiratory Rate 16 07/26/24 10:04 Blood Pressure 153/70 H 07/26/24 10:04 Pulse Oximetry 99 07/26/24 10:04 Oxygen Delivery Room Air 07/26/24 10:04 Temperature 97.6 F 07/26/24 10:04 Pulse Rate 76 07/26/24 10:04 Respiratory Rate 16 07/26/24 10:04 Blood Pressure 153/70 H 07/26/24 10:04 Pulse Oximetry 99 07/26/24 10:04 Oxygen Delivery Room Air 07/26/24 10:04 Medical Decision Making [facility] Narrative Medical decision making narrative: 73-year-old male presents emergency department for evaluation for Cialis the left lower extremity. Patient was started on p.o. clindamycin emergency department discharged home on clindamycin. Patient was comfortable the plan for discharge and close follow-up. Patient was in courage to take a probiotic for the course of his antibiotics and for a week afterwards. Differential Diagnosis Differential Diagnosis: DVT, cellulitis Vital Signs Vital Signs: Vital Signs Temperature 97.6 F 07/26/24 10:04 Pulse Rate 76 07/26/24 10:04 Respiratory Rate 16 07/26/24 10:04 Blood Pressure 153/70 H 07/26/24 10:04 Pulse Oximetry 99 07/26/24 10:04 Oxygen Delivery Room Air 07/26/24 10:04 Temperature 97.6 F 07/26/24 10:04 Pulse Rate 76 07/26/24 10:04 Respiratory Rate 16 07/26/24 10:04 Blood Pressure 153/70 H 07/26/24 10:04 Pulse Oximetry 99 07/26/24 10:04 Oxygen Delivery Room Air 07/26/24 10:04 Discharge Plan Discharge Clinical Impression: Cellulitis Patient Disposition: Home Condition: Stable Instructions: Antibiotic Form, Cellulitis (ED) Additional Instructions: Antibiotic as directed until completed. Have close follow-up with primary care physician. Patient Language: Croatian Prescriptions: New clindamycin HCl [Cleocin HCl] 300 mg capsule 300 mg PO Q6H 7 Days Qty: 28 0RF No Action aspirin 81 mg tablet,delayed release (DR/EC) 81 mg PO DAILY fenofibrate nanocrystallized 145 mg tablet PO rosuvastatin 20 mg tablet 20 mg PO DAILY pantoprazole 20 mg tablet,delayed release (DR/EC) PO loratadine 10 mg tablet 10 mg PO DAILY lisinopril 20 mg tablet 20 mg PO DAILY hydrochlorothiazide 12.5 mg capsule 12.5 mg PO DAILY metoprolol succinate 50 mg tablet extended release 24 hr PO metformin 500 mg tablet 500 mg PO TID tamsulosin 0.4 mg capsule PO Follow-up/Referrals: [facility], [Primary Care Provider] -
[2024-07-26] MEDS: CLINDAMYCIN HCL 150 MG CAP 300 MG PO (11:56)
== END 2024-07-26 12:03 | disposition home or self-care (01) ==
PROVIDERS: Emergency Provider Emergency Medicine
DX: L03.116 Cellulitis of left lower limb (principal); Z87.891 Personal history of nicotine dependence; Z79.82 Long term (current) use of aspirin; Z79.84 Long term (current) use of oral hypoglycemic drugs; Z79.899 Other long term (current) drug therapy
CPT/HCPCS: 99283